=== PATIENT | male | born 1945 | race Two or more races ===

== ENCOUNTER → 2016-08-25 | Outpatient (REF) | payer MEDICARE, BC ==
[~2016-08-25] MED LIST: ALPH200C2 PO; ASCORBIC ACID PO; ASPI81TA85 PO; ATRO0.06; BIMA01SOL OU; CARV12.5 PO; CLOP75TA2 PO; CRANBERRY PO; FERR325T3 PO; FINA5TAB2 PO; GABA-279 PO; GARL10004 PO; GLUCTAB6 PO; HUMA100I5 SC; HYDR-3713 PO; IRONTAB3 PO; LASI40TA PO; LASI80TA PO; LEVE1INJ5 SC; PHOS667C5 PO; TRAM50TA2 PO; VITA100072 PO; VITA2000 PO
== END ==
LOC: M LAB REF 17:09
PROVIDERS: ATTEND Internal Medicine Nephrology
DX: N39.0 Urinary tract infection, site not specified (principal); R31.9 Hematuria, unspecified

== ENCOUNTER 2017-01-20 12:03 | Inpatient (IN) | payer MEDICARE, BC ==
[~2017-01-20] VITALS: Ht 182.9 cm; Wt 132.9 kg
[2017-01-20] MEDS ORDERED: ZOCO10TA PO ×2 (12:24→14:48)
[2017-01-20] MEDS ORDERED: CINA30TA PO ×2 (12:24→14:48)
[2017-01-20] MEDS ORDERED: LANT50TA PO (12:24)
[2017-01-20] MEDS ORDERED: CARV3.12 PO ×2 (12:24→14:48)
[2017-01-20] MEDS ORDERED: LANT500C PO ×2 (12:24→14:48)
[2017-01-20] MEDS ORDERED: GLUC15002 PO (12:24)
[2017-01-20] MEDS ORDERED: PANTOPRAZOLE 40MG INJ (PROTONIX) (C9113) IV ONE (12:30)
[2017-01-20 12:49] LABS: BASO % 0.3 % (0.0-1.0); EOS # 0.2 10^3/uL (0.0-0.50); EOS % 1.7 % (0.0-3.0); IMMATURE GRANULOCYTE % 0.6 % (0-0); LYMPH # 1.2 10^3/uL (1.5-4.5); LYMPH % 11.1 % (24.0-44.0); MEAN CORPUSCULAR HEMOGLOBIN 36.5 pg (27.0-33.0); MEAN CORPUSCULAR HGB CONC 31.5 g/dl (32.0-36.5); MONO # 1.3 10^3/uL (0.0-0.8); NEUTROPHILS # 7.8 10^3/uL (1.8-7.7); NEUTROPHILS % 74.3 % (36.0-66.0); PLATELET COUNT, AUTOMATED 246 10^3/uL (150-450); RED CELL DISTRIBUTION WIDTH 20.1 % (11.5-14.5); WHITE BLOOD COUNT 10.4 10^3/uL (4.0-10.0)
[2017-01-20 12:53] LABS: ADD MORPHOLOGY? YES; INR 1.32; MEAN CORPUSCULAR VOLUME 115.7 fl (80.0-96.0); POSITIVE MORPH POS FLAG
[2017-01-20] MEDS: NS 1,000 ML IV SCH ×2 (12:55→23:47)
[2017-01-20 13:04] LABS: ALBUMIN/GLOBULIN RATIO 0.91 (1.00-1.93); ALKALINE PHOSPHATASE 81 U/L (45-117); ALT/SGPT 161 U/L (12-78); ANION GAP 12 MEQ/L (8-16); AST/SGOT 175 U/L (7-37); BILIRUBIN,DIRECT 0.2 MG/DL (0.0-0.2); BILIRUBIN,TOTAL 0.4 MG/DL (0.2-1.0); BLOOD UREA NITROGEN 63 MG/DL (7-18); CALCIUM LEVEL 8.5 MG/DL (8.8-10.2); CARBON DIOXIDE LEVEL 28 MEQ/L (21-32); CHLORIDE LEVEL 97 MEQ/L (98-107); CREATININE FOR GFR 7.39 MG/DL (0.70-1.30); GLOMERULAR FILTRATION RATE 7.8 (>42); GLUCOSE, FASTING 139 MG/DL (83-110); POTASSIUM SERUM 4.4 MEQ/L (3.5-5.1); SODIUM LEVEL 137 MEQ/L (136-145); TOTAL PROTEIN 6.3 GM/DL (6.4-8.2)
[2017-01-20 13:12] LABS: POIKILOCYTOSIS 1+; POLYCHROMASIA 1+
--- NOTE | 2017-01-20 13:47 | REP ---
Clinical: Abdominal pain. Technique: Supine views of the chest, abdomen, and pelvis with cross-table lateral view of the abdomen. Findings: Supine view of the chest suggests cardiomegaly and diffuse chronic interstitial changes as well as calcified granuloma consistent with prior granulomas disease. Left lower lobe fibroatelectatic changes are nonspecific. Supine and cross-table lateral views of the abdomen and pelvis demonstrate nonspecific bowel gas pattern. No evidence for bowel obstruction or obvious perforation. Skeletal structures demonstrate degenerative changes. No significant abnormal calcifications. Impression: Chronic-appearing changes involving the chest and abdomen. Nonspecific bowel gas pattern without obstruction. Cannot exclude left lower lobe atelectasis versus chronic changes. Signed by Ventura Hurtado MD 01/20/2017 01:38 P
[2017-01-20] MEDS ORDERED: OCUVCAP5 PO (14:48)
[2017-01-20] MEDS ORDERED: NORC1TAB4 PO (14:48)
[2017-01-20] MEDS ORDERED: ALPHTAB PO (14:48)
[2017-01-20] MEDS ORDERED: FINA5TAB2 PO (14:48)
[2017-01-20] MEDS ORDERED: RENV2TAB PO ×2 (14:48)
[2017-01-20] MEDS ORDERED: TRAM50TA2 PO (14:48)
[2017-01-20] MEDS ORDERED: GINK60CA2 PO (14:48)
[2017-01-20] MEDS ORDERED: GLUCPOW24 PO (14:48)
[2017-01-20] MEDS ORDERED: GARL10004 PO (14:48)
[2017-01-20] MEDS ORDERED: D31000CA4 PO (14:48)
[2017-01-20] MEDS ORDERED: RENATAB5 PO (14:48)
[2017-01-20] MEDS ORDERED: ASPI81TA85 PO (14:48)
[2017-01-20] MEDS ORDERED: NEUR100C PO (14:48)
[2017-01-20] MEDS ORDERED: B121000T PO (14:48)
[2017-01-20] MEDS ORDERED: SIMB1SUS OD (14:48)
[2017-01-20] MEDS ORDERED: INSUDET SC (14:48)
[2017-01-20] MEDS ORDERED: CLOP75TA2 PO (14:48)
[2017-01-20] MEDS ORDERED: HUMA100I3 SC (14:48)
[2017-01-20] MEDS ORDERED: BIMA01SOL OU (14:48)
[2017-01-20] MEDS: PANTOPRAZOLE SODIUM 40 MG in D5W 50 ML IV SCH ×2 (15:00→23:45)
[2017-01-20] MEDS ORDERED: ONDANSETRON 4MG/2ML VIAL (J2405) IV PRN (15:00)
[2017-01-20] MEDS ORDERED: GLUCOSE 4 GM CHEW TABLET PO PRN (15:15)
[2017-01-20] MEDS ORDERED: DEXTROSE 50% 50 ML SYRINGE IV PRN (15:15)
[2017-01-20] MEDS ORDERED: GLUCAGON FOR INJ 1 MG VIAL (J1610) SC PRN (15:15)
[2017-01-20 15:54] LABS: RETIC HEMOGLOBIN EQUIVALENT 35.8 pg (24-36); RETICULOCYTE % 9.2 % (0.5-1.5)
[2017-01-20 16:40] LABS: FERRITIN 5244 NG/ML (26-388); PERCENT SATURATION 19.2 % (19.7-50.0); TOTAL IRON BINDING CAPACITY 229 UG/DL (250-450)
[2017-01-20 16:43] VITALS: BP 128/54
[2017-01-20] MEDS: HumaLOG INSULIN (NovoLOG) PER UNIT SC SCH ×2 (17:30→21:00)
--- NOTE | 2017-01-20 17:42 | REP ---
Clinical: Right upper quadrant pain. Technique: Real time huizar scale ultrasound examination using curved array transducer. Findings: Examination is limited by body habitus and associated technical factors The liver demonstrates diffuse fatty infiltration with poor through transmission, but no obvious focal hepatic lesion identified. The pancreas is incompletely evaluated. The gallbladder is normal and without gallstones, wall thickening, or pericholecystic fluid. Common bile duct is not identified, but no intrahepatic biliary ductal dilatation is noted. The right kidney demonstrates cortical thinning and normal reniform shape without hydronephrosis measuring 10.4 x 4.9 x 5.2 cm. No ascites. Impression: Limited examination demonstrates hepatosteatosis. Signed by Ventura Hurtado MD 01/20/2017 05:34 P
[2017-01-20] MEDS ORDERED: (RENVELA) SEVELAMER **CARBONate** 800 MG TAB PO SCH (18:00)
--- NOTE | 2017-01-20 18:14 | ECGEPIP ---
Stationary ECG Study [facility] - ED Test Date: 2017-01-20 Pat Name: KARSTEN OROSCO Department: Room: [place] [address] Gender: M [employer]: janell : 1945 Requested By: NOHEMY MARCUM Order Number: [id number] Reading MD: Giselle Harris Measurements Intervals [place] Rate: 79 P: NM: 0 QRS: 51 QRSD: 117 T: 139 QT: 403 QTc: 463 Interpretive Statements SINUS RHYTHM ANTERIOR MYOCARDIAL INFARCTION, PROBABLY OLD NSTTW ABNORMALITY Electronically Signed On 01-20-2017 18:14:27 EST by Giselle Harris
[2017-01-20] MEDS: CINACALCET 30 MG TAB (SENSIPAR) PO SCH (18:43)
--- NOTE | 2017-01-20 19:53 | HPE ---
DATE OF ADMISSION: 01/20/2017 PRIMARY CARE PROVIDER: Dr. Casper. SEMICONDU[employer] P[employer] PLATEMAKER: Dr. Moore. CHIEF COMPLAINT: Rectal bleeding. HISTORY OF PRESENT ILLNESS: This is a 71-year-old male patient with underlying medical history of end-stage renal disease on hemodialysis Monday, Monday, Monday, also a history of type 2 diabetes, hypertension, stroke with left lower extremity weakness as well as right eye vision loss, baseline ambulating with a walker, morbid obesity, patient on aspirin and Plavix, presented with since Monday rectal bleeding on average one time per day. Last bowel movement was earlier today. Initially he thought it was hemorrhoid, but the problem persisted. Subsequently the patient presented to the emergency department (ED). In the emergency room, the patient looks very pale and also reported lightheadedness especially with ambulation. Found to have a hemoglobin of 5.8. Denies any abdominal pain, chest pain, pressure or discomfort, shortness of breath. Denies any fevers or chills. 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 The patient denies any history of coronary arterial disease, congestive heart failure. ALLERGIES: No known drug allergies. PAST MEDICAL HISTORY: 1. End-stage renal disease on dialysis. 2. Type 2 diabetes, insulin dependent. 3. Hypertension. 4. Cerebrovascular accident (CVA). 5. Morbid obesity. PAST SURGICAL HISTORY: 1. Right hip replacement. 2. Bilateral cataracts. 3. Left arm fistula. 4. Appendectomy. 5. Spine surgery. FAMILY HISTORY: Father with history of seizure, congestive heart failure (CHF) at 74, and mother with diabetes. SOCIAL HISTORY: The patient denies history of smoking, admits to alcohol use, and no illicit drug use. Lives at home, taken care of by . REVIEW OF SYSTEMS: Reported bright red blood per rectum and appears to be pale. Reported lightheadedness with ambulation. All other review of systems is negative. HOME MEDICATIONS: - [place] 5/325 by mouth every six hours as needed - aspirin 81 mg by mouth daily - Lumigan eye drops at bedtime - Coreg 3.125 mg twice a day on Monday, , Monday, Monday, and 3.125 mg by mouth daily on dialysis days Monday, Monday, Monday - vitamin D 1000 units by mouth at bedtime - Sensipar 30 mg by mouth every evening - Plavix 75 mg every evening - vitamin B12 1000 mcg by mouth at bedtime - finasteride 5 mg by mouth every evening - gabapentin 100 mg by mouth twice a day as needed - garlic by mouth at bedtime - ginkgo extract 60 mg by mouth at bedtime - glucosamine two tablets by mouth at bedtime - Levemir 70 units subcutaneous twice a day - Humalog before meals via sliding scale - lanthanum 500 mg by mouth three times a day - multivitamin one capsule at bedtime - Fabienne-Julieth one tablet by mouth at bedtime - Renvela 4000 mg by mouth with meals - Renvela 1600 mg by mouth with snacks - Zocor 10 mg by mouth at bedtime - tramadol 50 mg by mouth every four hours as needed PHYSICAL EXAMINATION: VITAL SIGNS: Temperature 96.7, pulse 104, respirations 20, blood pressure 128/58, pulse oximetry 98% on room air. Right pupil is nonreactive to light. GENERAL: The patient alert, obese, in no acute distress. HEENT: Pale. Normocephalic, atraumatic. PULMONARY: Bilaterally clear to auscultation. CARDIAC: Regular, S1, S2. ABDOMEN: Soft, nontender. Positive bowel sounds. EXTREMITIES: No clubbing, cyanosis or edema. Left lower extremity slightly weaker than the right. NEUROLOGIC: No focal deficit. RECTAL EXAM: Done in the ED shows trace blood, occult positive. ELECTROCARDIOGRAM: Shows sinus rhythm. No ST segment changes. LABORATORY DATA: WBC 10.4, hemoglobin and hematocrit 5.8 over 18.4, platelets 246. Chemistry: Sodium 137, potassium 4.4, chloride 97, bicarbonate 28, BUN 63, creatinine 7.39. Bilirubin negative. AST 175, ALT 163. ASSESSMENT AND PLAN: This is a 71-year-old male patient with underlying medical history of end-stage renal disease, type 2 diabetes, hypertension, cerebrovascular accident (CVA) with left-sided weakness and right-eye blindness, baseline ambulating with a walker, morbid obesity with non-alcoholic steatohepatitis (DIMAS), who presented with bright red blood per rectum. 1. Bright red blood per rectum with symptomatic anemia with acute blood loss anemia: Serial hemoglobin and hematocrit. Orthostatic vital signs. Will give the patient two units packed red blood cells (PRBCs). Transfuse as needed. Avoid overhydrating given the patient's end-stage renal disease. Protonix drip. Holding aspirin and Plavix given the patient has remote history of stroke and with active bleeding. Dr. Nowak of gastroenterology has been consulted. If patient worsens, will consider platelet transfusion, but in the meantime, we will monitor and if patient worsens, will consider giving DDAVP. 2. End-stage renal disease: Dr. Moore, nephrology, has been consulted. Continue home medication. Dialysis as per nephrology. 3. Type 2 diabetes: The patient's basal insulin dose has been reduced. Continue fingerstick every six hours, fingerstick before meals and at bedtime. Clear liquid diet for now. Followup fingersticks. Adjust as needed. 4. Hypertension: Continue beta lavinia with holding parameters. Monitor blood pressure. 5. Cerebrovascular accident (CVA): Holding aspirin and Plavix. Continue statin. Given the patient is having active bleed, monitor blood pressure. Physical therapy. 6. Transaminitis likely secondary to non-alcoholic steatohepatitis (DIMAS): Ultrasound of abdomen appreciated. Hepatitis panel has been ordered. Continue to monitor. 7. Morbid obesity complicating care. 8. Deep venous thrombosis (DVT) prophylaxis: Sequential compression device. DISPOSITION: Pending clinical improvement. Monitor hemoglobin and hematocrit. Gastroenterology consultation. Possible esophagogastroduodenoscopy (EGD)/colonoscopy.
[2017-01-20 20:00] VITALS: BP 120/55
[2017-01-20 23:43] VITALS: BP 118/56
[2017-01-20] MEDS: LANTHANUM CARBONATE 500 MG CHEW TABLET PO SCH (23:46)
[2017-01-20] MEDS: FINASTERIDE 5 MG TAB PO SCH (23:46)
[2017-01-20] MEDS: SENOKOT S TAB PO SCH (23:46)
[2017-01-20] MEDS: OCUVITE 1 TAB PO SCH (23:46)
[2017-01-20] MEDS: LEVEMIR (INSULIN DETEMIR) 1 UNITS/0.01ML SC SCH (23:46)
[2017-01-20] MEDS: SIMVASTATIN 10 MG TAB PO SCH (23:47)
[2017-01-20] MEDS: VITAMIN D 1,000 INTERNATIONAL UNITS TABLET PO SCH (23:47)
[2017-01-20] MEDS: CARVedilol 3.125 MG TAB PO SCH (23:47)
[2017-01-21] MEDS: PANTOPRAZOLE SODIUM 40 MG in D5W 50 ML IV SCH ×4 (03:04→16:53)
[2017-01-21 04:00] VITALS: BP 117/54
[2017-01-21 04:32] LABS: MEAN CORPUSCULAR HEMOGLOBIN 34.8 pg (27.0-33.0); MEAN CORPUSCULAR HGB CONC 32.4 g/dl (32.0-36.5); MEAN CORPUSCULAR VOLUME 107.5 fl (80.0-96.0); PLATELET COUNT, AUTOMATED 218 10^3/uL (150-450); RED CELL DISTRIBUTION WIDTH 22.6 % (11.5-14.5); WHITE BLOOD COUNT 9.8 10^3/uL (4.0-10.0)
[2017-01-21 04:39] LABS: INR 1.31
[2017-01-21 04:54] LABS: ALBUMIN 2.6 GM/DL (3.2-5.2); ALBUMIN/GLOBULIN RATIO 0.9 (1.00-1.93); BILIRUBIN,TOTAL 0.5 MG/DL (0.2-1.0); CALCIUM LEVEL 7.8 MG/DL (8.8-10.2); CREATININE FOR GFR 8.08 MG/DL (0.70-1.30); PHOSPHORUS LEVEL 5.9 MG/DL (2.5-4.9); POTASSIUM SERUM 4.4 MEQ/L (3.5-5.1); TOTAL PROTEIN 5.5 GM/DL (6.4-8.2)
[2017-01-21] MEDS: LANTHANUM CARBONATE 500 MG CHEW TABLET PO SCH ×3 (06:14→20:06)
[2017-01-21] MEDS: GABAPENTIN 100 MG CAP PO PRN (06:14)
[2017-01-21] MEDS: SENOKOT S TAB PO SCH ×2 (06:15→20:08)
[2017-01-21] MEDS: PREPARATION H OINTMENT (HEMORRHOID) PR PRN ×2 (06:15→20:21)
[2017-01-21] MEDS: HumaLOG INSULIN (NovoLOG) PER UNIT SC SCH ×4 (06:53→20:32)
[2017-01-21] MEDS: CARVedilol 3.125 MG TAB PO SCH ×2 (07:51→20:32)
[2017-01-21 08:00] VITALS: BP 109/51
--- NOTE | 2017-01-21 09:32 | IPNPDOC ---
Subjective Date Seen The patient was seen on 01/21/17. Subjective Chief Complaint/HPI The patient is a 71-year-old male admitted with a reason for visit of Gi Bleed. Events since last encounter patient complains of feeling extremely weak and tired so could not go for his dialysis yesterday. He was hardly able to get out of bed so came to the hospital . He received 2 units of prbc overnight feels a little better. denies any sob , denies any chest pain or sob , denies any abdominal pain , nausea or vomiting or diarrhea. Does complain of bright red blood from rectum which he has noticed for a few days. denied any fever or chills Objective Physical Examination General Exam: Positive: Alert, Cooperative, No Acute Distress Eye Exam: Positive: PERRLA, Conjunctiva & lids normal, EOMI, Negative: Sclera icteric ENT Exam: Positive: Atraumatic, Mucous membr. moist/pink, Pharynx Normal Chest Exam: Positive: Rales, Diminished Heart Exam: Positive: Rate Normal, Regular Rhythm, Normal S1, Normal S2, Negative: Murmurs, Rubs Telemetry: Positive: No significant arrhythmia Abdomen Exam: Positive: Normal bowel sounds, Soft, Negative: Tenderness Extremity Exam: Positive: Edema Skin Exam: Positive: Nl turgor and temperature, Negative: Rash, Breakdown Assessment /Plan Problems (1) GI bleed Status: Acute Problem Text: looks like lowere gib . GI has been consulted ASA and Plavix on hold, on pantoprazole infusion. (2) Anemia Status: Acute Problem Text: multifactorial Acute blood loss anemia from GIB and anemia of chronic disease due to ESRD. received 2 units of PRBC will receive 2 more. during HD. (3) ESRD (end stage renal disease) Status: Chronic Problem Text: HD today (4) DIMAS (nonalcoholic steatohepatitis) Status: Chronic Problem Text: possibly for obesity has elevated LFTs, US shows fatty live (5) Transaminitis Status: Chronic Problem Text: possibly due to DIMAS have ordered hepatitis panel , Abdominal US showed fatty liver. Pateint was also on INH this year for treatment of pulmonary TB though has finished few months ago. His ferritin level > 5000 No history of large amounts of blood transfusion. Could be acute phase reactant. Ferritin levels in HD unit never this much elevated. Have ordered hemochromatosis panel (6) Diabetes Status: Chronic Problem Text: with neuropathy (7) Hypertension Status: Chronic (8) History of CVA (cerebrovascular accident) Status: Chronic Problem Text: with residual left lower extremity weakness and right eye vision loss. 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 (12) Hyperphosphatemia Status: Chronic (13) BPH (benign prostatic hyperplasia) Status: Chronic (14) Tuberculosis Status: Resolved Problem Text: history of pulmonary tuberculosis diagnosed in holl[place] treated for 9 months. finished treatment about 6 months ago . Plan/VTE VTE Prophylaxis Ordered?: Yes VS, I&O, 24H, Fishbone Vital Signs/I&O Vital Signs Date Time Temp Pulse Resp B/P (MAP) Pulse Ox O2 Delivery O2 Flow Rate FiO2 01/21/17 08:00 97.0 70 18 109/51 (70) 96 Room Air I&O- Last 24 Hours up to 6 AM 01/22/17 06:00 Intake Total 480 ml Balance 480 ml Laboratory Data 24H LABS Laboratory Tests 2 01/20/17 12:34: Immature Granulocyte % (Auto) 0.6H, White Blood Count 10.4H, Red Blood Count 1.59L, Hemoglobin 5.8*L, Hematocrit 18.4L, Mean Corpuscular Volume 115.7H, Mean Corpuscular Hemoglobin 36.5H, Mean Corpuscular Hemoglobin Concent 31.5L, Red Cell Distribution Width 20.1H, Platelet Count 246, Neutrophils (%) (Auto) 74.3H , Lymphocytes (%) (Auto) 11.1L, Monocytes (%) (Auto) 12.0H, Eosinophils (%) ( Auto) 1.7, Basophils (%) (Auto) 0.3, Neutrophils # (Auto) 7.8H, Lymphocytes # ( Auto) 1.2L, Monocytes # (Auto) 1.3H, Eosinophils # (Auto) 0.2, Basophils # (Auto ) 0.0, Immature Granulocyte # (Auto) 0.1H, Reticulocyte # (auto) 149.5H, Nucleated Red Blood Cells % (auto) 3.2H, Platelet Estimate NORMAL, Polychromasia 1+, Poikilocytosis 1+, Macrocytosis 3+, Percent Reticulocyte Count 9.2H, Reticulocyte Hemoglobin Equivalent 35.8, Prothrombin Time 16.7H, Prothromb Time International Ratio 1.32, Anion Gap 12, Glomerular Filtration Rate 7.8L, Calcium Level 8.5L, Iron Level 44L, Total Iron Binding Capacity 229L , Transferrin % Saturation 19.2L, Ferritin 5244H, Aspartate Amino Transf (AST/ SGOT) 175H, Alanine Aminotransferase (ALT/SGPT) 161H, Alkaline Phosphatase 81, Total Bilirubin 0.4, Direct Bilirubin 0.2, Total Protein 6.3L, Albumin 3.0L, Albumin/Globulin Ratio 0.91L, Lipase 139 01/20/17 16:53: Bedside Glucose (Misc Panel) 93 01/20/17 21:23: Bedside Glucose (Misc Panel) 130H 01/21/17 03:58: Nucleated Red Blood Cells % (auto) 2.7H, Prothrombin Time 16.6H, Prothromb Time International Ratio 1.31, Anion Gap 13, Glomerular Filtration Rate 7.0L, Calcium Level 7.8L, Aspartate Amino Transf (AST/SGOT) 147H, Alanine Aminotransferase (ALT/SGPT) 172H, Alkaline Phosphatase 65, Total Bilirubin 0.5, Total Protein 5.5L, Albumin 2.6L, Albumin/Globulin Ratio 0.90L, Blood Urea Nitrogen 69H, Creatinine 8.08H, Sodium Level 137, Potassium Level 4.4, Chloride Level 100, Carbon Dioxide Level 24, Phosphorus Level 5.9H, Magnesium Level 2.0 CBC/BMP Laboratory Tests 01/20/17 12:34 Red Blood Count 1.59 L, Mean Corpuscular Volume 115.7 H, Mean Corpuscular Hemoglobin 36.5 H, Mean Corpuscular Hemoglobin Concent 31.5 L, Red Cell Distribution Width 20.1 H, Neutrophils (%) (Auto) 74.3 H, Lymphocytes (%) (Auto ) 11.1 L, Monocytes (%) (Auto) 12.0 H, Eosinophils (%) (Auto) 1.7, Basophils (% ) (Auto) 0.3, Neutrophils # (Auto) 7.8 H, Lymphocytes # (Auto) 1.2 L, Monocytes # (Auto) 1.3 H, Eosinophils # (Auto) 0.2, Basophils # (Auto) 0.0 01/20/17 22:57 01/21/17 03:58 Red Blood Count 2.01 L, Mean Corpuscular Volume 107.5 H, Mean Corpuscular Hemoglobin 34.8 H, Mean Corpuscular Hemoglobin Concent 32.4, Red Cell Distribution Width 22.6 H, Calcium Level 7.8 L, Phosphorus Level 5.9 H, Aspartate Amino Transf (AST/SGOT) 147 H, Alanine Aminotransferase (ALT/SGPT) 172 H, Alkaline Phosphatase 65, Total Bilirubin 0.5, Total Protein 5.5 L, Albumin 2.6 L Microbiology Microbiology 01/20/17 Stool Occult Blood (CHAN) - Final, Complete RAY,MAHESH KINGSLEY Jan 21, 2017 09:32
[2017-01-21 13:07] VITALS: BP 115/57
[2017-01-21] MEDS: LEVEMIR (INSULIN DETEMIR) 1 UNITS/0.01ML SC SCH ×2 (13:13→20:38)
[2017-01-21 16:00] VITALS: BP 111/55
--- NOTE | 2017-01-21 16:14 | CR ---
DATE OF CONSULTATION: 01/20/2017 CONSULTATION REPORT FOR: Nay Rehman MD REASON FOR CONSULTATION: Is to assist in the management of end-stage renal disease and acute blood loss anemia. 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 He has multiple other chronic medical problems as numerated below. The patient was brought to the emergency room today as he was noticed to have large amount of blood in the toilet. He was found to have a hemoglobin of 5.8 here and is being admitted for further investigations and management. The patient is regularly dialyzed on Monday, Monday and Monday schedule and he missed his dialysis today. A nephrology consultation was requested for need for dialysis. PAST MEDICAL AND SURGICAL HISTORY: Significant for: 1. Longstanding diabetes, insulin dependent. 2. Hypertension. 3. Prior history of stroke. 4. Morbid obesity. 5. End-stage renal disease requiring maintenance hemodialysis. 6. History of pulmonary tuberculosis treated in recent past. 7. History of severe peripheral neuropathy and inability to ambulate. Past surgical history is significant for right hip replacement, bilateral cataract surgery, left arm AV fistula, appendectomy and spine surgery. FAMILY HISTORY: Negative for end-stage renal disease. Father with history of seizures and congestive heart failure at 74 and mother with diabetes. PERSONAL AND SOCIAL HISTORY: The patient is and lives with his . He does not smoke or drink. There is no history of drug use. REVIEW OF SYSTEMS: The patient is very pale looking and weak. He denies any falls. There is no history of fever or chills. He has diabetic retinopathy but denies any headache or any recent visual changes. Nose and throat are unremarkable. Cardiovascular system is negative for chest pain or dyspnea. Respiratory system negative for hemoptysis or cough. GI system is significant for rectal bleeding with fresh blood. He denies any melena stools. There is no history of vomiting or abdominal pain. system is negative for dysuria or hematuria. His pulmonary system is negative for hemoptysis or pleuritic type of chest pain. He has been treated for tuberculosis within the last 1 year or so. Musculoskeletal system is significant for inability to ambulate. He is mostly in the motorized chair. Neurological system is significant for prior stroke and severe neuropathy. Hematological system significant for anemia of chronic kidney disease. Now he has anemia of acute blood loss. Psychosocial system negative for depression or anxiety. Skin is negative for rash or ulcers. MEDICATIONS: Home medications include: - Dazey one tablet every 6 hours as needed - aspirin 81 mg daily - Coreg 3.125 mg twice a day - vitamin D 1000 units daily - Sensipar 30 mg daily - Plavix 75 mg daily - B12 1000 mcg daily - gabapentin 100 mg three times a day - Levemir insulin 70 units twice a day - Humalog insulin per sliding scale - Fosrenol 500 mg twice a day - multivitamin one tablet daily - Fabienne-Julieth one tablet daily - Renvela 1600 mg three times a day with meals - Zocor 10 mg daily - tramadol 50 mg as needed for pain PHYSICAL EXAMINATION: The patient is awake and alert at the time of my visit. He looks quite pale but not in any acute distress. The patient is examined in the emergency room and stretcher. Temperature 96.7 degrees Fahrenheit, heart rate 104 per minute and respiratory rate 20 per minute. Blood pressure 128/54 mmHg and oxygen saturation 98% on room air. Head is atraumatic. Pupils equal and reactive to light and sclerae is anicteric. Nose and throat are unremarkable. Neck is supple and JVD is not elevated. There are no abnormal cervical lymph nodes. Heart exam reveals tachycardia but no pericardial friction rub. Lungs have slightly diminished breath sounds at bases but no wheezing or rales. Abdomen is soft and nontender and bowel sounds are present. There is no palpable organomegaly. Extremities have no cyanosis or clubbing. AV fistula in his left arm is patent. Skin has no rash or ulcers. Neurologically he is awake, alert and oriented times three. LABORATORY DATA: WBC count 10.4, hemoglobin 5.8 and hematocrit 18.4. Sodium 137 and potassium 4.4. BUN 63 and creatinine 7.39. Calcium level 8.5, iron 44, saturation 19.2 and ferritin 5244. Albumin is 3.0 and total protein 6.3. PROBLEMS: 1. End-stage renal disease. The patient missed his dialysis today and we will plan to dialyze him again tomorrow. At this point there is no emergent indication for dialysis as his volume status is well-compensated and electrolytes are within normal range. 2. Acute blood loss anemia. The patient has acute rectal bleed with significant blood loss. I would recommend to transfuse him 2 units of packed RBCs today and then we will consider further transfusion during dialysis tomorrow. Any anticoagulation should be held at this point as the patient has acute bleeding. 3. Hypertension. The patient does have history of hypertension. However, due to acute blood loss, his blood pressure is low. I would recommend to hold any antihypertensive medications and use only as needed. 4. Secondary hyperparathyroidism. The patient is likely to be nothing by mouth. I would suggest to hold off on his Renvela and continue with Fosrenol only at 500 mg three times a day with meals. This should be held when the patient is nothing by mouth. We will continue with Sensipar 30 mg daily and also consider to start calcitriol after checking his medication list in outpatient dialysis clinic. I thank you for involving me in the care of Mr. Chang. I will follow him along with you.
--- NOTE | 2017-01-21 17:34 | CR.PDOC ---
[facility] Consultation Consultation Retrospective note: Patient was seen and examined on Jan 20, 2017 at 16:30 Primary physician/ hospitalist: Dr. Rehman, Dr. Berkley Calvin. Reason for consult: GI bleeding. 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 Labs showed severe anemia with drop in Hemoglobin to 5. GI was consulted for GI bleeding. Patient reports having one bowel movement per day for the last 5 days with associated blood in the stool. Patient denies any other GI symptoms. Patient reports symptoms of fatigue and decreased exercise tolerance. Pertinent negative GI symptoms: Patient denies nausea, vomiting, diarrhea, abdominal pain, loss of appetite, early satiety or unintentional weight loss. No history of hematemesis, melena. Patient reports regular bowel movements. Review of Systems: GI: as stated above CVS: No chest pain, No palpitations, No leg swelling. RS: No Shortness of breath, No Wheezing, no cough RACE BOARD ATTENDANT: No dizziness, No motor weakness, No sensory problems Hematology: No bruising, No gum bleeding, Musculoskeletal: No joint pain, ambulating well. Skin: No rash : No hematuria, No burning sensation of the urine ENT: No ear discharge/ pain, No dysphagia. Eyes: No photophobia. Home medications: reviewed. Antithrombotic agents -on Plavix. Medical h/o: As above. Surgical h/o: None on abdomen. Social h/o: Alcohol social, smoking denies, IVDA/ drugs denies. Family h/o of GI cancers - None Prior Endoscopies: --- EGD none in the past --- Colonoscopy none Prior GI evaluation: None in [facility] Exam: Vitals: reviewed General: Alert and oriented x 3, not in distress HEENT: NO pallor, no icterus. Normal oropharynx, NO cervical lymph nodes. Chest: symmetric with bilateral clear air entry, CVS: S1, S2 heard, normal, no murmurs . Abdomen: non-distended, no surgical scars, soft, non-tender, no palpable masses , normal bowel sounds heard. Rectal exam: slightly altered blood in stools but no blood clots.. Extremities: no pedal edema, pulses palpable. RACE BOARD ATTENDANT: no focal motor or sensory deficits. Moves all extremities Skin: no rash. Labs: reviewed. Imaging: reviewed Ultrasound abdomen showed steatohepatosis, no ascites. Impression: -- Acute drop in hemoglobin and hematocrit with bright red bleeding per rectum likely lower GI bleeding from possible AVM versus diverticular bleeding versus colon polyps/rule out colon mass. Less likely upper GI bleeding but need to rule out PUD and gastric/small bowel AVMs -- Abnormal transaminitis - likely from NAFLD. Prior work up negative for vitral Hepatitis B and C. Needs further evaluation to r/o autoimmune and other metabolic hepatitis. Recommendations: - Patient educated about the test results, possible differential diagnoses and All questions answered. - Clear liquid diet. - Patient and his family educated about the need for EGD and colonoscopy for further evaluation. - The procedures, indications, risks (bleeding, perforation, infection, hypotension, respiratory depression, allergy, need for endotracheal intubation, surgery, colostomy, cardiac arrest, even ), benefits, limitations (e.g., missing a lesion), and all other alternatives (including no intervention) were explained to the patient and his (HCP) who understood and agreed for the procedures. Patients who is the healthcare proxy consented for the procedure and signed the consent form. - Procedures will be planned on post dialysis day to minimize electrolyte related complications. - GoLYTELY 4 L and Dulcolax 20 mg on Monday. - Nothing by mouth for 4 hours before procedure on Monday. - For abnormal LFts - will obtain JESUS, AMA, ASMA, LKMA, HBsAb, HAV igM. - weight loss of atleast 10 % of the current weight over next 6 months. - Avoid hepatotoxic medications. - Further evalaution of abnormal LFTs in outpatient clinic. Plan of care discussed with patient and primary team. Patient verbalized understanding and agreed with the plan. Allergies Coded Allergies: No Known Allergies (Unverified , 01/20/17) Home Medications Scheduled (Fabienne-Julieth) 1 Tab Tab, 1 TAB PO QHS, (Reported) (Simbrinza 1-0.2 %) 1 Paz Paz, 1 DROP OD ASDIRECTED, (Reported) use bid on non dialysis days mon//sat/sun. uses qpm on dialysis days (Garlic) 1,000 Mg Cap, 1,000 MG PO QHS, (Reported) (Glucosamine & Chr... 5320-9101-216 mg-mg-Unit) 1 Pow Pow, 2 TAB PO QHS, ( Reported) Aspirin (Aspir-81) 81 Mg Tab, 81 MG PO DAILY, (Reported) Bimatoprost (Lumigan) 50 Drop/2.5 Ml Yamilet, 1 DROP OU QHS, (Reported) Carvedilol (Carvedilol) 3.125 Mg Tab, 3.125 MG PO ASDIRECTED, (Reported) takes bid on monday, , monday and monday Carvedilol (Carvedilol) 3.125 Mg Tab, 3.125 MG PO ASDIRECTED, (Reported) take once daily in the evening on dialysis days, monday, monday and monday Cholecalciferol (D3) 1,000 Unit Cap, 1,000 UNIT PO QHS, (Reported) Cinacalcet Hydrochloride (Sensipar) 30 Mg Tab, 30 MG PO QPM, (Reported) Clopidogrel Bisulfate (Clopidogrel) 75 Mg Tab, 75 MG PO QPM, (Reported) Cyanocobalamin (B12) 1,000 Mcg Tab, 1,000 MCG PO QHS, (Reported) Finasteride (Finasteride) 5 Mg Tab, 5 MG PO QPM, (Reported) Ginkgo Biloba Extract (Ginkgo Biloba Memory Enha) 60 Mg Cap, 60 MG PO QHS, ( Reported) Insulin Detemir (Levemir) 1 Units/0.01 Ml Susp, 70 UNITS SC BID, (Reported) Insulin Human Lispro (Humalog) 100 Unit/Ml Inj, 1 DOSE SC AC, (Reported) per sliding scale Lanthanum Carbonate (Lanthanum Carbonate) 500 Mg Chw, 500 MG PO TID, (Reported) Lipoic Acid (Thioctic Acid) (Alpha Lipoic Acid) 200 Mg Tab, 200 MG PO QHS, ( Reported) Multivitamins (Ocuvite Eye Health Formul) 1 Cap Cap, 1 CAP PO QHS, (Reported) Sevelamer Carbonate (Renvela) 800 Mg Tab, 4,000 MG PO WM, (Reported) Sevelamer Carbonate (Renvela) 800 Mg Tab, 1,600 MG PO ASDIRECTED, (Reported) with snacks Simvastatin (Zocor) 10 Mg Tab, 10 MG PO QHS, (Reported) Scheduled PRN Acetaminophen/Hydrocodone (Crapo 5-325 mg) 1 Tab Tab, 1 TAB PO Q6HP PRN for PAIN , (Reported) Gabapentin (Neurontin) 100 Mg Cap, 100 MG PO BID PRN for foot pain, (Reported) Tramadol HCl (Tramadol HCl) 50 Mg Tab, 50 MG PO Q4HP PRN for PAIN, (Reported) CHRISTIAN GUZMAN MD Jan 21, 2017 17:34
[2017-01-21] MEDS ORDERED: GOLYTELY SOLN 4000 ML BTL PO ONE (18:00)
[2017-01-21] MEDS: CINACALCET 30 MG TAB (SENSIPAR) PO SCH (18:15)
[2017-01-21] MEDS ORDERED: BISACODYL 5 MG TAB PO ONE (20:00)
[2017-01-21] MEDS: OCUVITE 1 TAB PO SCH (20:08)
[2017-01-21] MEDS: VITAMIN D 1,000 INTERNATIONAL UNITS TABLET PO SCH (20:08)
[2017-01-21] MEDS: FINASTERIDE 5 MG TAB PO SCH (20:08)
[2017-01-21] MEDS: SIMVASTATIN 10 MG TAB PO SCH (20:08)
[2017-01-21] MEDS: ACETAMINOPHEN TAB 650MG DOSE (2X325MG) PO PRN (20:11)
[2017-01-21 20:16] VITALS: BP 110/50
--- NOTE | 2017-01-21 21:05 | IPN ---
DATE: 01/21/2017 SUBJECTIVE: Mr. Chang is seen this morning on his bedside during hemodialysis. He has known history of end-stage renal disease secondary to diabetic nephropathy and has been on maintenance hemodialysis for about three years. He was admitted last evening with rectal bleeding and severe symptomatic anemia. He has already received two units of packed red blood cells (RBCs) last evening. The patient feels better this morning and denies any dyspnea or chest pain. He has no nausea or vomiting and has been only on liquid diet. He has no fever or chills. He denies any further rectal bleeding since admission. PHYSICAL EXAMINATION: Temperature 97 degrees Fahrenheit, heart rate 70 per minute and respiratory rate 18 per minute. Blood pressure 110/50 mmHg and oxygen saturation 96% on room air. Head is atraumatic. Pupils are equal and reactive to light and sclerae are anicteric. Ears, nose and throat are unremarkable. Neck is supple and without jugular venous distention (JVD) or thyroid enlargement. Heart sounds are regular and lungs sound clear to auscultation. Abdomen is soft, nontender and without a palpable organomegaly. Bowel sounds are normal. Extremities have no cyanosis or clubbing. His left arm arteriovenous (AV) fistula is patent and is being used for dialysis. Skin has no rash or ulcers and neurologically he is awake, alert and oriented times three. LABORATORY DATA: Today's labs show WBC count 9.8, hemoglobin 7.0 and hematocrit 21.6. Sodium 137 and potassium 4.4. BUN is 69 and creatinine 8.08. His iron level is 44, saturation 19%, and ferritin 5244. PROBLEMS: 1. Acute blood loss anemia. The patient has slight improvement in his hemoglobin since admission with transfusion of two units of packed red blood cells (RBCs). The patient will be transfused two more units during hemodialysis this morning. Further investigations for his gastrointestinal (GI) bleed are pending at this point. 2. End-stage renal disease. The patient is being dialyzed this morning without heparin. He is tolerating his dialysis treatment well. 3. Hypertension. Blood pressure is very well controlled at present and current antihypertensive medications are appropriate. We will continue to monitor and adjust the dose of his antihypertensives as needed. 4. Rectal bleeding. The patient denies any further bleeding since admission. He has been seen by gastroenterology. At this point the patient seems to be scheduled for upper and lower endoscopy on Monday. 5. Elevated ferritin and abnormal liver function tests (LFTs). Further investigations have already been ordered by gastroenterology (GI). The patient does not have known history for hemochromatosis and his ferritin has not been significantly elevated in the past. We will wait for serology results.
[2017-01-22] VITALS (11 sets, daily range): BP systolic 112–171; BP diastolic 55–84
[2017-01-22 04:38] LABS: MEAN CORPUSCULAR HEMOGLOBIN 33.7 pg (27.0-33.0); MEAN CORPUSCULAR HGB CONC 32.5 g/dl (32.0-36.5); MEAN CORPUSCULAR VOLUME 103.8 fl (80.0-96.0); PLATELET COUNT, AUTOMATED 192 10^3/uL (150-450); WHITE BLOOD COUNT 8.5 10^3/uL (4.0-10.0)
[2017-01-22 04:49] LABS: INR 1.33
[2017-01-22 04:58] LABS: ALBUMIN 2.5 GM/DL (3.2-5.2); ALBUMIN/GLOBULIN RATIO 0.78 (1.00-1.93); BILIRUBIN,TOTAL 0.7 MG/DL (0.2-1.0); CALCIUM LEVEL 8.3 MG/DL (8.8-10.2); CREATININE FOR GFR 5.4 MG/DL (0.70-1.30); GLOMERULAR FILTRATION RATE 11.2 (>42); MAGNESIUM LEVEL 1.9 MG/DL (1.8-2.4); POTASSIUM SERUM 3.5 MEQ/L (3.5-5.1); TOTAL PROTEIN 5.7 GM/DL (6.4-8.2)
[2017-01-22] MEDS: PANTOPRAZOLE SODIUM 40 MG in D5W 50 ML IV SCH ×7 (05:19→22:00)
[2017-01-22] MEDS: ACETAMINOPHEN TAB 650MG DOSE (2X325MG) PO PRN (06:30)
[2017-01-22] MEDS ORDERED: PREVNAR 13 VACCINE SYRINGE (CPT CODE:90670) IM ONE (09:00)
[2017-01-22] MEDS: CARVedilol 3.125 MG TAB PO SCH ×2 (09:02→20:26)
[2017-01-22] MEDS: HumaLOG INSULIN (NovoLOG) PER UNIT SC SCH ×4 (09:02→20:27)
[2017-01-22] MEDS: SENOKOT S TAB PO SCH ×2 (09:02→20:25)
[2017-01-22] MEDS: LANTHANUM CARBONATE 500 MG CHEW TABLET PO SCH ×3 (09:02→20:25)
[2017-01-22] MEDS: LEVEMIR (INSULIN DETEMIR) 1 UNITS/0.01ML SC SCH ×2 (09:03→20:25)
[2017-01-22] MEDS: NORCO, ANEXSIA 5/325MG TABLET (HYDROcodone/ACETAMINOPHEN) PO PRN ×2 (10:30→16:00)
--- NOTE | 2017-01-22 12:55 | IPNPDOC ---
Subjective Date Seen The patient was seen on 01/22/17. Subjective Chief Complaint/HPI The patient is a 71-year-old male admitted with a reason for visit of Gi Bleed. Events since last encounter Pateint says that this morning very early he had lost vision in both his eyes which lasted for about 1 hour and now has resolved. His right eye is bad from before after the stroke in 2013 however he normally sees well with the left eye and he could not see anything with that eye. did not have any other weakness. no fever or chills, no chest pain or sob , no nausea or vomiting or abdominal pain. Patient had the bowel prep last evening. going for EGD and Colonoscopy today. Objective Physical Examination General Exam: Positive: Alert, Cooperative, No Acute Distress Eye Exam: Positive: PERRLA, Conjunctiva & lids normal, EOMI, Negative: Sclera icteric ENT Exam: Positive: Atraumatic, Mucous membr. moist/pink, Pharynx Normal Chest Exam: Positive: Rales, Diminished Heart Exam: Positive: Rate Normal, Regular Rhythm, Normal S1, Normal S2, Negative: Murmurs, Rubs Telemetry: Positive: No significant arrhythmia Abdomen Exam: Positive: Normal bowel sounds, Soft, Negative: Tenderness Extremity Exam: Positive: Edema Skin Exam: Positive: Nl turgor and temperature, Negative: Rash, Breakdown Assessment /Plan Problems (1) History of CVA (cerebrovascular accident) Status: Chronic Problem Text: CVA in 2012 .with residual left lower extremity weakness and right eye vision loss. Had symptoms suggestive of TIA this morning which has resolved will get an MRI. Patients ASA and plavix are on hold due to GIB. will restart ASA as soon as possible. (2) GI bleed Status: Acute Problem Text: looks like lower gib . GI has been consulted ASA and Plavix on hold, on pantoprazole infusion. going for EGD and colonoscopy today (3) Anemia Status: Acute Problem Text: multifactorial Acute blood loss anemia from GIB and anemia of chronic disease due to ESRD. received 2 units of PRBC will receive 2 more. during HD. (4) ESRD (end stage renal disease) Status: Chronic Problem Text: HD today (5) Transaminitis Status: Chronic Problem Text: Could be due to DIMAS have ordered hepatitis panel , Abdominal US showed fatty liver. Patient was also on INH this year for treatment of pulmonary TB though has finished few months ago. His ferritin level > 5000 No history of large amounts of blood transfusion. Could be acute phase reactant. Ferritin levels in HD unit never this much elevated. Have ordered hemochromatosis panel, also ordered work up for autoimmune hepatitis. 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 (12) Hyperphosphatemia Status: Chronic (13) BPH (benign prostatic hyperplasia) Status: Chronic (14) Tuberculosis Status: Resolved Problem Text: history of pulmonary tuberculosis diagnosed in [place] treated for 9 months. finished treatment about 6 months ago . (15) Peripheral neuropathy Status: Chronic Problem Text: pateint unable to ambulate due to severe peripheral neuropathy and also residual weakness from prior stroke. Plan/VTE VTE Prophylaxis Ordered?: Yes VS, I&O, [facility] Vital Signs/I&O Vital Signs Date Time Temp Pulse Resp B/P (MAP) Pulse Ox O2 Delivery O2 Flow Rate FiO2 01/22/17 12:00 97.3 66 18 131/60 (83) 98 Room Air I&O- Last 24 Hours up to 6 AM 01/23/17 06:00 Intake Total 360 ml Balance 360 ml Laboratory Data 24H LABS Laboratory Tests 2 01/21/17 16:23: Bedside Glucose (Misc Panel) 180H 01/21/17 20:28: Bedside Glucose (Misc Panel) 232H 01/22/17 04:05: Nucleated Red Blood Cells % (auto) 1.9H, Prothrombin Time 16.8H, Prothromb Time International Ratio 1.33, Anion Gap 10, Glomerular Filtration Rate 11.2L, Blood Urea Nitrogen 38H, Creatinine 5.40H, Sodium Level 139, Potassium Level 3.5#, Chloride Level 101, Carbon Dioxide Level 28, Calcium Level 8.3L, Aspartate Amino Transf (AST/SGOT) 157H, Alanine Aminotransferase (ALT/SGPT) 220H, Alkaline Phosphatase 70, Total Bilirubin 0.7, Total Protein 5.7L, Albumin 2.5L, Magnesium Level 1.9, Albumin/Globulin Ratio 0.78L 01/22/17 10:00: 01/22/17 11:47: Bedside Glucose (Misc Panel) 124H CBC/BMP Laboratory Tests 01/21/17 17:04 01/21/17 21:57 01/22/17 04:05 Red Blood Count 2.61 L, Mean Corpuscular Volume 103.8 H, Mean Corpuscular Hemoglobin 33.7 H, Mean Corpuscular Hemoglobin Concent 32.5, Red Cell Distribution Width 24.0 H, Calcium Level 8.3 L, Aspartate Amino Transf (AST/SGOT ) 157 H, Alanine Aminotransferase (ALT/SGPT) 220 H, Alkaline Phosphatase 70, Total Bilirubin 0.7, Total Protein 5.7 L, Albumin 2.5 L 01/22/17 10:00 Microbiology Microbiology 01/20/17 Stool Occult Blood (CHAN) - Final, Complete MAHESH CEDENO MD Jan 22, 2017 12:55
--- NOTE | 2017-01-22 15:45 | IPN ---
DATE: 01/22/2017 Mr. Chang is seen this morning on his bedside. He is laying in the bed and his is present in the room. He reports that he did have completion of his bowel preparation and he is going to go for upper and lower endoscopy at 1:00 p.m. today. The patient denies any further rectal bleeding. He has no dyspnea, chest pain, nausea or vomiting. He underwent hemodialysis yesterday which he tolerated well. PHYSICAL EXAMINATION: On physical examination, temperature 97.3 degrees Fahrenheit, heart rate 66 per minute and respiratory rate 18 per minute. Blood pressure 131/60 mmHg and oxygen saturation 98% on room air. Head is atraumatic. Pupils are equal and reactive to light and sclera is anicteric. Neck is supple and without jugular venous distention (JVD) or thyroid enlargement. Heart sounds are regular and lungs clear to auscultation. Abdomen is soft and nontender. Bowel sounds are normal. Extremities have no cyanosis or clubbing. His left arm arteriovenous (AV) graft is patent without any signs of infection. He does have some mild edema on his left hand and forearm. Skin has no rash or ulcers. Neurologically, he is awake, alert and oriented times three. LABORATORY DATA: Today's laboratories show WBC count 8.5, hemoglobin 8.8 and hematocrit 27.1. Sodium is 139 and potassium 3.5. BUN 38 and creatinine 5.40. AST 157, ALT 220 and alkaline phosphatase is 70. Total protein 0.7. PROBLEMS: 1. End-stage renal disease. The patient underwent hemodialysis yesterday which he tolerated well. His next dialysis will be scheduled for either tomorrow or Monday depending upon his condition and our schedule. At this point, his volume status is well-compensated and electrolytes are within normal range. There is no need for an urgent dialysis today. 2. Rectal bleeding. The patient is scheduled for upper and lower endoscopy early this afternoon. We will wait for results. 3. Acute blood loss anemia. His anemia has improved only partially. We gave him four units of packed red blood cells (RBCs) so far. At present, there is no further blood loss and we will continue to monitor closely. 4. Hypertension. His blood pressure is well-controlled and current antihypertensives are appropriate. 5. Abnormal transaminases and elevated ferritin. Further workup has been ordered by gastroenterology (GI).
--- NOTE | 2017-01-22 16:28 | IPNPDOC ---
Date Seen The patient was seen on 01/22/17. Progress Note Interval history: Patient had Hemodialysis on Monday and received two more units of PRBC. Hemoglobin went up appropriately but slowly trending down and as per floor nurse patient had few more bowel movement with possible blood in stools. Patient completely golytely by 8 AM. Patient denies any abdominal pain today. Exam: Vitals: stable. Afebrile. Chest: bilateral clear air entry. CVS: Normal S1 and S2. Abdomen: soft, obese, non distended, normal bowel sounds. Non- tender. Labs: Noted. Impression: -- Bleeding per rectum -- Need to r/o AV, Diverticular bleeding vs colon polyps Recommendations: -- Can continue ASA as the benefits outweigh risks. -- HOld plavix for now and depending on the EGD and Colonoscopy results will plan for resumption. -- Patient is scheduled for EGD and Colonoscopy today. -- Patient and his family ( Patient's is power of patent prosecution attorney) already educated about the procedure indications, risks, benefits and alternatives and Consent obtained. -- Follow up procedure notes for further recommendations. Plan of care discussed with patient and primary team. CHRISTIAN GUZMAN MD Jan 22, 2017 16:28
[2017-01-22] MEDS ORDERED: EPINEPHrine 1MG/10ML SYRINGE 1.5IN As Ordered ONE (17:13)
[2017-01-22] MEDS ORDERED: PROPOFOL 200 MG/20 ML VIAL As Ordered ONE (17:17)
[2017-01-22] MEDS ORDERED: ePHEDrine SULFATE 25 MG/5 ML(5MG/ML) SYRINGE As Ordered ONE (17:17)
[2017-01-22] MEDS ORDERED: LIDOCAINE 2% INJ 100 MG/5 ML SYRINGE As Ordered ONE (17:17)
[2017-01-22] MEDS ORDERED: PHENYLephrine HCL 500 MCG/5 ML (100MCG/ML) SYRINGE (J2370) As Ordered ONE (17:17)
--- NOTE | 2017-01-22 18:11 | ROOR ---
Patient Name: Jeremie Chang Procedure Date: 01/22/2017 5:07 PM Date of : 1945 Age: 71 Room: Main OR Gender: Male Note Status: Finalized Procedure: Upper GI endoscopy Indications: Recent gastrointestinal bleeding, Gastrointestinal bleeding of unknown origin Providers: Dominick Nowak MD Referring MD: Berkley Calvin MD Requesting Provider: Medicines: Monitored Anesthesia Care Complications: No immediate complications. Procedure: Pre-Anesthesia Assessment: - Prior to the procedure, a History and Physical was performed, and patient medications and allergies were reviewed. The patient is competent. The risks and benefits of the procedure and the sedation options and risks were discussed with the patient. All questions were answered and informed consent was obtained. Patient identification and proposed procedure were verified by the physician, the nurse and the anesthesiologist in the procedure room. Mental Status Examination: alert and oriented. Airway Examination: normal oropharyngeal airway and neck mobility. Respiratory Examination: clear to auscultation. CV Examination: normal. Prophylactic Antibiotics: The patient does not require prophylactic antibiotics. Prior Anticoagulants: The patient has taken no previous anticoagulant or antiplatelet agents. After reviewing the risks and benefits, the patient was deemed in satisfactory condition to undergo the procedure. The anesthesia plan was to use monitored anesthesia care (MAC). Immediately prior to administration of medications, the patient was re-assessed for adequacy to receive sedatives. The heart rate, respiratory rate, oxygen saturations, blood pressure, adequacy of pulmonary ventilation, and response to care were monitored throughout the procedure. The physical status of the patient was re-assessed after the procedure. The Endoscope was introduced through the mouth, and advanced to the second part of duodenum. The upper GI endoscopy was accomplished without difficulty. The patient tolerated the procedure well. Findings: The examined esophagus was normal. Four non-bleeding cratered gastric ulcers with two of them having a nonbleeding visible vessel ([place] Class IIa) were found in the gastric body and in the gastric antrum. The largest lesion was 10 mm in largest dimension. Area was successfully injected with 6 mL of a 1:10,000 solution of epinephrine for drug delivery. For hemostasis, three hemostatic clips were successfully placed. There was no bleeding at the end of the procedure. Diffuse severe inflammation characterized by friability and granularity was found in the gastric body and in the gastric antrum. Biopsies were taken with a cold forceps for Helicobacter pylori testing. The duodenal bulb and second portion of the duodenum were normal. Impression: - Normal esophagus. - Non-bleeding gastric ulcers with a nonbleeding visible vessel ([place] Class IIa). Injected. Clips were placed. - Gastritis. Biopsied. - Normal duodenal bulb and second portion of the duodenum. Recommendation: - Patient has a contact number available for emergencies. The signs and symptoms of potential delayed complications were discussed with the patient. Return to normal activities tomorrow. Written discharge instructions were provided to the patient. - Clear liquid diet for 1 day, then advance as tolerated to resume previous renal diet. - Continue present medications. - Resume aspirin today at prior dose. Refer to primary physician for further adjustment of therapy. - Resume Plavix (clopidogrel) in 3 days at prior dose. Refer to primary physician for further adjustment of therapy. - Give Protonix (pantoprazole): 8 mg/hr IV by continuous infusion for 1 day. - Use Protonix (pantoprazole) 40 mg PO twice daily - to be taken in morning (1/2 hour before breakfast) and at bedtime ( atleast 3 hours after last meal) for 3 months. - Use broad spectrum antibiotics for 1 week. - Repeat upper endoscopy in 3 months to check healing. - Return to GI office in 3 months. - Return to primary care physician. Dominick Nowak MD Dominick Nowak MD 01/22/2017 6:11:11 PM This report has been signed electronically. Number of Addenda: 0 Note Initiated On: 01/22/2017 5:07 PM Estimated Blood Loss: Estimated blood loss was minimal.
[2017-01-22] MEDS: CINACALCET 30 MG TAB (SENSIPAR) PO SCH (18:58)
--- NOTE | 2017-01-22 19:58 | ROOR ---
Patient Name: Jeremie Chang Procedure Date: 01/22/2017 4:36 PM Date of : 1945 Age: 71 Room: Main OR Gender: Male Note Status: Finalized Procedure: Colonoscopy Indications: Evaluation of unexplained GI bleeding Providers: Dominick Nowak MD Referring MD: Berkley Calvin MD Requesting Provider: Medicines: Monitored Anesthesia Care Complications: No immediate complications. Procedure: Pre-Anesthesia Assessment: - Prior to the procedure, a History and Physical was performed, and patient medications and allergies were reviewed. The patient is competent. The risks and benefits of the procedure and the sedation options and risks were discussed with the patient. All questions were answered and informed consent was obtained. Patient identification and proposed procedure were verified by the physician, the nurse and the anesthesiologist in the procedure room. Mental Status Examination: alert and oriented. Airway Examination: normal oropharyngeal airway and neck mobility. CV Examination: normal. Prophylactic Antibiotics: The patient does not require prophylactic antibiotics. Prior Anticoagulants: The patient has taken Plavix (clopidogrel), last dose was 3 days prior to procedure. ASA Grade Assessment: III - A patient with severe systemic disease. After reviewing the risks and benefits, the patient was deemed in satisfactory condition to undergo the procedure. The anesthesia plan was to use monitored anesthesia care (MAC). Immediately prior to administration of medications, the patient was re-assessed for adequacy to receive sedatives. The heart rate, respiratory rate, oxygen saturations, blood pressure, adequacy of pulmonary ventilation, and response to care were monitored throughout the procedure. The physical status of the patient was re-assessed after the procedure. The Colonoscope was introduced through the anus and advanced to the terminal ileum, with identification of the appendiceal orifice and IC valve. The colonoscopy was performed without difficulty. The patient tolerated the procedure well. The quality of the bowel preparation was adequate to identify polyps 6 mm and larger in size and fair. The terminal ileum, ileocecal valve, appendiceal orifice, and rectum were photographed. Scope insertion time was 4 minutes. Scope withdrawal time was 6 minutes. The total duration of the procedure was 12 minutes. Findings: The perianal and digital rectal examinations were normal. Pertinent negatives include normal sphincter tone. Multiple fifteen mm ulcers were found in the descending colon, in the transverse colon, in the ascending colon and in the cecum. No bleeding was present. Biopsies were taken with a cold forceps for histology. Verification of patient identification for the specimen was done by the physician and nurse using the patient's name, date and medical record number. Estimated blood loss was minimal. Multiple small and large-mouthed diverticula were found in the sigmoid colon and descending colon. There was no evidence of diverticular bleeding. A large amount of stool was found from rectum to transverse colon, making visualization difficult. Lavage of the area was performed using a large amount of sterile water, resulting in clearance with fair visualization. The exam was otherwise normal throughout the examined colon. Impression: - Preparation of the colon was fair. - Multiple ulcers in the descending colon, in the transverse colon, in the ascending colon and in the cecum. Biopsied. - Moderate diverticulosis in the sigmoid colon and in the descending colon. There was no evidence of diverticular bleeding. - Stool from rectum to transverse colon. Recommendation: - Patient has a contact number available for emergencies. The signs and symptoms of potential delayed complications were discussed with the patient. Return to normal activities tomorrow. Written discharge instructions were provided to the patient. - Clear liquid diet for 1 day, then advance as tolerated to resume previous diet. - Await pathology results. - Continue present medications.. - Resume aspirin today at prior dose. Refer to primary physician for further adjustment of therapy. - Resume Plavix (clopidogrel) in 3 days at prior dose. Refer to primary physician for further adjustment of therapy. - Give Protonix (pantoprazole): 8 mg/hr IV by continuous infusion for 1 day. - Use Protonix (pantoprazole) 40 mg PO twice daily - to be taken in morning (1/2 hour before breakfast) and at bedtime ( atleast 3 hours after last meal) for 3 months. - Use broad spectrum antibiotics ( ciprofloxacin 250 mg orally daily and Metronidazole 500 mg for 1 week. - Repeat colonoscopy in 1 year for screening purposes and because the bowel preparation was suboptimal. - Obtain CT abdomen with IV contrast ( Celiac Angiogram protocol ) to assess for the vascular stenosis. Attending Participation: I personally performed the entire procedure. Dominick Nowak MD Dominick Nowak MD 01/22/2017 7:57:41 PM This report has been signed electronically. Number of Addenda: 0 Note Initiated On: 01/22/2017 4:36 PM Estimated Blood Loss: Estimated blood loss was minimal.
--- NOTE | 2017-01-22 20:06 | IPNPDOC ---
Date Seen The patient was seen on 01/22/17. at 19:45 PM Progress Note Post procedure note: Patient underwent EGD and Colonoscopy - tolerated procedures well. Detailed reports in [facility] - please see the procedure/operative notes. EGD - noted with multiple gastric ulcers with atleast two gastric ulcer with kirby IIa. Injected Epinephrine and placed clips. Biopsy for H. pylori is obtained. Colonoscopy - noted superficial ulceration - likely ischemic colitis. Recommendations: - Patient and his family educated about the test results in detail . - Clear liquid diet for 1 day, then advance as tolerated to resume renal diet. - Await pathology results. - Continue present medications.. - Resume aspirin today at prior dose. . - Resume Plavix (clopidogrel) after 3 days at prior dose. Refer to primary physician for further adjustment of therapy. - Give Protonix (pantoprazole): 8 mg/hr IV by continuous infusion for 1 day. and then switch to Protonix (pantoprazole) 40 mg PO twice daily - to be taken in morning (1/2 hour before breakfast) and at bedtime ( atleast 3 hours after last meal) for 3 months. - Use broad spectrum antibiotics ( ciprofloxacin 250 mg orally daily and Metronidazole 500 mg for 1 week. - Repeat colonoscopy in 1 year for screening purposes and because the bowel preparation was suboptimal. - repeat EGDIn 3 months for checking healing of the gastric ulcers. - Obtain CT abdomen with IV contrast ( Celiac Angiogram protocol ) to assess for the vascular stenosis. - To be done just before dialysis as patient had ESRD and on Hemodialysis. - Based on above please obtain vascular surgery consult. Plan of care discussed with patient and primary team updated. CHRISTIAN GUZMAN MD Jan 22, 2017 20:06
[2017-01-22] MEDS: metroNIDAZOLE 500 MG in APPROPRIATE DILUENT 1 EA IV SCH (20:25)
[2017-01-22] MEDS: OCUVITE 1 TAB PO SCH (20:25)
[2017-01-22] MEDS: SIMVASTATIN 10 MG TAB PO SCH (20:26)
[2017-01-22] MEDS: VITAMIN D 1,000 INTERNATIONAL UNITS TABLET PO SCH (20:26)
[2017-01-22] MEDS: FINASTERIDE 5 MG TAB PO SCH (20:26)
[2017-01-22] MEDS: CIPROFLOXACIN 500 MG TAB PO SCH (20:26)
[2017-01-23] MEDS: PANTOPRAZOLE SODIUM 40 MG in D5W 50 ML IV SCH ×2 (01:31→06:54)
[2017-01-23 04:00] VITALS: BP 129/65
[2017-01-23 05:31] LABS: MEAN CORPUSCULAR HEMOGLOBIN 33.3 pg (27.0-33.0); MEAN CORPUSCULAR HGB CONC 32.6 g/dl (32.0-36.5); MEAN CORPUSCULAR VOLUME 102.2 fl (80.0-96.0); PLATELET COUNT, AUTOMATED 197 10^3/uL (150-450); RED CELL DISTRIBUTION WIDTH 22.8 % (11.5-14.5); WHITE BLOOD COUNT 7.8 10^3/uL (4.0-10.0)
[2017-01-23] MEDS: traMADol 50 MG TAB PO PRN (05:40)
[2017-01-23 05:54] LABS: ALBUMIN 2.5 GM/DL (3.2-5.2); ALBUMIN/GLOBULIN RATIO 0.83 (1.00-1.93); BILIRUBIN,TOTAL 0.6 MG/DL (0.2-1.0); CALCIUM LEVEL 8.5 MG/DL (8.8-10.2); CREATININE FOR GFR 6.66 MG/DL (0.70-1.30); GLOMERULAR FILTRATION RATE 8.8 (>42); MAGNESIUM LEVEL 1.9 MG/DL (1.8-2.4); POTASSIUM SERUM 3.6 MEQ/L (3.5-5.1); TOTAL PROTEIN 5.5 GM/DL (6.4-8.2)
[2017-01-23] MEDS: metroNIDAZOLE 500 MG in APPROPRIATE DILUENT 1 EA IV SCH ×2 (06:53→20:54)
[2017-01-23] MEDS: HumaLOG INSULIN (NovoLOG) PER UNIT SC SCH ×4 (07:30→20:38)
[2017-01-23 08:00] VITALS: BP 106/56
[2017-01-23] MEDS: LANTHANUM CARBONATE 500 MG CHEW TABLET PO SCH ×3 (09:00→20:54)
[2017-01-23] MEDS ORDERED: ISOVUE-370 76% 100ML VIAL (Q9967) As Ordered ONE (11:51)
[2017-01-23 12:00] VITALS: BP 102/56
--- NOTE | 2017-01-23 12:41 | IPNPDOC ---
Subjective Date Seen The patient was seen on 01/23/17. Subjective Chief Complaint/HPI The patient is a 71-year-old male admitted with a reason for visit of Gi Bleed. Events since last encounter Had egd and colonoscopy yesterday . Procedure was uneventful, due for HD today. No fever or chills, no abdominal pain , no nausea or vomiting or diarrhea, no further bleeding noted. Patient ordered for Ct angio of abdominal arteries. Objective Physical Examination General Exam: Positive: Alert, Cooperative, No Acute Distress Eye Exam: Positive: PERRLA, Conjunctiva & lids normal, EOMI, Negative: Sclera icteric ENT Exam: Positive: Atraumatic, Mucous membr. moist/pink, Pharynx Normal Chest Exam: Positive: Rales, Diminished Heart Exam: Positive: Rate Normal, Regular Rhythm, Normal S1, Normal S2, Negative: Murmurs, Rubs Telemetry: Positive: No significant arrhythmia Abdomen Exam: Positive: Normal bowel sounds, Soft, Negative: Tenderness Extremity Exam: Positive: Edema Skin Exam: Positive: Nl turgor and temperature, Negative: Rash, Breakdown Assessment /Plan Problems (1) GI bleed Status: Resolved Problem Text: EGD showed multiple gastric ulcers and colonoscopy showed multiple colonic ulcers and diverticulosis. Bowel prep was not good so will need repeat in 1 year. colonic ulcers suggestive of possible ischemic colitis. will get CT angio of the abdominal arteries. to continue cipro and flagyl once a day for 7 days. will restart ASA. Plavix to be started in 3 days. continue pantoprazole gtt for 1 more day then change to PO . should get pantoprazole 40 bid for at least 3 months. Pathology results and h pylori results pending. hh stable (2) Transaminitis Status: Acute Response to Treatment: Improving Problem Text: May have transient hypotension with resulting ischemic hepatitis causing acute elevation of transaminases above baseline in view of his possibility of ischemic colitis from the colonoscopy. Could also be due to DIMAS or autoimmune hepatitis. have ordered hepatitis panel , Abdominal US showed fatty liver. Patient was also on INH this year for treatment of pulmonary TB though has finished few months ago. His ferritin level > 5000 No history of large amounts of blood transfusion. Could be acute phase reactant. Ferritin levels in HD unit never this much elevated. Have ordered hemochromatosis panel, also ordered work up for autoimmune hepatitis. (3) Anemia Status: Acute Problem Text: multifactorial Acute blood loss anemia from GIB and anemia of chronic disease due to ESRD. received 2 units of PRBC will receive 2 more. during HD. (4) History of CVA (cerebrovascular accident) Status: Chronic Problem Text: CVA in 2013 .with residual left lower extremity weakness and right eye vision loss and right upper extremity weakness. Had symptoms suggestive of TIA this morning which has resolved. will restart ASA as soon as possible. 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 (12) Hyperphosphatemia Status: Chronic (13) BPH (benign prostatic hyperplasia) Status: Chronic (14) Tuberculosis Status: Resolved Problem Text: history of pulmonary tuberculosis diagnosed in [place] treated for 9 months. finished treatment about 6 months ago . (15) Peripheral neuropathy Status: Chronic Problem Text: pateint unable to ambulate due to severe peripheral neuropathy and also residual weakness from prior stroke. Plan/VTE VTE Prophylaxis Ordered?: Yes VS, I&O, 24H, Fishbone Vital Signs/I&O Vital Signs Date Time Temp Pulse Resp B/P (MAP) Pulse Ox O2 Delivery O2 Flow Rate FiO2 01/23/17 12:00 97.8 65 18 102/56 (71) 93 Room Air I&O- Last 24 Hours up to 6 AM 01/24/17 06:00 Intake Total 0 ml Output Total 0 ml Balance 0 ml Laboratory Data 24H LABS Laboratory Tests 2 01/22/17 18:13: Bedside Glucose (Misc Panel) 121H 01/22/17 20:09: Bedside Glucose (Misc Panel) 129H 01/23/17 05:05: Nucleated Red Blood Cells % (auto) 0.5H, Anion Gap 14, Glomerular Filtration Rate 8.8L, Blood Urea Nitrogen 43H, Creatinine 6.66H, Sodium Level 139, Potassium Level 3.6, Chloride Level 98, Carbon Dioxide Level 27, Calcium Level 8.5L, Aspartate Amino Transf (AST/SGOT) 94H, Alanine Aminotransferase (ALT/SGPT ) 187H, Alkaline Phosphatase 60, Total Bilirubin 0.6, Total Protein 5.5L, Albumin 2.5L, Magnesium Level 1.9, Albumin/Globulin Ratio 0.83L 01/23/17 11:40: Bedside Glucose (Misc Panel) 62L CBC/BMP Laboratory Tests 01/22/17 15:55 01/22/17 21:57 01/23/17 05:05 Red Blood Count 2.67 L, Mean Corpuscular Volume 102.2 H, Mean Corpuscular Hemoglobin 33.3 H, Mean Corpuscular Hemoglobin Concent 32.6, Red Cell Distribution Width 22.8 H, Calcium Level 8.5 L, Aspartate Amino Transf (AST/SGOT ) 94 H, Alanine Aminotransferase (ALT/SGPT) 187 H, Alkaline Phosphatase 60, Total Bilirubin 0.6, Total Protein 5.5 L, Albumin 2.5 L Microbiology Microbiology 01/20/17 Stool Occult Blood (CHAN) - Final, Complete RAYMAHESH MD Jan 23, 2017 12:41
[2017-01-23 12:47] LABS: VITAMIN B12 LEVEL > 2000 PG/ML
[2017-01-23 12:48] LABS: HEPATITIS B SURFACE ANTIBODY POSITIVE (POSITIVE)
[2017-01-23 12:49] LABS: FOLATE > 24.0 NG/ML
[2017-01-23] MEDS: SENOKOT S TAB PO SCH ×2 (13:13→20:53)
[2017-01-23] MEDS: GABAPENTIN 100 MG CAP PO PRN (13:13)
[2017-01-23] MEDS: ASPIRIN 81 MG ENTERIC TAB PO SCH (13:13)
--- NOTE | 2017-01-23 13:53 | REP ---
Clinical: GI bleed. Technique: Contrast enhanced CT of the abdomen and pelvis using CT angiographic technique with axial contrast enhanced images from the lung bases to the pubic symphysis using 100 ml Isovue 370 intravenous contrast material imaged adnexal enhancement of the abdominal aorta. Coronal and sagittal MIP re-formations and volume rendered images obtained. Findings: Lung bases demonstrate small pleural effusions with mild bibasilar atelectasis and chronic interstitial changes. Significant atherosclerotic changes to the visualized coronary arteries noted. Moderate to significant partially calcified atheromatous changes noted throughout the abdominal aorta and through the bifurcation to common iliac arteries and distally to the level of the proximal superficial femoral artery. Significant calcifications are appreciated at the origin of the celiac axis as well as involving the branch vessels including splenic artery, common hepatic artery and small vessels supplying the gastric wall. Specifically, at the origin of the celiac axis there is suggestion for approximately 50-69% stenosis. There is significantly more advanced atherosclerotic changes involving the entire superior mesenteric artery with considerable atherosclerotic changes and decreased luminal diameter as well as enhancement extending into the distal branches within the mesentery. Greater than 50% luminal narrowing at the origin and proximal bilateral renal arteries is appreciated which again demonstrate decreased arterial enhancement bilaterally and subsequent chronic atrophic changes to the kidneys. The inferior mesenteric artery demonstrates similar advanced atherosclerotic changes extending into the mesentery and pelvis with decreased enhancement/flow. Liver, spleen, pancreas, and bilateral adrenal glands are normal for noncontrast evaluation. The gallbladder is moderately distended and should be correlated clinically without obvious gallstones. The kidneys demonstrate bilateral symmetric chronic atrophic changes and renovascular calcifications as well as chronic symmetric perinephric stranding. The enteric system is without obstruction or acute inflammatory process although a mild colitis involving the distal ascending colon and hepatic flexure cannot definitively be excluded. There is no evidence for bowel obstruction. Pelvis demonstrates normal bladder and grossly normal prostate gland although evaluation of the pelvis is limited despite the use of metallic artifact reduction algorithms. No ascites. No free air. No significant adenopathy. Atrophic appearance to the left iliopsoas muscle and likely chronic stranding along the left eloisa pelvis likely related to disuse and prior trauma. Skeletal structures demonstrate advanced degenerative changes along with evidence for prior right hip replacement. Impression: 1. Extensive significant atherosclerotic changes of the aorta and primarily involving the mesenteric arteries and bilateral renal arteries noted small luminal narrowing and decreased flow / enhancement as well as extensive distal calcifications extending into the distal branches into the mesentery. 2. Cannot exclude a mild or resolving colitis at the level of the distal ascending colon and hepatic flexure. 3. Small bilateral pleural effusions and bibasilar atelectasis. 4. Further chronic changes as described above. Signed by Ventura Hurtado MD 01/23/2017 01:45 P
[2017-01-23 16:00] VITALS: BP 125/61
[2017-01-23] MEDS: CIPROFLOXACIN 500 MG TAB PO SCH (17:18)
[2017-01-23] MEDS: CINACALCET 30 MG TAB (SENSIPAR) PO SCH (17:19)
--- NOTE | 2017-01-23 19:27 | IPN ---
DATE: 01/23/2017 Mr. Chang is seen this morning on his bedside. He underwent upper and lower endoscopy yesterday and was found to have multiple ulcers in the stomach and also in the colon. There was a suspicion for ischemic colitis. The patient did not have any further bleeding and has been feeling well. He denies any dyspnea, chest pain, nausea or vomiting. He is scheduled for CT angiogram in view of ischemic colitis. PHYSICAL EXAMINATION: Temperature 97.8 degrees Fahrenheit, heart rate 66 per minute and respiratory rate 18 per minute. Blood pressure 102/56 mmHg and oxygen saturation 93% on room air. Head: Atraumatic. Pupils equal and reactive to light and sclera is anicteric. Nose and throat are unremarkable. Neck is supple and jugular venous distention (JVD) is not elevated. He does have thyroid enlargement. Heart: Sounds are regular and lungs sound clear to auscultation. Abdomen: Soft and nontender. Bowel sounds are normal. Extremities have no cyanosis or clubbing. Left arm AV graft is patent. Neurologically, he is awake, alert and oriented times three. Today's labs showed hemoglobin 8.9 and hematocrit 27.3, which is essentially unchanged since yesterday. His sodium is 139 and potassium 3.6. BUN 43 and creatinine 6.66. AST is down to 94, ALT 187 and alkaline phosphatase 60. PROBLEM #1: End-stage renal disease. The patient is regularly dialyzed on Monday, Monday and Monday schedule. We could not get him on the schedule today due to busy roster. We will plan on dialyzing him tomorrow. There is no emergent indication for dialysis today. PROBLEM #2: Rectal bleeding, most likely related to ischemic colitis with ulcers. He also had gastric ulcers. The patient is going to have CT angiogram for further evaluation. We will wait for results and then see what further intervention he will require. PROBLEM #3: Acute blood loss anemia. His anemia has improved with transfusion of 4 units of packed red blood cells. At present, there is no active bleeding and he remains stable. We will not give him any heparin during dialysis. PROBLEM #4: Hypertension. Blood pressure is well-controlled and current antihypertensive medications will be continued. We need to use caution due to relatively soft blood pressure today. We have already put hold parameters on his antihypertensives. PROBLEM #5: Diabetes. His diabetes is well controlled as he has been poorly eating and was mostly nothing by mouth. Fingerstick with coverage will be continued.
[2017-01-23 20:00] VITALS: BP 158/76
[2017-01-23] MEDS: VITAMIN D 1,000 INTERNATIONAL UNITS TABLET PO SCH (20:52)
[2017-01-23] MEDS: CARVedilol 3.125 MG TAB PO SCH (20:53)
[2017-01-23] MEDS: FINASTERIDE 5 MG TAB PO SCH (20:53)
[2017-01-23] MEDS: SIMVASTATIN 10 MG TAB PO SCH (20:53)
[2017-01-23] MEDS: OCUVITE 1 TAB PO SCH (20:54)
[2017-01-23] MEDS: LEVEMIR (INSULIN DETEMIR) 1 UNITS/0.01ML SC SCH (20:54)
[2017-01-23 23:59] VITALS: BP 137/56
[2017-01-24 04:00] VITALS: BP 125/61
[2017-01-24] MEDS: traMADol 50 MG TAB PO PRN ×2 (04:04→21:07)
[2017-01-24] MEDS: SENOKOT S TAB PO SCH ×2 (04:59→21:00)
[2017-01-24 06:07] LABS: MEAN CORPUSCULAR HEMOGLOBIN 33.7 pg (27.0-33.0); MEAN CORPUSCULAR HGB CONC 32.2 g/dl (32.0-36.5); MEAN CORPUSCULAR VOLUME 104.7 fl (80.0-96.0); PLATELET COUNT, AUTOMATED 183 10^3/uL (150-450); RED CELL DISTRIBUTION WIDTH 22.1 % (11.5-14.5); WHITE BLOOD COUNT 6.7 10^3/uL (4.0-10.0)
[2017-01-24 06:29] LABS: ALBUMIN 2.5 GM/DL (3.2-5.2); ALBUMIN/GLOBULIN RATIO 0.78 (1.00-1.93); BILIRUBIN,TOTAL 0.6 MG/DL (0.2-1.0); CALCIUM LEVEL 8.1 MG/DL (8.8-10.2); CREATININE FOR GFR 7.92 MG/DL (0.70-1.30); GLOMERULAR FILTRATION RATE 7.2 (>42); POTASSIUM SERUM 3.8 MEQ/L (3.5-5.1); TOTAL PROTEIN 5.7 GM/DL (6.4-8.2)
[2017-01-24] MEDS: LANTHANUM CARBONATE 500 MG CHEW TABLET PO SCH ×3 (06:39→21:02)
[2017-01-24] MEDS: ASPIRIN 81 MG ENTERIC TAB PO SCH (06:39)
[2017-01-24] MEDS: PANTOPRAZOLE 40MG TAB (PROTONIX) PO SCH ×2 (06:39→21:01)
[2017-01-24] MEDS: HumaLOG INSULIN (NovoLOG) PER UNIT SC SCH ×4 (07:17→20:31)
[2017-01-24 07:40] VITALS: BP 122/58
--- NOTE | 2017-01-24 08:31 | IPNPDOC ---
Date Seen The patient was seen on 01/24/17. Progress Note SUBJECTIVE: Patient is a 71-year-old male with bright red blood per rectum. He is evaluated at bedside this morning. He denies continued bleeding from any orifice, chest pain, shortness of breath, fever. He is curious about the findings on his CT angiogram of the abdomen which show extensive atherosclerosis. Patient asks what changes he can make based on the findings of the CT. Patient states that he would like to advance his diet. OBJECTIVE PHYSICAL EXAMINATION: VITAL SIGNS: Please see below. GENERAL: Obese male, wearing hospital gown, well nourished, well developed, appears younger than stated age, no acute distress HEENT: Atraumatic, normocephalic, Anisocoria of right pupil due to stroke approximately 3 years ago, oral mucosa appears pink and moist, nasal septum is midline, nares are patent CARDIOVASCULAR: Cardiac sounds are very difficult to appreciate due to body habitus, did not appreciate any murmurs, rubs, click RESPIRATORY: Clear to auscultation bilaterally in the upper lobes, crackles appreciated in the lower lobes bilaterally, adequate inspiratory and expiratory airway excursion ABDOMINAL: Round, soft, non-tender, non-distended, bowel sounds somewhat diminished, no organomegaly, no guarding, no rebound EXTREMITIES: TEDs, sequentials, knee high compression in place, trace peripheral edema appreciate on the feet bilaterally, pulses somewhat difficult to appreciate, but appear equal, symmetrical, +2 NEUROLOGICAL: CN II-XII grossly intact PSYCHOLOGICAL: Alert and conversant, pleasant LABORATORY DATA: Please see below. MICROBIOLOGY: Please see below. IMAGING: CT abdomen and pelvis angiography IMPRESSION: 1. Extensive significant atherosclerotic changes of the aorta and primarily involving the mesenteric arteries and bilateral renal arteries noted small luminal narrowing and decreased flow / enhancement as well as extensive distal calcifications extending into the distal branches into the mesentery. 2. Cannot exclude a mild or resolving colitis at the level of the distal ascending colon and hepatic flexure. 3. Small bilateral pleural effusions and bibasilar atelectasis. 4. Further chronic changes as described above. DVT prophylaxis ordered?: TEDs, sequentials, knee high compression; ASA, Clopidogrel ASSESSMENT AND PLAN: This is a 71-year-old male with bright red blood per rectum. PROBLEMS: 1. GI bleed: Continue to appreciate the valued assistance from gastroenterology. No more active bleeding. Has received a total of four units of packed red blood cells. H/H 8.7 and 27, respectively. CT abdomen and pelvis angiogram reveals extensive atherosclerosis. Verbally discussed with vascular surgery who has recommended no further intervention at this time. Remains on Ciprofloxacin and Metronidazole, day #2. Continue with antibiotic therapy for a total of 7 days. Continue with oral PPI. Advance diet as appropriate. Pathology is pending. 2. Transaminitis: AST and ALT 51 and 137, respectively. Hepatitis panel has been negative. Appropriately positive for Hepatitis Bs Ab. Pending hemochromatosis work-up. 3. ESRD: Continue to appreciate the valued assistance from nephrology. Dialysis MWF. Continue on Sensipar, Fosrenol, and Renvela. 4. History of CVA: Continue with ASA and Clopidogrel. 5. Diabetes mellitus and diabetic neuropathy: Continue with Levemir 50 units BID, SSI, fingersticks AC/HS, and hypoglycemic protocol; continue with Gabapentin. 6. Hypertension: Continue with Carvedilol. 7. Dyslipidemia: Continue with Simvastatin. DISPOSITION: Admitted to PCU. Advance diet. VS, I&O, 24H, Fishbone Vital Signs/I&O Vital Signs Date Time Temp Pulse Resp B/P (MAP) Pulse Ox O2 Delivery O2 Flow Rate FiO2 01/24/17 07:40 97.8 61 17 122/58 (79) 96 Room Air I&O- Last 24 Hours up to 6 AM 01/25/17 06:00 Intake Total 0 ml Output Total 0 ml Balance 0 ml Laboratory Data 24H LABS Laboratory Tests 2 01/23/17 11:40: Bedside Glucose (Misc Panel) 62L 01/23/17 16:52: Bedside Glucose (Misc Panel) 115H 01/23/17 20:34: Bedside Glucose (Misc Panel) 149H 01/24/17 05:51: Nucleated Red Blood Cells % (auto) 0.0, Anion Gap 16, Glomerular Filtration Rate 7.2L, Blood Urea Nitrogen 50H, Creatinine 7.92H, Sodium Level 136, Potassium Level 3.8, Chloride Level 97L, Carbon Dioxide Level 23, Calcium Level 8.1L, Aspartate Amino Transf (AST/SGOT) 51H, Alanine Aminotransferase (ALT/SGPT ) 137H, Alkaline Phosphatase 66, Total Bilirubin 0.6, Total Protein 5.7L, Albumin 2.5L, Magnesium Level 2.0, Albumin/Globulin Ratio 0.78L 01/24/17 07:27: Bedside Glucose (Misc Panel) 94 CBC/BMP Laboratory Tests 01/24/17 05:51 Red Blood Count 2.58 L, Mean Corpuscular Volume 104.7 H, Mean Corpuscular Hemoglobin 33.7 H, Mean Corpuscular Hemoglobin Concent 32.2, Red Cell Distribution Width 22.1 H, Calcium Level 8.1 L, Aspartate Amino Transf (AST/SGOT ) 51 H, Alanine Aminotransferase (ALT/SGPT) 137 H, Alkaline Phosphatase 66, Total Bilirubin 0.6, Total Protein 5.7 L, Albumin 2.5 L Microbiology Microbiology 01/20/17 Stool Occult Blood (CHAN) - Final, Complete DANIEL PURI DO Jan 24, 2017 08:15
[2017-01-24] MEDS: LEVEMIR (INSULIN DETEMIR) 1 UNITS/0.01ML SC SCH ×2 (09:00→21:00)
[2017-01-24] MEDS: metroNIDAZOLE 500 MG in APPROPRIATE DILUENT 1 EA IV SCH (11:34)
--- NOTE | 2017-01-24 11:47 | IPN ---
DATE OF SERVICE: 01/24/2017 Mr. Chang is seen this morning during hemodialysis. He underwent CT angiogram yesterday which showed extensive atherosclerotic vascular disease in his abdominal aorta and mesenteric branches. The patient was admitted with rectal bleeding and underwent upper and lower endoscopies. He was found to have gastric ulcers and colon ulcers with suspicion for ischemic colitis. Since admission, he did not have any further bleeding. He has been transfused 4 units of packed RBCs so far. The patient denies any nausea, vomiting or abdominal pain. He has no dyspnea or chest pain. PHYSICAL EXAMINATION: Temperature 97.8 degrees Fahrenheit, heart rate 60 per minute and respiratory rate 18 per minute. Blood pressure 122/58 mmHg and oxygen saturation 96% on room air. Head is atraumatic. Pupils equal and reactive to light and sclera is anicteric. Nose and throat are unremarkable. Neck is supple and there is no JVD. Thyroid is moderately enlarged. Heart sounds are regular and lungs sound clear to auscultation. Abdomen is soft and nontender and there is no palpable organomegaly. Bowel sounds are normal. Extremities have no cyanosis or clubbing. His left arm AV graft is functioning well and is currently being used for dialysis. Neurologically he is awake, alert and oriented times three. Skin has no rash or ulcers. Today's labs show WBC count 6.7, hemoglobin 8.7 and hematocrit 27.0. Platelets 183. Sodium 136 and potassium 3.8. BUN 50 and creatinine 7.92. PROBLEMS: 1. End-stage renal disease. The patient could not be dialyzed yesterday which is his regular day. He had CT angiogram done yesterday afternoon. He is being dialyzed this morning and has tolerated dialysis treatment well. 2. Acute blood loss anemia. The patient has been transfused so far 4 units of packed RBCs and his hematocrit remained stable. No need for further transfusion at this point. There is no active bleeding. 3. Ischemic colitis. The patient is now on metronidazole and Cipro which will be continued. No further bleeding noted. 4. Hypertension. Blood pressure has been well controlled. No changes are needed at this point. 5. Gastric ulcers. The patient is now on Protonix 40 mg twice daily. No further bleeding is noted. 6. Diabetes. His diabetes seems to be reasonably well-controlled. He is not eating much here in the hospital. Continue with insulin coverage.
[2017-01-24] MEDS ORDERED: LIDOCAINE 1% SDV 5 ML VIAL SC ONE (12:00)
[2017-01-24 13:10] VITALS: BP 118/48
[2017-01-24] MEDS: CARVedilol 3.125 MG TAB PO SCH ×2 (13:38→21:02)
[2017-01-24] MEDS: metroNIDAZOLE (FLAGYL) 500 MG TAB PO SCH ×2 (13:38→17:15)
[2017-01-24 16:00] VITALS: BP 123/62
[2017-01-24] MEDS: CIPROFLOXACIN 500 MG TAB PO SCH (17:15)
[2017-01-24] MEDS: CINACALCET 30 MG TAB (SENSIPAR) PO SCH (17:16)
[2017-01-24 20:04] VITALS: BP 125/59
[2017-01-24] MEDS: FINASTERIDE 5 MG TAB PO SCH (21:01)
[2017-01-24] MEDS: GABAPENTIN 100 MG CAP PO PRN (21:02)
[2017-01-24] MEDS: OCUVITE 1 TAB PO SCH (21:02)
[2017-01-24] MEDS: VITAMIN D 1,000 INTERNATIONAL UNITS TABLET PO SCH (21:02)
[2017-01-24] MEDS: SIMVASTATIN 10 MG TAB PO SCH (21:02)
[2017-01-24 23:58] VITALS: BP 127/62
[2017-01-25] MEDS: metroNIDAZOLE (FLAGYL) 500 MG TAB PO SCH ×5 (00:01→23:49)
[2017-01-25 04:44] VITALS: BP 122/58
[2017-01-25 06:41] LABS: MEAN CORPUSCULAR HEMOGLOBIN 32.8 pg (27.0-33.0); MEAN CORPUSCULAR HGB CONC 31.5 g/dl (32.0-36.5); MEAN CORPUSCULAR VOLUME 104.2 fl (80.0-96.0); PLATELET COUNT, AUTOMATED 185 10^3/uL (150-450); RED CELL DISTRIBUTION WIDTH 21.7 % (11.5-14.5); WHITE BLOOD COUNT 5.8 10^3/uL (4.0-10.0)
[2017-01-25 07:01] LABS: ALBUMIN 2.4 GM/DL (3.2-5.2); ALBUMIN/GLOBULIN RATIO 0.71 (1.00-1.93); BILIRUBIN,TOTAL 0.5 MG/DL (0.2-1.0); CALCIUM LEVEL 7.8 MG/DL (8.8-10.2); CREATININE FOR GFR 5.94 MG/DL (0.70-1.30); MAGNESIUM LEVEL 2.1 MG/DL (1.8-2.4); POTASSIUM SERUM 3.8 MEQ/L (3.5-5.1); TOTAL PROTEIN 5.8 GM/DL (6.4-8.2)
[2017-01-25] MEDS: HumaLOG INSULIN (NovoLOG) PER UNIT SC SCH ×4 (07:30→20:49)
[2017-01-25 08:00] VITALS: BP 132/64
[2017-01-25 08:38] VITALS: BP 123/62
[2017-01-25] MEDS: SENOKOT S TAB PO SCH ×2 (09:00→20:55)
[2017-01-25] MEDS: traMADol 50 MG TAB PO PRN ×2 (09:02→21:03)
[2017-01-25] MEDS: PANTOPRAZOLE 40MG TAB (PROTONIX) PO SCH ×2 (09:03→20:55)
[2017-01-25] MEDS: LANTHANUM CARBONATE 500 MG CHEW TABLET PO SCH ×3 (09:03→20:57)
[2017-01-25] MEDS: ASPIRIN 81 MG ENTERIC TAB PO SCH (09:03)
[2017-01-25] MEDS: LEVEMIR (INSULIN DETEMIR) 1 UNITS/0.01ML SC SCH ×2 (09:03→21:00)
[2017-01-25 09:45] VITALS: BP 128/60
--- NOTE | 2017-01-25 11:18 | IPN ---
DATE: 01/25/2017 Mr. Chang is seen this morning on his bedside. He is feeling well today and denies any nausea, vomiting, abdominal pain or rectal bleeding. He underwent hemodialysis yesterday and we did not use any heparin. He is currently being treated for ischemic colitis with IV Cipro and Flagyl. He also had gastric ulcers on his upper endoscopy and has been on Protonix twice a day. The patient has no fever or chills. He denies any dyspnea or chest pain. PHYSICAL EXAMINATION: Temperature 96.6 degrees Fahrenheit, heart rate 64 per minute and respiratory rate 20 per minute. Blood pressure 128/60 mmHg and oxygen saturation 94% on room air. Head: Is atraumatic. Neck is supple and JVD is not elevated. Mild thyroid enlargement is present. Pupils equal and reactive to light and sclera is anicteric. He has no oral thrush or ulcers. Heart: Sounds are regular and lungs sound clear to auscultation. Abdomen: Soft, obese and nontender. Bowel sounds are present. Extremities: Have no cyanosis or clubbing. Left upper arm AV graft is patent. Today's labs show WBC count 5.8, hemoglobin 8.7 and hematocrit 27.6. There is no change since yesterday. Sodium is 136 and potassium 3.8. BUN 31 and creatinine 5.94. Calcium level is 7.8 and magnesium 2.1. PROBLEMS: 1. End-stage renal disease: The patient underwent hemodialysis yesterday which he tolerated well. His regular dialysis days are Monday, Monday and Monday. We will probably hold off his next dialysis until Monday unless there is a reason for urgent dialysis tomorrow. At present his electrolytes are stable and volume status is well-compensated. 2. Acute blood loss anemia: The patient had rectal bleeding and has required 4 units of packed RBCs so far. His anemia is currently stable. I will start him on Aranesp 200 mcg once a week with a dialysis. CBC will be checked on daily basis. 3. Ischemic colitis: The patient was noticed to have ischemic colitis on colonoscopy. He is currently on Cipro and Flagyl. No further bleeding noticed. 4. Hypertension: Blood pressure is very well controlled on current antihypertensive medications. 5. Diabetes: His diabetes is well controlled as his diet is very restricted. Suggest to continue with insulin coverage.
[2017-01-25 11:36] LABS: PHOSPHORUS LEVEL 5.2 MG/DL (2.5-4.9)
[2017-01-25 14:00] VITALS: BP 136/65
[2017-01-25] MEDS: CINACALCET 30 MG TAB (SENSIPAR) PO SCH (17:11)
[2017-01-25] MEDS: CIPROFLOXACIN 500 MG TAB PO SCH (17:11)
[2017-01-25] MEDS: CLOPIDOGREL 75 MG TAB PO SCH (17:12)
[2017-01-25] MEDS: FINASTERIDE 5 MG TAB PO SCH (20:55)
[2017-01-25] MEDS: OCUVITE 1 TAB PO SCH (20:56)
[2017-01-25] MEDS: VITAMIN D 1,000 INTERNATIONAL UNITS TABLET PO SCH (20:56)
[2017-01-25] MEDS: CARVedilol 3.125 MG TAB PO SCH (20:57)
[2017-01-25] MEDS: GABAPENTIN 100 MG CAP PO PRN (21:02)
[2017-01-25] MEDS: SIMVASTATIN 10 MG TAB PO SCH (21:02)
[2017-01-25 22:00] VITALS: BP 140/65
[2017-01-26] MEDS: metroNIDAZOLE (FLAGYL) 500 MG TAB PO SCH ×3 (05:15→20:42)
[2017-01-26 06:00] VITALS: BP 134/63
[2017-01-26 06:58] LABS: MEAN CORPUSCULAR HEMOGLOBIN 33.1 pg (27.0-33.0); MEAN CORPUSCULAR HGB CONC 31.3 g/dl (32.0-36.5); MEAN CORPUSCULAR VOLUME 105.6 fl (80.0-96.0); PLATELET COUNT, AUTOMATED 197 10^3/uL (150-450); RED CELL DISTRIBUTION WIDTH 20.9 % (11.5-14.5); WHITE BLOOD COUNT 6.7 10^3/uL (4.0-10.0)
[2017-01-26 07:09] LABS: ALBUMIN 2.6 GM/DL (3.2-5.2); ALBUMIN/GLOBULIN RATIO 0.76 (1.00-1.93); BILIRUBIN,TOTAL 0.4 MG/DL (0.2-1.0); CALCIUM LEVEL 7.5 MG/DL (8.8-10.2); CREATININE FOR GFR 7.31 MG/DL (0.70-1.30); GLOMERULAR FILTRATION RATE 7.9 (>42); MAGNESIUM LEVEL 2.1 MG/DL (1.8-2.4); POTASSIUM SERUM 3.7 MEQ/L (3.5-5.1)
[2017-01-26] MEDS: (RENVELA) SEVELAMER **CARBONate** 800 MG TAB PO SCH ×3 (08:11→20:42)
[2017-01-26] MEDS: SENOKOT S TAB PO SCH ×2 (08:11→21:00)
[2017-01-26] MEDS: PANTOPRAZOLE 40MG TAB (PROTONIX) PO SCH ×2 (08:12→20:40)
[2017-01-26] MEDS: GABAPENTIN 100 MG CAP PO PRN (08:12)
[2017-01-26] MEDS: ASPIRIN 81 MG ENTERIC TAB PO SCH (08:12)
[2017-01-26] MEDS: CARVedilol 3.125 MG TAB PO SCH ×2 (08:13→20:44)
[2017-01-26] MEDS: LANTHANUM CARBONATE 500 MG CHEW TABLET PO SCH ×3 (08:13→20:42)
[2017-01-26] MEDS: traMADol 50 MG TAB PO PRN (08:14)
[2017-01-26] MEDS: HumaLOG INSULIN (NovoLOG) PER UNIT SC SCH ×4 (08:17→21:00)
[2017-01-26] MEDS: LEVEMIR (INSULIN DETEMIR) 1 UNITS/0.01ML SC SCH ×2 (08:17→21:00)
--- NOTE | 2017-01-26 08:48 | IPNPDOC ---
Date Seen The patient was seen on 01/26/17. Progress Note UBJECTIVE: Patient is a 71-year-old male with bright red blood per rectum. He is evaluated at bedside this morning. Admits to sudden onset right shoulder pain. States that he is having difficulty raising his right arm to clam picker a cup. States he moves around quite a bit to get comfortable and thinks that he sustained injury from that. He denies continued bleeding from any orifice, chest pain, shortness of breath, fever, night sweats, or chills. OBJECTIVE PHYSICAL EXAMINATION: VITAL SIGNS: Please see below. GENERAL: Obese male, wearing hospital gown, well nourished, well developed, appears younger than stated age, no acute distress HEENT: Atraumatic, normocephalic, Anisocoria of right pupil due to stroke approximately 3 years ago, oral mucosa appears pink and moist, nasal septum is midline, nares are patent CARDIOVASCULAR: Regular rate and rhythm, normal S1 and S2, no murmur, rub, click RESPIRATORY: Clear to auscultation bilaterally in the upper lobes, crackles appreciated in the lower lobes bilaterally, adequate inspiratory and expiratory airway excursion ABDOMINAL: Round, soft, non-tender, non-distended, bowel sounds somewhat diminished, no organomegaly, no guarding, no rebound EXTREMITIES: No erythema or edema appreciated along right shoulder, no tendonitis appreciated, appropriate flexion noted, but elicited pain with flexion, TEDs, sequentials, knee high compression in place, +1 peripheral edema appreciate on the feet bilaterally, equal, symmetrical, +2 NEUROLOGICAL: CN II-XII grossly intact PSYCHOLOGICAL: Alert and conversant, pleasant LABORATORY DATA: Please see below. MICROBIOLOGY: Please see below. IMAGING: Abdominal x-ray IMPRESSION: Chronic-appearing changes involving the chest and abdomen. Nonspecific bowel gas pattern without obstruction. Cannot exclude left lower lobe atelectasis versus chronic changes. Abdominal ultrasound IMPRESSION: Limited examination demonstrates hepatosteatosis. CT abdomen and pelvis angiography IMPRESSION: 1. Extensive significant atherosclerotic changes of the aorta and primarily involving the mesenteric arteries and bilateral renal arteries noted small luminal narrowing and decreased flow / enhancement as well as extensive distal calcifications extending into the distal branches into the mesentery. 2. Cannot exclude a mild or resolving colitis at the level of the distal ascending colon and hepatic flexure. 3. Small bilateral pleural effusions and bibasilar atelectasis. 4. Further chronic changes as described above. DVT prophylaxis ordered?: TEDs, sequentials, knee high compression; ASA, Clopidogrel ASSESSMENT AND PLAN: This is a 71-year-old male with bright red blood per rectum likely secondary to ischemic colitis. PROBLEMS: 1. Right shoulder pain: Will order heating pad for symptomatic relief. Ordering right shoulder x-ray. Likely arthritic changes, but pain started acutely, so will obtain imaging to R/O tear or avulsion. 2. Ischemic colitis: Continue to appreciate the valued assistance from gastroenterology. No more active bleeding. Received 4x units of PRBC. H/H 8..4. Remains on Metronidazole and Ciprofloxacin. Continue with Protonix orally 40mg twice a day. Advance diet as appropriate. Results of EGD and colonoscopy reveal no pathologic change and a fibrin exudate consistent with surface of an ulcer, but no active colitis, dysplasia, or granuloma identified. Nocro and Tramadol for pain. 3. Transaminitis: Resolved. AST and ALT 21 and 77, respectively. Hepatitis panel has been negative. Appropriately positive for Hepatitis Bs Ab. Pending hemochromatosis work-up. 4. ESRD: Continue to appreciate the valued assistance from nephrology. Dialysis MWF. Continue on Sensipar, Fosrenol, and Renvela. 5. Anemia: H/H 8.11/24.4. No active bleeding identified. Has been started on Aranesp by nephrology once a week with dialysis. 5. History of CVA: Continue with ASA and Clopidogrel. 6. Diabetes mellitus and diabetic neuropathy: Continue with Levemir 50 units BID, SSI, fingersticks AC/HS, and hypoglycemic protocol; continue with Gabapentin. 7. Hypertension: Continue with Carvedilol. 8. Dyslipidemia: Continue with Simvastatin. DISPOSITION: Transferred to medical-surgical unit. Advance diet. Physical therapy recommend 1-2 days of therapy and home with services. Continue to appreciate the valued assistance of nephrology and gastroenterology. VS, I&O, 24H, Fishbone Vital Signs/I&O Vital Signs Date Time Temp Pulse Resp B/P (MAP) Pulse Ox O2 Delivery O2 Flow Rate FiO2 01/26/17 08:14 18 01/26/17 08:13 63 138/65 01/26/17 06:00 97.3 94 Room Air I&O- Last 24 Hours up to 6 AM 01/27/17 06:00 Intake Total 360 ml Balance 360 ml Laboratory Data 24H LABS Laboratory Tests 2 01/25/17 12:14: Bedside Glucose (Misc Panel) 239H 01/25/17 16:52: Bedside Glucose (Misc Panel) 230H 01/25/17 20:48: Bedside Glucose (Misc Panel) 181H 01/26/17 06:27: Nucleated Red Blood Cells % (auto) 0.0, Anion Gap 11, Glomerular Filtration Rate 7.9L, Blood Urea Nitrogen 46H, Creatinine 7.31H, Sodium Level 138, Potassium Level 3.7, Chloride Level 101, Carbon Dioxide Level 26, Calcium Level 7.5L, Aspartate Amino Transf (AST/SGOT) 21, Alanine Aminotransferase (ALT/SGPT) 77, Alkaline Phosphatase 99, Total Bilirubin 0.4, Total Protein 6.0L, Albumin 2.6L, Magnesium Level 2.1, Albumin/Globulin Ratio 0.76L CBC/BMP Laboratory Tests 01/26/17 06:27 Red Blood Count 2.69 L, Mean Corpuscular Volume 105.6 H, Mean Corpuscular Hemoglobin 33.1 H, Mean Corpuscular Hemoglobin Concent 31.3 L, Red Cell Distribution Width 20.9 H, Calcium Level 7.5 L, Aspartate Amino Transf (AST/SGOT ) 21, Alanine Aminotransferase (ALT/SGPT) 77, Alkaline Phosphatase 99, Total Bilirubin 0.4, Total Protein 6.0 L, Albumin 2.6 L Microbiology Microbiology 01/20/17 Stool Occult Blood ([facility]) - Final, Complete DANIEL PURI DO Jan 26, 2017 08:48
[2017-01-26] MEDS ORDERED: DARBEPOETIN 100 MCG/0.5 ML *DIALYSIS* SYRINGE (J0882) IV SCH (10:45)
--- NOTE | 2017-01-26 10:54 | IPN ---
DATE: 01/26/2017 Mr. Chang is seen this morning on his bedside. He reports frequent loose stools, but denies any abdominal pain. He has no nausea or vomiting. He denies any dyspnea or chest pain. He is currently being treated for gastric ulcers and ischemic colitis. He had rectal bleeding and he presented with severe symptomatic anemia. He has been transfused and anemia has been stable. He is currently being treated with oral Cipro and Flagyl for ischemic colitis and oral Protonix 40 mg twice a day for gastric ulcers. On physical examination, temperature 97.3 degrees Fahrenheit, heart rate 64 per minute and respiratory rate 18 per minute. Blood pressure 138/65 mmHg and oxygen saturation 94% on room air. Head is atraumatic. Pupils equal and reactive to light and sclera is anicteric. He has no oral thrush or ulcers. Neck is supple and without jugular venous distention (JVD) or abnormal cervical lymph nodes. Thyroid enlargement is present. Heart sounds are regular and lungs sound clear to auscultation. Abdomen: Soft, nontender and bowel sounds are present. There is no palpable organomegaly. Extremities: Have no cyanosis or clubbing. Left upper arm AV graft is patent. Range of motion of right shoulder and elbow is somewhat restricted due to pain and some of his problem is probably chronic. Skin has no rash or ulcers. Neurologically, he is at his baseline mentation. Today's labs show a sodium level 138 and potassium 3.7. BUN 46 and creatinine 7.31. WBC count 6.7, hemoglobin 8.9 and hematocrit 28.4. PROBLEMS: 1. Rectal bleeding. The patient had ischemic colitis. He is being treated with oral Cipro and Flagyl now. There is no active bleeding noticed at this point. 2. Gastric ulcers. The patient remains on oral Protonix 40 mg twice a day. There was no active bleeding noticed from the gastric ulcers. We think that the GI bleeding was mostly due to colitis. 3. End-stage renal disease. The patient is regularly dialyzed on Monday, Monday and Monday. He was last dialyzed on Monday and we plan to dialyze him again today. We will try to switch him to his regular schedule next week. He will be dialyzed later this afternoon and again on Monday. 4. Acute blood loss anemia. His anemia has been stable following transfusion of a total of 4 units of packed red blood cells (RBCs) since admission. We will give him Aranesp 200 mcg during dialysis. 5. Diabetes. Diabetes is well-controlled and will continue with current insulin regimen. 6. Disposition. At present, the patient is not quite ready for discharge. He still has loose stools and remains at risk for recurrence of GI bleed due to ischemic colitis with ulcers. 7. Generalized weakness. The patient is quite weak and unable to ambulate. Physical therapy has been working with him.
[2017-01-26] MEDS ORDERED: LIDOCAINE 1% SDV 5 ML VIAL SQ ONE (13:30)
--- NOTE | 2017-01-26 14:52 | REP ---
Clinical: Acute onset pain. Technique: Internal rotation, external rotation, and Y view of the right shoulder. Findings: Osteopenia and advanced osteoarthritic degenerative changes include subchondral heterogeneity and blunting to the glenoid rim as well as cortical irregularity and spurring to the acromioclavicular joint. Osteophyte formation and/or calcified loose bodies are suspected along the inferior margin of the glenoid rim and humeral head. Subacromial space is decreased to approximately 6 mm. No acute fracture dislocation. Impression: Osteopenia and advanced degenerative changes. Signed by Ventura Hurtado MD 01/26/2017 02:43 P
[2017-01-26 20:30] VITALS: BP 143/64
[2017-01-26] MEDS: CINACALCET 30 MG TAB (SENSIPAR) PO SCH (20:40)
[2017-01-26] MEDS: OCUVITE 1 TAB PO SCH (20:41)
[2017-01-26] MEDS: CIPROFLOXACIN 500 MG TAB PO SCH (20:41)
[2017-01-26] MEDS: FINASTERIDE 5 MG TAB PO SCH (20:42)
[2017-01-26] MEDS: SIMVASTATIN 10 MG TAB PO SCH (20:42)
[2017-01-26] MEDS: CLOPIDOGREL 75 MG TAB PO SCH (20:43)
[2017-01-26] MEDS: VITAMIN D 1,000 INTERNATIONAL UNITS TABLET PO SCH (20:43)
[2017-01-26 22:00] VITALS: BP 154/68
[2017-01-27] MEDS: metroNIDAZOLE (FLAGYL) 500 MG TAB PO SCH ×4 (00:32→17:12)
[2017-01-27] MEDS: GABAPENTIN 100 MG CAP PO PRN ×2 (00:35→12:30)
[2017-01-27 06:00] VITALS: BP 110/58
[2017-01-27 06:59] LABS: MEAN CORPUSCULAR HEMOGLOBIN 32.6 pg (27.0-33.0); MEAN CORPUSCULAR HGB CONC 30.9 g/dl (32.0-36.5); MEAN CORPUSCULAR VOLUME 105.5 fl (80.0-96.0); PLATELET COUNT, AUTOMATED 198 10^3/uL (150-450); RED CELL DISTRIBUTION WIDTH 20.9 % (11.5-14.5); WHITE BLOOD COUNT 6.9 10^3/uL (4.0-10.0)
[2017-01-27 07:18] LABS: ALBUMIN 2.5 GM/DL (3.2-5.2); ALBUMIN/GLOBULIN RATIO 0.78 (1.00-1.93); BILIRUBIN,TOTAL 0.5 MG/DL (0.2-1.0); CALCIUM LEVEL 8.1 MG/DL (8.8-10.2); CREATININE FOR GFR 5.28 MG/DL (0.70-1.30); GLOMERULAR FILTRATION RATE 11.5 (>42); POTASSIUM SERUM 3.9 MEQ/L (3.5-5.1); TOTAL PROTEIN 5.7 GM/DL (6.4-8.2)
[2017-01-27] MEDS: SENOKOT S TAB PO SCH ×3 (08:09→21:25)
[2017-01-27] MEDS: LANTHANUM CARBONATE 500 MG CHEW TABLET PO SCH ×3 (08:10→21:00)
[2017-01-27] MEDS: (RENVELA) SEVELAMER **CARBONate** 800 MG TAB PO SCH ×3 (08:11→17:12)
[2017-01-27] MEDS: ASPIRIN 81 MG ENTERIC TAB PO SCH (08:11)
[2017-01-27] MEDS: PANTOPRAZOLE 40MG TAB (PROTONIX) PO SCH ×2 (08:11→21:26)
[2017-01-27] MEDS: HumaLOG INSULIN (NovoLOG) PER UNIT SC SCH ×4 (08:12→21:26)
[2017-01-27] MEDS: LEVEMIR (INSULIN DETEMIR) 1 UNITS/0.01ML SC SCH ×2 (08:13→21:26)
--- NOTE | 2017-01-27 09:51 | IPNPDOC ---
Date Seen The patient was seen on 01/27/17. Progress Note SUBJECTIVE: Patient is a 71-year-old male with bright red blood per rectum. He is evaluated at bedside this morning. He is attempting to eat ice chips during my evaluation. He has some difficulty raising his right arm and bringing it across his chest. Admits to pain and stiffness in his right shoulder. An x-ray obtained yesterday revealed osteopenia and degenerative changes. Patient currently takes vitamin D. He has not other complaints. Denies fever, night sweats, chills, abdominal pain. Still feels like he would benefit from one more day of physical therapy to get his strength up. Admits to intentional weight loss and knows that with continued weight loss his strength will return. OBJECTIVE PHYSICAL EXAMINATION: VITAL SIGNS: Please see below. GENERAL: Obese male, wearing hospital gown, well nourished, well developed, appears younger than stated age, no acute distress HEENT: Atraumatic, normocephalic, Anisocoria of right pupil due to stroke approximately 3 years ago, oral mucosa appears pink and moist, nasal septum is midline, nares are patent CARDIOVASCULAR: Regular rate and rhythm, normal S1 and S2, no murmur, rub, click RESPIRATORY: Clear to auscultation bilaterally in the upper lobes, crackles appreciated in the lower lobes bilaterally, adequate inspiratory and expiratory airway excursion ABDOMINAL: Round, soft, non-tender, non-distended, bowel sounds somewhat diminished, no organomegaly, no guarding, no rebound EXTREMITIES: No erythema or edema appreciated along right shoulder, no tendonitis appreciated, appropriate flexion noted, but elicited pain with flexion, right shoulder x-ray revealed osteopenia and degenerative changes, TEDs , sequentials, knee high compression in place, +1 peripheral edema appreciate on the feet bilaterally, equal, symmetrical, +2 NEUROLOGICAL: CN II-XII grossly intact PSYCHOLOGICAL: Alert and conversant, pleasant LABORATORY DATA: Please see below. MICROBIOLOGY: Please see below. IMAGING: Abdominal x-ray IMPRESSION: Chronic-appearing changes involving the chest and abdomen. Nonspecific bowel gas pattern without obstruction. Cannot exclude left lower lobe atelectasis versus chronic changes. Abdominal ultrasound IMPRESSION: Limited examination demonstrates hepatosteatosis. CT abdomen and pelvis angiography IMPRESSION: 1. Extensive significant atherosclerotic changes of the aorta and primarily involving the mesenteric arteries and bilateral renal arteries noted small luminal narrowing and decreased flow / enhancement as well as extensive distal calcifications extending into the distal branches into the mesentery. 2. Cannot exclude a mild or resolving colitis at the level of the distal ascending colon and hepatic flexure. 3. Small bilateral pleural effusions and bibasilar atelectasis. 4. Further chronic changes as described above. Complete right shoulder x-ray IMPRESSION: Osteopenia and advanced degenerative changes. DVT prophylaxis ordered?: TEDs, sequentials, knee high compression; ASA, Clopidogrel ASSESSMENT AND PLAN: This is a 71-year-old male with bright red blood per rectum likely secondary to ischemic colitis. PROBLEMS: 1. Right shoulder pain: Osteopenia and degenerative changes. Continue with a K pad for symptomatic relief. 2. Ischemic colitis: Continue to appreciate the valued assistance from gastroenterology. No more active bleeding. Received 4x units of PRBC. H/H 8.9 /28.8, stable. Remains on Metronidazole and Ciprofloxacin. Continue with Protonix orally 40mg twice a day. Advance diet as appropriate. Results of EGD and colonoscopy reveal no pathologic change and a fibrin exudate consistent with surface of an ulcer, but no active colitis, dysplasia, or granuloma identified. Nocro and Tramadol for pain. 3. Transaminitis: Resolved. AST and ALT 20 and 60, respectively. Hepatitis panel has been negative. Appropriately positive for Hepatitis Bs Ab. JESUS, AMA , ASMA negative. 4. ESRD: Continue to appreciate the valued assistance from nephrology. Dialysis MWF. Continue on Sensipar, Fosrenol, and Renvela. 5. Anemia: H/H 8.9/28.8, stable. No active bleeding identified. Has been started on Aranesp by nephrology once a week with dialysis. 5. History of CVA: Continue with ASA and Clopidogrel. 6. Diabetes mellitus and diabetic neuropathy: Continue with Levemir 50 units BID, SSI, fingersticks AC/HS, and hypoglycemic protocol; continue with Gabapentin. 7. Hypertension: Continue with Carvedilol. 8. Dyslipidemia: Continue with Simvastatin. DISPOSITION: Admitted to the medical-surgical unit. Continue with diet. Pending physical therapy assessment. Potential discharge in the next 24 hours. Continue to appreciate the valued assistance of nephrology and gastroenterology. VS, I&O, 24H, Fishbone Vital Signs/I&O Vital Signs Date Time Temp Pulse Resp B/P (MAP) Pulse Ox O2 Delivery O2 Flow Rate FiO2 01/27/17 06:00 97.7 68 18 110/58 (75) 94 Room Air Laboratory Data 24H LABS Laboratory Tests 2 01/26/17 11:35: Bedside Glucose (Misc Panel) 149H 01/26/17 20:34: Bedside Glucose (Misc Panel) 101 01/26/17 21:52: Bedside Glucose (Misc Panel) 96 01/27/17 06:18: Nucleated Red Blood Cells % (auto) 0.0, Anion Gap 9, Glomerular Filtration Rate 11.5L, Blood Urea Nitrogen 27H, Creatinine 5.28H, Sodium Level 138, Potassium Level 3.9, Chloride Level 100, Carbon Dioxide Level 29, Calcium Level 8.1L, Aspartate Amino Transf (AST/SGOT) 20, Alanine Aminotransferase (ALT/SGPT) 60, Alkaline Phosphatase 84, Total Bilirubin 0.5, Total Protein 5.7L, Albumin 2.5L, Magnesium Level 2.0, Albumin/Globulin Ratio 0.78L CBC/BMP Laboratory Tests 01/27/17 06:18 Red Blood Count 2.73 L, Mean Corpuscular Volume 105.5 H, Mean Corpuscular Hemoglobin 32.6, Mean Corpuscular Hemoglobin Concent 30.9 L, Red Cell Distribution Width 20.9 H, Calcium Level 8.1 L, Aspartate Amino Transf (AST/SGOT ) 20, Alanine Aminotransferase (ALT/SGPT) 60, Alkaline Phosphatase 84, Total Bilirubin 0.5, Total Protein 5.7 L, Albumin 2.5 L Microbiology Microbiology 01/20/17 Stool Occult Blood ([facility]) - Final, Complete DANIEL PURI DO Jan 27, 2017 09:06
--- NOTE | 2017-01-27 12:13 | IPN ---
DATE: 01/27/2017 Mr. Chang is seen this morning on his bedside. He is laying in the bed without any distress. He reports that he worked with the physical therapist yesterday, but could not walk long enough. He still gets short of breath on exertion. He denies any nausea or vomiting. He remains on a soft diet which he is tolerating well. He continues to have small loose stools. He is currently on oral Cipro and Flagyl for ischemic colitis. He was initially admitted with severe anemia and rectal bleed. He was found to have ischemic colitis with multiple ulcers both in the colon and also in the stomach, but no active bleeding in the stomach. He remains on Protonix 40 mg twice a day. The patient underwent last hemodialysis yesterday which he tolerated very well. On physical examination, temperature 97.7 degrees Fahrenheit, heart rate 68 per minute and respiratory rate 18 per minute. Blood pressure 110/58 mmHg and oxygen saturation 94% on room air. Head is atraumatic. Pupils equal and reactive to light and sclera is anicteric. Nose and throat are unremarkable. Neck is supple and jugular venous distention (JVD) is difficult to be assessed. Thyroid is mild to moderately enlarged. Heart sounds are regular and lungs with moderate bilateral air entry. Abdomen: Obese, soft and nontender and without a palpable organomegaly. Bowel sounds are normal. Extremities have no cyanosis or clubbing. He has a left upper arm AV fistula which is patent. He does have some edema on his left arm. Neurologically, he is awake, alert and at his baseline mentation. Today's labs show WBC count 6.9, hemoglobin 8.9 and hematocrit 28.8. Platelets 198. Sodium 138 and potassium 3.9. BUN 27 and creatinine 5.28. PROBLEMS: 1. Rectal bleeding. The patient had ischemic colitis with ulcers in his colon. No further bleeding noticed. He remains on Cipro and Flagyl. CT angiogram of his abdomen did show significant atherosclerotic disease in the mesenteric vessels. 2. Acute blood loss anemia. His anemia has improved following transfusion of 4 units of packed red blood cells (RBCs). He remains stable at present and we have already started Aranesp 200 mcg once a week. 3. End-stage renal disease. The patient was dialyzed yesterday and we will plan to dialyze him again tomorrow. His regular days are Monday, Monday and Monday. Once he is discharged, then he will go back to his regular scheduled from Monday. 4. Hypertension. Blood pressure is very well controlled on current antihypertensive medications. No changes are needed at this point. 5. Secondary hyperparathyroidism. The patient remains on Sensipar 30 mg daily. 6. Generalized weakness and deconditioning. The patient is still quite weak and does not feel comfortable as he has a ramp at home that he has to walk up. He will continue working with the physical therapist until he gets cleared by the therapist for discharge. 7. Disposition. If the patient gets cleared then he is likely to be discharged on Monday.
[2017-01-27] MEDS: traMADol 50 MG TAB PO PRN (12:31)
[2017-01-27 14:00] VITALS: BP 130/65
[2017-01-27] MEDS: CIPROFLOXACIN 500 MG TAB PO SCH (17:10)
[2017-01-27] MEDS: CLOPIDOGREL 75 MG TAB PO SCH (17:12)
[2017-01-27] MEDS: CINACALCET 30 MG TAB (SENSIPAR) PO SCH (17:12)
[2017-01-27] MEDS: SIMVASTATIN 10 MG TAB PO SCH (21:25)
[2017-01-27] MEDS: CARVedilol 3.125 MG TAB PO SCH (21:25)
[2017-01-27] MEDS: FINASTERIDE 5 MG TAB PO SCH (21:25)
[2017-01-27] MEDS: OCUVITE 1 TAB PO SCH (21:25)
[2017-01-27] MEDS: VITAMIN D 1,000 INTERNATIONAL UNITS TABLET PO SCH (21:25)
[2017-01-27 22:00] VITALS: BP 169/71
[2017-01-28] MEDS: metroNIDAZOLE (FLAGYL) 500 MG TAB PO SCH ×4 (00:48→17:31)
[2017-01-28 06:00] VITALS: BP 131/62
[2017-01-28] MEDS: CARVedilol 3.125 MG TAB PO SCH ×2 (06:26→20:32)
[2017-01-28] MEDS: GABAPENTIN 100 MG CAP PO PRN (06:26)
[2017-01-28] MEDS: LANTHANUM CARBONATE 500 MG CHEW TABLET PO SCH ×3 (06:26→20:32)
[2017-01-28] MEDS: PANTOPRAZOLE 40MG TAB (PROTONIX) PO SCH ×2 (06:27→20:31)
[2017-01-28] MEDS: SENOKOT S TAB PO SCH ×2 (06:28→20:32)
[2017-01-28] MEDS: ASPIRIN 81 MG ENTERIC TAB PO SCH (06:32)
[2017-01-28] MEDS: HumaLOG INSULIN (NovoLOG) PER UNIT SC SCH ×4 (07:29→20:32)
[2017-01-28] MEDS: LEVEMIR (INSULIN DETEMIR) 1 UNITS/0.01ML SC SCH ×2 (07:30→20:33)
[2017-01-28] MEDS ORDERED: LIDOCAINE 1% SDV 5 ML VIAL SQ ONE (11:30)
--- NOTE | 2017-01-28 12:10 | IPNPDOC ---
Date Seen The patient was seen on 01/28/17. Progress Note SUBJECTIVE: Patient is a 71-year-old male with bright red blood per rectum. He is evaluated at bedside this morning. He has just returned from dialysis. Says that he feels pretty good. No complaints. Would still like to work on his strength. Physical therapy will be around to day to work with him. Admits to right elbow pain that he says started during this admission. Says he is unable to cross his arm over his chest without pain. Previously admitted to right shoulder pain which was evaluated with an x-ray which showed osteopenia and degenerative change. OBJECTIVE PHYSICAL EXAMINATION: VITAL SIGNS: Please see below. GENERAL: Obese male, wearing hospital gown, well nourished, well developed, appears younger than stated age, no acute distress HEENT: Atraumatic, normocephalic, anisocoria of right pupil due to stroke approximately 3 years ago, oral mucosa appears pink and moist, nasal septum is midline, nares are patent CARDIOVASCULAR: Regular rate and rhythm, normal S1 and S2, no murmur, rub, click RESPIRATORY: Clear to auscultation bilaterally in the upper lobes, adequate inspiratory and expiratory airway excursion ABDOMINAL: Round, obese, soft, non-tender, non-distended, bowel sounds appreciated, no organomegaly, no guarding, no rebound EXTREMITIES: No erythema or edema appreciated along elbow, TEDs, sequentials, knee high compression in place, +1 peripheral edema appreciate on the feet bilaterally, equal, symmetrical, +2, AV fistula appreciated in the left upper arm, left arm is somewhat edematous which is chronic NEUROLOGICAL: CN II-XII grossly intact PSYCHOLOGICAL: Alert and conversant, pleasant LABORATORY DATA: Please see below. MICROBIOLOGY: Please see below. IMAGING: Abdominal x-ray IMPRESSION: Chronic-appearing changes involving the chest and abdomen. Nonspecific bowel gas pattern without obstruction. Cannot exclude left lower lobe atelectasis versus chronic changes. Abdominal ultrasound IMPRESSION: Limited examination demonstrates hepatosteatosis. CT abdomen and pelvis angiography IMPRESSION: 1. Extensive significant atherosclerotic changes of the aorta and primarily involving the mesenteric arteries and bilateral renal arteries noted small luminal narrowing and decreased flow / enhancement as well as extensive distal calcifications extending into the distal branches into the mesentery. 2. Cannot exclude a mild or resolving colitis at the level of the distal ascending colon and hepatic flexure. 3. Small bilateral pleural effusions and bibasilar atelectasis. 4. Further chronic changes as described above. Complete right shoulder x-ray IMPRESSION: Osteopenia and advanced degenerative changes. DVT prophylaxis ordered?: TEDs, sequentials, knee high compression; ASA, Clopidogrel ASSESSMENT AND PLAN: This is a 71-year-old male with bright red blood per rectum likely secondary to ischemic colitis. PROBLEMS: 1. Right shoulder and elbow pain: Osteopenia and degenerative changes noted on shoulder x-ray. Continue with a K pad for symptomatic relief and Tramadol. 2. Ischemic colitis with extensive atherosclerotic changes: Resolving. Continue with Ciprofloxacin for one more dose this evening. Metronidazole for continued dosing until tomorrow. [place] and Tramadol for pain. Continue statin. 3. GI bleed with acute blood loss anemia: No active bleeding. H/H pending for today. Continue with Protonix 40mg twice a day and do so for three months. 3. Transaminitis: Resolved. 4. ESRD: Continue to appreciate the valued assistance from nephrology. Received dialysis today. Will return to regular dialysis schedule next week, MWF. Continue on Sensipar, Fosrenol, and Renvela. 5. Anemia: H/H pending. No active bleeding identified. Has been started on Aranesp by nephrology once a week with dialysis. 5. History of CVA: Continue with ASA and Clopidogrel. 6. Diabetes mellitus and diabetic neuropathy: Continue with Levemir 50 units BID, SSI, fingersticks AC/HS, and hypoglycemic protocol; continue with Gabapentin. 7. Hypertension: Continue with Carvedilol. 8. Dyslipidemia: Continue with Simvastatin. DISPOSITION: Admitted to the medical-surgical unit. PT has cleared patient for discharge. Dialysis today. Discharge in the next 24 hours. VS, I&O, 24H, [facility] Vital Signs/I&O Vital Signs Date Time Temp Pulse Resp B/P (MAP) Pulse Ox O2 Delivery O2 Flow Rate FiO2 01/28/17 06:26 68 132/72 01/28/17 06:00 98.1 17 95 Room Air Laboratory Data 24H LABS Laboratory Tests 2 01/27/17 11:52: Bedside Glucose (Misc Panel) 138H 01/27/17 16:58: Bedside Glucose (Misc Panel) 188H 01/27/17 21:07: Bedside Glucose (Misc Panel) 297H 01/28/17 06:29: Bedside Glucose (Misc Panel) 182H Microbiology Microbiology 01/20/17 Stool Occult Blood ([facility]AN) - Final, Complete DANIEL PURI DO Jan 28, 2017 10:33
[2017-01-28] MEDS: (RENVELA) SEVELAMER **CARBONate** 800 MG TAB PO SCH ×2 (12:39→17:31)
[2017-01-28 14:00] VITALS: BP 151/70
[2017-01-28 14:55] LABS: BASO # 0.1 10^3/uL (0.0-0.2); BASO % 0.7 % (0.0-1.0); EOS # 0.3 10^3/uL (0.0-0.50); EOS % 4.2 % (0.0-3.0); IMMATURE GRANULOCYTE % 0.5 % (0-0); LYMPH # 0.5 10^3/uL (1.5-4.5); LYMPH % 6.4 % (24.0-44.0); MEAN CORPUSCULAR HEMOGLOBIN 33.1 pg (27.0-33.0); MEAN CORPUSCULAR HGB CONC 31.4 g/dl (32.0-36.5); MEAN CORPUSCULAR VOLUME 105.5 fl (80.0-96.0); MONO # 0.9 10^3/uL (0.0-0.8); MONO % 12.1 % (0.0-5.0); NEUTROPHILS # 5.8 10^3/uL (1.8-7.7); NEUTROPHILS % 76.1 % (36.0-66.0); PLATELET COUNT, AUTOMATED 228 10^3/uL (150-450); RED CELL DISTRIBUTION WIDTH 20.9 % (11.5-14.5); WHITE BLOOD COUNT 7.6 10^3/uL (4.0-10.0)
[2017-01-28 14:58] LABS: CALCIUM LEVEL 8.4 MG/DL (8.8-10.2); CREATININE FOR GFR 3.97 MG/DL (0.70-1.30); GLOMERULAR FILTRATION RATE 15.9 (>42)
--- NOTE | 2017-01-28 16:09 | IPN ---
DATE: 01/28/2017 SUBJECTIVE: The patient is seen this morning at the bedside receiving hemodialysis, comfortable in good spirits, without any significant complaint. REVIEW OF SYSTEMS: Negative for fevers, chills, chest pain, palpitations, shortness of breath, nausea, vomiting, diarrhea, confusion. Remainder of review of systems is negative. OBJECTIVE: VITAL SIGNS: Temperature 98.1, pulse 69, respiratory rate 17, blood pressure 131/62, saturating 95% on room air. INTAKE AND OUTPUT: Hemodialysis today removed 2500 mL ultrafiltration. Weight in the bed scale today 134 kg. PHYSICAL EXAMINATION: GENERAL: The patient is seen on hemodialysis, comfortable in no acute distress. Awake, alert, and oriented times four. HEAD/NECK: Extraocular muscles are intact. The nose and the throat are unremarkable. CARDIAC: S1, S2. Regular rate and rhythm. 2+ radial pulse. LUNGS: The patient is comfortable on room air. No accessory muscle use. There is symmetric air entry bilaterally. ABDOMEN: Obese, soft, nontender. There are bowel sounds present. EXTREMITIES: He has a left upper extremity fistula which is patent. NEUROLOGIC: He is awake, alert, and at his baseline mentation. SKIN: Warm with normal turgor. PSYCHIATRIC: Appropriate mood and affect. EXTREMITIES: There is 1+ edema in the lower extremity, palpable underneath his compression devices, and he has some chronic edema in the left arm. LABORATORY DATA: There are no new labs today thus far. INPATIENT MEDICATIONS: Reviewed and unchanged from prior. PROBLEMS: 1. End-stage renal disease on hemodialysis: The patient was dialyzed today and tolerated his treatment without issue. Once he is discharged, he will go back to his regular Monday, Monday, Monday maintenance schedule. 2. Gastrointestinal (GI) bleed with anemia: The patient continues on Protonix 40 mg by mouth twice a day. He is also receiving Aranesp. His hemoglobin has been in the eights but is stable for the past several days. He continues on Cipro and Flagyl. 3. Hypertension: Blood pressure is acceptably controlled on the current regimen of Coreg with varying doses given on dialysis and nondialysis days. 4. Secondary hyperparathyroidism: The patient continues on Sensipar, Fosrenol, and Renvela with calcium and phosphorus both at goal. 5. Disposition: The patient is cleared for discharge from a renal point of view tomorrow, January 29. [facility]
[2017-01-28] MEDS: CLOPIDOGREL 75 MG TAB PO SCH (17:29)
[2017-01-28] MEDS: CINACALCET 30 MG TAB (SENSIPAR) PO SCH (17:30)
[2017-01-28] MEDS: CIPROFLOXACIN 500 MG TAB PO SCH (17:32)
[2017-01-28] MEDS: VITAMIN D 1,000 INTERNATIONAL UNITS TABLET PO SCH (20:31)
[2017-01-28] MEDS: OCUVITE 1 TAB PO SCH (20:31)
[2017-01-28] MEDS: FINASTERIDE 5 MG TAB PO SCH (20:31)
[2017-01-28] MEDS: SIMVASTATIN 10 MG TAB PO SCH (20:31)
[2017-01-28 22:00] VITALS: BP 158/76
[2017-01-29] MEDS ORDERED: CIPR500T3 PO (05:36)
[2017-01-29] MEDS ORDERED: INSUDET SC (05:36)
[2017-01-29] MEDS ORDERED: PANT40TA2 PO (05:36)
[2017-01-29] MEDS ORDERED: FLAG500T PO (05:36)
[2017-01-29] MEDS: metroNIDAZOLE (FLAGYL) 500 MG TAB PO SCH ×4 (05:39→17:07)
[2017-01-29 06:00] VITALS: BP 155/72
[2017-01-29 06:15] LABS: BASO # 0.1 10^3/uL (0.0-0.2); BASO % 1.1 % (0.0-1.0); EOS # 0.4 10^3/uL (0.0-0.50); EOS % 4.1 % (0.0-3.0); IMMATURE GRANULOCYTE % 0.4 % (0-0); LYMPH # 0.9 10^3/uL (1.5-4.5); LYMPH % 10.5 % (24.0-44.0); MEAN CORPUSCULAR HEMOGLOBIN 33.2 pg (27.0-33.0); MEAN CORPUSCULAR HGB CONC 31.3 g/dl (32.0-36.5); MEAN CORPUSCULAR VOLUME 106.3 fl (80.0-96.0); MONO # 1.2 10^3/uL (0.0-0.8); MONO % 13.7 % (0.0-5.0); NEUTROPHILS # 5.9 10^3/uL (1.8-7.7); NEUTROPHILS % 70.2 % (36.0-66.0); PLATELET COUNT, AUTOMATED 269 10^3/uL (150-450); RED CELL DISTRIBUTION WIDTH 20.7 % (11.5-14.5); WHITE BLOOD COUNT 8.4 10^3/uL (4.0-10.0)
[2017-01-29 06:25] LABS: CALCIUM LEVEL 8.5 MG/DL (8.8-10.2); CREATININE FOR GFR 5.17 MG/DL (0.70-1.30); GLOMERULAR FILTRATION RATE 11.7 (>42); POTASSIUM SERUM 3.9 MEQ/L (3.5-5.1)
[2017-01-29] MEDS: HumaLOG INSULIN (NovoLOG) PER UNIT SC SCH ×4 (07:16→20:54)
[2017-01-29] MEDS: LEVEMIR (INSULIN DETEMIR) 1 UNITS/0.01ML SC SCH ×2 (08:33→20:55)
[2017-01-29] MEDS: SENOKOT S TAB PO SCH ×3 (09:00→20:54)
[2017-01-29] MEDS: ASPIRIN 81 MG ENTERIC TAB PO SCH (09:20)
[2017-01-29] MEDS: LANTHANUM CARBONATE 500 MG CHEW TABLET PO SCH ×3 (09:20→20:54)
[2017-01-29] MEDS: PANTOPRAZOLE 40MG TAB (PROTONIX) PO SCH ×2 (09:20→20:54)
--- NOTE | 2017-01-29 09:21 | IPNPDOC ---
Date Seen The patient was seen on 01/29/17. Progress Note SUBJECTIVE: Patient is seen and examined at the bedside. Chart has been reviewed. He complains of generalized weakness unable to ambulate and has not passed a home safety evaluation. He denies any bright red blood per rectum, melana, or black tarry stools. no worsening shortness of breath or chest pain. denies any fever chills dysuria urgency frequency nausea or vomiting. tolerating his diet and continues to have chronic 3+ edema in lower extremities. OBJECTIVE: PHYSICAL EXAMINATION: VITALS reviewed Head is atraumatic. Pupils equal and reactive to light and sclera is anicteric. He has no oral thrush or ulcers. Neck is supple and without jugular venous distention (JVD) or abnormal cervical lymph nodes. Thyroid enlargement is present. Heart sounds are regular and lungs sound clear to auscultation. Abdomen: Soft, nontender and bowel sounds are present. There is no palpable organomegaly. Extremities: Have no cyanosis or clubbing. Left upper arm AV graft is patent. Range of motion of right shoulder and elbow is somewhat restricted due to pain and some of his problem is probably chronic. Skin has no rash or ulcers. Neurologically, he is at his baseline mentation. LABS/IMAGING STUDIES: reviewed PROBLEMS: 1. Ischemic colitis. He is being treated with oral Cipro and Flagyl now. There is no active bleeding noticed at this point. 2. Gastric ulcers. The patient remains on oral Protonix 40 mg twice a day. There was no active bleeding noticed from the gastric ulcers. We think that the GI bleeding was mostly due to colitis. 3. End-stage renal disease. The patient is regularly dialyzed on Monday, Monday and Monday. regular schedule via nephrology 4. Acute blood loss anemia. His anemia has been stable following transfusion of a total of 4 units of packed red blood cells (RBCs) since admission. We will give him Aranesp 200 mcg during dialysis. 5. Diabetes. Diabetes is well-controlled and will continue with current insulin regimen. 6. Disposition. At present, the patient is not quite ready for discharge and has failed hse. change to alc/snf status. 7. Generalized weakness. The patient is quite weak and unable to ambulate. Physical therapy has been working with him. VS, I&O, 24H, [facility] Vital Signs/I&O Vital Signs Date Time Temp Pulse Resp B/P (MAP) Pulse Ox O2 Delivery O2 Flow Rate FiO2 01/29/17 06:00 97.0 75 18 155/72 (99) 95 Room Air I&O- Last 24 Hours up to 6 AM 01/30/17 06:00 Intake Total 120 ml Balance 120 ml Laboratory Data 24H LABS Laboratory Tests 2 01/28/17 12:25: Bedside Glucose (Misc Panel) 132H 01/28/17 14:23: Immature Granulocyte % (Auto) 0.5H, White Blood Count 7.6, Red Blood Count 2.93L , Hemoglobin 9.7L, Hematocrit 30.9L, Mean Corpuscular Volume 105.5H, Mean Corpuscular Hemoglobin 33.1H, Mean Corpuscular Hemoglobin Concent 31.4L, Red Cell Distribution Width 20.9H, Platelet Count 228, Neutrophils (%) (Auto) 76.1H , Lymphocytes (%) (Auto) 6.4L, Monocytes (%) (Auto) 12.1H, Eosinophils (%) (Auto ) 4.2H, Basophils (%) (Auto) 0.7, Neutrophils # (Auto) 5.8, Lymphocytes # (Auto ) 0.5L, Monocytes # (Auto) 0.9H, Eosinophils # (Auto) 0.3, Basophils # (Auto) 0.1, Immature Granulocyte # (Auto) 0.0, Nucleated Red Blood Cells % (auto) 0.0, Anion Gap 9, Glomerular Filtration Rate 15.9L, Blood Urea Nitrogen 20H, Creatinine 3.97H, Sodium Level 135L, Potassium Level 4.0, Chloride Level 98, Carbon Dioxide Level 28, Calcium Level 8.4L 01/28/17 16:54: Bedside Glucose (Misc Panel) 269H 01/28/17 20:25: Bedside Glucose (Misc Panel) 293H 01/29/17 05:49: Immature Granulocyte % (Auto) 0.4H, White Blood Count 8.4, Red Blood Count 3.01L , Hemoglobin 10.0L, Hematocrit 32.0L, Mean Corpuscular Volume 106.3H, Mean Corpuscular Hemoglobin 33.2H, Mean Corpuscular Hemoglobin Concent 31.3L, Red Cell Distribution Width 20.7H, Platelet Count 269, Neutrophils (%) (Auto) 70.2H , Lymphocytes (%) (Auto) 10.5L, Monocytes (%) (Auto) 13.7H, Eosinophils (%) ( Auto) 4.1H, Basophils (%) (Auto) 1.1H, Neutrophils # (Auto) 5.9, Lymphocytes # ( Auto) 0.9L, Monocytes # (Auto) 1.2H, Eosinophils # (Auto) 0.4, Basophils # (Auto ) 0.1, Immature Granulocyte # (Auto) 0.0, Nucleated Red Blood Cells % (auto) 0.0 , Anion Gap 11, Glomerular Filtration Rate 11.7L, Blood Urea Nitrogen 28H, Creatinine 5.17H, Sodium Level 139, Potassium Level 3.9, Chloride Level 101, Carbon Dioxide Level 27, Calcium Level 8.5L 01/29/17 07:00: Bedside Glucose (Misc Panel) 72L CBC/BMP Laboratory Tests 01/28/17 14:23 Red Blood Count 2.93 L, Mean Corpuscular Volume 105.5 H, Mean Corpuscular Hemoglobin 33.1 H, Mean Corpuscular Hemoglobin Concent 31.4 L, Red Cell Distribution Width 20.9 H, Neutrophils (%) (Auto) 76.1 H, Lymphocytes (%) (Auto ) 6.4 L, Monocytes (%) (Auto) 12.1 H, Eosinophils (%) (Auto) 4.2 H, Basophils (% ) (Auto) 0.7, Neutrophils # (Auto) 5.8, Lymphocytes # (Auto) 0.5 L, Monocytes # (Auto) 0.9 H, Eosinophils # (Auto) 0.3, Basophils # (Auto) 0.1, Calcium Level 8.4 L 01/29/17 05:49 Red Blood Count 3.01 L, Mean Corpuscular Volume 106.3 H, Mean Corpuscular Hemoglobin 33.2 H, Mean Corpuscular Hemoglobin Concent 31.3 L, Red Cell Distribution Width 20.7 H, Neutrophils (%) (Auto) 70.2 H, Lymphocytes (%) (Auto ) 10.5 L, Monocytes (%) (Auto) 13.7 H, Eosinophils (%) (Auto) 4.1 H, Basophils ( %) (Auto) 1.1 H, Neutrophils # (Auto) 5.9, Lymphocytes # (Auto) 0.9 L, Monocytes # (Auto) 1.2 H, Eosinophils # (Auto) 0.4, Basophils # (Auto) 0.1, Calcium Level 8.5 L Microbiology Microbiology 01/20/17 Stool Occult Blood (CHAN) - Final, Complete CAROLINA CANCINO MD Jan 29, 2017 09:21
[2017-01-29] MEDS: CARVedilol 3.125 MG TAB PO SCH ×2 (09:23→20:54)
[2017-01-29] MEDS: (RENVELA) SEVELAMER **CARBONate** 800 MG TAB PO SCH ×2 (13:00→17:08)
[2017-01-29] MEDS: traMADol 50 MG TAB PO PRN (13:05)
[2017-01-29] MEDS: GABAPENTIN 100 MG CAP PO PRN (13:06)
[2017-01-29] MEDS: CIPROFLOXACIN 500 MG TAB PO SCH (17:07)
[2017-01-29] MEDS: CLOPIDOGREL 75 MG TAB PO SCH (17:08)
[2017-01-29] MEDS: CINACALCET 30 MG TAB (SENSIPAR) PO SCH (17:08)
--- NOTE | 2017-01-29 20:12 | IPN ---
DATE: 01/29/2017 SUBJECTIVE: The patient was seen this morning at the bedside. His is present. He is out of bed to the chair having lunch. He denies any acute episodes overnight. He complains of generalized weakness and trouble ambulating, and he did not pass his home safety evaluation. His level of care has been changed to correction facility (SNF) status at present. OBJECTIVE: VITAL SIGNS: Temperature 97.0, pulse 75, respiratory rate 18, blood pressure 155/72, saturating 95% on room air. INTAKE AND OUTPUT: Oral intake yesterday 1020 mL. Hemodialysis removed 2500 mL. Net negative 1480. Weight in the bed scale today 131.5 kg. PHYSICAL EXAMINATION: GENERAL: The patient is seen out of bed to the chair, comfortable, having lunch. His was present at the bedside. HEAD/NECK: Pupils equal, round, and reactive. He has moist mucous membranes. Neck is supple. CARDIAC: S1, S2. 2+ radial pulse. There is chronic pitting edema present in the lower extremities that goes up to the thigh and dependent areas. LUNGS: Clear to auscultation superiorly and diminished at the base. Comfortable on room air. ABDOMEN: Soft, obese, nontender. There are bowel sounds present. EXTREMITIES: He has a left upper extremity arteriovenous (AV) fistula. Lower extremities have pitting edema present. NEUROLOGIC: He is oriented times four and at his baseline mentation. PSYCHIATRIC: Appropriate mood and affect. LABORATORY DATA: White count 8.4, hemoglobin 10.0, platelets 269. Sodium 139, potassium 3.9, bicarbonate 27, calcium 8.5. INPATIENT MEDICATIONS: There is no significant change from prior. PROBLEMS: 1. End-stage renal disease: The patient's next dialysis treatment will be tomorrow, 01/30, to get him back on his maintenance schedule. We will increase ultrafiltration with goal of 3.5 liters to be removed tomorrow. He does have peripheral edema and some hypervolemia on exam, and given his systolic in the 150s, he hopefully should be able to tolerate an ultrafiltration of 3-4 liters. 2. Hypertension: The patient continues on Coreg. There is no change being made to his antihypertensive regimen at present. 3. Gastric ulcers: The patient continues on Protonix 40 mg by mouth twice a day , and he continues on Cipro and Flagyl for his colitis. His hemoglobin has been fairly stable the past several days. 4. Anemia, status post packed red blood cells transfusion, and gastrointestinal (GI) bleed: The patient now continues on Aranesp with heparin free dialysis. 5. Episode of dark urination: The patient denies any gross hematuria at present , but complains of on-and-off black urine. He had a contrast CT scan about a week ago that showed a grossly normal prostate and bladder, and atrophic kidneys with calcification, but with no noted renal mass. We can check a urinalysis (UA) to rule out any hematuria. 6. Disposition: The patient is being changed to correction facility status , and he will be seen only on hemodialysis days. MARCIA
[2017-01-29] MEDS: OCUVITE 1 TAB PO SCH (20:52)
[2017-01-29] MEDS: FINASTERIDE 5 MG TAB PO SCH (20:52)
[2017-01-29] MEDS: SIMVASTATIN 10 MG TAB PO SCH (20:53)
[2017-01-29] MEDS: NORCO, ANEXSIA 5/325MG TABLET (HYDROcodone/ACETAMINOPHEN) PO PRN (20:53)
[2017-01-29] MEDS: VITAMIN D 1,000 INTERNATIONAL UNITS TABLET PO SCH (20:53)
[2017-01-29] MEDS: BENZONATATE 100 MG CAP PO PRN (20:54)
[2017-01-30] MEDS: metroNIDAZOLE (FLAGYL) 500 MG TAB PO SCH ×2 (05:38)
[2017-01-30 06:00] VITALS: BP 140/72
[2017-01-30] MEDS: SENOKOT S TAB PO SCH ×2 (09:00→20:24)
[2017-01-30] MEDS: LEVEMIR (INSULIN DETEMIR) 1 UNITS/0.01ML SC SCH ×2 (09:00→21:00)
[2017-01-30 09:14] LABS: CALCIUM LEVEL 7.9 MG/DL (8.8-10.2); CREATININE FOR GFR 6.67 MG/DL (0.70-1.30); GLOMERULAR FILTRATION RATE 8.8 (>42); POTASSIUM SERUM 4.8 MEQ/L (3.5-5.1)
[2017-01-30] MEDS: BENZONATATE 100 MG CAP PO PRN ×2 (09:47→17:52)
[2017-01-30] MEDS: HumaLOG INSULIN (NovoLOG) PER UNIT SC SCH ×4 (09:47→20:59)
[2017-01-30] MEDS: ASPIRIN 81 MG ENTERIC TAB PO SCH (09:47)
[2017-01-30] MEDS: LANTHANUM CARBONATE 500 MG CHEW TABLET PO SCH ×3 (09:47→20:58)
[2017-01-30] MEDS: GABAPENTIN 100 MG CAP PO PRN ×2 (09:47→21:00)
[2017-01-30] MEDS: PANTOPRAZOLE 40MG TAB (PROTONIX) PO SCH ×2 (09:47→20:56)
[2017-01-30] MEDS: traMADol 50 MG TAB PO PRN ×2 (09:49→20:58)
[2017-01-30] MEDS: (RENVELA) SEVELAMER **CARBONate** 800 MG TAB PO SCH ×3 (09:59→17:26)
[2017-01-30 12:52] LABS: MEAN CORPUSCULAR HEMOGLOBIN 33.5 pg (27.0-33.0); MEAN CORPUSCULAR VOLUME 107.9 fl (80.0-96.0); PLATELET COUNT, AUTOMATED 263 10^3/uL (150-450); RED CELL DISTRIBUTION WIDTH 20.9 % (11.5-14.5); WHITE BLOOD COUNT 8.2 10^3/uL (4.0-10.0)
[2017-01-30] MEDS: CINACALCET 30 MG TAB (SENSIPAR) PO SCH (17:26)
[2017-01-30] MEDS: CLOPIDOGREL 75 MG TAB PO SCH (17:26)
[2017-01-30] MEDS: CARVedilol 3.125 MG TAB PO SCH (20:57)
[2017-01-30] MEDS: FINASTERIDE 5 MG TAB PO SCH (20:58)
[2017-01-30] MEDS: OCUVITE 1 TAB PO SCH (20:58)
[2017-01-30] MEDS: VITAMIN D 1,000 INTERNATIONAL UNITS TABLET PO SCH (20:58)
[2017-01-30] MEDS: SIMVASTATIN 10 MG TAB PO SCH (20:58)
--- NOTE | 2017-01-30 21:16 | IPN ---
DATE: 01/30/2017 SUBJECTIVE: The patient was seen this morning at the bedside on hemodialysis, comfortable, tolerating his treatment without any reported complaint or issue. He remains weak and unable to ambulate and is thus awaiting rehabilitation placement. He complains of occasional dark urine production, and I have asked him to save a specimen to be sent to the lab. OBJECTIVE: VITAL SIGNS: Temperature 98.4, pulse 75, respiratory rate 16, blood pressure 140/72, saturating 94% on room air. INTAKE AND OUTPUT: Hemodialysis today removed 3500 mL ultrafiltration. Weight in the bed scale is not recorded todya. Oral intake was 840 mL, net negative 2.6 liters GENERAL: The patient is seen on hemodialysis, comfortable, in no acute distress. Extraocular muscles are intact. The oral mucosa is moist. The neck veins were difficult to asses while he was on dialysis. CARDIAC: S1, S2, regular, 2+ radial pulse. There is 1-2+ pitting edema bilaterally in the lower extremities. LUNGS: Clear and distant air entry bilaterally and the patient was comfortable on room air. ABDOMEN: Soft, obese, nontender. Positive bowel sounds . EXTREMITIES: 2+ pitting edema in the bilateral lower extremities and left upper extremity AV access. NEUROLOGIC: No focal deficits. He is at his baseline mentation. PSYCHIATRIC: Appropriate mood and affect. SKIN: No rash or ulcers. LABORATORY DATA: White count 8.2, hemoglobin 8.9, platelets 263. Sodium 138, potassium 4.8, bicarbonate 24. Urine analysis 5 RBCs, 2+ bacteria, 43 WBCs, 2+ leukoesterase. INPATIENT MEDICATIONS: The patient is started per the primary team on Tessalon Perles as needed. His ciprofloxacin is discontinued as is his Flagyl. The remainder of the medications are unchanged from prior. PROBLEMS: 1. End-stage renal disease on hemodialysis. The patient continues on his regular maintenance schedule Monday, Monday, Monday tolerating dialysis well. Today the ultrafiltration was increased to 3500 mL in view of peripheral edema that is present. 2. Ischemic colitis and GI bleed. The patient has completed a course of ciprofloxacin and Flagyl. He is now discontinued off of antibiotics. He continues on oral Protonix 40 mg by mouth twice a day for correction of his anemia he continued on Aranesp. 3. Hypertension: The patient blood pressure is well controlled on the current regimen and no changes are being made. 4. Complaint of dark urination. UA with 5 RBCs and 2+ leukoesterase and 43 WBC. We will check a urine culture. 5. Weakness. Debilitation. Inability to walk. The patient is awaiting rehabilitation placement. He is on [facility] facility status and will be seen only on hemodialysis days.
[2017-01-31 06:00] VITALS: BP 126/56
[2017-01-31] MEDS: HumaLOG INSULIN (NovoLOG) PER UNIT SC SCH ×4 (08:13→21:01)
[2017-01-31] MEDS: LANTHANUM CARBONATE 500 MG CHEW TABLET PO SCH ×3 (08:14→20:56)
[2017-01-31] MEDS: (RENVELA) SEVELAMER **CARBONate** 800 MG TAB PO SCH ×3 (08:14→16:57)
[2017-01-31] MEDS: PANTOPRAZOLE 40MG TAB (PROTONIX) PO SCH ×2 (08:15→20:59)
[2017-01-31] MEDS: ASPIRIN 81 MG ENTERIC TAB PO SCH (08:15)
[2017-01-31] MEDS: SENOKOT S TAB PO SCH ×2 (08:15→20:47)
[2017-01-31] MEDS: CARVedilol 3.125 MG TAB PO SCH ×2 (08:15→21:00)
[2017-01-31] MEDS: BENZONATATE 100 MG CAP PO PRN (08:15)
[2017-01-31] MEDS: GABAPENTIN 100 MG CAP PO PRN ×2 (08:15→21:00)
[2017-01-31] MEDS: LEVEMIR (INSULIN DETEMIR) 1 UNITS/0.01ML SC SCH ×2 (08:16→21:01)
[2017-01-31] MEDS: traMADol 50 MG TAB PO PRN ×2 (08:27→20:59)
[2017-01-31 17:00] VITALS: BP 140/90
[2017-01-31] MEDS: CINACALCET 30 MG TAB (SENSIPAR) PO SCH (17:38)
[2017-01-31] MEDS: CLOPIDOGREL 75 MG TAB PO SCH (17:38)
[2017-01-31] MEDS: OCUVITE 1 TAB PO SCH (20:56)
[2017-01-31] MEDS: SIMVASTATIN 10 MG TAB PO SCH (20:59)
[2017-01-31] MEDS: FINASTERIDE 5 MG TAB PO SCH (20:59)
[2017-01-31] MEDS: VITAMIN D 1,000 INTERNATIONAL UNITS TABLET PO SCH (21:00)
[2017-02-01] MEDS: DELSYM COUGH PO PRN ×2 (00:08→20:22)
[2017-02-01 06:00] VITALS: BP 122/60
[2017-02-01] MEDS: SENOKOT S TAB PO SCH ×2 (06:09→20:24)
[2017-02-01] MEDS: PANTOPRAZOLE 40MG TAB (PROTONIX) PO SCH ×2 (06:15→20:22)
[2017-02-01] MEDS: LANTHANUM CARBONATE 500 MG CHEW TABLET PO SCH ×3 (06:16→20:23)
[2017-02-01] MEDS: ASPIRIN 81 MG ENTERIC TAB PO SCH (06:16)
[2017-02-01] MEDS: HumaLOG INSULIN (NovoLOG) PER UNIT SC SCH ×4 (08:03→20:17)
[2017-02-01] MEDS: LEVEMIR (INSULIN DETEMIR) 1 UNITS/0.01ML SC SCH ×2 (08:04→20:24)
--- NOTE | 2017-02-01 16:40 | IPN ---
DATE: 02/01/2017 SUBJECTIVE: The patient continues on senior living facility status, awaiting rehabilitation placement. He is seen on hemodialysis this morning, tolerating his treatment without any issue. Denies any complaints or events overnight. No chest pain. No palpitations. No shortness of breath, nausea, vomiting, or diarrhea is reported. Reports he is tolerating oral intake well. VITAL SIGNS: Temperature 97.1, pulse 69, respiratory rate 17, blood pressure 122/60, saturating 94% on room air. INTAKE AND OUTPUT: Oral intake yesterday is 1430 mL. There is no output recorded. Weight in the bed scale today is 133.5 kg. Goal ultrafiltration on hemodialysis today is 3500. GENERAL: The patient is seen on hemodialysis, comfortable, in no acute distress, morbidly obese. HEAD AND NECK: Extraocular muscles are intact. The tongue is moist. The neck is supple. CARDIAC: S1, S2, 2+ radial pulse. There is 1 to 2+ pitting edema bilaterally in the lower extremities that extends up to the thigh. LUNGS: Anterior auscultation only, clear and distant air entry bilaterally. No accessory muscle use. Patient comfortable on room air. ABDOMEN: Soft, obese, nontender. Positive bowel sounds . EXTREMITIES: Have 1 to 2+ pitting edema bilaterally that extends up to the thigh and the left upper extremity has an arteriovenous (AV) fistula currently in use. NEUROLOGIC: No focal deficits. PSYCHIATRIC: Appropriate mood and affect. LABORATORY DATA: White count 8.2, hemoglobin 8.9, platelets 263. Sodium 138, potassium 4.8, carbon dioxide 24. INPATIENT MEDICATIONS: Reviewed by myself. There is no change in the past 24 hours noted. PROBLEMS: 1. End-stage renal disease on hemodialysis. The patient continues on his regular maintenance schedule of Monday, Monday and Monday, tolerating dialysis well. Today, his goal ultrafiltration is 3500 mL in view of peripheral edema that is present. The patient states he is unable to tolerate greater ultrafiltration. 2. Hypertension. The patient's blood pressures are well-controlled. On hemodialysis days, his Coreg is held in the morning. He otherwise continues on 3.125 mg twice a day. 3. Ischemic colitis and gastrointestinal bleed. The patient has completed a course of Cipro and Flagyl. He remains off of antibiotics. He continues on oral Protonix 40 mg by mouth twice a day and he remains anemia. Hemoglobin just shy of 9 on last set of laboratories two days prior. He continues on Aranesp and heparin free dialysis 4. Weakness, debilitation. The patient is awaiting rehabilitation placement. He is on senior living facility status and will be seen only on hemodialysis days. ADDENDUM: Laboratories that were reported were drawn on 01/30/2017 and are the most recent laboratories available. We will intermittently check laboratories while the patient is on senior living facility (SNF) status. MARCIA
[2017-02-01] MEDS: CLOPIDOGREL 75 MG TAB PO SCH (17:23)
[2017-02-01] MEDS: CINACALCET 30 MG TAB (SENSIPAR) PO SCH (17:23)
[2017-02-01] MEDS: VITAMIN D 1,000 INTERNATIONAL UNITS TABLET PO SCH (20:22)
[2017-02-01] MEDS: FINASTERIDE 5 MG TAB PO SCH (20:22)
[2017-02-01] MEDS: SIMVASTATIN 10 MG TAB PO SCH (20:22)
[2017-02-01] MEDS: GABAPENTIN 100 MG CAP PO PRN (20:23)
[2017-02-01] MEDS: OCUVITE 1 TAB PO SCH (20:23)
[2017-02-01] MEDS: CARVedilol 3.125 MG TAB PO SCH (20:23)
[2017-02-02 06:00] VITALS: BP 133/70
[2017-02-02 07:29] LABS: MEAN CORPUSCULAR HEMOGLOBIN 32.3 pg (27.0-33.0); MEAN CORPUSCULAR HGB CONC 30.3 g/dl (32.0-36.5); MEAN CORPUSCULAR VOLUME 106.6 fl (80.0-96.0); PLATELET COUNT, AUTOMATED 298 10^3/uL (150-450); RED CELL DISTRIBUTION WIDTH 19.9 % (11.5-14.5); WHITE BLOOD COUNT 7.3 10^3/uL (4.0-10.0)
[2017-02-02 07:45] LABS: CALCIUM LEVEL 8.4 MG/DL (8.8-10.2); CREATININE FOR GFR 5.06 MG/DL (0.70-1.30); PHOSPHORUS LEVEL 3.3 MG/DL (2.5-4.9); POTASSIUM SERUM 4.3 MEQ/L (3.5-5.1)
[2017-02-02] MEDS: HumaLOG INSULIN (NovoLOG) PER UNIT SC SCH ×4 (08:39→20:11)
[2017-02-02] MEDS: SENOKOT S TAB PO SCH ×2 (08:39→20:15)
[2017-02-02] MEDS: GABAPENTIN 100 MG CAP PO PRN ×2 (08:39→20:15)
[2017-02-02] MEDS: LANTHANUM CARBONATE 500 MG CHEW TABLET PO SCH ×3 (08:39→20:15)
[2017-02-02] MEDS: ASPIRIN 81 MG ENTERIC TAB PO SCH (08:40)
[2017-02-02] MEDS: PANTOPRAZOLE 40MG TAB (PROTONIX) PO SCH ×2 (08:40→20:16)
[2017-02-02] MEDS: LEVEMIR (INSULIN DETEMIR) 1 UNITS/0.01ML SC SCH ×2 (08:40→20:16)
[2017-02-02] MEDS: CARVedilol 3.125 MG TAB PO SCH ×2 (08:40→20:16)
[2017-02-02] MEDS: NORCO, ANEXSIA 5/325MG TABLET (HYDROcodone/ACETAMINOPHEN) PO PRN (08:41)
[2017-02-02] MEDS: CINACALCET 30 MG TAB (SENSIPAR) PO SCH (17:08)
[2017-02-02] MEDS: CLOPIDOGREL 75 MG TAB PO SCH (17:08)
[2017-02-02] MEDS: traMADol 50 MG TAB PO PRN (18:03)
[2017-02-02] MEDS: VITAMIN D 1,000 INTERNATIONAL UNITS TABLET PO SCH (20:15)
[2017-02-02] MEDS: OCUVITE 1 TAB PO SCH (20:15)
[2017-02-02] MEDS: SIMVASTATIN 10 MG TAB PO SCH (20:15)
[2017-02-02] MEDS: FINASTERIDE 5 MG TAB PO SCH (20:16)
[2017-02-02] MEDS: DELSYM COUGH PO PRN (21:20)
[2017-02-03 05:05] VITALS: BP 115/59
[2017-02-03] MEDS: SENOKOT S TAB PO SCH ×2 (05:55→21:00)
[2017-02-03] MEDS: PANTOPRAZOLE 40MG TAB (PROTONIX) PO SCH ×2 (05:55→21:26)
[2017-02-03] MEDS: ASPIRIN 81 MG ENTERIC TAB PO SCH (05:55)
[2017-02-03] MEDS: LANTHANUM CARBONATE 500 MG CHEW TABLET PO SCH ×3 (05:56→21:25)
[2017-02-03] MEDS: HumaLOG INSULIN (NovoLOG) PER UNIT SC SCH ×4 (08:04→21:27)
[2017-02-03] MEDS: LEVEMIR (INSULIN DETEMIR) 1 UNITS/0.01ML SC SCH ×2 (08:04→21:27)
[2017-02-03] MEDS ORDERED: LIDOCAINE 1% SDV 5 ML VIAL SQ ONE (12:00)
[2017-02-03] MEDS ORDERED: HEPARIN 1,000 UNITS/ML 10ML VIAL (FOR RADIOLOGY& DIALYSIS ONLY) XX ONE (12:00)
[2017-02-03] MEDS: GABAPENTIN 100 MG CAP PO PRN ×2 (15:58→21:25)
[2017-02-03] MEDS: traMADol 50 MG TAB PO PRN ×2 (15:58→21:25)
--- NOTE | 2017-02-03 16:15 | IPN ---
DATE: 02/03/2017 SUBJECTIVE: The patient is seen this morning on hemodialysis, comfortable with no reported complaints. He continues on nursing home facility (SNF) status and is awaiting rehabilitation placement, likely in [place]. Goal ultrafiltration on hemodialysis today is 3500 mL. OBJECTIVE: VITAL SIGNS: Temperature 97.9, pulse 67, respiratory rate 16, blood pressure 115/59, saturating 94% on room air. INTAKE AND OUTPUT: Not completely recorded. Weight in the bed scale today is 132.2 kg. GENERAL: The patient is seen on dialysis, comfortable, in no acute distress. Appropriately interactive, conversational, pleasant, and talkative. HEAD/NECK: Extraocular muscles are intact. The tongue is moist. CARDIAC: S1, S2. 2+ radial pulse. There is one to 2+ pitting edema bilaterally in the lower extremities that extends up to the thigh and dependent areas. LUNGS: Anterior auscultation only. There is symmetric air entry bilaterally. There is no accessory muscle use. The patient is comfortable on room air. ABDOMEN: Is soft, obese, nontender. EXTREMITIES: There is a left upper extremity fistula that is in use at present. There is pitting edema in the peripheries. NEUROLOGIC: There is no focal deficit. He is at his baseline mentation. PSYCHIATRIC: Appropriate mood and affect. LABORATORY DATA: Most recent labs available from 02/02 show hemoglobin 9.8, platelets 298, white count 7.3. Sodium 137, potassium 4.3, bicarbonate 29. INPATIENT MEDICATIONS: There is no significant change in the patient's medications. PROBLEMS: 1. End-stage renal disease on hemodialysis. The patient continues on his regular maintenance schedule of Monday, Monday, Monday with goal ultrafiltration of 3500 mL which is his chronic goal in the outpatient unit. He states he is unable to tolerate greater ultrafiltration. He does have mild hypervolemia on exam, with pitting edema present in the extremities but is comfortable on room air. 2. Hypertension. The patient's blood pressures are well controlled. His morning dose of Coreg is held on dialysis days. There is no change being made to his antihypertensive regimen. 3. Ischemic colitis and gastrointestinal (GI) bleed. The patient continues on Protonix 40 mg by mouth twice a day. His most recent hemoglobin is 9.8 which is below goal for chronic dialysis. He continues on Aranesp. No indication for transfusion at present. 4. Weakness, debilitation. The patient is awaiting rehabilitation placement. He is on nursing home facility status and will be seen only on hemodialysis days. 5. Disposition: The patient will be seen only on hemodialysis days. We will intermittently check his labs. MARCIA
[2017-02-03] MEDS: CINACALCET 30 MG TAB (SENSIPAR) PO SCH (17:49)
[2017-02-03] MEDS: CLOPIDOGREL 75 MG TAB PO SCH (17:49)
[2017-02-03] MEDS: OCUVITE 1 TAB PO SCH (21:24)
[2017-02-03] MEDS: DELSYM COUGH PO PRN (21:24)
[2017-02-03] MEDS: VITAMIN D 1,000 INTERNATIONAL UNITS TABLET PO SCH (21:25)
[2017-02-03] MEDS: CARVedilol 3.125 MG TAB PO SCH (21:26)
[2017-02-03] MEDS: SIMVASTATIN 10 MG TAB PO SCH (21:26)
[2017-02-03] MEDS: FINASTERIDE 5 MG TAB PO SCH (21:26)
[2017-02-04 06:00] VITALS: BP 109/64
[2017-02-04] MEDS: HumaLOG INSULIN (NovoLOG) PER UNIT SC SCH ×4 (08:50→20:48)
[2017-02-04] MEDS: GABAPENTIN 100 MG CAP PO PRN ×2 (08:51→20:47)
[2017-02-04] MEDS: traMADol 50 MG TAB PO PRN ×2 (08:51→17:40)
[2017-02-04] MEDS: LEVEMIR (INSULIN DETEMIR) 1 UNITS/0.01ML SC SCH ×2 (08:51→20:48)
[2017-02-04] MEDS: LANTHANUM CARBONATE 500 MG CHEW TABLET PO SCH ×3 (08:51→20:46)
[2017-02-04] MEDS: SENOKOT S TAB PO SCH ×2 (08:51→20:47)
[2017-02-04] MEDS: PANTOPRAZOLE 40MG TAB (PROTONIX) PO SCH ×2 (08:52→20:47)
[2017-02-04] MEDS: ASPIRIN 81 MG ENTERIC TAB PO SCH (08:52)
[2017-02-04] MEDS: CARVedilol 3.125 MG TAB PO SCH ×2 (08:55→20:46)
[2017-02-04 14:00] VITALS: BP 133/63
[2017-02-04] MEDS: CINACALCET 30 MG TAB (SENSIPAR) PO SCH (17:39)
[2017-02-04] MEDS: CLOPIDOGREL 75 MG TAB PO SCH (17:39)
[2017-02-04] MEDS: FINASTERIDE 5 MG TAB PO SCH (20:46)
[2017-02-04] MEDS: OCUVITE 1 TAB PO SCH (20:46)
[2017-02-04] MEDS: VITAMIN D 1,000 INTERNATIONAL UNITS TABLET PO SCH (20:47)
[2017-02-04] MEDS: SIMVASTATIN 10 MG TAB PO SCH (20:47)
[2017-02-04 22:00] VITALS: BP 141/65
[2017-02-05 06:00] VITALS: BP 138/69
[2017-02-05] MEDS ORDERED: MIRALAX *UNIT DOSE* 17GM PACKET PO PRN (09:15)
[2017-02-05] MEDS ORDERED: MOM 30ML SUSPENSION UDC PO PRN (09:15)
[2017-02-05] MEDS: SENOKOT S TAB PO SCH ×2 (09:38→21:11)
[2017-02-05] MEDS: ASPIRIN 81 MG ENTERIC TAB PO SCH (09:38)
[2017-02-05] MEDS: LANTHANUM CARBONATE 500 MG CHEW TABLET PO SCH ×4 (09:38→21:08)
[2017-02-05] MEDS: PANTOPRAZOLE 40MG TAB (PROTONIX) PO SCH ×2 (09:38→21:09)
[2017-02-05] MEDS: GABAPENTIN 100 MG CAP PO PRN ×2 (09:39→21:13)
[2017-02-05] MEDS: traMADol 50 MG TAB PO PRN ×3 (09:39→21:10)
[2017-02-05] MEDS: HumaLOG INSULIN (NovoLOG) PER UNIT SC SCH ×4 (09:40→21:14)
[2017-02-05] MEDS: CARVedilol 3.125 MG TAB PO SCH ×2 (09:40→21:13)
[2017-02-05] MEDS: LEVEMIR (INSULIN DETEMIR) 1 UNITS/0.01ML SC SCH ×2 (09:41→21:00)
[2017-02-05 14:00] VITALS: BP 133/64
[2017-02-05] MEDS: CINACALCET 30 MG TAB (SENSIPAR) PO SCH (17:05)
[2017-02-05] MEDS: (RENVELA) SEVELAMER **CARBONate** 800 MG TAB PO SCH (17:05)
[2017-02-05] MEDS: CLOPIDOGREL 75 MG TAB PO SCH (17:06)
[2017-02-05] MEDS: OCUVITE 1 TAB PO SCH (21:09)
[2017-02-05] MEDS: VITAMIN D 1,000 INTERNATIONAL UNITS TABLET PO SCH (21:12)
[2017-02-05] MEDS: FINASTERIDE 5 MG TAB PO SCH (21:12)
[2017-02-05] MEDS: SIMVASTATIN 10 MG TAB PO SCH (21:13)
[2017-02-05 22:00] VITALS: BP 134/68
[2017-02-06 06:00] VITALS: BP 137/70
[2017-02-06] MEDS: PANTOPRAZOLE 40MG TAB (PROTONIX) PO SCH ×2 (06:30→22:14)
[2017-02-06] MEDS: GABAPENTIN 100 MG CAP PO PRN ×2 (06:30→22:15)
[2017-02-06] MEDS: traMADol 50 MG TAB PO PRN (06:31)
[2017-02-06] MEDS: SENOKOT S TAB PO SCH ×2 (06:31→21:00)
[2017-02-06] MEDS: ASPIRIN 81 MG ENTERIC TAB PO SCH (06:31)
[2017-02-06] MEDS: LANTHANUM CARBONATE 500 MG CHEW TABLET PO SCH ×3 (07:03→21:00)
[2017-02-06] MEDS: (RENVELA) SEVELAMER **CARBONate** 800 MG TAB PO PRN ×3 (07:03→18:58)
[2017-02-06] MEDS: HumaLOG INSULIN (NovoLOG) PER UNIT SC SCH ×4 (07:04→20:43)
[2017-02-06] MEDS: LEVEMIR (INSULIN DETEMIR) 1 UNITS/0.01ML SC SCH ×2 (07:04→21:00)
[2017-02-06] MEDS ORDERED: LIDOCAINE 1% SDV 5 ML VIAL SQ ONE (12:00)
[2017-02-06] MEDS ORDERED: HEPARIN 1,000 UNITS/ML 10ML VIAL (FOR RADIOLOGY& DIALYSIS ONLY) IV ONE (12:00)
[2017-02-06] MEDS: BENZONATATE 100 MG CAP PO PRN (12:47)
--- NOTE | 2017-02-06 13:10 | IPN ---
DATE: 02/06/2017 SUBJECTIVE: The patient was seen and examined at the bedside in the morning during work rounds and again during hemodialysis procedure. The patient denies any active acute complaints apart from weakness and inability to walk. The patient is hemodynamically stable. REVIEW OF SYSTEMS: The patient denies any fevers, chills, rigors, headache, nausea, vomiting, chest pain, shortness of breath. He does report lower extremity edema and weakness. The rest of the review of systems is negative. OBJECTIVE: VITAL SIGNS: Temperature 97.7 degrees Fahrenheit, blood pressure is 137/70, pulse is 77, respiratory rate 60, saturating 98% on room air. Intake and output: Urine output is not recorded. Weight on the bed scale is 135.5 kg. PHYSICAL EXAMINATION: GENERAL: The patient is awake, alert, oriented times three. No apparent distress. HEAD AND NECK EXAM: Extraocular muscles are intact. Pupils are equal, round and reactive to light. Mucous membranes are moist. NECK: Supple. There is no jugular venous distention (JVD). CARDIOVASCULAR: S1, S2. Regular rate. There is 1+ edema of the bilateral lower extremities and the thighs. RESPIRATORY: Chest is clear to auscultation bilaterally. Bilateral equal air entry. No rales or rhonchi. ABDOMEN: Soft. Positive bowel sounds. Obese. The patient has positive abdominal wall edema. MUSCULOSKELETAL: The patient has contracture of the hands. He has left upper extremity AV graft with positive thrill and bruit. 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 Power is 5/5 in bilateral upper extremities. Power is 4/5 in bilateral lower extremities. PSYCHIATRIC: Normal mood and affect. LABORATORY REVIEW: There is no recent CBC or BMP available. The patient will get laboratories drawn today. CURRENT INPATIENT MEDICATIONS: The patient's medications were all reviewed by me. There is no change in the medications today as compared with yesterday. ASSESSMENT: 71-year-old male with a past medical history of end-stage renal disease on hemodialysis, hypertension, admitted this time because of weakness and debilitation and awaiting for rehabilitation placement. PLAN: 1. End stage renal disease, on hemodialysis. The patient is getting regular dialysis according to Monday, Monday, Monday. Today is his regular dialysis day. He is tolerating the hemodialysis well. Ultrafiltration goal would be 3.5 liters as tolerated by his blood pressure. 2. Hypertension. Blood pressure is acceptable at this time. Continue current dose of Coreg. No change in the antihypertensive regimen at this time. 3. Lower extremity edema. The patient's volume status I being optimized with hemodialysis, 3.5 liters of fluid will be removed as tolerated by his blood pressure. 4. Weakness and debilitation. The patient has a bed available at [facility] rehabilitation center. The patient will be discharged tomorrow and get admitted to rehabilitation tomorrow morning. The patient will be dialyzed as an outpatient at [facility] in [place] as per his Monday, Monday, Monday schedule.
[2017-02-06] MEDS ORDERED: PREPOI PR (13:56)
[2017-02-06] MEDS ORDERED: BENZ100C5 PO (13:56)
[2017-02-06] MEDS ORDERED: SENN1TAB2 PO (13:56)
[2017-02-06 14:00] VITALS: BP 127/60
--- NOTE | 2017-02-06 14:04 | IPNPDOC ---
Text Note Date of Service The patient was seen on 02/06/17. NOTE SUBJECTIVE: Patient is seen and examined at the bedside. Chart has been reviewed. He complains of generalized weakness unable to ambulate and has not passed a home safety evaluation so will need to go to Rehab. OBJECTIVE: PHYSICAL EXAMINATION: VITALS reviewed Head is atraumatic. Pupils equal and reactive to light and sclera is anicteric. He has no oral thrush or ulcers. Neck is supple and without jugular venous distention (JVD) or abnormal cervical lymph nodes. Thyroid enlargement is present. Heart sounds are regular and lungs sound clear to auscultation. Abdomen: Soft, nontender and bowel sounds are present. There is no palpable organomegaly. Extremities: Have no cyanosis or clubbing. Left upper arm AV graft is patent. Range of motion of right shoulder and elbow is somewhat restricted due to pain and some of his problem is probably chronic. Skin has no rash or ulcers. Neurologically, he is at his baseline mentation. LABS/IMAGING STUDIES: reviewed PROBLEMS: 1. Ischemic colitis: finished course of cipro and flagyl. no active issues now. 2. Gastric ulcers. The patient remains on oral Protonix 40 mg twice a day. There was no active bleeding noticed from the gastric ulcers. We think that the GI bleeding was mostly due to colitis. 3. End-stage renal disease. The patient is regularly dialyzed on Monday, Monday and Monday. regular schedule via nephrology 4. Acute blood loss anemia. His anemia has been stable following transfusion of a total of 4 units of packed red blood cells (RBCs) since admission. We will give him Aranesp 200 mcg during dialysis. 5. Diabetes. Diabetes is well-controlled and will continue with current insulin regimen. 6. 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 stable 7. Generalized weakness. The patient is quite weak and unable to ambulate. Physical therapy has been working with him. will need to go to rehab. 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 10.History of pulmonary TB in 2017 treated in [place]. finished 9 months of treatment. 11. Peripheral neuropathy : pain controlled. 12. Hypertension: Bp controlled will continue current dosage of coreg. VS,Fishbone, I+O VS, Fishbone, I+O Vital Signs Date Time Temp Pulse Resp B/P (MAP) Pulse Ox O2 Delivery O2 Flow Rate FiO2 02/06/17 07:01 18 02/06/17 06:31 Room Air 02/06/17 06:00 97.7 77 137/70 (92) 98 I&O- Last 24 Hours up to 6 AM 02/07/17 06:00 Intake Total 360 ml Balance 360 ml MAHESH CEDENO MD Feb 06, 2017 14:04
[2017-02-06 14:39] LABS: BASO # 0.1 10^3/uL (0.0-0.2); BASO % 0.8 % (0.0-1.0); EOS # 0.4 10^3/uL (0.0-0.50); EOS % 4.2 % (0.0-3.0); IMMATURE GRANULOCYTE % 0.3 % (0-0); LYMPH # 0.6 10^3/uL (1.5-4.5); LYMPH % 6.4 % (24.0-44.0); MEAN CORPUSCULAR HEMOGLOBIN 32.6 pg (27.0-33.0); MEAN CORPUSCULAR HGB CONC 31.8 g/dl (32.0-36.5); MEAN CORPUSCULAR VOLUME 102.7 fl (80.0-96.0); MONO % 11.9 % (0.0-5.0); NEUTROPHILS # 6.6 10^3/uL (1.8-7.7); NEUTROPHILS % 76.4 % (36.0-66.0); PLATELET COUNT, AUTOMATED 296 10^3/uL (150-450); RED CELL DISTRIBUTION WIDTH 18.6 % (11.5-14.5); WHITE BLOOD COUNT 8.7 10^3/uL (4.0-10.0)
[2017-02-06 14:58] LABS: CALCIUM LEVEL 7.7 MG/DL (8.8-10.2); CREATININE FOR GFR 7.29 MG/DL (0.70-1.30); GLOMERULAR FILTRATION RATE 7.9 (>42)
[2017-02-06 14:59] LABS: POTASSIUM SERUM 5.3 MEQ/L (3.5-5.1)
[2017-02-06] MEDS: CLOPIDOGREL 75 MG TAB PO SCH (18:58)
[2017-02-06] MEDS: CINACALCET 30 MG TAB (SENSIPAR) PO SCH (18:59)
[2017-02-06] MEDS: OCUVITE 1 TAB PO SCH (21:00)
[2017-02-06] MEDS: SIMVASTATIN 10 MG TAB PO SCH (21:00)
[2017-02-06 22:00] VITALS: BP 138/63
[2017-02-06] MEDS: FINASTERIDE 5 MG TAB PO SCH (22:14)
[2017-02-06] MEDS: CARVedilol 3.125 MG TAB PO SCH (22:15)
[2017-02-06] MEDS: VITAMIN D 1,000 INTERNATIONAL UNITS TABLET PO SCH (22:16)
[2017-02-07 06:00] VITALS: BP 132/63
[2017-02-07] MEDS: HumaLOG INSULIN (NovoLOG) PER UNIT SC SCH ×4 (08:02→20:53)
[2017-02-07] MEDS: ASPIRIN 81 MG ENTERIC TAB PO SCH (08:03)
[2017-02-07] MEDS: CARVedilol 3.125 MG TAB PO SCH ×2 (08:03→20:52)
[2017-02-07] MEDS: SENOKOT S TAB PO SCH ×2 (08:03→20:52)
[2017-02-07] MEDS: LANTHANUM CARBONATE 500 MG CHEW TABLET PO SCH ×3 (08:03→20:51)
[2017-02-07] MEDS: (RENVELA) SEVELAMER **CARBONate** 800 MG TAB PO PRN ×3 (08:04→17:45)
[2017-02-07] MEDS: PANTOPRAZOLE 40MG TAB (PROTONIX) PO SCH ×2 (08:04→20:52)
[2017-02-07] MEDS: LEVEMIR (INSULIN DETEMIR) 1 UNITS/0.01ML SC SCH ×2 (08:05→20:51)
[2017-02-07] MEDS: traMADol 50 MG TAB PO PRN ×2 (13:11→20:51)
[2017-02-07] MEDS: GABAPENTIN 100 MG CAP PO PRN (13:15)
[2017-02-07] MEDS: CLOPIDOGREL 75 MG TAB PO SCH (17:46)
[2017-02-07] MEDS: CINACALCET 30 MG TAB (SENSIPAR) PO SCH (17:46)
[2017-02-07] MEDS: SIMVASTATIN 10 MG TAB PO SCH (20:52)
[2017-02-07] MEDS: FINASTERIDE 5 MG TAB PO SCH (20:52)
[2017-02-07] MEDS: VITAMIN D 1,000 INTERNATIONAL UNITS TABLET PO SCH (20:52)
[2017-02-07] MEDS: OCUVITE 1 TAB PO SCH (20:53)
[2017-02-08 06:00] VITALS: BP 130/58
[2017-02-08] MEDS: PANTOPRAZOLE 40MG TAB (PROTONIX) PO SCH ×2 (06:05→21:21)
[2017-02-08] MEDS: ASPIRIN 81 MG ENTERIC TAB PO SCH (06:05)
[2017-02-08] MEDS: LANTHANUM CARBONATE 500 MG CHEW TABLET PO SCH ×3 (06:05→21:21)
[2017-02-08] MEDS: SENOKOT S TAB PO SCH ×2 (06:06→21:21)
[2017-02-08] MEDS: HumaLOG INSULIN (NovoLOG) PER UNIT SC SCH ×4 (09:04→21:00)
[2017-02-08] MEDS: LEVEMIR (INSULIN DETEMIR) 1 UNITS/0.01ML SC SCH ×2 (09:05→21:21)
[2017-02-08] MEDS: BENZONATATE 100 MG CAP PO PRN (09:19)
[2017-02-08] MEDS ORDERED: LIDOCAINE 1% SDV 5 ML VIAL SQ ONE (14:15)
[2017-02-08] MEDS: CLOPIDOGREL 75 MG TAB PO SCH (18:36)
[2017-02-08] MEDS: (RENVELA) SEVELAMER **CARBONate** 800 MG TAB PO PRN (18:36)
[2017-02-08] MEDS: CINACALCET 30 MG TAB (SENSIPAR) PO SCH (18:36)
[2017-02-08] MEDS: NORCO, ANEXSIA 5/325MG TABLET (HYDROcodone/ACETAMINOPHEN) PO PRN (18:37)
--- NOTE | 2017-02-08 19:50 | REP ---
PORTABLE CHEST: AP portable view of the chest is performed. Comparison 01/20/2017. There is mild cardiomegaly. There appears to be mild pulmonary venous hypertension. There is mild chronic interstitial prominence which is stable. Mediastinal silhouette is unchanged. IMPRESSION: No change since prior study of 01/20/2017. Cardiomegaly and bilateral interstitial opacities are stable. Signed by Terence Blackburn MD 02/09/2017 09:20 A
[2017-02-08] MEDS: FINASTERIDE 5 MG TAB PO SCH (21:20)
[2017-02-08] MEDS: VITAMIN D 1,000 INTERNATIONAL UNITS TABLET PO SCH (21:21)
[2017-02-08] MEDS: SIMVASTATIN 10 MG TAB PO SCH (21:21)
[2017-02-08] MEDS: CARVedilol 3.125 MG TAB PO SCH (21:21)
[2017-02-08] MEDS: OCUVITE 1 TAB PO SCH (21:21)
[2017-02-08] MEDS: GABAPENTIN 100 MG CAP PO PRN (21:23)
[2017-02-08] MEDS: traMADol 50 MG TAB PO PRN (21:24)
--- NOTE | 2017-02-09 03:25 | IPN ---
DATE OF SERVICE: 02/08/2017 SUBJECTIVE: Patient was seen and examined at the bedside today morning during working rounds and during hemodialysis procedure. Patient denies any active complaints and he is tolerating the hemodialysis procedure well. REVIEW OF SYSTEMS: Patient denies any fevers, chills, rigors. He denies any chest pain. He does report some cough and shortness of breath. Patient reports that he feels very thirsty. He constantly was eating ice while he was being examined. He denies any pain abdomen or constipation. He does report some lower extremity edema and weakness and inability to walk. Rest of the review of systems is negative. OBJECTIVE: VITAL SIGNS: Temperature 97.7 degrees Fahrenheit, blood pressure is 130/58, pulse is 71, respiratory rate 18, saturating 96% on room air. INTAKE AND OUTPUT: Urine output is not recorded. Weight on the bed scale is not available. PHYSICAL EXAMINATION: GENERAL: Patient is awake, alert, oriented times three, lying in bed, morbidly obese. HEAD AND NECK EXAM: Extraocular muscles are intact. Pupils are equally round and reactive to light. Mucous membranes are moist. NECK: Supple. There is no jugular venous distention (JVD). CARDIOVASCULAR: S1, S2. Regular rate. 1+ edema of the bilateral lower extremities and thighs. RESPIRATORY: Decreased breath sounds at the bases with mild crepitations on deep inspiration. ABDOMEN: Soft, obese. Positive bowel sounds. Positive abdominal wall edema. MUSCULOSKELETAL: Patient has contracture of the hands. No clubbing or cyanosis. He has left upper arm arteriovenous (AV) graft which is being used for dialysis. 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 Power is 5/5 in bilateral upper extremities and 4/5 in bilateral lower extremities. PSYCHIATRIC: Normal mood and affect. LABORATORY REVIEW: Today's morning CBC is not available and the BMP is also from 2 days ago. CURRENT INPATIENT MEDICATIONS: Patient's medications were all reviewed by me. There is no change in the medications today as compared with yesterday. ASSESSMENT: 71-year-old male with a past medical history of end-stage renal disease on hemodialysis, hypertension, admitted this time because of weakness and debilitation, inability to walk. Patient is awaiting rehabilitation placement. PLAN: 1. End-stage renal disease on hemodialysis. The patient's regular dialysis days are Monday, Monday, Monday. He is being dialyzed according to his regular schedule. We shall try to do an ultrafiltration of about 4 liters as tolerated by his blood pressure. 2. Hypertension. Blood pressure is acceptable at this time. Continue current dose of Coreg. 3. Lower extremity edema. The patient was constantly eating ice in the morning when I saw him. I advised the patient to stop eating excessive amount of ice because that ultimately causes fluid overload. About 4 liters of fluid will be removed today during hemodialysis. 4. Weakness and debilitation. Patient was supposed to be transferred to rehabilitation center at [facility], but because of a breakout of flu at the rehabilitation center, his transfer is being held. Once patient is transferred to the rehabilitation, he will be dialyzed at [facility] as per Monday, Monday, Monday schedule.
[2017-02-09 06:00] VITALS: BP 125/60
[2017-02-09] MEDS: traMADol 50 MG TAB PO PRN (06:29)
[2017-02-09] MEDS: GABAPENTIN 100 MG CAP PO PRN (06:29)
[2017-02-09 08:13] LABS: MEAN CORPUSCULAR HEMOGLOBIN 31.5 pg (27.0-33.0); MEAN CORPUSCULAR HGB CONC 30.9 g/dl (32.0-36.5); MEAN CORPUSCULAR VOLUME 101.8 fl (80.0-96.0); PLATELET COUNT, AUTOMATED 301 10^3/uL (150-450); RED CELL DISTRIBUTION WIDTH 18.1 % (11.5-14.5); WHITE BLOOD COUNT 5.4 10^3/uL (4.0-10.0)
[2017-02-09 08:43] LABS: CALCIUM LEVEL 7.7 MG/DL (8.8-10.2); CREATININE FOR GFR 5.01 MG/DL (0.70-1.30); GLOMERULAR FILTRATION RATE 12.2 (>42); POTASSIUM SERUM 4.1 MEQ/L (3.5-5.1)
[2017-02-09] MEDS: HumaLOG INSULIN (NovoLOG) PER UNIT SC SCH (09:04)
[2017-02-09 09:06] VITALS: BP 125/60
[2017-02-09] MEDS: ASPIRIN 81 MG ENTERIC TAB PO SCH (09:06)
[2017-02-09] MEDS: CARVedilol 3.125 MG TAB PO SCH (09:06)
[2017-02-09] MEDS: LANTHANUM CARBONATE 500 MG CHEW TABLET PO SCH (09:06)
[2017-02-09] MEDS: PANTOPRAZOLE 40MG TAB (PROTONIX) PO SCH (09:06)
[2017-02-09] MEDS: SENOKOT S TAB PO SCH (09:06)
[2017-02-09] MEDS: LEVEMIR (INSULIN DETEMIR) 1 UNITS/0.01ML SC SCH (09:08)
--- NOTE | 2017-02-09 16:07 | DS.PDOC ---
Discharge Summary General Date of Admission Jan 20, 2017 at 14:51 Date of Discharge 02/09/17 Specialist/Consultants Involve Dr. Nowak of GI, Dr. Moore/Dr. Johnson of Nephrology Discharge Summary PROCEDURES PERFORMED DURING STAY: EGD/Colonoscopy ADMITTING/DISCHARGE DIAGNOSES: GI bleed End Stage renal disease on hemodialysis Hx of CVA COMPLICATIONS/CHIEF COMPLAINT: Gi Bleed. HISTORY OF PRESENT ILLNESS: . 71-year-old male with past medical history of end-stage renal disease on hemodialysis, type 2 diabetes mellitus, hypertension, CVA, and morbid obesity presented to the ER after he had a bowel movement with bright red blood noted in the toilet. In addition, the patient states that he felt that he looked very pale and reported lightheadedness with dizziness on ambulation. In the ER the patient was found to have a hemoglobin of 5.8. He was subsequently admitted to the hospitalist service for further evaluation and management. During hospitalization the patient was transfused 4 units of packed red blood cells. In addition, the patient was evaluated by GI and had a EGD and colonoscopy performed. EGD revealed 2 gastric ulcers with no active bleeding. Colonoscopy was limited due to poor bowel preparation. The patient's H&H has remained stable following transfusion of blood products. The patient was subsequently started on Protonix, and the patient's aspirin and Plavix were resumed. In addition, the patient was treated for possible underlying ischemic colitis with ciprofloxacin and Flagyl. At this time, the patient states initially better and denies any acute abdominal complaints, or any other episodes of bloody stools. The patient did receive his regularly scheduled dialysis sessions with nephrology while hospitalized here. The patient was evaluated by physical therapy, and it was recommended that the patient undergo rehabilitation. The patient has been accepted for subacute rehabilitation at [facility]. The patient has been advised to follow-up with his primary care physician within 7 days. Addition, the patient has been advised to repeat an EGD in 3 months for follow-up of gastric ulcers, and a repeat colonoscopy in one year. In addition, the patient has been advised to return to the ER for any acute emergencies. DISCHARGE MEDICATIONS: Please see below. ALLERGIES: Please see below. PHYSICAL EXAMINATION ON DISCHARGE: VITAL SIGNS: Please see below. GENERAL: Awake, alert, oriented HEENT: Normocephalic, atraumatic NECK: No JVD CARDIOVASCULAR EXAMINATION: Normal rate, normal S1, S2 RESPIRATORY EXAMINATION: Clear to auscultation bilaterally ABDOMINAL EXAMINATION: Soft, nontender, nondistended EXTREMITIES: No erythema or swelling LABORATORY DATA: Please see below. IMAGING: PORTABLE CHEST: AP portable view of the chest is performed. Comparison 01/20/2017. There is mild cardiomegaly. There appears to be mild pulmonary venous hypertension. There is mild chronic interstitial prominence which is stable. Mediastinal silhouette is unchanged. IMPRESSION: No change since prior study of 01/20/2017. Cardiomegaly and bilateral interstitial opacities are stable. Clinical: GI bleed. Technique: Contrast enhanced CT of the abdomen and pelvis using CT angiographic technique with axial contrast enhanced images from the lung bases to the pubic symphysis using 100 ml Isovue 370 intravenous contrast material imaged adnexal enhancement of the abdominal aorta. Coronal and sagittal MIP re-formations and volume rendered images obtained. Findings: Lung bases demonstrate small pleural effusions with mild bibasilar atelectasis and chronic interstitial changes. Significant atherosclerotic changes to the visualized coronary arteries noted. Moderate to significant partially calcified atheromatous changes noted throughout the abdominal aorta and through the bifurcation to common iliac arteries and distally to the level of the proximal superficial femoral artery. Significant calcifications are appreciated at the origin of the celiac axis as well as involving the branch vessels including splenic artery, common hepatic artery and small vessels supplying the gastric wall. Specifically, at the origin of the celiac axis there is suggestion for approximately 50-69% stenosis. There is significantly more advanced atherosclerotic changes involving the entire superior mesenteric artery with considerable atherosclerotic changes and decreased luminal diameter as well as enhancement extending into the distal branches within the mesentery. Greater than 50% luminal narrowing at the origin and proximal bilateral renal arteries is appreciated which again demonstrate decreased arterial enhancement bilaterally and subsequent chronic atrophic changes to the kidneys. The inferior mesenteric artery demonstrates similar advanced atherosclerotic changes extending into the mesentery and pelvis with decreased enhancement/flow. Liver, spleen, pancreas, and bilateral adrenal glands are normal for noncontrast evaluation. The gallbladder is moderately distended and should be correlated clinically without obvious gallstones. The kidneys demonstrate bilateral symmetric chronic atrophic changes and renovascular calcifications as well as chronic symmetric perinephric stranding. The enteric system is without obstruction or acute inflammatory process although a mild colitis involving the distal ascending colon and hepatic flexure cannot definitively be excluded. There is no evidence for bowel obstruction. Pelvis demonstrates normal bladder and grossly normal prostate gland although evaluation of the pelvis is limited despite the use of metallic artifact reduction algorithms. No ascites. No free air. No significant adenopathy. Atrophic appearance to the left iliopsoas muscle and likely chronic stranding along the left eloisa pelvis likely related to disuse and prior trauma. Skeletal structures demonstrate advanced degenerative changes along with evidence for prior right hip replacement. Impression: 1. Extensive significant atherosclerotic changes of the aorta and primarily involving the mesenteric arteries and bilateral renal arteries noted small luminal narrowing and decreased flow / enhancement as well as extensive distal calcifications extending into the distal branches into the mesentery. 2. Cannot exclude a mild or resolving colitis at the level of the distal ascending colon and hepatic flexure. 3. Small bilateral pleural effusions and bibasilar atelectasis. 4. Further chronic changes as described above. PROGNOSIS: Fair ACTIVITY: As tolerated. DIET: . 2 g low sodium diet DISCHARGE PLAN: [facility] DISPOSITION: 70 Xfer Other. DISCHARGE INSTRUCTIONS: The patient has been advised to follow-up with his primary care physician within 7 days. In addition, the patient has been advised to repeat an EGD in 3 months for follow-up of gastric ulcers, and a repeat colonoscopy in one year. In addition, the patient has been advised to return to the ER for any acute emergencies. DISCHARGE CONDITION: Stable. TIME SPENT ON DISCHARGE: Greater than 30 minutes. Vital Signs/I&Os Vital Signs Date Time Temp Pulse Resp B/P (MAP) Pulse Ox O2 Delivery O2 Flow Rate FiO2 02/09/17 09:06 72 125/60 02/09/17 09:01 Room Air 02/09/17 06:59 17 02/09/17 06:00 97.8 98 I&O- Last 24 Hours up to 6 AM 02/10/17 06:00 Intake Total 240 ml Output Total 0 ml Balance 240 ml Laboratory Data Labs 24H Laboratory Tests 2 02/08/17 18:20: Bedside Glucose (Misc Panel) 137H 02/08/17 21:08: Bedside Glucose (Misc Panel) 223H 02/09/17 06:34: Bedside Glucose (Misc Panel) 102 02/09/17 07:44: Nucleated Red Blood Cells % (auto) 0.0, Anion Gap 8, Glomerular Filtration Rate 12.2L, Blood Urea Nitrogen 34H, Creatinine 5.01H, Sodium Level 133L, Potassium Level 4.1#, Chloride Level 95L, Carbon Dioxide Level 30, Calcium Level 7.7L CBC/BMP Laboratory Tests 02/09/17 07:44 Red Blood Count 3.27 L, Mean Corpuscular Volume 101.8 H, Mean Corpuscular Hemoglobin 31.5, Mean Corpuscular Hemoglobin Concent 30.9 L, Red Cell Distribution Width 18.1 H, Calcium Level 7.7 L FSBS Laboratory Tests Test 02/08/17 18:20 02/08/17 21:08 02/09/17 06:34 Range/Units Bedside Glucose (Misc Panel) 137 223 102 83-110 MG/DL Discharge Medications Scheduled (Fabienne-Julieth) 1 Tab Tab, 1 TAB PO QHS, (Reported) (Simbrinza 1-0.2 %) 1 Paz Paz, 1 DROP OD ASDIRECTED, (Reported) use bid on non dialysis days mon//mon/mon. uses qpm on dialysis days (Garlic) 1,000 Mg Cap, 1,000 MG PO QHS, (Reported) (Glucosamine & Chr... 4041-8276-998 mg-mg-Unit) 1 Pow Pow, 2 TAB PO QHS, ( Reported) (Senna Plus 8.6-50 mg) 1 Tab Tab, 1 TAB PO BID Aspirin (Aspir-81) 81 Mg Tab, 81 MG PO DAILY, (Reported) Bimatoprost (Lumigan) 50 Drop/2.5 Ml Yamilet, 1 DROP OU QHS, (Reported) Carvedilol (Carvedilol) 3.125 Mg Tab, 3.125 MG PO ASDIRECTED, (Reported) takes bid on monday, , monday and monday Carvedilol (Carvedilol) 3.125 Mg Tab, 3.125 MG PO ASDIRECTED, (Reported) take once daily in the evening on dialysis days, monday, monday and monday Cholecalciferol (D3) 1,000 Unit Cap, 1,000 UNIT PO QHS, (Reported) Cinacalcet Hydrochloride (Sensipar) 30 Mg Tab, 30 MG PO QPM, (Reported) Clopidogrel Bisulfate (Clopidogrel) 75 Mg Tab, 75 MG PO QPM, (Reported) Cyanocobalamin (B12) 1,000 Mcg Tab, 1,000 MCG PO QHS, (Reported) Finasteride (Finasteride) 5 Mg Tab, 5 MG PO QPM, (Reported) Ginkgo Biloba Extract (Ginkgo Biloba Memory Enha) 60 Mg Cap, 60 MG PO QHS, ( Reported) Insulin Detemir (Levemir) 1 Units/0.01 Ml Susp, 50 UNITS SC BID Insulin Human Lispro (Humalog) 100 Unit/Ml Inj, 1 DOSE SC AC, (Reported) per sliding scale Lanthanum Carbonate (Lanthanum Carbonate) 500 Mg Chw, 500 MG PO TID, (Reported) Lipoic Acid (Thioctic Acid) (Alpha Lipoic Acid) 200 Mg Tab, 200 MG PO QHS, ( Reported) Multivitamins (Ocuvite Eye Health Formul) 1 Cap Cap, 1 CAP PO QHS, (Reported) Pantoprazole Sodium (Pantoprazole Sodium) 40 Mg Tab, 40 MG PO BID Sevelamer Carbonate (Renvela) 800 Mg Tab, 1,600 MG PO ASDIRECTED, (Reported) with snacks Simvastatin (Zocor) 10 Mg Tab, 10 MG PO QHS, (Reported) Scheduled PRN Acetaminophen/Hydrocodone (Miles 5-325 mg) 1 Tab Tab, 1 TAB PO Q6HP PRN for PAIN , (Reported) Benzonatate (Benzonatate) 100 Mg Cap, 100 MG PO TIDP PRN for COUGH Gabapentin (Neurontin) 100 Mg Cap, 100 MG PO BID PRN for foot pain, (Reported) Shark Liver Oil (Preparation H Ointment) 1 Dose/28.4 Gm Oint, 0 DOSE NM QIDP PRN for ITCHING Tramadol HCl (Tramadol HCl) 50 Mg Tab, 50 MG PO Q4HP PRN for PAIN, (Reported) Allergies Coded Allergies: No Known Allergies (Unverified , 01/20/17) JUAN DIEGO TOMAS MD Feb 09, 2017 16:07
== END 2017-02-09 10:02 | DRG 393 ==
LOC: EDBD 12:03 → M ED 12:03 → M ED INP 14:51 → M PCU 16:24 → M MSPAV 01-25 09:41
PROVIDERS: ADMIT Hospitalist; ATTEND Internal Medicine
PROC: 30253N1 (ICD-10-PCS; 2017-01-20)
PROC: 5A1D70Z Performance of Urinary Filtration, Intermittent, Less than 6 Hours Per Day (ICD-10-PCS; principal; 2017-01-21)
PROC: 0W3P8ZZ Control Bleeding in Gastrointestinal Tract, Via Natural or Artificial Opening Endoscopic (ICD-10-PCS; 2017-01-22)
PROC: 0DB78ZX Excision of Stomach, Pylorus, Via Natural or Artificial Opening Endoscopic, Diagnostic (ICD-10-PCS; 2017-01-22)
PROC: 0DBL8ZX Excision of Transverse Colon, Via Natural or Artificial Opening Endoscopic, Diagnostic (ICD-10-PCS; 2017-01-22)
PROC: 0DBK8ZX Excision of Ascending Colon, Via Natural or Artificial Opening Endoscopic, Diagnostic (ICD-10-PCS; 2017-01-22)
PROC: 0DBM8ZX Excision of Descending Colon, Via Natural or Artificial Opening Endoscopic, Diagnostic (ICD-10-PCS; 2017-01-22)
PROC: 0DBH8ZX Excision of Cecum, Via Natural or Artificial Opening Endoscopic, Diagnostic (ICD-10-PCS; 2017-01-22)
DX: K55.039 Acute (reversible) ischemia of large intestine, extent unspecified (principal); N18.6 End stage renal disease; I12.0 Hypertensive chronic kidney disease with stage 5 chronic kidney disease or end stage renal disease; I69.354 Hemiplegia and hemiparesis following cerebral infarction affecting left non-dominant side; D62 Acute posthemorrhagic anemia; G61.0 Guillain-Barre syndrome; N25.81 Secondary hyperparathyroidism of renal origin; K63.3 Ulcer of intestine; E11.22 Type 2 diabetes mellitus with diabetic chronic kidney disease; I69.398 Other sequelae of cerebral infarction; H54.61 Unqualified visual loss, right eye, normal vision left eye; K76.0 Fatty (change of) liver, not elsewhere classified; E11.21 Type 2 diabetes mellitus with diabetic nephropathy; N40.0 Benign prostatic hyperplasia without lower urinary tract symptoms; E83.39 Other disorders of phosphorus metabolism; D63.1 Anemia in chronic kidney disease; K25.9 Gastric ulcer, unspecified as acute or chronic, without hemorrhage or perforation; K29.70 Gastritis, unspecified, without bleeding; K57.30 Diverticulosis of large intestine without perforation or abscess without bleeding; R53.1 Weakness; M25.511 Pain in right shoulder; E11.51 Type 2 diabetes mellitus with diabetic peripheral angiopathy without gangrene; E11.42 Type 2 diabetes mellitus with diabetic polyneuropathy; E66.01 Morbid (severe) obesity due to excess calories; Z99.2 Dependence on renal dialysis; Z79.02 Long term (current) use of antithrombotics/antiplatelets; Z79.82 Long term (current) use of aspirin; Z96.641 Presence of right artificial hip joint; Z79.4 Long term (current) use of insulin; Z79.899 Other long term (current) drug therapy; Z68.39 Body mass index [BMI] 39.0-39.9, adult; Z86.11 Personal history of tuberculosis

== ENCOUNTER 2017-03-27 02:03 | Emergency (ER) | payer MEDICARE, BC ==
[2017-03-27 02:42] LABS: BASO % 0.6 % (0.0-1.0); EOS # 0.3 10^3/uL (0.0-0.50); EOS % 5.1 % (0.0-3.0); HEMATOCRIT 30.4 % (42.0-52.0); HEMOGLOBIN 9.6 g/dl (14.0-18.0); IMMATURE GRANULOCYTE # 0.1 10^3/uL (0-0); LYMPH # 0.7 10^3/uL (1.5-4.5); LYMPH % 12.1 % (24.0-44.0); MEAN CORPUSCULAR HEMOGLOBIN 31.1 pg (27.0-33.0); MEAN CORPUSCULAR HGB CONC 31.6 g/dl (32.0-36.5); MEAN CORPUSCULAR VOLUME 98.4 fl (80.0-96.0); MONO # 0.5 10^3/uL (0.0-0.8); MONO % 9.9 % (0.0-5.0); NEUTROPHILS # 3.8 10^3/uL (1.8-7.7); NEUTROPHILS % 70.3 % (36.0-66.0); PLATELET COUNT, AUTOMATED 217 10^3/uL (150-450); RED BLOOD COUNT 3.09 10^6/uL (4.30-6.10); RED CELL DISTRIBUTION WIDTH 18.3 % (11.5-14.5); WHITE BLOOD COUNT 5.4 10^3/uL (4.0-10.0)
[2017-03-27 03:04] LABS: ANION GAP 12 MEQ/L (8-16); BLOOD UREA NITROGEN 52 MG/DL (7-18); CARBON DIOXIDE LEVEL 24 MEQ/L (21-32); CHLORIDE LEVEL 97 MEQ/L (98-107); CREATININE FOR GFR 6.74 MG/DL (0.70-1.30); GLOMERULAR FILTRATION RATE 8.6 (>42); GLUCOSE, FASTING 186 MG/DL (70-100); POTASSIUM SERUM 4.8 MEQ/L (3.5-5.1); SODIUM LEVEL 133 MEQ/L (136-145)
== END 2017-03-27 03:53 | disposition home or self-care (01) ==
LOC: M ED 02:03
DX: R41.82 Altered mental status, unspecified (principal)

== ENCOUNTER 2017-03-27 21:45 | Inpatient (IN) | payer MEDICARE, BC ==
[2017-03-27] MEDS: HumaLOG INSULIN (NovoLOG) PER UNIT SC (01:40)
[2017-03-27] MEDS: LEVEMIR (INSULIN DETEMIR) 1 UNITS/0.01ML SC (02:05)
[2017-03-27] MEDS: VITAMIN D 1,000 INTERNATIONAL UNITS TABLET PO (02:05)
[2017-03-27] MEDS: PIPERACILLIN/TAZOBACTAM SOD 2.25 GM in APPROPRIATE DILUENT 1 EA IV (22:49)
[2017-03-27 22:50] LABS: BASO % 0.3 % (0.0-1.0); EOS # 0.1 10^3/uL (0.0-0.50); EOS % 2.1 % (0.0-3.0); IMMATURE GRANULOCYTE # 0.1 10^3/uL (0-0); IMMATURE GRANULOCYTE % 1.9 % (0-0); LYMPH # 0.6 10^3/uL (1.5-4.5); LYMPH % 9.6 % (24.0-44.0); MEAN CORPUSCULAR HEMOGLOBIN 30.3 pg (27.0-33.0); MEAN CORPUSCULAR HGB CONC 31.3 g/dl (32.0-36.5); MONO # 0.5 10^3/uL (0.0-0.8); MONO % 7.9 % (0.0-5.0); NEUTROPHILS # 4.6 10^3/uL (1.8-7.7); NEUTROPHILS % 78.2 % (36.0-66.0); PLATELET COUNT, AUTOMATED 258 10^3/uL (150-450); RED CELL DISTRIBUTION WIDTH 18.3 % (11.5-14.5); WHITE BLOOD COUNT 5.9 10^3/uL (4.0-10.0)
[2017-03-27] MEDS ORDERED: ONDANSETRON 4MG/2ML VIAL (J2405) IV (23:00)
[2017-03-27] MEDS ORDERED: ACETAMINOPHEN TAB 650MG DOSE (2X325MG) PO (23:00)
[2017-03-27 23:16] LABS: LACTIC ACID SEPSIS PROTOCOL 1.7 MMOL/L (0.4-2.0)
[2017-03-27 23:16] LABS: ALBUMIN 2.7 GM/DL (3.2-5.2); ALBUMIN/GLOBULIN RATIO 0.79 (1.00-1.93); ALKALINE PHOSPHATASE 101 U/L (45-117); ALT/SGPT 31 U/L (12-78); ANION GAP 9 MEQ/L (8-16); AST/SGOT 24 U/L (7-37); BILIRUBIN,DIRECT 0.1 MG/DL (0.0-0.2); BILIRUBIN,TOTAL 0.4 MG/DL (0.2-1.0); BLOOD UREA NITROGEN 25 MG/DL (7-18); C REACTIVE PROTEIN QUANTITATIV 6.41 MG/DL (0.00-0.30); CALCIUM LEVEL 8.5 MG/DL (8.8-10.2); CARBON DIOXIDE LEVEL 32 MEQ/L (21-32); CHLORIDE LEVEL 97 MEQ/L (98-107); CREATININE FOR GFR 3.98 MG/DL (0.70-1.30); GLOMERULAR FILTRATION RATE 15.9 (>42); GLUCOSE, FASTING 52 MG/DL (70-100); SODIUM LEVEL 138 MEQ/L (136-145); TOTAL PROTEIN 6.1 GM/DL (6.4-8.2)
[2017-03-27 23:20] LABS: ERYTHROCYTE SEDIMENTATION RATE 100 mm/hr (0-20)
[2017-03-27] MEDS ORDERED: SIMETHICONE 80 MG CHEW TAB PO (23:45)
[2017-03-27] MEDS ORDERED: DEXTROSE 50% 50 ML SYRINGE IV (23:45)
[2017-03-27] MEDS ORDERED: GLUCOSE 4 GM CHEW TABLET PO (23:45)
[2017-03-27] MEDS ORDERED: SENOKOT S TAB PO (23:45)
[2017-03-27] MEDS: GLUCAGON FOR INJ 1 MG VIAL (J1610) SC (23:53)
[2017-03-28] LABS: INFLUENZA A AMPLIFICATION NEGATIVE (NEGATIVE); INFLUENZA B AMPLIFICATION NEGATIVE (NEGATIVE)
[2017-03-28] MEDS ORDERED: CARVedilol 3.125 MG TAB PO (01:15)
[2017-03-28 01:40] LABS: BEDSIDE GLUCOSE 130 MG/DL (83-110)
[2017-03-28] MEDS: FINASTERIDE 5 MG TAB PO (01:51)
[2017-03-28] MEDS: CARVedilol 3.125 MG TAB PO ×3 (01:52→21:44)
[2017-03-28] MEDS: CYANOCOBALAMIN 500 MCG TAB PO ×2 (01:52→21:43)
[2017-03-28] MEDS: SIMVASTATIN 10 MG TAB PO ×2 (01:53→21:43)
[2017-03-28] MEDS: OCUVITE 1 TAB PO ×2 (01:54→21:43)
[2017-03-28] MEDS: CINACALCET 30 MG TAB (SENSIPAR) PO ×2 (01:54→17:12)
[2017-03-28] MEDS: CLOPIDOGREL 75 MG TAB PO ×2 (01:55→17:12)
[2017-03-28] MEDS ORDERED: **hydrALAZINE** 10 MG TAB PO (03:45)
[2017-03-28] MEDS: cloNIDine 0.1 MG TAB PO (03:45)
[2017-03-28] MEDS: PIPERACILLIN/TAZOBACTAM SOD 2.25 GM in APPROPRIATE DILUENT 1 EA IV (04:50)
[2017-03-28] MEDS: HEPARIN SOD (PORCINE) 5000 UNITS/ML VIAL SC ×3 (05:29→21:45)
[2017-03-28 06:18] LABS: BASO % 0.5 % (0.0-1.0); EOS # 0.1 10^3/uL (0.0-0.50); EOS % 1.9 % (0.0-3.0); HEMATOCRIT 31.1 % (42.0-52.0); HEMOGLOBIN 9.8 g/dl (14.0-18.0); IMMATURE GRANULOCYTE # 0.1 10^3/uL (0-0); IMMATURE GRANULOCYTE % 1.5 % (0-0); LYMPH # 0.6 10^3/uL (1.5-4.5); LYMPH % 10.1 % (24.0-44.0); MEAN CORPUSCULAR HEMOGLOBIN 30.2 pg (27.0-33.0); MEAN CORPUSCULAR HGB CONC 31.5 g/dl (32.0-36.5); MONO # 0.3 10^3/uL (0.0-0.8); MONO % 5.2 % (0.0-5.0); NEUTROPHILS # 4.7 10^3/uL (1.8-7.7); NEUTROPHILS % 80.8 % (36.0-66.0); PLATELET COUNT, AUTOMATED 265 10^3/uL (150-450); RED BLOOD COUNT 3.24 10^6/uL (4.30-6.10); RED CELL DISTRIBUTION WIDTH 18.5 % (11.5-14.5); WHITE BLOOD COUNT 5.8 10^3/uL (4.0-10.0)
[2017-03-28 06:26] LABS: ANION GAP 7 MEQ/L (8-16); BLOOD UREA NITROGEN 29 MG/DL (7-18); CALCIUM LEVEL 8.4 MG/DL (8.8-10.2); CARBON DIOXIDE LEVEL 31 MEQ/L (21-32); CHLORIDE LEVEL 99 MEQ/L (98-107); CREATININE FOR GFR 4.59 MG/DL (0.70-1.30); GLOMERULAR FILTRATION RATE 13.5 (>42); GLUCOSE, FASTING 71 MG/DL (70-100); POTASSIUM SERUM 3.9 MEQ/L (3.5-5.1); SODIUM LEVEL 137 MEQ/L (136-145)
[2017-03-28] MEDS: ALBUTEROL SULFATE 2.5 MG/0.5 ML INH NEB SOLN NEB ×3 (08:00→20:48)
[2017-03-28] MEDS: HumaLOG INSULIN (NovoLOG) PER UNIT SC ×4 (08:29→20:59)
[2017-03-28] MEDS: ASPIRIN 81 MG CHEW TABLET PO (08:38)
[2017-03-28] MEDS: LANTHANUM CARBONATE 500 MG CHEW TABLET PO ×3 (08:38→17:12)
[2017-03-28] MEDS: (RENVELA) SEVELAMER **CARBONate** 800 MG TAB PO ×3 (08:38→17:11)
[2017-03-28] MEDS: LEVEMIR (INSULIN DETEMIR) 1 UNITS/0.01ML SC ×2 (08:43→21:44)
[2017-03-28] MEDS ORDERED: AZITHROMYCIN INJ 500 MG, VIAL MATE ADAPTER 1 EACH in D5W 250 ML IV (09:00)
[2017-03-28 11:36] LABS: BEDSIDE GLUCOSE 126 MG/DL (83-110)
[2017-03-28] MEDS: AZITHROMYCIN INJ 500 MG, VIAL MATE ADAPTER 1 EACH in D5W 250 ML IV (12:11)
[2017-03-28] MEDS ORDERED: DARBEPOETIN 100 MCG/0.5 ML *DIALYSIS* SYRINGE (J0882) IV (12:15)
[2017-03-28] MEDS: CEFTRIAXONE SOD 1 GM in APPROPRIATE DILUENT 1 EA IV (13:48)
[2017-03-28 17:12] LABS: BEDSIDE GLUCOSE 145 MG/DL (83-110)
[2017-03-28 20:53] LABS: BEDSIDE GLUCOSE 171 MG/DL (83-110)
[2017-03-28] MEDS: VITAMIN D 1,000 INTERNATIONAL UNITS TABLET PO (21:43)
[2017-03-28] MEDS: GABAPENTIN 100 MG CAP PO (21:43)
[2017-03-29] MEDS: ALBUTEROL SULFATE 2.5 MG/0.5 ML INH NEB SOLN NEB ×4 (00:35→20:00)
[2017-03-29] MEDS: HEPARIN SOD (PORCINE) 5000 UNITS/ML VIAL SC ×3 (05:11→22:00)
[2017-03-29 06:09] LABS: BASO % 0.5 % (0.0-1.0); EOS # 0.1 10^3/uL (0.0-0.50); HEMATOCRIT 29.5 % (42.0-52.0); IMMATURE GRANULOCYTE # 0.1 10^3/uL (0-0); LYMPH # 0.9 10^3/uL (1.5-4.5); LYMPH % 15.3 % (24.0-44.0); MEAN CORPUSCULAR HEMOGLOBIN 29.8 pg (27.0-33.0); MEAN CORPUSCULAR HGB CONC 30.5 g/dl (32.0-36.5); MEAN CORPUSCULAR VOLUME 97.7 fl (80.0-96.0); MONO # 0.6 10^3/uL (0.0-0.8); MONO % 10.2 % (0.0-5.0); NEUTROPHILS # 4.1 10^3/uL (1.8-7.7); RED BLOOD COUNT 3.02 10^6/uL (4.30-6.10); RED CELL DISTRIBUTION WIDTH 18.8 % (11.5-14.5); WHITE BLOOD COUNT 5.8 10^3/uL (4.0-10.0)
[2017-03-29 06:29] LABS: ANION GAP 9 MEQ/L (8-16); BLOOD UREA NITROGEN 40 MG/DL (7-18); C REACTIVE PROTEIN QUANTITATIV 5.61 MG/DL (0.00-0.30); CALCIUM LEVEL 8.2 MG/DL (8.8-10.2); CARBON DIOXIDE LEVEL 30 MEQ/L (21-32); CHLORIDE LEVEL 96 MEQ/L (98-107); CREATININE FOR GFR 6.11 MG/DL (0.70-1.30); GLOMERULAR FILTRATION RATE 9.7 (>42); GLUCOSE, FASTING 47 MG/DL (70-100); MAGNESIUM LEVEL 2.2 MG/DL (1.8-2.4); POTASSIUM SERUM 4.5 MEQ/L (3.5-5.1); SODIUM LEVEL 135 MEQ/L (136-145)
[2017-03-29 06:41] LABS: POS COUNT POS FLAG
[2017-03-29] MEDS: (RENVELA) SEVELAMER **CARBONate** 800 MG TAB PO ×3 (06:42→17:35)
[2017-03-29] MEDS: LANTHANUM CARBONATE 500 MG CHEW TABLET PO ×3 (06:42→17:35)
[2017-03-29] MEDS: ASPIRIN 81 MG CHEW TABLET PO (06:42)
[2017-03-29 07:03] LABS: BEDSIDE GLUCOSE 86 MG/DL (83-110)
[2017-03-29] MEDS: HumaLOG INSULIN (NovoLOG) PER UNIT SC ×4 (07:30→22:13)
[2017-03-29] MEDS: LEVEMIR (INSULIN DETEMIR) 1 UNITS/0.01ML SC ×2 (09:54→21:00)
[2017-03-29] MEDS: CEFTRIAXONE SOD 1 GM in APPROPRIATE DILUENT 1 EA IV (13:46)
[2017-03-29] MEDS: AZITHROMYCIN INJ 500 MG, VIAL MATE ADAPTER 1 EACH in D5W 250 ML IV (13:46)
[2017-03-29 13:52] LABS: BEDSIDE GLUCOSE 77 MG/DL (83-110)
[2017-03-29] MEDS: traMADol 50 MG TAB PO ×2 (15:31→22:20)
[2017-03-29] MEDS: HEPARIN 1,000 UNITS/ML 10ML VIAL (FOR RADIOLOGY& DIALYSIS ONLY) IV (15:33)
[2017-03-29 17:15] LABS: BEDSIDE GLUCOSE 264 MG/DL (83-110)
[2017-03-29] MEDS: CLOPIDOGREL 75 MG TAB PO (17:35)
[2017-03-29] MEDS: CINACALCET 30 MG TAB (SENSIPAR) PO (17:35)
[2017-03-29 21:02] LABS: BEDSIDE GLUCOSE 337 MG/DL (83-110)
[2017-03-29] MEDS: VITAMIN D 1,000 INTERNATIONAL UNITS TABLET PO (22:11)
[2017-03-29] MEDS: OCUVITE 1 TAB PO (22:11)
[2017-03-29] MEDS: CYANOCOBALAMIN 500 MCG TAB PO (22:12)
[2017-03-29] MEDS: SIMVASTATIN 10 MG TAB PO (22:12)
[2017-03-29] MEDS: CARVedilol 3.125 MG TAB PO (22:14)
[2017-03-30] MEDS: ALBUTEROL SULFATE 2.5 MG/0.5 ML INH NEB SOLN NEB ×4 (01:43→19:47)
[2017-03-30] MEDS: HEPARIN SOD (PORCINE) 5000 UNITS/ML VIAL SC ×3 (06:00→20:57)
[2017-03-30 06:20] LABS: BEDSIDE GLUCOSE 196 MG/DL (83-110)
[2017-03-30 06:29] LABS: BASO # 0.1 10^3/uL (0.0-0.2); BASO % 0.9 % (0.0-1.0); EOS # 0.1 10^3/uL (0.0-0.50); EOS % 1.6 % (0.0-3.0); HEMATOCRIT 29.6 % (42.0-52.0); HEMOGLOBIN 9.1 g/dl (14.0-18.0); IMMATURE GRANULOCYTE # 0.1 10^3/uL (0-0); IMMATURE GRANULOCYTE % 0.9 % (0-0); LYMPH % 15.3 % (24.0-44.0); MEAN CORPUSCULAR HEMOGLOBIN 30.4 pg (27.0-33.0); MEAN CORPUSCULAR HGB CONC 30.7 g/dl (32.0-36.5); MONO % 14.8 % (0.0-5.0); NEUTROPHILS # 4.4 10^3/uL (1.8-7.7); NEUTROPHILS % 66.5 % (36.0-66.0); PLATELET COUNT, AUTOMATED 297 10^3/uL (150-450); RED BLOOD COUNT 2.99 10^6/uL (4.30-6.10); WHITE BLOOD COUNT 6.7 10^3/uL (4.0-10.0)
[2017-03-30 06:48] LABS: ANION GAP 6 MEQ/L (8-16); BLOOD UREA NITROGEN 27 MG/DL (7-18); C REACTIVE PROTEIN QUANTITATIV 6.02 MG/DL (0.00-0.30); CALCIUM LEVEL 8.3 MG/DL (8.8-10.2); CARBON DIOXIDE LEVEL 31 MEQ/L (21-32); CHLORIDE LEVEL 96 MEQ/L (98-107); CREATININE FOR GFR 4.53 MG/DL (0.70-1.30); GLOMERULAR FILTRATION RATE 13.7 (>42); GLUCOSE, FASTING 190 MG/DL (70-100); SODIUM LEVEL 133 MEQ/L (136-145)
[2017-03-30] MEDS: ASPIRIN 81 MG CHEW TABLET PO (08:42)
[2017-03-30] MEDS: LANTHANUM CARBONATE 500 MG CHEW TABLET PO ×3 (08:42→17:34)
[2017-03-30] MEDS: (RENVELA) SEVELAMER **CARBONate** 800 MG TAB PO ×3 (08:43→17:34)
[2017-03-30] MEDS: CARVedilol 3.125 MG TAB PO ×2 (08:44→20:57)
[2017-03-30] MEDS: HumaLOG INSULIN (NovoLOG) PER UNIT SC ×4 (08:45→20:47)
[2017-03-30] MEDS: LEVEMIR (INSULIN DETEMIR) 1 UNITS/0.01ML SC ×2 (08:46→20:57)
[2017-03-30] MEDS: AZITHROMYCIN INJ 500 MG, VIAL MATE ADAPTER 1 EACH in D5W 250 ML IV (10:29)
[2017-03-30] MEDS: CEFTRIAXONE SOD 1 GM in APPROPRIATE DILUENT 1 EA IV (11:50)
[2017-03-30 12:09] LABS: BEDSIDE GLUCOSE 262 MG/DL (83-110)
[2017-03-30 16:44] LABS: BEDSIDE GLUCOSE 207 MG/DL (83-110)
[2017-03-30] MEDS: CLOPIDOGREL 75 MG TAB PO (17:34)
[2017-03-30] MEDS: CINACALCET 30 MG TAB (SENSIPAR) PO (17:34)
[2017-03-30 20:39] LABS: BEDSIDE GLUCOSE 226 MG/DL (83-110)
[2017-03-30] MEDS: OCUVITE 1 TAB PO (20:56)
[2017-03-30] MEDS: VITAMIN D 1,000 INTERNATIONAL UNITS TABLET PO (20:56)
[2017-03-30] MEDS: CYANOCOBALAMIN 500 MCG TAB PO (20:57)
[2017-03-30] MEDS: SIMVASTATIN 10 MG TAB PO (20:57)
[2017-03-31] MEDS: ALBUTEROL SULFATE 2.5 MG/0.5 ML INH NEB SOLN NEB ×4 (01:30→21:26)
[2017-03-31] MEDS: HEPARIN SOD (PORCINE) 5000 UNITS/ML VIAL SC ×3 (05:20→20:31)
[2017-03-31] MEDS: ATENOLOL 25 MG TAB PO (05:20)
[2017-03-31] MEDS: ASPIRIN 81 MG CHEW TABLET PO (06:06)
[2017-03-31 06:40] LABS: BASO # 0.1 10^3/uL (0.0-0.2); BASO % 0.7 % (0.0-1.0); EOS # 0.1 10^3/uL (0.0-0.50); EOS % 1.5 % (0.0-3.0); HEMATOCRIT 28.7 % (42.0-52.0); HEMOGLOBIN 8.7 g/dl (14.0-18.0); IMMATURE GRANULOCYTE # 0.1 10^3/uL (0-0); LYMPH % 11.2 % (24.0-44.0); MEAN CORPUSCULAR HEMOGLOBIN 30.2 pg (27.0-33.0); MEAN CORPUSCULAR HGB CONC 30.3 g/dl (32.0-36.5); MEAN CORPUSCULAR VOLUME 99.7 fl (80.0-96.0); MONO # 1.3 10^3/uL (0.0-0.8); MONO % 14.9 % (0.0-5.0); NEUTROPHILS # 6.2 10^3/uL (1.8-7.7); NEUTROPHILS % 70.7 % (36.0-66.0); PLATELET COUNT, AUTOMATED 315 10^3/uL (150-450); RED BLOOD COUNT 2.88 10^6/uL (4.30-6.10); RED CELL DISTRIBUTION WIDTH 18.8 % (11.5-14.5); WHITE BLOOD COUNT 8.7 10^3/uL (4.0-10.0)
[2017-03-31] MEDS: LANTHANUM CARBONATE 500 MG CHEW TABLET PO ×3 (06:58→17:45)
[2017-03-31] MEDS: (RENVELA) SEVELAMER **CARBONate** 800 MG TAB PO ×3 (06:58→17:45)
[2017-03-31 06:59] LABS: BEDSIDE GLUCOSE 184 MG/DL (83-110)
[2017-03-31] MEDS: LEVEMIR (INSULIN DETEMIR) 1 UNITS/0.01ML SC ×2 (06:59→20:33)
[2017-03-31] MEDS: HumaLOG INSULIN (NovoLOG) PER UNIT SC ×4 (06:59→20:32)
[2017-03-31 07:01] LABS: ANION GAP 7 MEQ/L (8-16); BLOOD UREA NITROGEN 36 MG/DL (7-18); CALCIUM LEVEL 8.3 MG/DL (8.8-10.2); CARBON DIOXIDE LEVEL 29 MEQ/L (21-32); CHLORIDE LEVEL 95 MEQ/L (98-107); CREATININE FOR GFR 6.06 MG/DL (0.70-1.30); GLOMERULAR FILTRATION RATE 9.8 (>42); GLUCOSE, FASTING 188 MG/DL (70-100); POTASSIUM SERUM 4.7 MEQ/L (3.5-5.1); SODIUM LEVEL 131 MEQ/L (136-145)
[2017-03-31] MEDS ORDERED: DARBEPOETIN 100 MCG/0.5 ML *DIALYSIS* SYRINGE (J0882) IV (08:00)
[2017-03-31] MEDS: AZITHROMYCIN 250 MG TAB PO (08:16)
[2017-03-31] MEDS: HEPARIN 1,000 UNITS/ML 10ML VIAL (FOR RADIOLOGY& DIALYSIS ONLY) IV (11:45)
[2017-03-31] MEDS: CEFTRIAXONE SOD 1 GM in APPROPRIATE DILUENT 1 EA IV (12:58)
[2017-03-31 13:11] LABS: BEDSIDE GLUCOSE 116 MG/DL (83-110)
[2017-03-31 13:28] LABS: IRON (FE) 31 UG/DL (65-175); PERCENT SATURATION 15.5 % (19.7-50.0); TOTAL IRON BINDING CAPACITY 200 UG/DL (250-450)
[2017-03-31] MEDS: traMADol 50 MG TAB PO ×2 (15:58→20:30)
[2017-03-31] MEDS: FERROUS SULFATE 325MG TAB PO ×2 (16:00→20:31)
[2017-03-31] MEDS: SENOKOT S TAB PO ×2 (16:30→20:30)
[2017-03-31] MEDS: CINACALCET 30 MG TAB (SENSIPAR) PO (17:45)
[2017-03-31] MEDS: CLOPIDOGREL 75 MG TAB PO (17:45)
[2017-03-31] MEDS: SIMVASTATIN 10 MG TAB PO (20:29)
[2017-03-31] MEDS: CYANOCOBALAMIN 500 MCG TAB PO (20:30)
[2017-03-31] MEDS: OCUVITE 1 TAB PO (20:30)
[2017-03-31] MEDS: ASCORBIC ACID 500 MG TAB PO (20:30)
[2017-03-31] MEDS: VITAMIN D 1,000 INTERNATIONAL UNITS TABLET PO (20:31)
[2017-03-31] MEDS: CARVedilol 3.125 MG TAB PO (20:31)
[2017-04-01] MEDS: ALBUTEROL SULFATE 2.5 MG/0.5 ML INH NEB SOLN NEB ×4 (01:57→20:06)
[2017-04-01] MEDS: HEPARIN SOD (PORCINE) 5000 UNITS/ML VIAL SC ×3 (05:06→21:33)
[2017-04-01 05:59] LABS: BEDSIDE GLUCOSE 316 MG/DL (83-110)
[2017-04-01 05:59] LABS: BEDSIDE GLUCOSE 272 MG/DL (83-110)
[2017-04-01 06:07] LABS: BASO # 0.1 10^3/uL (0.0-0.2); BASO % 0.9 % (0.0-1.0); EOS # 0.1 10^3/uL (0.0-0.50); EOS % 1.3 % (0.0-3.0); HEMATOCRIT 28.5 % (42.0-52.0); HEMOGLOBIN 8.6 g/dl (14.0-18.0); IMMATURE GRANULOCYTE # 0.1 10^3/uL (0-0); IMMATURE GRANULOCYTE % 1.2 % (0-0); LYMPH # 1.1 10^3/uL (1.5-4.5); LYMPH % 13.8 % (24.0-44.0); MEAN CORPUSCULAR HEMOGLOBIN 29.6 pg (27.0-33.0); MEAN CORPUSCULAR HGB CONC 30.2 g/dl (32.0-36.5); MEAN CORPUSCULAR VOLUME 97.9 fl (80.0-96.0); MONO # 1.2 10^3/uL (0.0-0.8); MONO % 14.2 % (0.0-5.0); NEUTROPHILS # 5.6 10^3/uL (1.8-7.7); NEUTROPHILS % 68.6 % (36.0-66.0); PLATELET COUNT, AUTOMATED 349 10^3/uL (150-450); RED BLOOD COUNT 2.91 10^6/uL (4.30-6.10); RED CELL DISTRIBUTION WIDTH 18.9 % (11.5-14.5); WHITE BLOOD COUNT 8.2 10^3/uL (4.0-10.0)
[2017-04-01 06:28] LABS: ANION GAP 8 MEQ/L (8-16); BLOOD UREA NITROGEN 27 MG/DL (7-18); C REACTIVE PROTEIN QUANTITATIV 7.06 MG/DL (0.00-0.30); CALCIUM LEVEL 8.4 MG/DL (8.8-10.2); CARBON DIOXIDE LEVEL 30 MEQ/L (21-32); CHLORIDE LEVEL 97 MEQ/L (98-107); CREATININE FOR GFR 4.48 MG/DL (0.70-1.30); GLOMERULAR FILTRATION RATE 13.9 (>42); GLUCOSE, FASTING 148 MG/DL (70-100); POTASSIUM SERUM 3.8 MEQ/L (3.5-5.1); SODIUM LEVEL 135 MEQ/L (136-145)
[2017-04-01] MEDS: (RENVELA) SEVELAMER **CARBONate** 800 MG TAB PO ×3 (08:38→16:59)
[2017-04-01] MEDS: ASPIRIN 81 MG CHEW TABLET PO (08:38)
[2017-04-01] MEDS: FERROUS SULFATE 325MG TAB PO ×3 (08:38→21:45)
[2017-04-01] MEDS: SENOKOT S TAB PO ×2 (08:39→21:45)
[2017-04-01] MEDS: AZITHROMYCIN 250 MG TAB PO (08:39)
[2017-04-01] MEDS: LANTHANUM CARBONATE 500 MG CHEW TABLET PO ×3 (08:39→17:01)
[2017-04-01] MEDS: ASCORBIC ACID 500 MG TAB PO ×2 (08:39→21:45)
[2017-04-01] MEDS: HumaLOG INSULIN (NovoLOG) PER UNIT SC ×4 (08:39→20:53)
[2017-04-01] MEDS: CARVedilol 3.125 MG TAB PO ×2 (08:39→21:46)
[2017-04-01] MEDS: LEVEMIR (INSULIN DETEMIR) 1 UNITS/0.01ML SC ×2 (08:40→21:46)
[2017-04-01] MEDS ORDERED: SODIUM CHLORIDE NASAL 0.65% SPRAY BTL (OCEAN) (08:45)
[2017-04-01] MEDS: traMADol 50 MG TAB PO (08:50)
[2017-04-01] MEDS: CLOPIDOGREL 75 MG TAB PO (17:00)
[2017-04-01] MEDS: CINACALCET 30 MG TAB (SENSIPAR) PO (17:00)
[2017-04-01] MEDS ORDERED: IRON SUCROSE 100MG 5ML VIAL (J1756 PER 1MG) IV (17:00)
[2017-04-01 20:46] LABS: BEDSIDE GLUCOSE 143 MG/DL (83-110)
[2017-04-01] MEDS: CYANOCOBALAMIN 500 MCG TAB PO (21:45)
[2017-04-01] MEDS: OCUVITE 1 TAB PO (21:45)
[2017-04-01] MEDS: SIMVASTATIN 10 MG TAB PO (21:45)
[2017-04-01] MEDS: VITAMIN D 1,000 INTERNATIONAL UNITS TABLET PO (21:45)
[2017-04-02] MEDS: ALBUTEROL SULFATE 2.5 MG/0.5 ML INH NEB SOLN NEB ×4 (01:30→20:42)
[2017-04-02] MEDS: HEPARIN SOD (PORCINE) 5000 UNITS/ML VIAL SC ×3 (05:17→21:45)
[2017-04-02 06:25] LABS: HEMATOCRIT 28.1 % (42.0-52.0); HEMOGLOBIN 8.7 g/dl (14.0-18.0); MEAN CORPUSCULAR HEMOGLOBIN 30.3 pg (27.0-33.0); MEAN CORPUSCULAR VOLUME 97.9 fl (80.0-96.0); PLATELET COUNT, AUTOMATED 363 10^3/uL (150-450); RED BLOOD COUNT 2.87 10^6/uL (4.30-6.10); RED CELL DISTRIBUTION WIDTH 18.6 % (11.5-14.5); WHITE BLOOD COUNT 8.2 10^3/uL (4.0-10.0)
[2017-04-02 06:41] LABS: ANION GAP 8 MEQ/L (8-16); BLOOD UREA NITROGEN 36 MG/DL (7-18); C REACTIVE PROTEIN QUANTITATIV 6.12 MG/DL (0.00-0.30); CALCIUM LEVEL 8.4 MG/DL (8.8-10.2); CARBON DIOXIDE LEVEL 29 MEQ/L (21-32); CHLORIDE LEVEL 98 MEQ/L (98-107); CREATININE FOR GFR 5.85 MG/DL (0.70-1.30); GLOMERULAR FILTRATION RATE 10.2 (>42); GLUCOSE, FASTING 112 MG/DL (70-100); MAGNESIUM LEVEL 2.3 MG/DL (1.8-2.4); SODIUM LEVEL 135 MEQ/L (136-145)
[2017-04-02] MEDS: HumaLOG INSULIN (NovoLOG) PER UNIT SC ×4 (08:21→21:00)
[2017-04-02] MEDS: LEVEMIR (INSULIN DETEMIR) 1 UNITS/0.01ML SC ×2 (08:21→21:00)
[2017-04-02] MEDS: ASPIRIN 81 MG CHEW TABLET PO (08:22)
[2017-04-02] MEDS: FERROUS SULFATE 325MG TAB PO ×3 (08:22→21:45)
[2017-04-02] MEDS: LANTHANUM CARBONATE 500 MG CHEW TABLET PO ×3 (08:22→17:05)
[2017-04-02] MEDS: (RENVELA) SEVELAMER **CARBONate** 800 MG TAB PO ×3 (08:22→17:05)
[2017-04-02] MEDS: ASCORBIC ACID 500 MG TAB PO ×2 (08:22→21:45)
[2017-04-02] MEDS: SENOKOT S TAB PO ×2 (08:22→21:45)
[2017-04-02] MEDS: CARVedilol 3.125 MG TAB PO ×2 (08:23→21:48)
[2017-04-02] MEDS: GABAPENTIN 100 MG CAP PO (08:23)
[2017-04-02] MEDS: AZITHROMYCIN 250 MG TAB PO (08:23)
[2017-04-02] MEDS: traMADol 50 MG TAB PO ×2 (08:23→21:48)
[2017-04-02 11:59] LABS: BEDSIDE GLUCOSE 195 MG/DL (83-110)
[2017-04-02 11:59] LABS: BEDSIDE GLUCOSE 176 MG/DL (83-110)
[2017-04-02 12:00] LABS: BEDSIDE GLUCOSE 122 MG/DL (83-110)
[2017-04-02 12:00] LABS: BEDSIDE GLUCOSE 178 MG/DL (83-110)
[2017-04-02 16:55] LABS: BEDSIDE GLUCOSE 211 MG/DL (83-110)
[2017-04-02] MEDS: CLOPIDOGREL 75 MG TAB PO (17:05)
[2017-04-02] MEDS: CINACALCET 30 MG TAB (SENSIPAR) PO (17:05)
[2017-04-02] MEDS: CYANOCOBALAMIN 500 MCG TAB PO (21:45)
[2017-04-02] MEDS: SIMVASTATIN 10 MG TAB PO (21:45)
[2017-04-02] MEDS: OCUVITE 1 TAB PO (21:45)
[2017-04-02] MEDS: VITAMIN D 1,000 INTERNATIONAL UNITS TABLET PO (21:45)
[2017-04-03] MEDS: ALBUTEROL SULFATE 2.5 MG/0.5 ML INH NEB SOLN NEB ×5 (01:24→23:44)
[2017-04-03] MEDS: HEPARIN SOD (PORCINE) 5000 UNITS/ML VIAL SC ×3 (05:07→21:31)
[2017-04-03 06:01] LABS: HEMATOCRIT 27.1 % (42.0-52.0); HEMOGLOBIN 8.5 g/dl (14.0-18.0); MEAN CORPUSCULAR HEMOGLOBIN 30.6 pg (27.0-33.0); MEAN CORPUSCULAR HGB CONC 31.4 g/dl (32.0-36.5); MEAN CORPUSCULAR VOLUME 97.5 fl (80.0-96.0); PLATELET COUNT, AUTOMATED 402 10^3/uL (150-450); RED BLOOD COUNT 2.78 10^6/uL (4.30-6.10); RED CELL DISTRIBUTION WIDTH 18.7 % (11.5-14.5); WHITE BLOOD COUNT 8.8 10^3/uL (4.0-10.0)
[2017-04-03 06:22] LABS: ANION GAP 11 MEQ/L (8-16); BLOOD UREA NITROGEN 47 MG/DL (7-18); CALCIUM LEVEL 8.1 MG/DL (8.8-10.2); CARBON DIOXIDE LEVEL 27 MEQ/L (21-32); CHLORIDE LEVEL 97 MEQ/L (98-107); CREATININE FOR GFR 6.98 MG/DL (0.70-1.30); GLOMERULAR FILTRATION RATE 8.3 (>42); GLUCOSE, FASTING 116 MG/DL (70-100); MAGNESIUM LEVEL 2.4 MG/DL (1.8-2.4); POTASSIUM SERUM 4.3 MEQ/L (3.5-5.1); SODIUM LEVEL 135 MEQ/L (136-145)
[2017-04-03] MEDS: (RENVELA) SEVELAMER **CARBONate** 800 MG TAB PO ×3 (06:54→17:14)
[2017-04-03] MEDS: AZITHROMYCIN 250 MG TAB PO (06:54)
[2017-04-03] MEDS: ASPIRIN 81 MG CHEW TABLET PO (06:54)
[2017-04-03] MEDS: FERROUS SULFATE 325MG TAB PO ×3 (06:54→21:29)
[2017-04-03] MEDS: SENOKOT S TAB PO ×2 (06:55→21:28)
[2017-04-03] MEDS: LANTHANUM CARBONATE 500 MG CHEW TABLET PO (06:55)
[2017-04-03 06:57] LABS: BEDSIDE GLUCOSE 122 MG/DL (83-110)
[2017-04-03 06:57] LABS: BEDSIDE GLUCOSE 118 MG/DL (83-110)
[2017-04-03 06:57] LABS: BEDSIDE GLUCOSE 108 MG/DL (83-110)
[2017-04-03] MEDS: HumaLOG INSULIN (NovoLOG) PER UNIT SC ×4 (07:01→21:30)
[2017-04-03] MEDS: LEVEMIR (INSULIN DETEMIR) 1 UNITS/0.01ML SC ×2 (07:02→21:31)
[2017-04-03] MEDS: ASCORBIC ACID 500 MG TAB PO ×2 (07:02→21:28)
[2017-04-03 10:01] LABS: PHOSPHORUS LEVEL 2.3 MG/DL (2.5-4.9)
[2017-04-03] MEDS: HEPARIN 1,000 UNITS/ML 10ML VIAL (FOR RADIOLOGY& DIALYSIS ONLY) IV (12:00)
[2017-04-03] MEDS: CLOPIDOGREL 75 MG TAB PO (17:15)
[2017-04-03] MEDS: CINACALCET 30 MG TAB (SENSIPAR) PO (17:15)
[2017-04-03] MEDS: SIMVASTATIN 10 MG TAB PO (21:28)
[2017-04-03] MEDS: VITAMIN D 1,000 INTERNATIONAL UNITS TABLET PO (21:28)
[2017-04-03] MEDS: OCUVITE 1 TAB PO (21:28)
[2017-04-03] MEDS: CARVedilol 3.125 MG TAB PO (21:29)
[2017-04-03] MEDS: CYANOCOBALAMIN 500 MCG TAB PO (21:29)
[2017-04-03 21:56] LABS: BEDSIDE GLUCOSE 263 MG/DL (83-110)
[2017-04-03] MEDS: traMADol 50 MG TAB PO (22:48)
[2017-04-03] MEDS: GABAPENTIN 100 MG CAP PO (22:48)
[2017-04-04] MEDS: HEPARIN SOD (PORCINE) 5000 UNITS/ML VIAL SC ×3 (05:56→22:00)
[2017-04-04] MEDS: ALBUTEROL SULFATE 2.5 MG/0.5 ML INH NEB SOLN NEB ×3 (07:31→20:46)
[2017-04-04] MEDS: HumaLOG INSULIN (NovoLOG) PER UNIT SC ×4 (07:56→21:00)
[2017-04-04] MEDS: FERROUS SULFATE 325MG TAB PO ×3 (07:56→22:17)
[2017-04-04] MEDS: SENOKOT S TAB PO ×2 (07:56→22:16)
[2017-04-04] MEDS: (RENVELA) SEVELAMER **CARBONate** 800 MG TAB PO ×3 (07:56→18:05)
[2017-04-04] MEDS: CARVedilol 3.125 MG TAB PO ×2 (07:56→22:17)
[2017-04-04] MEDS: ASPIRIN 81 MG CHEW TABLET PO (07:56)
[2017-04-04] MEDS: ASCORBIC ACID 500 MG TAB PO ×2 (07:56→22:17)
[2017-04-04] MEDS: LEVEMIR (INSULIN DETEMIR) 1 UNITS/0.01ML SC ×2 (07:57→22:16)
[2017-04-04 08:01] LABS: HEMATOCRIT 26.6 % (42.0-52.0); HEMOGLOBIN 8.1 g/dl (14.0-18.0); MEAN CORPUSCULAR HGB CONC 30.5 g/dl (32.0-36.5); MEAN CORPUSCULAR VOLUME 98.5 fl (80.0-96.0); PLATELET COUNT, AUTOMATED 400 10^3/uL (150-450)
[2017-04-04 08:19] LABS: ANION GAP 8 MEQ/L (8-16); BLOOD UREA NITROGEN 28 MG/DL (7-18); CALCIUM LEVEL 8.3 MG/DL (8.8-10.2); CARBON DIOXIDE LEVEL 28 MEQ/L (21-32); CHLORIDE LEVEL 100 MEQ/L (98-107); CREATININE FOR GFR 4.57 MG/DL (0.70-1.30); GLOMERULAR FILTRATION RATE 13.5 (>42); GLUCOSE, FASTING 144 MG/DL (70-100); MAGNESIUM LEVEL 2.1 MG/DL (1.8-2.4); POTASSIUM SERUM 3.7 MEQ/L (3.5-5.1); SODIUM LEVEL 136 MEQ/L (136-145)
[2017-04-04] MEDS: NORCO, ANEXSIA 5/325MG TABLET (HYDROcodone/ACETAMINOPHEN) PO (09:21)
[2017-04-04] MEDS: GABAPENTIN 100 MG CAP PO (10:05)
[2017-04-04] MEDS: CINACALCET 30 MG TAB (SENSIPAR) PO (18:05)
[2017-04-04] MEDS: CLOPIDOGREL 75 MG TAB PO (18:06)
[2017-04-04 21:30] LABS: BEDSIDE GLUCOSE 171 MG/DL (83-110)
[2017-04-04 21:30] LABS: BEDSIDE GLUCOSE 154 MG/DL (83-110)
[2017-04-04 21:30] LABS: BEDSIDE GLUCOSE 118 MG/DL (83-110)
[2017-04-04 21:30] LABS: BEDSIDE GLUCOSE 191 MG/DL (83-110)
[2017-04-04 21:30] LABS: BEDSIDE GLUCOSE 208 MG/DL (83-110)
[2017-04-04] MEDS: OCUVITE 1 TAB PO (22:17)
[2017-04-04] MEDS: VITAMIN D 1,000 INTERNATIONAL UNITS TABLET PO (22:17)
[2017-04-04] MEDS: CYANOCOBALAMIN 500 MCG TAB PO (22:18)
[2017-04-04] MEDS: SIMVASTATIN 10 MG TAB PO (22:18)
[2017-04-04 22:26] LABS: BEDSIDE GLUCOSE 231 MG/DL (83-110)
[2017-04-05] MEDS: ALBUTEROL SULFATE 2.5 MG/0.5 ML INH NEB SOLN NEB ×5 (01:19→18:00)
[2017-04-05] MEDS: HEPARIN SOD (PORCINE) 5000 UNITS/ML VIAL SC ×3 (05:17→21:03)
[2017-04-05 06:40] LABS: ANION GAP 10 MEQ/L (8-16); BLOOD UREA NITROGEN 40 MG/DL (7-18); CALCIUM LEVEL 8.5 MG/DL (8.8-10.2); CARBON DIOXIDE LEVEL 27 MEQ/L (21-32); CHLORIDE LEVEL 98 MEQ/L (98-107); CREATININE FOR GFR 5.73 MG/DL (0.70-1.30); GLOMERULAR FILTRATION RATE 10.4 (>42); GLUCOSE, FASTING 175 MG/DL (70-100); POTASSIUM SERUM 3.9 MEQ/L (3.5-5.1); SODIUM LEVEL 135 MEQ/L (136-145)
[2017-04-05] MEDS: ASCORBIC ACID 500 MG TAB PO ×2 (06:40→21:00)
[2017-04-05] MEDS: FERROUS SULFATE 325MG TAB PO ×3 (06:40→21:00)
[2017-04-05] MEDS: (RENVELA) SEVELAMER **CARBONate** 800 MG TAB PO ×3 (06:40→17:45)
[2017-04-05] MEDS: ASPIRIN 81 MG CHEW TABLET PO (06:40)
[2017-04-05] MEDS: SENOKOT S TAB PO ×2 (06:40→21:00)
[2017-04-05] MEDS: LEVEMIR (INSULIN DETEMIR) 1 UNITS/0.01ML SC ×2 (08:29→21:00)
[2017-04-05] MEDS: HumaLOG INSULIN (NovoLOG) PER UNIT SC ×4 (08:29→21:00)
[2017-04-05] MEDS: HEPARIN 1,000 UNITS/ML 10ML VIAL (FOR RADIOLOGY& DIALYSIS ONLY) IV (12:30)
[2017-04-05] MEDS: CINACALCET 30 MG TAB (SENSIPAR) PO (17:45)
[2017-04-05] MEDS: CLOPIDOGREL 75 MG TAB PO (17:45)
[2017-04-05] MEDS: traMADol 50 MG TAB PO (18:36)
[2017-04-05] MEDS: GABAPENTIN 100 MG CAP PO (18:36)
[2017-04-05] MEDS: CARVedilol 3.125 MG TAB PO (21:00)
[2017-04-05] MEDS: OCUVITE 1 TAB PO (21:00)
[2017-04-05] MEDS: FINASTERIDE 5 MG TAB PO (21:00)
[2017-04-05] MEDS: SIMVASTATIN 10 MG TAB PO (21:00)
[2017-04-05] MEDS: VITAMIN D 1,000 INTERNATIONAL UNITS TABLET PO (21:00)
[2017-04-05] MEDS: CYANOCOBALAMIN 500 MCG TAB PO (21:00)
[2017-04-06] MEDS: ALBUTEROL SULFATE 2.5 MG/0.5 ML INH NEB SOLN NEB ×4 (02:00→20:00)
[2017-04-06 05:22] LABS: BEDSIDE GLUCOSE 248 MG/DL (83-110)
[2017-04-06 05:22] LABS: BEDSIDE GLUCOSE 318 MG/DL (83-110)
[2017-04-06 05:22] LABS: BEDSIDE GLUCOSE 173 MG/DL (83-110)
[2017-04-06] MEDS: HEPARIN SOD (PORCINE) 5000 UNITS/ML VIAL SC ×4 (05:30→22:00)
[2017-04-06 06:23] LABS: HEMATOCRIT 29.1 % (42.0-52.0); HEMOGLOBIN 8.8 g/dl (14.0-18.0); MEAN CORPUSCULAR HEMOGLOBIN 29.5 pg (27.0-33.0); MEAN CORPUSCULAR HGB CONC 30.2 g/dl (32.0-36.5); MEAN CORPUSCULAR VOLUME 97.7 fl (80.0-96.0); PLATELET COUNT, AUTOMATED 429 10^3/uL (150-450); RED BLOOD COUNT 2.98 10^6/uL (4.30-6.10); RED CELL DISTRIBUTION WIDTH 18.9 % (11.5-14.5); WHITE BLOOD COUNT 8.4 10^3/uL (4.0-10.0)
[2017-04-06 06:38] LABS: ANION GAP 10 MEQ/L (8-16); BLOOD UREA NITROGEN 24 MG/DL (7-18); CALCIUM LEVEL 8.6 MG/DL (8.8-10.2); CARBON DIOXIDE LEVEL 29 MEQ/L (21-32); CHLORIDE LEVEL 100 MEQ/L (98-107); GLOMERULAR FILTRATION RATE 15.3 (>42); GLUCOSE, FASTING 122 MG/DL (70-100); POTASSIUM SERUM 3.9 MEQ/L (3.5-5.1); SODIUM LEVEL 139 MEQ/L (136-145)
[2017-04-06] MEDS: HumaLOG INSULIN (NovoLOG) PER UNIT SC ×4 (08:41→21:00)
[2017-04-06] MEDS: LEVEMIR (INSULIN DETEMIR) 1 UNITS/0.01ML SC ×2 (08:42→21:09)
[2017-04-06] MEDS: SENOKOT S TAB PO ×2 (08:42→21:08)
[2017-04-06] MEDS: ASCORBIC ACID 500 MG TAB PO ×2 (08:42→21:09)
[2017-04-06] MEDS: CARVedilol 3.125 MG TAB PO ×2 (08:43→21:07)
[2017-04-06] MEDS: FERROUS SULFATE 325MG TAB PO ×3 (08:43→21:08)
[2017-04-06] MEDS: (RENVELA) SEVELAMER **CARBONate** 800 MG TAB PO ×3 (08:43→18:08)
[2017-04-06] MEDS: ASPIRIN 81 MG CHEW TABLET PO (08:43)
[2017-04-06] MEDS: traMADol 50 MG TAB PO ×2 (09:01→21:08)
[2017-04-06 16:10] LABS: BEDSIDE GLUCOSE 221 MG/DL (83-110)
[2017-04-06 17:17] LABS: BEDSIDE GLUCOSE 252 MG/DL (83-110)
[2017-04-06] MEDS: CINACALCET 30 MG TAB (SENSIPAR) PO (18:08)
[2017-04-06] MEDS: CLOPIDOGREL 75 MG TAB PO (18:08)
[2017-04-06] MEDS: OCUVITE 1 TAB PO (21:08)
[2017-04-06] MEDS: VITAMIN D 1,000 INTERNATIONAL UNITS TABLET PO (21:08)
[2017-04-06] MEDS: SIMVASTATIN 10 MG TAB PO (21:09)
[2017-04-06] MEDS: FINASTERIDE 5 MG TAB PO (21:09)
[2017-04-06] MEDS: CYANOCOBALAMIN 500 MCG TAB PO (21:09)
[2017-04-06 22:18] LABS: BEDSIDE GLUCOSE 222 MG/DL (83-110)
[2017-04-07] MEDS: ALBUTEROL SULFATE 2.5 MG/0.5 ML INH NEB SOLN NEB ×4 (01:29→20:30)
[2017-04-07] MEDS: HEPARIN SOD (PORCINE) 5000 UNITS/ML VIAL SC ×3 (06:00→21:03)
[2017-04-07 06:24] LABS: BEDSIDE GLUCOSE 222 MG/DL (83-110)
[2017-04-07] MEDS: FERROUS SULFATE 325MG TAB PO ×3 (06:30→21:04)
[2017-04-07] MEDS: SENOKOT S TAB PO ×2 (06:30→21:03)
[2017-04-07] MEDS: ASPIRIN 81 MG CHEW TABLET PO (06:30)
[2017-04-07] MEDS: ASCORBIC ACID 500 MG TAB PO ×2 (06:31→21:00)
[2017-04-07 06:33] LABS: HEMATOCRIT 28.3 % (42.0-52.0); HEMOGLOBIN 8.6 g/dl (14.0-18.0); MEAN CORPUSCULAR HEMOGLOBIN 30.2 pg (27.0-33.0); MEAN CORPUSCULAR HGB CONC 30.4 g/dl (32.0-36.5); MEAN CORPUSCULAR VOLUME 99.3 fl (80.0-96.0); PLATELET COUNT, AUTOMATED 424 10^3/uL (150-450); RED BLOOD COUNT 2.85 10^6/uL (4.30-6.10); RED CELL DISTRIBUTION WIDTH 18.7 % (11.5-14.5); WHITE BLOOD COUNT 9.6 10^3/uL (4.0-10.0)
[2017-04-07 06:57] LABS: ANION GAP 11 MEQ/L (8-16); BLOOD UREA NITROGEN 38 MG/DL (7-18); CALCIUM LEVEL 8.5 MG/DL (8.8-10.2); CARBON DIOXIDE LEVEL 26 MEQ/L (21-32); CHLORIDE LEVEL 98 MEQ/L (98-107); CREATININE FOR GFR 5.46 MG/DL (0.70-1.30); GLUCOSE, FASTING 229 MG/DL (70-100); PHOSPHORUS LEVEL 2.7 MG/DL (2.5-4.9); SODIUM LEVEL 135 MEQ/L (136-145)
[2017-04-07] MEDS: HumaLOG INSULIN (NovoLOG) PER UNIT SC ×4 (08:07→21:02)
[2017-04-07] MEDS: (RENVELA) SEVELAMER **CARBONate** 800 MG TAB PO ×3 (08:07→17:57)
[2017-04-07] MEDS: LEVEMIR (INSULIN DETEMIR) 1 UNITS/0.01ML SC ×2 (08:08→21:03)
[2017-04-07] MEDS: LIDOCAINE 1% SDV 5 ML VIAL SQ (11:30)
[2017-04-07] MEDS: HEPARIN 1,000 UNITS/ML 10ML VIAL (FOR RADIOLOGY& DIALYSIS ONLY) IV (11:30)
[2017-04-07] MEDS: CLOPIDOGREL 75 MG TAB PO (17:57)
[2017-04-07] MEDS: CINACALCET 30 MG TAB (SENSIPAR) PO (17:57)
[2017-04-07] MEDS: traMADol 50 MG TAB PO (18:16)
[2017-04-07] MEDS: GABAPENTIN 100 MG CAP PO (19:48)
[2017-04-07] MEDS: FINASTERIDE 5 MG TAB PO (21:00)
[2017-04-07] MEDS: CYANOCOBALAMIN 500 MCG TAB PO (21:00)
[2017-04-07] MEDS: OCUVITE 1 TAB PO (21:00)
[2017-04-07] MEDS: CARVedilol 3.125 MG TAB PO (21:01)
[2017-04-07] MEDS: SIMVASTATIN 10 MG TAB PO (21:01)
[2017-04-07] MEDS: VITAMIN D 1,000 INTERNATIONAL UNITS TABLET PO (21:01)
[2017-04-08] MEDS: ALBUTEROL SULFATE 2.5 MG/0.5 ML INH NEB SOLN NEB ×4 (01:42→21:10)
[2017-04-08] MEDS: HEPARIN SOD (PORCINE) 5000 UNITS/ML VIAL SC ×4 (05:26→21:28)
[2017-04-08 05:29] LABS: HEMATOCRIT 29.7 % (42.0-52.0); MEAN CORPUSCULAR HEMOGLOBIN 30.1 pg (27.0-33.0); MEAN CORPUSCULAR HGB CONC 30.3 g/dl (32.0-36.5); MEAN CORPUSCULAR VOLUME 99.3 fl (80.0-96.0); PLATELET COUNT, AUTOMATED 425 10^3/uL (150-450); RED BLOOD COUNT 2.99 10^6/uL (4.30-6.10); RED CELL DISTRIBUTION WIDTH 19.2 % (11.5-14.5); WHITE BLOOD COUNT 10.2 10^3/uL (4.0-10.0)
[2017-04-08 05:45] LABS: ANION GAP 11 MEQ/L (8-16); BLOOD UREA NITROGEN 24 MG/DL (7-18); CALCIUM LEVEL 8.9 MG/DL (8.8-10.2); CARBON DIOXIDE LEVEL 26 MEQ/L (21-32); CHLORIDE LEVEL 100 MEQ/L (98-107); CREATININE FOR GFR 4.05 MG/DL (0.70-1.30); GLOMERULAR FILTRATION RATE 15.6 (>42); GLUCOSE, FASTING 260 MG/DL (70-100); POTASSIUM SERUM 3.8 MEQ/L (3.5-5.1); SODIUM LEVEL 137 MEQ/L (136-145)
[2017-04-08] MEDS: LEVEMIR (INSULIN DETEMIR) 1 UNITS/0.01ML SC ×2 (09:00→21:29)
[2017-04-08] MEDS: HumaLOG INSULIN (NovoLOG) PER UNIT SC ×4 (09:00→21:30)
[2017-04-08] MEDS: ASPIRIN 81 MG CHEW TABLET PO (09:02)
[2017-04-08] MEDS: ASCORBIC ACID 500 MG TAB PO ×2 (09:03→21:25)
[2017-04-08] MEDS: (RENVELA) SEVELAMER **CARBONate** 800 MG TAB PO ×3 (09:03→17:39)
[2017-04-08] MEDS: SENOKOT S TAB PO ×2 (09:03→21:28)
[2017-04-08] MEDS: FERROUS SULFATE 325MG TAB PO ×3 (09:03→21:28)
[2017-04-08] MEDS: CARVedilol 3.125 MG TAB PO ×2 (09:04→21:26)
[2017-04-08] MEDS: GABAPENTIN 100 MG CAP PO ×2 (13:17→21:27)
[2017-04-08] MEDS: traMADol 50 MG TAB PO ×2 (13:17→21:27)
[2017-04-08 16:26] LABS: BEDSIDE GLUCOSE 189 MG/DL (83-110)
[2017-04-08 16:26] LABS: BEDSIDE GLUCOSE 240 MG/DL (83-110)
[2017-04-08 16:26] LABS: BEDSIDE GLUCOSE 277 MG/DL (83-110)
[2017-04-08 16:26] LABS: BEDSIDE GLUCOSE 292 MG/DL (83-110)
[2017-04-08 16:55] LABS: BEDSIDE GLUCOSE 279 MG/DL (83-110)
[2017-04-08] MEDS: CINACALCET 30 MG TAB (SENSIPAR) PO (17:39)
[2017-04-08] MEDS: CLOPIDOGREL 75 MG TAB PO (17:39)
[2017-04-08] MEDS: VITAMIN D 1,000 INTERNATIONAL UNITS TABLET PO (21:26)
[2017-04-08] MEDS: FINASTERIDE 5 MG TAB PO (21:26)
[2017-04-08] MEDS: SIMVASTATIN 10 MG TAB PO (21:26)
[2017-04-08] MEDS: CYANOCOBALAMIN 500 MCG TAB PO (21:27)
[2017-04-08] MEDS: OCUVITE 1 TAB PO (21:28)
[2017-04-09] MEDS: ALBUTEROL SULFATE 2.5 MG/0.5 ML INH NEB SOLN NEB ×4 (01:01→21:50)
[2017-04-09] MEDS: HEPARIN SOD (PORCINE) 5000 UNITS/ML VIAL SC ×3 (05:36→21:16)
[2017-04-09 05:43] LABS: HEMATOCRIT 29.5 % (42.0-52.0); HEMOGLOBIN 8.9 g/dl (14.0-18.0); MEAN CORPUSCULAR HGB CONC 30.2 g/dl (32.0-36.5); MEAN CORPUSCULAR VOLUME 99.3 fl (80.0-96.0); PLATELET COUNT, AUTOMATED 409 10^3/uL (150-450); RED BLOOD COUNT 2.97 10^6/uL (4.30-6.10); RED CELL DISTRIBUTION WIDTH 18.9 % (11.5-14.5); WHITE BLOOD COUNT 11.4 10^3/uL (4.0-10.0)
[2017-04-09 07:51] LABS: ANION GAP 11 MEQ/L (8-16); C REACTIVE PROTEIN QUANTITATIV 2.82 MG/DL (0.00-0.30); CALCIUM LEVEL 8.5 MG/DL (8.8-10.2); CARBON DIOXIDE LEVEL 25 MEQ/L (21-32); CHLORIDE LEVEL 100 MEQ/L (98-107); CREATININE FOR GFR 5.75 MG/DL (0.70-1.30); GLOMERULAR FILTRATION RATE 10.4 (>42); GLUCOSE, FASTING 214 MG/DL (70-100); POTASSIUM SERUM 4.4 MEQ/L (3.5-5.1); SODIUM LEVEL 136 MEQ/L (136-145)
[2017-04-09 08:11] LABS: BLOOD UREA NITROGEN 42 MG/DL (7-18)
[2017-04-09] MEDS: ASPIRIN 81 MG CHEW TABLET PO (08:32)
[2017-04-09] MEDS: (RENVELA) SEVELAMER **CARBONate** 800 MG TAB PO ×3 (08:32→17:41)
[2017-04-09] MEDS: HumaLOG INSULIN (NovoLOG) PER UNIT SC ×4 (08:32→21:16)
[2017-04-09] MEDS: SENOKOT S TAB PO ×2 (08:39→21:14)
[2017-04-09] MEDS: CARVedilol 3.125 MG TAB PO ×2 (08:39→21:15)
[2017-04-09] MEDS: FERROUS SULFATE 325MG TAB PO ×3 (08:39→21:15)
[2017-04-09] MEDS: ASCORBIC ACID 500 MG TAB PO ×2 (08:39→21:14)
[2017-04-09] MEDS: LEVEMIR (INSULIN DETEMIR) 1 UNITS/0.01ML SC ×2 (08:40→21:15)
[2017-04-09] MEDS: GABAPENTIN 100 MG CAP PO ×2 (08:40→21:15)
[2017-04-09] MEDS: traMADol 50 MG TAB PO ×2 (08:42→21:14)
[2017-04-09] MEDS: CLOPIDOGREL 75 MG TAB PO (17:41)
[2017-04-09] MEDS: CINACALCET 30 MG TAB (SENSIPAR) PO (17:41)
[2017-04-09] MEDS: CYANOCOBALAMIN 500 MCG TAB PO (21:13)
[2017-04-09] MEDS: OCUVITE 1 TAB PO (21:14)
[2017-04-09] MEDS: VITAMIN D 1,000 INTERNATIONAL UNITS TABLET PO (21:14)
[2017-04-09] MEDS: SIMVASTATIN 10 MG TAB PO (21:15)
[2017-04-09] MEDS: FINASTERIDE 5 MG TAB PO (21:15)
[2017-04-10] MEDS: ALBUTEROL SULFATE 2.5 MG/0.5 ML INH NEB SOLN NEB ×4 (01:26→19:54)
[2017-04-10] MEDS: HEPARIN SOD (PORCINE) 5000 UNITS/ML VIAL SC ×3 (05:34→22:00)
[2017-04-10 06:31] LABS: HEMOGLOBIN 8.9 g/dl (14.0-18.0); MEAN CORPUSCULAR HEMOGLOBIN 30.7 pg (27.0-33.0); MEAN CORPUSCULAR HGB CONC 30.7 g/dl (32.0-36.5); PLATELET COUNT, AUTOMATED 382 10^3/uL (150-450); RED CELL DISTRIBUTION WIDTH 19.6 % (11.5-14.5); WHITE BLOOD COUNT 11.2 10^3/uL (4.0-10.0)
[2017-04-10 06:53] LABS: ANION GAP 14 MEQ/L (8-16); BLOOD UREA NITROGEN 61 MG/DL (7-18); CALCIUM LEVEL 8.9 MG/DL (8.8-10.2); CARBON DIOXIDE LEVEL 22 MEQ/L (21-32); CHLORIDE LEVEL 99 MEQ/L (98-107); CREATININE FOR GFR 7.13 MG/DL (0.70-1.30); GLOMERULAR FILTRATION RATE 8.1 (>42); GLUCOSE, FASTING 251 MG/DL (70-100); POTASSIUM SERUM 4.4 MEQ/L (3.5-5.1); SODIUM LEVEL 135 MEQ/L (136-145)
[2017-04-10] MEDS: FERROUS SULFATE 325MG TAB PO ×3 (07:05→22:19)
[2017-04-10] MEDS: (RENVELA) SEVELAMER **CARBONate** 800 MG TAB PO ×3 (07:05→17:15)
[2017-04-10] MEDS: SENOKOT S TAB PO ×2 (07:05→22:19)
[2017-04-10] MEDS: ASCORBIC ACID 500 MG TAB PO ×2 (07:05→22:19)
[2017-04-10] MEDS: ASPIRIN 81 MG CHEW TABLET PO (07:05)
[2017-04-10] MEDS: LEVEMIR (INSULIN DETEMIR) 1 UNITS/0.01ML SC ×2 (07:06→22:21)
[2017-04-10] MEDS: HumaLOG INSULIN (NovoLOG) PER UNIT SC ×4 (07:06→22:20)
[2017-04-10 12:09] LABS: BEDSIDE GLUCOSE 250 MG/DL (83-110)
[2017-04-10 12:09] LABS: BEDSIDE GLUCOSE 286 MG/DL (83-110)
[2017-04-10 12:09] LABS: BEDSIDE GLUCOSE 225 MG/DL (83-110)
[2017-04-10 12:09] LABS: BEDSIDE GLUCOSE 287 MG/DL (83-110)
[2017-04-10 12:09] LABS: BEDSIDE GLUCOSE 294 MG/DL (83-110)
[2017-04-10] MEDS: HEPARIN 1,000 UNITS/ML 10ML VIAL (FOR RADIOLOGY& DIALYSIS ONLY) IV (14:10)
[2017-04-10] MEDS: GABAPENTIN 100 MG CAP PO (14:13)
[2017-04-10] MEDS: traMADol 50 MG TAB PO (14:17)
[2017-04-10 16:45] LABS: BEDSIDE GLUCOSE 247 MG/DL (83-110)
[2017-04-10 17:07] LABS: BEDSIDE GLUCOSE 185 MG/DL (83-110)
[2017-04-10] MEDS: CINACALCET 30 MG TAB (SENSIPAR) PO (17:15)
[2017-04-10] MEDS: CLOPIDOGREL 75 MG TAB PO (17:15)
[2017-04-10] MEDS: MOM 30ML SUSPENSION UDC PO (17:16)
[2017-04-10 21:45] LABS: BEDSIDE GLUCOSE 295 MG/DL (83-110)
[2017-04-10] MEDS: OCUVITE 1 TAB PO (22:15)
[2017-04-10] MEDS: CARVedilol 3.125 MG TAB PO (22:16)
[2017-04-10] MEDS: FINASTERIDE 5 MG TAB PO (22:19)
[2017-04-10] MEDS: CYANOCOBALAMIN 500 MCG TAB PO (22:19)
[2017-04-10] MEDS: SIMVASTATIN 10 MG TAB PO (22:19)
[2017-04-10] MEDS: VITAMIN D 1,000 INTERNATIONAL UNITS TABLET PO (22:19)
[2017-04-11] MEDS: ALBUTEROL SULFATE 2.5 MG/0.5 ML INH NEB SOLN NEB ×4 (02:00→20:00)
[2017-04-11] MEDS: HEPARIN SOD (PORCINE) 5000 UNITS/ML VIAL SC ×3 (05:00→20:24)
[2017-04-11] MEDS: MOM 30ML SUSPENSION UDC PO (06:14)
[2017-04-11 06:25] LABS: BEDSIDE GLUCOSE 219 MG/DL (83-110)
[2017-04-11 06:27] LABS: HEMATOCRIT 30.8 % (42.0-52.0); HEMOGLOBIN 9.4 g/dl (14.0-18.0); MEAN CORPUSCULAR HEMOGLOBIN 30.2 pg (27.0-33.0); MEAN CORPUSCULAR HGB CONC 30.5 g/dl (32.0-36.5); PLATELET COUNT, AUTOMATED 388 10^3/uL (150-450); RED BLOOD COUNT 3.11 10^6/uL (4.30-6.10); RED CELL DISTRIBUTION WIDTH 20.6 % (11.5-14.5); WHITE BLOOD COUNT 10.3 10^3/uL (4.0-10.0)
[2017-04-11 06:43] LABS: ANION GAP 9 MEQ/L (8-16); BLOOD UREA NITROGEN 30 MG/DL (7-18); CALCIUM LEVEL 8.5 MG/DL (8.8-10.2); CARBON DIOXIDE LEVEL 29 MEQ/L (21-32); CHLORIDE LEVEL 100 MEQ/L (98-107); CREATININE FOR GFR 4.89 MG/DL (0.70-1.30); GLOMERULAR FILTRATION RATE 12.5 (>42); GLUCOSE, FASTING 206 MG/DL (70-100); POTASSIUM SERUM 3.8 MEQ/L (3.5-5.1); SODIUM LEVEL 138 MEQ/L (136-145)
[2017-04-11] MEDS: HumaLOG INSULIN (NovoLOG) PER UNIT SC ×4 (09:50→20:23)
[2017-04-11] MEDS: (RENVELA) SEVELAMER **CARBONate** 800 MG TAB PO ×3 (09:51→17:29)
[2017-04-11] MEDS: LEVEMIR (INSULIN DETEMIR) 1 UNITS/0.01ML SC ×2 (09:51→20:39)
[2017-04-11] MEDS: ASCORBIC ACID 500 MG TAB PO ×2 (09:51→20:38)
[2017-04-11] MEDS: SENOKOT S TAB PO ×2 (09:51→20:38)
[2017-04-11] MEDS: FERROUS SULFATE 325MG TAB PO ×3 (09:51→20:38)
[2017-04-11] MEDS: ASPIRIN 81 MG CHEW TABLET PO (09:51)
[2017-04-11] MEDS: CARVedilol 3.125 MG TAB PO ×2 (09:52→20:39)
[2017-04-11] MEDS: GABAPENTIN 100 MG CAP PO ×2 (10:24→20:51)
[2017-04-11] MEDS: traMADol 50 MG TAB PO ×2 (10:24→20:51)
[2017-04-11 11:58] LABS: BEDSIDE GLUCOSE 301 MG/DL (83-110)
[2017-04-11 17:17] LABS: BEDSIDE GLUCOSE 232 MG/DL (83-110)
[2017-04-11] MEDS: CLOPIDOGREL 75 MG TAB PO (17:29)
[2017-04-11] MEDS: CINACALCET 30 MG TAB (SENSIPAR) PO (17:31)
[2017-04-11 20:31] LABS: BEDSIDE GLUCOSE 242 MG/DL (83-110)
[2017-04-11] MEDS: VITAMIN D 1,000 INTERNATIONAL UNITS TABLET PO (20:37)
[2017-04-11] MEDS: FINASTERIDE 5 MG TAB PO (20:38)
[2017-04-11] MEDS: SIMVASTATIN 10 MG TAB PO (20:38)
[2017-04-11] MEDS: CYANOCOBALAMIN 500 MCG TAB PO (20:38)
[2017-04-11] MEDS: OCUVITE 1 TAB PO (20:38)
[2017-04-11] MEDS ORDERED: DARBEPOETIN 300 MCG/0.6 ML *DIALYSIS* SYRINGE (J0882) IV (20:45)
[2017-04-12] MEDS: ALBUTEROL SULFATE 2.5 MG/0.5 ML INH NEB SOLN NEB ×4 (01:32→20:00)
[2017-04-12] MEDS: HEPARIN SOD (PORCINE) 5000 UNITS/ML VIAL SC ×3 (05:13→21:08)
[2017-04-12 05:19] LABS: BEDSIDE GLUCOSE 222 MG/DL (83-110)
[2017-04-12 06:14] LABS: HEMATOCRIT 30.8 % (42.0-52.0); HEMOGLOBIN 9.5 g/dl (14.0-18.0); MEAN CORPUSCULAR HEMOGLOBIN 30.7 pg (27.0-33.0); MEAN CORPUSCULAR HGB CONC 30.8 g/dl (32.0-36.5); MEAN CORPUSCULAR VOLUME 99.7 fl (80.0-96.0); PLATELET COUNT, AUTOMATED 382 10^3/uL (150-450); RED BLOOD COUNT 3.09 10^6/uL (4.30-6.10); RED CELL DISTRIBUTION WIDTH 20.4 % (11.5-14.5)
[2017-04-12 06:32] LABS: ANION GAP 10 MEQ/L (8-16); BLOOD UREA NITROGEN 46 MG/DL (7-18); CALCIUM LEVEL 8.6 MG/DL (8.8-10.2); CARBON DIOXIDE LEVEL 27 MEQ/L (21-32); CHLORIDE LEVEL 101 MEQ/L (98-107); CREATININE FOR GFR 6.43 MG/DL (0.70-1.30); GLOMERULAR FILTRATION RATE 9.1 (>42); GLUCOSE, FASTING 203 MG/DL (70-100); POTASSIUM SERUM 4.3 MEQ/L (3.5-5.1); SODIUM LEVEL 138 MEQ/L (136-145)
[2017-04-12] MEDS: SENOKOT S TAB PO ×2 (06:48→21:00)
[2017-04-12] MEDS: ASPIRIN 81 MG CHEW TABLET PO (06:48)
[2017-04-12] MEDS: FERROUS SULFATE 325MG TAB PO ×3 (06:49→21:27)
[2017-04-12] MEDS: ASCORBIC ACID 500 MG TAB PO ×2 (06:49→21:26)
[2017-04-12] MEDS: (RENVELA) SEVELAMER **CARBONate** 800 MG TAB PO ×3 (07:04→17:30)
[2017-04-12] MEDS: HumaLOG INSULIN (NovoLOG) PER UNIT SC ×4 (07:05→21:38)
[2017-04-12] MEDS: LEVEMIR (INSULIN DETEMIR) 1 UNITS/0.01ML SC ×2 (07:05→21:39)
[2017-04-12] MEDS ORDERED: IRON SUCROSE 100MG 5ML VIAL (J1756 PER 1MG) IV (10:45)
[2017-04-12 11:44] LABS: BEDSIDE GLUCOSE 248 MG/DL (83-110)
[2017-04-12] MEDS: HEPARIN 1,000 UNITS/ML 10ML VIAL (FOR RADIOLOGY& DIALYSIS ONLY) IV (17:12)
[2017-04-12] MEDS: SANTYL OINT 30GM TOP (17:28)
[2017-04-12] MEDS: CINACALCET 30 MG TAB (SENSIPAR) PO (17:30)
[2017-04-12] MEDS: CLOPIDOGREL 75 MG TAB PO (17:30)
[2017-04-12 17:37] LABS: BEDSIDE GLUCOSE 165 MG/DL (83-110)
[2017-04-12] MEDS: GABAPENTIN 100 MG CAP PO (21:23)
[2017-04-12] MEDS: SIMVASTATIN 10 MG TAB PO (21:25)
[2017-04-12] MEDS: traMADol 50 MG TAB PO (21:25)
[2017-04-12] MEDS: CYANOCOBALAMIN 500 MCG TAB PO (21:25)
[2017-04-12] MEDS: FINASTERIDE 5 MG TAB PO (21:25)
[2017-04-12] MEDS: VITAMIN D 1,000 INTERNATIONAL UNITS TABLET PO (21:26)
[2017-04-12] MEDS: CARVedilol 3.125 MG TAB PO (21:26)
[2017-04-12] MEDS: OCUVITE 1 TAB PO (21:27)
[2017-04-13 01:41] LABS: BEDSIDE GLUCOSE 288 MG/DL (83-110)
[2017-04-13] MEDS: ALBUTEROL SULFATE 2.5 MG/0.5 ML INH NEB SOLN NEB ×2 (02:00→07:47)
[2017-04-13] MEDS: HEPARIN SOD (PORCINE) 5000 UNITS/ML VIAL SC (05:21)
[2017-04-13 07:00] LABS: ANION GAP 10 MEQ/L (8-16); BLOOD UREA NITROGEN 26 MG/DL (7-18); CALCIUM LEVEL 8.6 MG/DL (8.8-10.2); CARBON DIOXIDE LEVEL 27 MEQ/L (21-32); CHLORIDE LEVEL 101 MEQ/L (98-107); CREATININE FOR GFR 4.69 MG/DL (0.70-1.30); GLOMERULAR FILTRATION RATE 13.1 (>42); GLUCOSE, FASTING 240 MG/DL (70-100); POTASSIUM SERUM 4.3 MEQ/L (3.5-5.1); SODIUM LEVEL 138 MEQ/L (136-145)
[2017-04-13] MEDS: HumaLOG INSULIN (NovoLOG) PER UNIT SC (08:12)
[2017-04-13] MEDS: FERROUS SULFATE 325MG TAB PO (08:13)
[2017-04-13] MEDS: ASCORBIC ACID 500 MG TAB PO (08:13)
[2017-04-13] MEDS: SENOKOT S TAB PO (08:13)
[2017-04-13] MEDS: ASPIRIN 81 MG CHEW TABLET PO (08:13)
[2017-04-13] MEDS: (RENVELA) SEVELAMER **CARBONate** 800 MG TAB PO (08:13)
[2017-04-13] MEDS: GABAPENTIN 100 MG CAP PO (08:14)
[2017-04-13] MEDS: CARVedilol 3.125 MG TAB PO (08:14)
[2017-04-13] MEDS: SANTYL OINT 30GM TOP (08:14)
[2017-04-13] MEDS: traMADol 50 MG TAB PO (08:15)
[2017-04-13] MEDS: LEVEMIR (INSULIN DETEMIR) 1 UNITS/0.01ML SC (08:15)
== END 2017-04-13 11:03 | disposition home or self-care (01) | DRG 193 ==
LOC: M MSPAV 03-28 00:45 → M ED 21:45 → M ED INP 22:57
PROC: 5A1D70Z Performance of Urinary Filtration, Intermittent, Less than 6 Hours Per Day (ICD-10-PCS; principal; 2017-03-29)
DX: J18.9 Pneumonia, unspecified organism (principal); N18.6 End stage renal disease; I69.354 Hemiplegia and hemiparesis following cerebral infarction affecting left non-dominant side; I13.2 Hypertensive heart and chronic kidney disease with heart failure and with stage 5 chronic kidney disease, or end stage renal disease; L97.419 Non-pressure chronic ulcer of right heel and midfoot with unspecified severity; N25.81 Secondary hyperparathyroidism of renal origin; I50.22 Chronic systolic (congestive) heart failure; I69.398 Other sequelae of cerebral infarction; J20.5 Acute bronchitis due to respiratory syncytial virus; E83.39 Other disorders of phosphorus metabolism; K75.81 Nonalcoholic steatohepatitis (NASH); E11.649 Type 2 diabetes mellitus with hypoglycemia without coma; H54.61 Unqualified visual loss, right eye, normal vision left eye; D63.1 Anemia in chronic kidney disease; E66.01 Morbid (severe) obesity due to excess calories; Z96.641 Presence of right artificial hip joint; Z98.41 Cataract extraction status, right eye; Z98.42 Cataract extraction status, left eye; Z95.828 Presence of other vascular implants and grafts; Z99.2 Dependence on renal dialysis; Z79.82 Long term (current) use of aspirin; Z79.4 Long term (current) use of insulin; Z79.899 Other long term (current) drug therapy; E11.40 Type 2 diabetes mellitus with diabetic neuropathy, unspecified; E11.621 Type 2 diabetes mellitus with foot ulcer

== ENCOUNTER → 2017-06-22 | Outpatient (REF) | payer MEDICARE, BC ==
[2017-06-22 17:58] LABS: HEMATOCRIT 35.9 % (42.0-52.0); HEMOGLOBIN 11.4 g/dl (13.5-17.5); MEAN CORPUSCULAR HEMOGLOBIN 32.2 pg (27.0-33.0); MEAN CORPUSCULAR HGB CONC 31.8 g/dl (32.0-36.5); MEAN CORPUSCULAR VOLUME 101.4 fl (80.0-96.0); PLATELET COUNT, AUTOMATED 258 10^3/uL (150-450); RED BLOOD COUNT 3.54 10^6/uL (4.30-6.10)
[2017-06-22 18:35] LABS: ANION GAP 9 MEQ/L (8-16); BLOOD UREA NITROGEN 59 MG/DL (7-18); C REACTIVE PROTEIN QUANTITATIV 1.34 MG/DL (0.00-0.30); CALCIUM LEVEL 9.2 MG/DL (8.8-10.2); CARBON DIOXIDE LEVEL 29 MEQ/L (21-32); CHLORIDE LEVEL 98 MEQ/L (98-107); CREATININE FOR GFR 5.13 MG/DL (0.70-1.30); GLOMERULAR FILTRATION RATE 11.8 (>42); GLUCOSE, FASTING 129 MG/DL (70-100); POTASSIUM SERUM 4.1 MEQ/L (3.5-5.1); SODIUM LEVEL 136 MEQ/L (136-145)
[2017-06-22 19:17] LABS: ESTIMATED AVERAGE GLUCOSE 171 MG/DL (60-110); HEMOGLOBIN A1c 7.6 %
[2017-06-22 21:17] LABS: ERYTHROCYTE SEDIMENTATION RATE 63 mm/hr (0-20)
== END ==
LOC: M LAB REF 17:48
DX: L89.613 Pressure ulcer of right heel, stage 3 (principal); M86.10 Other acute osteomyelitis, unspecified site; Z79.899 Other long term (current) drug therapy
CPT/HCPCS: 83036

== ENCOUNTER → 2017-09-28 | Outpatient (REF) | payer MEDICARE, BC | LOC: M LAB REF 10:24 | DX: E11.621 Type 2 diabetes mellitus with foot ulcer (principal); L97.512 Non-pressure chronic ulcer of other part of right foot with fat layer exposed | CPT/HCPCS: 88304 ==

== ENCOUNTER 2017-10-09 09:54 | Inpatient (IN) | payer MEDICARE, BC ==
[2017-10-09 11:45] LABS: BASO # 0.1 10^3/uL (0.0-0.2); BASO % 0.6 % (0.0-1.0); EOS # 0.4 10^3/uL (0.0-0.50); EOS % 3.3 % (0.0-3.0); HEMATOCRIT 24.6 % (42.0-52.0); HEMOGLOBIN 7.9 g/dl (13.5-17.5); IMMATURE GRANULOCYTE % 0.4 % (0-3.0); LYMPH # 1.3 10^3/uL (1.5-4.5); LYMPH % 9.7 % (24.0-44.0); MEAN CORPUSCULAR HEMOGLOBIN 32.9 pg (27.0-33.0); MEAN CORPUSCULAR HGB CONC 32.1 g/dl (32.0-36.5); MEAN CORPUSCULAR VOLUME 102.5 fl (80.0-96.0); MONO # 1.3 10^3/uL (0.0-0.8); MONO % 9.6 % (0.0-5.0); NEUTROPHILS # 10.3 10^3/uL (1.8-7.7); NEUTROPHILS % 76.4 % (36.0-66.0); PLATELET COUNT, AUTOMATED 348 10^3/uL (150-450); RED CELL DISTRIBUTION WIDTH 14.6 % (11.5-14.5); WHITE BLOOD COUNT 13.5 10^3/uL (4.0-10.0)
[2017-10-09] MEDS: PANTOPRAZOLE 40MG INJ (PROTONIX) (C9113) IV (11:58)
[2017-10-09] MEDS: PANTOPRAZOLE SODIUM 40 MG in D5W 50 ML IV ×3 (11:58→21:20)
[2017-10-09] MEDS: NS 500 ML IV (12:00)
[2017-10-09 12:58] LABS: ANION GAP 16 MEQ/L (8-16); BLOOD UREA NITROGEN 122 MG/DL (7-18); CALCIUM LEVEL 9.1 MG/DL (8.8-10.2); CARBON DIOXIDE LEVEL 26 MEQ/L (21-32); CHLORIDE LEVEL 93 MEQ/L (98-107); CREATININE FOR GFR 7.74 MG/DL (0.70-1.30); GLOMERULAR FILTRATION RATE 7.4 (>42); GLUCOSE, FASTING 77 MG/DL (70-100); POTASSIUM SERUM 5.1 MEQ/L (3.5-5.1); SODIUM LEVEL 135 MEQ/L (136-145)
[2017-10-09 13:26] LABS: BEDSIDE GLUCOSE 71 MG/DL (83-110)
[2017-10-09] MEDS ORDERED: GLUCAGON FOR INJ 1 MG VIAL (J1610) SC (13:45)
[2017-10-09] MEDS ORDERED: ACETAMINOPHEN TAB 650MG DOSE (2X325MG) PO (13:45)
[2017-10-09] MEDS ORDERED: GLUCOSE 4 GM CHEW TABLET PO (13:45)
[2017-10-09] MEDS: DEXTROSE 50% 50 ML SYRINGE IV (14:42)
[2017-10-09] MEDS: NS 1,000 ML IV (14:59)
[2017-10-09 15:05] LABS: BEDSIDE GLUCOSE 123 MG/DL (83-110)
[2017-10-09 15:43] LABS: INR 1.19; PROTHROMBIN TIME 15.3 SECONDS (12.1-14.4)
[2017-10-09 16:03] LABS: ALBUMIN 2.5 GM/DL (3.2-5.2); ALBUMIN/GLOBULIN RATIO 0.68 (1.00-1.93); ALKALINE PHOSPHATASE 86 U/L (45-117); ALT/SGPT 15 U/L (12-78); AST/SGOT 9 U/L (7-37); BILIRUBIN,DIRECT 0.1 MG/DL (0.0-0.2); BILIRUBIN,TOTAL 0.3 MG/DL (0.2-1.0); TOTAL PROTEIN 6.2 GM/DL (6.4-8.2)
[2017-10-09 17:12] LABS: HEMOGLOBIN 7.6 g/dl (13.5-17.5); MEAN CORPUSCULAR HEMOGLOBIN 32.5 pg (27.0-33.0); MEAN CORPUSCULAR VOLUME 98.3 fl (80.0-96.0); PLATELET COUNT, AUTOMATED 288 10^3/uL (150-450); RED BLOOD COUNT 2.34 10^6/uL (4.30-6.10); RED CELL DISTRIBUTION WIDTH 14.6 % (11.5-14.5); WHITE BLOOD COUNT 10.3 10^3/uL (4.0-10.0)
[2017-10-09] MEDS: HumaLOG INSULIN (NovoLOG) PER UNIT SC (18:00)
[2017-10-09] MEDS ORDERED: SLF 3 ML SYR IV (18:00)
[2017-10-09 18:10] LABS: IMMEDIATE SPIN CROSSMATCH 1 2
[2017-10-09 18:21] LABS: BEDSIDE GLUCOSE 64 MG/DL (83-110)
[2017-10-09 19:43] LABS: BEDSIDE GLUCOSE 109 MG/DL (83-110)
[2017-10-09] MEDS: SLF 3 ML SYR IV (21:21)
[2017-10-10] MEDS: D5W 1,000 ML IV (01:20)
[2017-10-10 01:26] LABS: BEDSIDE GLUCOSE 85 MG/DL (83-110)
[2017-10-10 01:37] LABS: HEMATOCRIT 28.5 % (42.0-52.0); HEMOGLOBIN 9.4 g/dl (13.5-17.5); MEAN CORPUSCULAR HEMOGLOBIN 32.8 pg (27.0-33.0); MEAN CORPUSCULAR VOLUME 99.3 fl (80.0-96.0); PLATELET COUNT, AUTOMATED 288 10^3/uL (150-450); RED BLOOD COUNT 2.87 10^6/uL (4.30-6.10); WHITE BLOOD COUNT 11.3 10^3/uL (4.0-10.0)
[2017-10-10] MEDS: PANTOPRAZOLE SODIUM 40 MG in D5W 50 ML IV ×5 (02:33→19:34)
[2017-10-10] MEDS: HumaLOG INSULIN (NovoLOG) PER UNIT SC ×5 (06:00→23:51)
[2017-10-10] MEDS: SLF 3 ML SYR IV ×3 (06:00→23:52)
[2017-10-10] MEDS: GABAPENTIN 100 MG CAP PO (06:39)
[2017-10-10] MEDS: traMADol 50 MG TAB PO ×2 (06:39→18:38)
[2017-10-10 06:47] LABS: BEDSIDE GLUCOSE 96 MG/DL (83-110)
[2017-10-10] MEDS ORDERED: PROPOFOL 200 MG/20 ML VIAL As Ordered (07:20)
[2017-10-10] MEDS ORDERED: LIDOCAINE 2% INJ 100 MG/5 ML SDV (FOR ANES.) As Ordered (07:20)
[2017-10-10 09:09] LABS: HEMATOCRIT 26.4 % (42.0-52.0); HEMOGLOBIN 8.9 g/dl (13.5-17.5); MEAN CORPUSCULAR HEMOGLOBIN 32.8 pg (27.0-33.0); MEAN CORPUSCULAR HGB CONC 33.7 g/dl (32.0-36.5); MEAN CORPUSCULAR VOLUME 97.4 fl (80.0-96.0); PLATELET COUNT, AUTOMATED 300 10^3/uL (150-450); RED BLOOD COUNT 2.71 10^6/uL (4.30-6.10); RED CELL DISTRIBUTION WIDTH 15.6 % (11.5-14.5); WHITE BLOOD COUNT 10.6 10^3/uL (4.0-10.0)
[2017-10-10 09:36] LABS: ANION GAP 16 MEQ/L (8-16); BLOOD UREA NITROGEN 133 MG/DL (7-18); CARBON DIOXIDE LEVEL 24 MEQ/L (21-32); CHLORIDE LEVEL 94 MEQ/L (98-107); GLOMERULAR FILTRATION RATE 6.6 (>42); GLUCOSE, FASTING 117 MG/DL (70-100); SODIUM LEVEL 134 MEQ/L (136-145)
[2017-10-10 10:04] LABS: POTASSIUM SERUM 5.3 MEQ/L (3.5-5.1)
[2017-10-10 12:15] LABS: BEDSIDE GLUCOSE 136 MG/DL (83-110)
[2017-10-10 14:45] LABS: HEMATOCRIT 27.9 % (42.0-52.0); HEMOGLOBIN 9.1 g/dl (13.5-17.5); MEAN CORPUSCULAR HEMOGLOBIN 32.2 pg (27.0-33.0); MEAN CORPUSCULAR HGB CONC 32.6 g/dl (32.0-36.5); MEAN CORPUSCULAR VOLUME 98.6 fl (80.0-96.0); PLATELET COUNT, AUTOMATED 301 10^3/uL (150-450); RED BLOOD COUNT 2.83 10^6/uL (4.30-6.10); RED CELL DISTRIBUTION WIDTH 15.6 % (11.5-14.5); WHITE BLOOD COUNT 10.1 10^3/uL (4.0-10.0)
[2017-10-10 15:22] LABS: BEDSIDE GLUCOSE 125 MG/DL (83-110)
[2017-10-10] MEDS ORDERED: NORCO, ANEXSIA 5/325MG TABLET (HYDROcodone/ACETAMINOPHEN) PO (16:15)
[2017-10-10] MEDS ORDERED: SENOKOT S TAB PO (16:15)
[2017-10-10] MEDS ORDERED: SIMETHICONE 80 MG CHEW TAB PO (16:15)
[2017-10-10 19:15] LABS: BEDSIDE GLUCOSE 111 MG/DL (83-110)
[2017-10-10 20:01] LABS: HEMATOCRIT 28.5 % (42.0-52.0); HEMOGLOBIN 9.6 g/dl (13.5-17.5); MEAN CORPUSCULAR HEMOGLOBIN 32.5 pg (27.0-33.0); MEAN CORPUSCULAR HGB CONC 33.7 g/dl (32.0-36.5); MEAN CORPUSCULAR VOLUME 96.6 fl (80.0-96.0); PLATELET COUNT, AUTOMATED 311 10^3/uL (150-450); RED BLOOD COUNT 2.95 10^6/uL (4.30-6.10); RED CELL DISTRIBUTION WIDTH 15.6 % (11.5-14.5); WHITE BLOOD COUNT 10.2 10^3/uL (4.0-10.0)
[2017-10-10] MEDS: MIRALAX POWDER 255 GM BTL (POLYETHYLENE GLYCOL) PO (22:45)
[2017-10-10] MEDS ORDERED: ONDANSETRON 4MG/2ML VIAL (J2405) IV (23:00)
[2017-10-10] MEDS ORDERED: fentaNYL 100 MCG/2 ML INJECTION (J3010) IV (23:00)
[2017-10-10 23:30] LABS: BEDSIDE GLUCOSE 144 MG/DL (83-110)
[2017-10-10] MEDS: LR 1,000 ML IV (23:45)
[2017-10-10] MEDS: CLOPIDOGREL 75 MG TAB PO ×2 (23:51→23:54)
[2017-10-10] MEDS: CINACALCET 30 MG TAB (SENSIPAR) PO (23:51)
[2017-10-10] MEDS: CYANOCOBALAMIN 500 MCG TAB PO (23:52)
[2017-10-10] MEDS: SIMVASTATIN 10 MG TAB PO (23:52)
[2017-10-10] MEDS: FINASTERIDE 5 MG TAB PO (23:52)
[2017-10-11] MEDS: traMADol 50 MG TAB PO (00:34)
[2017-10-11] MEDS: PANTOPRAZOLE SODIUM 40 MG in D5W 50 ML IV ×5 (02:09→23:57)
[2017-10-11] MEDS: D5W 1,000 ML IV (04:31)
[2017-10-11 05:16] LABS: ANION GAP 11 MEQ/L (8-16); BLOOD UREA NITROGEN 65 MG/DL (7-18); CALCIUM LEVEL 8.5 MG/DL (8.8-10.2); CARBON DIOXIDE LEVEL 28 MEQ/L (21-32); CHLORIDE LEVEL 97 MEQ/L (98-107); CREATININE FOR GFR 5.58 MG/DL (0.70-1.30); GLOMERULAR FILTRATION RATE 10.7 (>42); GLUCOSE, FASTING 152 MG/DL (70-100); SODIUM LEVEL 136 MEQ/L (136-145)
[2017-10-11 05:26] LABS: HEMATOCRIT 28.7 % (42.0-52.0); HEMOGLOBIN 9.2 g/dl (13.5-17.5); MEAN CORPUSCULAR HEMOGLOBIN 32.2 pg (27.0-33.0); MEAN CORPUSCULAR HGB CONC 32.1 g/dl (32.0-36.5); MEAN CORPUSCULAR VOLUME 100.3 fl (80.0-96.0); PLATELET COUNT, AUTOMATED 300 10^3/uL (150-450); RED BLOOD COUNT 2.86 10^6/uL (4.30-6.10); RED CELL DISTRIBUTION WIDTH 15.3 % (11.5-14.5); WHITE BLOOD COUNT 8.2 10^3/uL (4.0-10.0)
[2017-10-11] MEDS: SLF 3 ML SYR IV ×3 (05:56→21:20)
[2017-10-11] MEDS: HumaLOG INSULIN (NovoLOG) PER UNIT SC ×4 (05:56→20:25)
[2017-10-11] MEDS: MIRALAX POWDER 255 GM BTL (POLYETHYLENE GLYCOL) PO ×2 (05:57→10:03)
[2017-10-11 12:11] LABS: BEDSIDE GLUCOSE 168 MG/DL (83-110)
[2017-10-11 13:16] LABS: HEMATOCRIT 30.2 % (42.0-52.0); HEMOGLOBIN 9.9 g/dl (13.5-17.5); MEAN CORPUSCULAR HEMOGLOBIN 31.9 pg (27.0-33.0); MEAN CORPUSCULAR HGB CONC 32.8 g/dl (32.0-36.5); MEAN CORPUSCULAR VOLUME 97.4 fl (80.0-96.0); PLATELET COUNT, AUTOMATED 305 10^3/uL (150-450); RED CELL DISTRIBUTION WIDTH 15.4 % (11.5-14.5); WHITE BLOOD COUNT 9.6 10^3/uL (4.0-10.0)
[2017-10-11] MEDS ORDERED: PROPOFOL 200 MG/20 ML VIAL As Ordered (15:45)
[2017-10-11] MEDS ORDERED: LIDOCAINE 2% INJ 100 MG/5 ML SDV (FOR ANES.) As Ordered (15:45)
[2017-10-11 17:55] LABS: BEDSIDE GLUCOSE 188 MG/DL (83-110)
[2017-10-11] MEDS: NS 1,000 ML IV (18:00)
[2017-10-11] MEDS ORDERED: ONDANSETRON 4MG/2ML VIAL (J2405) IV (18:00)
[2017-10-11 19:03] LABS: BEDSIDE GLUCOSE 166 MG/DL (83-110)
[2017-10-11 19:06] LABS: HEMATOCRIT 28.9 % (42.0-52.0); HEMOGLOBIN 9.6 g/dl (13.5-17.5); MEAN CORPUSCULAR HEMOGLOBIN 32.8 pg (27.0-33.0); MEAN CORPUSCULAR HGB CONC 33.2 g/dl (32.0-36.5); MEAN CORPUSCULAR VOLUME 98.6 fl (80.0-96.0); PLATELET COUNT, AUTOMATED 271 10^3/uL (150-450); RED BLOOD COUNT 2.93 10^6/uL (4.30-6.10); RED CELL DISTRIBUTION WIDTH 15.2 % (11.5-14.5); WHITE BLOOD COUNT 8.2 10^3/uL (4.0-10.0)
[2017-10-11 20:04] LABS: BEDSIDE GLUCOSE 171 MG/DL (83-110)
[2017-10-11] MEDS: CARVedilol 3.125 MG TAB PO (21:19)
[2017-10-11] MEDS: CINACALCET 30 MG TAB (SENSIPAR) PO (21:19)
[2017-10-11] MEDS: SIMVASTATIN 10 MG TAB PO (21:19)
[2017-10-11] MEDS: FINASTERIDE 5 MG TAB PO (21:19)
[2017-10-11] MEDS: CYANOCOBALAMIN 500 MCG TAB PO (21:20)
[2017-10-12 03:25] LABS: HEMOGLOBIN 8.3 g/dl (13.5-17.5); MEAN CORPUSCULAR HEMOGLOBIN 32.3 pg (27.0-33.0); MEAN CORPUSCULAR HGB CONC 33.2 g/dl (32.0-36.5); MEAN CORPUSCULAR VOLUME 97.3 fl (80.0-96.0); PLATELET COUNT, AUTOMATED 267 10^3/uL (150-450); RED BLOOD COUNT 2.57 10^6/uL (4.30-6.10); RED CELL DISTRIBUTION WIDTH 14.9 % (11.5-14.5); WHITE BLOOD COUNT 8.6 10^3/uL (4.0-10.0)
[2017-10-12 03:46] LABS: ANION GAP 14 MEQ/L (8-16); BLOOD UREA NITROGEN 73 MG/DL (7-18); CALCIUM LEVEL 8.3 MG/DL (8.8-10.2); CARBON DIOXIDE LEVEL 24 MEQ/L (21-32); CHLORIDE LEVEL 93 MEQ/L (98-107); GLOMERULAR FILTRATION RATE 8.7 (>42); GLUCOSE, FASTING 223 MG/DL (70-100); POTASSIUM SERUM 4.7 MEQ/L (3.5-5.1); SODIUM LEVEL 131 MEQ/L (136-145)
[2017-10-12] MEDS: PANTOPRAZOLE SODIUM 40 MG in D5W 50 ML IV ×5 (04:32→23:07)
[2017-10-12] MEDS: SLF 3 ML SYR IV ×3 (05:49→22:00)
[2017-10-12] MEDS: CARVedilol 3.125 MG TAB PO ×2 (06:07→20:04)
[2017-10-12] MEDS: HumaLOG INSULIN (NovoLOG) PER UNIT SC ×4 (07:42→20:34)
[2017-10-12] MEDS: traMADol 50 MG TAB PO ×2 (08:21→17:59)
[2017-10-12] MEDS: GABAPENTIN 100 MG CAP PO (08:21)
[2017-10-12] MEDS ORDERED: ENTER DRUG NAME HERE (PATIENT'S OWN MED) TOP (09:00)
[2017-10-12 09:04] LABS: HEMATOCRIT 24.5 % (42.0-52.0); HEMOGLOBIN 8.1 g/dl (13.5-17.5)
[2017-10-12 10:13] LABS: HEMATOCRIT 26.2 % (42.0-52.0); HEMOGLOBIN 8.7 g/dl (13.5-17.5)
[2017-10-12 13:04] LABS: BEDSIDE GLUCOSE 150 MG/DL (83-110)
[2017-10-12] MEDS: LANTHANUM CARBONATE 500 MG CHEW TABLET PO ×2 (13:54→17:58)
[2017-10-12] MEDS: (RENVELA) SEVELAMER **CARBONate** 800 MG TAB PO ×2 (13:54→17:58)
[2017-10-12 16:10] LABS: HEMATOCRIT 25.1 % (42.0-52.0); HEMOGLOBIN 8.4 g/dl (13.5-17.5)
[2017-10-12 16:37] LABS: BEDSIDE GLUCOSE 238 MG/DL (83-110)
[2017-10-12 20:23] LABS: BEDSIDE GLUCOSE 259 MG/DL (83-110)
[2017-10-12] MEDS: CYANOCOBALAMIN 500 MCG TAB PO (20:33)
[2017-10-12] MEDS: CINACALCET 30 MG TAB (SENSIPAR) PO (20:33)
[2017-10-12] MEDS: CLOPIDOGREL 75 MG TAB PO (20:33)
[2017-10-12] MEDS: SIMVASTATIN 10 MG TAB PO (20:33)
[2017-10-12] MEDS: FINASTERIDE 5 MG TAB PO (20:33)
[2017-10-12 22:10] LABS: HEMATOCRIT 25.2 % (42.0-52.0); HEMOGLOBIN 8.1 g/dl (13.5-17.5)
[2017-10-13] MEDS: PANTOPRAZOLE SODIUM 40 MG in D5W 50 ML IV ×4 (04:11→18:31)
[2017-10-13] MEDS: SLF 3 ML SYR IV ×3 (05:32→22:00)
[2017-10-13 06:21] LABS: ANION GAP 12 MEQ/L (8-16); BLOOD UREA NITROGEN 56 MG/DL (7-18); CALCIUM LEVEL 8.3 MG/DL (8.8-10.2); CARBON DIOXIDE LEVEL 26 MEQ/L (21-32); CHLORIDE LEVEL 96 MEQ/L (98-107); CREATININE FOR GFR 5.67 MG/DL (0.70-1.30); GLOMERULAR FILTRATION RATE 10.5 (>42); GLUCOSE, FASTING 272 MG/DL (70-100); SODIUM LEVEL 134 MEQ/L (136-145)
[2017-10-13 08:04] LABS: HEMATOCRIT 24.6 % (42.0-52.0); HEMOGLOBIN 8.1 g/dl (13.5-17.5); MEAN CORPUSCULAR HEMOGLOBIN 33.2 pg (27.0-33.0); MEAN CORPUSCULAR HGB CONC 32.9 g/dl (32.0-36.5); MEAN CORPUSCULAR VOLUME 100.8 fl (80.0-96.0); PLATELET COUNT, AUTOMATED 259 10^3/uL (150-450); RED BLOOD COUNT 2.44 10^6/uL (4.30-6.10); WHITE BLOOD COUNT 6.2 10^3/uL (4.0-10.0)
[2017-10-13] MEDS: traMADol 50 MG TAB PO ×2 (09:03→20:59)
[2017-10-13] MEDS: (RENVELA) SEVELAMER **CARBONate** 800 MG TAB PO ×3 (09:03→18:30)
[2017-10-13] MEDS: GABAPENTIN 100 MG CAP PO ×2 (09:03→20:59)
[2017-10-13] MEDS: HumaLOG INSULIN (NovoLOG) PER UNIT SC ×4 (09:04→20:58)
[2017-10-13] MEDS: LANTHANUM CARBONATE 500 MG CHEW TABLET PO ×3 (09:04→18:30)
[2017-10-13 11:24] LABS: BEDSIDE GLUCOSE 328 MG/DL (83-110)
[2017-10-13 17:56] LABS: HEMOGLOBIN 8.7 g/dl (13.5-17.5)
[2017-10-13 18:13] LABS: BEDSIDE GLUCOSE 247 MG/DL (83-110)
[2017-10-13 20:54] LABS: BEDSIDE GLUCOSE 331 MG/DL (83-110)
[2017-10-13] MEDS: CINACALCET 30 MG TAB (SENSIPAR) PO (20:59)
[2017-10-13] MEDS: CYANOCOBALAMIN 500 MCG TAB PO (20:59)
[2017-10-13] MEDS: FINASTERIDE 5 MG TAB PO (21:00)
[2017-10-13] MEDS: CLOPIDOGREL 75 MG TAB PO (21:00)
[2017-10-13] MEDS: SIMVASTATIN 10 MG TAB PO (21:00)
[2017-10-13] MEDS: CARVedilol 3.125 MG TAB PO (21:00)
[2017-10-14] MEDS: PANTOPRAZOLE SODIUM 40 MG in D5W 50 ML IV ×6 (04:46→20:30)
[2017-10-14] MEDS: SLF 3 ML SYR IV ×3 (05:03→21:08)
[2017-10-14 05:42] LABS: HEMATOCRIT 26.3 % (42.0-52.0); HEMOGLOBIN 8.2 g/dl (13.5-17.5); MEAN CORPUSCULAR HEMOGLOBIN 31.9 pg (27.0-33.0); MEAN CORPUSCULAR HGB CONC 31.2 g/dl (32.0-36.5); MEAN CORPUSCULAR VOLUME 102.3 fl (80.0-96.0); PLATELET COUNT, AUTOMATED 252 10^3/uL (150-450); RED BLOOD COUNT 2.57 10^6/uL (4.30-6.10); RED CELL DISTRIBUTION WIDTH 14.9 % (11.5-14.5); WHITE BLOOD COUNT 6.2 10^3/uL (4.0-10.0)
[2017-10-14 06:02] LABS: ANION GAP 10 MEQ/L (8-16); BLOOD UREA NITROGEN 33 MG/DL (7-18); CALCIUM LEVEL 8.6 MG/DL (8.8-10.2); CARBON DIOXIDE LEVEL 26 MEQ/L (21-32); CHLORIDE LEVEL 100 MEQ/L (98-107); CREATININE FOR GFR 4.17 MG/DL (0.70-1.30); GLUCOSE, FASTING 337 MG/DL (70-100); POTASSIUM SERUM 3.8 MEQ/L (3.5-5.1); SODIUM LEVEL 136 MEQ/L (136-145)
[2017-10-14] MEDS: (RENVELA) SEVELAMER **CARBONate** 800 MG TAB PO ×3 (08:26→17:34)
[2017-10-14] MEDS: LANTHANUM CARBONATE 500 MG CHEW TABLET PO ×3 (08:27→17:34)
[2017-10-14] MEDS: ASPIRIN 81 MG CHEW TABLET PO (08:27)
[2017-10-14] MEDS: HumaLOG INSULIN (NovoLOG) PER UNIT SC ×4 (08:28→20:31)
[2017-10-14] MEDS: CARVedilol 3.125 MG TAB PO ×2 (08:28→20:28)
[2017-10-14 11:22] LABS: BEDSIDE GLUCOSE 338 MG/DL (83-110)
[2017-10-14] MEDS: GABAPENTIN 100 MG CAP PO ×2 (13:12→20:28)
[2017-10-14] MEDS: traMADol 50 MG TAB PO ×2 (13:13→20:29)
[2017-10-14 16:51] LABS: BEDSIDE GLUCOSE 299 MG/DL (83-110)
[2017-10-14 20:21] LABS: BEDSIDE GLUCOSE 337 MG/DL (83-110)
[2017-10-14] MEDS: FINASTERIDE 5 MG TAB PO (20:28)
[2017-10-14] MEDS: CLOPIDOGREL 75 MG TAB PO (20:28)
[2017-10-14] MEDS: SIMVASTATIN 10 MG TAB PO (20:28)
[2017-10-14] MEDS: CYANOCOBALAMIN 500 MCG TAB PO (20:29)
[2017-10-14] MEDS: CINACALCET 30 MG TAB (SENSIPAR) PO (20:29)
[2017-10-15] MEDS: PANTOPRAZOLE SODIUM 40 MG in D5W 50 ML IV ×3 (02:23→13:27)
[2017-10-15] MEDS: SLF 3 ML SYR IV ×2 (05:38→13:07)
[2017-10-15 06:03] LABS: HEMATOCRIT 25.9 % (42.0-52.0); HEMOGLOBIN 8.1 g/dl (13.5-17.5); MEAN CORPUSCULAR HEMOGLOBIN 31.6 pg (27.0-33.0); MEAN CORPUSCULAR HGB CONC 31.3 g/dl (32.0-36.5); MEAN CORPUSCULAR VOLUME 101.2 fl (80.0-96.0); PLATELET COUNT, AUTOMATED 280 10^3/uL (150-450); RED BLOOD COUNT 2.56 10^6/uL (4.30-6.10); RED CELL DISTRIBUTION WIDTH 14.7 % (11.5-14.5)
[2017-10-15 06:33] LABS: ANION GAP 12 MEQ/L (8-16); BLOOD UREA NITROGEN 53 MG/DL (7-18); CALCIUM LEVEL 8.7 MG/DL (8.8-10.2); CARBON DIOXIDE LEVEL 27 MEQ/L (21-32); CHLORIDE LEVEL 96 MEQ/L (98-107); CREATININE FOR GFR 5.59 MG/DL (0.70-1.30); GLOMERULAR FILTRATION RATE 10.7 (>42); GLUCOSE, FASTING 325 MG/DL (70-100); POTASSIUM SERUM 4.2 MEQ/L (3.5-5.1); SODIUM LEVEL 135 MEQ/L (136-145)
[2017-10-15] MEDS: (RENVELA) SEVELAMER **CARBONate** 800 MG TAB PO ×3 (08:51→17:14)
[2017-10-15] MEDS: HumaLOG INSULIN (NovoLOG) PER UNIT SC ×3 (08:51→17:16)
[2017-10-15] MEDS: ASPIRIN 81 MG CHEW TABLET PO (08:52)
[2017-10-15] MEDS: LANTHANUM CARBONATE 500 MG CHEW TABLET PO ×3 (08:52→17:15)
[2017-10-15] MEDS: CARVedilol 3.125 MG TAB PO (08:54)
[2017-10-15 12:10] LABS: BEDSIDE GLUCOSE 407 MG/DL (83-110)
[2017-10-15 14:33] LABS: IMMEDIATE SPIN CROSSMATCH 1 1
[2017-10-15 16:55] LABS: BEDSIDE GLUCOSE 350 MG/DL (83-110)
[2017-10-16] MEDS ORDERED: DARBEPOETIN 100 MCG/0.5 ML *DIALYSIS* SYRINGE (J0882) IV (08:00)
== END 2017-10-15 18:50 | disposition home or self-care (01) | DRG 377 ==
LOC: M ED 09:54 → M ED INP 13:24 → M PCU 15:29
PROC: 0DB68ZX Excision of Stomach, Via Natural or Artificial Opening Endoscopic, Diagnostic (ICD-10-PCS; principal; 2017-10-10 20:00)
PROC: 0DBH8ZX Excision of Cecum, Via Natural or Artificial Opening Endoscopic, Diagnostic (ICD-10-PCS; 2017-10-10 22:13)
PROC: 5A1D70Z Performance of Urinary Filtration, Intermittent, Less than 6 Hours Per Day (ICD-10-PCS; 2017-10-10 22:13)
PROC: 30233N1 Transfusion of Nonautologous Red Blood Cells into Peripheral Vein, Percutaneous Approach (ICD-10-PCS; 2017-10-10 22:13)
DX: K29.61 Other gastritis with bleeding (principal); N18.6 End stage renal disease; K55.1 Chronic vascular disorders of intestine; D62 Acute posthemorrhagic anemia; I69.354 Hemiplegia and hemiparesis following cerebral infarction affecting left non-dominant side; E87.1 Hypo-osmolality and hyponatremia; I12.0 Hypertensive chronic kidney disease with stage 5 chronic kidney disease or end stage renal disease; K62.5 Hemorrhage of anus and rectum; I70.0 Atherosclerosis of aorta; D12.0 Benign neoplasm of cecum; I70.1 Atherosclerosis of renal artery; E11.21 Type 2 diabetes mellitus with diabetic nephropathy; H54.40 Blindness, one eye, unspecified eye; E11.51 Type 2 diabetes mellitus with diabetic peripheral angiopathy without gangrene; K75.81 Nonalcoholic steatohepatitis (NASH); K57.30 Diverticulosis of large intestine without perforation or abscess without bleeding; M21.371 Foot drop, right foot; E87.5 Hyperkalemia; L97.519 Non-pressure chronic ulcer of other part of right foot with unspecified severity; D63.1 Anemia in chronic kidney disease; E11.22 Type 2 diabetes mellitus with diabetic chronic kidney disease; E11.621 Type 2 diabetes mellitus with foot ulcer; E66.01 Morbid (severe) obesity due to excess calories; M21.372 Foot drop, left foot; E11.40 Type 2 diabetes mellitus with diabetic neuropathy, unspecified; H40.9 Unspecified glaucoma; Z79.02 Long term (current) use of antithrombotics/antiplatelets; Z79.4 Long term (current) use of insulin; Z79.899 Other long term (current) drug therapy; Z99.2 Dependence on renal dialysis; Z95.828 Presence of other vascular implants and grafts; Z96.641 Presence of right artificial hip joint; Z98.41 Cataract extraction status, right eye; Z98.42 Cataract extraction status, left eye; Z68.36 Body mass index [BMI] 36.0-36.9, adult; Z79.82 Long term (current) use of aspirin

== ENCOUNTER → 2018-04-05 | Outpatient (REF) | payer MEDICARE, BC ==
[~2018-04-05] MED LIST changes: +ALPHTAB PO; +ASPI81CH PO; +B121000T PO; +BENZ-18 PO; +CARV3.12 PO; +CINA30TA PO; +CIPR500T3 PO; +D31000CA4 PO; +FLAG500T PO; +FOSR500C2 PO; +GABA-1171 PO; -GABA-279 PO; +GAS-80CH PO; +GINK60CA2 PO; +GINK60CA3 PO; +GLUC15002 PO; +GLUCPOW24 PO; +HUMA100I3 SC; +INSUDET SC; +INSUHUMDS SC; +LANT1000 PO; +LANT500C PO; -LASI40TA PO; +LASI40TA9 PO; -LASI80TA PO; +LASI80TA3 PO; +NEUR100C PO; +NORC1TAB4 PO; +OCUVCAP5 PO; +OCUVTAB PO; +PANT40TA3 PO; +PREPOI PR; +RENATAB5 PO; +RENV2TAB PO; +SENN1TAB2 PO; +SENN8.6T7 PO; +SIMB1SUS OD; +SIMV10TA2 PO; +VITA10002 PO; +VITA100066 PO; +ZOCO10TA PO
== END ==
LOC: M LAB REF 17:38
PROVIDERS: ATTEND Surgery
DX: M86.172 Other acute osteomyelitis, left ankle and foot (principal); M79.89 Other specified soft tissue disorders; L97.524 Non-pressure chronic ulcer of other part of left foot with necrosis of bone; E11.621 Type 2 diabetes mellitus with foot ulcer
CPT/HCPCS: 11043; 11044; 88304; 97597; G0463

== ENCOUNTER → 2018-08-09 | Outpatient (REF) | payer MEDICARE, BC ==
[~2018-08-09] MED LIST changes: +ALPH200C6 PO; -ASPI81CH PO; +ASPI81CH49 PO; -CINA30TA PO; +CINA30TA4 PO; +GARL500C PO; +GNP80CHW PO; +LIDO2.5C15 TOP; -NORC1TAB4 PO; +NORC1TAB7 PO; -SENN1TAB2 PO; +SENN1TAB40 PO; +SENN1TAB41 PO; -SENN8.6T7 PO; +VITA100018 PO; -VITA100072 PO
== END ==
LOC: M LAB REF 16:11
PROVIDERS: ATTEND Physician Assistant
DX: M86.9 Osteomyelitis, unspecified (principal)

== ENCOUNTER 2018-08-28 12:51 | Inpatient (IN) | payer MEDICARE, BC ==
[~2018-08-28] VITALS: Ht 185.4 cm; Wt 106.6 kg
[~2018-08-28 12:51] MED LIST changes: -ALPH200C6 PO; +CYAN100049 PO; -GARL500C PO; -GNP80CHW PO; -LIDO2.5C15 TOP; +SENN-53 PO; -SENN1TAB40 PO; -SIMV10TA2 PO; +SIMV10TA21 PO; -VITA10002 PO
--- NOTE | 2018-08-28 14:08 | ECGEPIP ---
[facility] - ED Test Date: 2018-08-28 Pat Name: KARSTEN OROSCO Department: Room: - Gender: Male Galley Boy: TC : 1945 Requested By: Giselle Harris Order Number: [id number] Reading MD: Chema Santos Measurements Intervals [place] Rate: 64 P: [place]: 224 QRS: 53 QRSD: 138 T: 215 QT: 455 QTc: 472 Interpretive Statements SINUS RHYTHM WITH FIRST DEGREE AV BLOCK INTRAVENTRICULAR CONDUCTION DELAY POSSIBLE ANTERIOR MYOCARDIAL INFARCTION, OF INDETERMINATE AGE Nonspecific T wave abnormality Similar to tracing done 01-20-17 Electronically Signed on 08-28-2018 14:07:49 EDT by Chema Santos
--- NOTE | 2018-08-28 14:32 | REP ---
REASON FOR EXAM: Hypoxia. COMPARISON: Multiple latest 11/09/2017. The technique utilized in obtaining the radiograph has magnified the cardiac silhouette and accentuated the interstitial markings. There is cardiomegaly accentuated by technique. There is no change in the lung beckett. There are no patchy opacities or pleural effusions. The osseous structures are stable and intact. IMPRESSION: Stable chest. There is cardiomegaly but no evidence of acute cardiopulmonary disease. Electronically Signed by John Kohli DO 08/28/2018 04:21 P
[2018-08-28] MEDS ORDERED: RENV2TAB PO ×2 (15:19)
[2018-08-28] MEDS ORDERED: ALPH200C6 PO (15:19)
[2018-08-28] MEDS ORDERED: GNP80CHW PO (15:19)
[2018-08-28] MEDS ORDERED: GARL500C10 PO (15:19)
[2018-08-28] MEDS ORDERED: SIMB1SUS OD (15:21)
[2018-08-28] MEDS ORDERED: LIDO2.5C15 TOP (15:24)
[2018-08-28 16:55] LABS: BASO # 0.1 10^3/uL (0.0-0.2); BASO % 0.8 % (0.0-1.0); EOS # 0.3 10^3/uL (0.0-0.50); EOS % 2.6 % (0.0-3.0); HEMATOCRIT 31.9 % (42.0-52.0); HEMOGLOBIN 10.4 g/dl (13.5-17.5); LYMPH # 1.4 10^3/uL (1.5-4.5); LYMPH % 12.7 % (24.0-44.0); MEAN CORPUSCULAR HEMOGLOBIN 34.6 pg (27.0-33.0); MEAN CORPUSCULAR HGB CONC 32.6 g/dl (32.0-36.5); MONO # 1.4 10^3/uL (0.0-0.8); MONO % 12.2 % (0.0-5.0); NEUTROPHILS % 71.1 % (36.0-66.0); PLATELET COUNT, AUTOMATED 273 10^3/uL (150-450); RED BLOOD COUNT 3.01 10^6/uL (4.30-6.10); WHITE BLOOD COUNT 11.2 10^3/uL (4.0-10.0)
[2018-08-28 17:05] LABS: ALBUMIN 2.5 GM/DL (3.2-5.2); BILIRUBIN,DIRECT 0.1 MG/DL (0.0-0.2); BILIRUBIN,TOTAL 0.3 MG/DL (0.2-1.0); C REACTIVE PROTEIN QUANTITATIV 18.8 MG/DL (0.00-0.30); CALCIUM LEVEL 8.6 MG/DL (8.8-10.2); CREATININE FOR GFR 5.02 MG/DL (0.70-1.30); GLOMERULAR FILTRATION RATE 12.1 (>42); INR 1.26; POTASSIUM SERUM 3.9 MEQ/L (3.5-5.1); PROTHROMBIN TIME 15.5 SECONDS (11.8-14.0)
[2018-08-28 17:29] LABS: ERYTHROCYTE SEDIMENTATION RATE 126 mm/hr (0-20)
[2018-08-28] MEDS ORDERED: GLUCAGON FOR INJ 1 MG VIAL (J1610) SC PRN (17:45)
[2018-08-28] MEDS ORDERED: DEXTROSE 50% 50 ML SYRINGE IV PRN (17:45)
[2018-08-28] MEDS ORDERED: GLUCOSE 4 GM CHEW TABLET PO PRN (17:45)
--- NOTE | 2018-08-28 18:04 | HPEPDOC ---
General Date of Admission Aug 28, 2018 at 17:37 Date of Service: Aug 28, 2018 Chief Complaint The patient is a 72-year-old male who presented to the ED at the direction of podiatry for poor wound healing. History of Present Illness Patient is a 72-year-old male with PMHx of ESRD on HD (MWF), PVD s/p amputations, CAD s/p CABG, HTN, IDDM2, DLP, Hx of CVA, Morbid Obesity , who presented to the emergency room at the direction of podiatry because of poor wound healing. Patient and noted that he was at [facility] from Monday to Monday. . He was admitted therefore chest pain, shortness of breath and had a negative cardiac workup completed. Upon discharge, patient was instructed to follow up last her surgery and podiatry for his left foot wound. When patient followed up with Dr. Christensen as an outpatient, he was advised go to the emergency room for further evaluation for likely vascular intervention. Currently patient reports some pain around his left foot. Appears very fatigued. He denies any headache, nausea, vomiting, chest pain, shortness of breath, palpitations, abdominal pain, constipation, or diarrhea. Patient did note that he had diarrhea when he was on antibiotics but this was subsequently discontinued on Monday. Since then, diarrhea has resolved. Patient reports that his appetite is normal and reports that his weight has been fairly consistent. Home Medications Scheduled Alpha Lipoic Acid (Alpha Lipoic Acid) 200 Mg Capsule, 200 MG PO QPM, (Reported) Aspirin (Aspirin) 81 Mg Chw, 81 MG PO QPM, (Reported) Bimatoprost (Lumigan) 50 Drop/2.5 Ml Yamilet, 1 DROP OU QHS, (Reported) Brinzolamide/Brimonidine Tart (Simbrinza 1%-0.2% Eye Drops) 8 Ml Drops.susp, 1 DROP OD TID, (Reported) Carvedilol (Carvedilol) 3.125 Mg Tab, 3.125 MG PO BID, (Reported) NON-DIALYSIS DAYS:, ,SAT AND SUN Carvedilol (Carvedilol) 3.125 Mg Tab, 3.125 MG PO QHS, (Reported) AFTER DIALYSIS DAYS: MON, MON, MON Cinacalcet (Sensipar) 30 Mg Tab, 30 MG PO 3XW, (Reported) MON, MON, FRI- GIVEN AT DIALYSIS CENTER Clopidogrel Bisulfate (Clopidogrel) 75 Mg Tab, 75 MG PO QPM, (Reported) Cyanocobalamin (Vitamin B-12) (Vitamin B-12) 1,000 Mcg Tab, 1,000 MCG PO QHS, (Reported) Finasteride (Finasteride) 5 Mg Tab, 5 MG PO QPM, (Reported) Folic Acid/Vit B Complex and C (Fabienne-Julieth Tablet) 1 Tab Tab, 1 TAB PO QPM, (Reported) Garlic (Garlic) 500 Mg Capsule, 1,000 MG PO QHS, (Reported) Insulin Detemir (Levemir) 1 Units/0.01 Ml Susp, 60 UNITS SC BID, (Reported) Insulin Human Lispro (Humalog) 1 Units/0.01 Ml Inj, SC AC, (Reported) PER SLIDING SCALE Lanthanum Carbonate (Lanthanum Carbonate) 1,000 Mg Chw, 1,000 MG PO WM, (Reported) Sevelamer Carbonate (Renvela) 800 Mg Tablet, 4,000 MG PO WM, (Reported) Sevelamer Carbonate (Renvela) 800 Mg Tablet, 1,600 MG PO ASDIRECTED, (Reported) 2 TABLETS WITH SNACKS Simethicone (Gas Relief 80) 80 Mg Tab.chew, 80 MG PO PCHS, (Reported) Simvastatin (Simvastatin) 10 Mg Tab, 10 MG PO QPM, (Reported) Scheduled PRN Gabapentin (Gabapentin) 100 Mg Cap, 100 MG PO BID PRN for PAIN, (Reported) Hydrocodone/Acetaminophen ([place] 5-325 Tablet) 1 Tab Tab, 1 TAB PO Q6H PRN for PAIN, (Reported) Lidocaine/Prilocaine (Lidocaine-Prilocaine Cream) 2.5%/2.5% Cream..g., 1 APLCT TOP ASDIRECTED PRN for FOR DIALYSIS DAYS, (Reported) MON, MON, MON Sennosides/Docusate Sodium (Senna-S Tablet) 1 Tab Tab, 1 TAB PO BID PRN for CONSTIPATION, (Reported) Tramadol HCl (Tramadol HCl) 50 Mg Tab, 50 MG PO Q4H PRN for PAIN, (Reported) Allergies Coded Allergies: No Known Allergies (Unverified , 03/27/17) Past Medical History Medical History ESRD on HD (MWF), PVD s/p amputations, CAD s/p CABG, HTN, IDDM2, DLP, Hx of CVA, Morbid Obesity Surgical History Right hip replacement Bilateral cataracts Left arm fistula Appendectomy Spinal fusion of L3/4/5 in 1960s Family History - Mother with history of diabetes - Father with history of congestive heart failure Social History - Denies the use of alcohol, tobacco or illicit drugs - Denies recent travel or sick contacts - Lives with in [place] - 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; 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 Review of Systems Other systems 10 point review of systems complete, all negative otherwise stated in HPI Vital Signs - Vitals: BP 142/62, HR 60, RR 20, Sat 99%NC3L, Temp 97.3F - General: Lying in bed, No acute distress, Sleepy, But can be woken / Alert - HEENT: NC, AT, R pupil non-reactive - CVS: RRR, +S1S2 - Lungs: Fair air entry bilaterally, No wheezing / rales / rhonchi - Abdomen: Soft, Non-distended, Non-tender - Extremities: No lower extremity edema, No calf tenderness - Neuro: No focal motor or sensory deficit - Skin: R posterior ankle with tissue graft, Left lateral foot with large area of necrosis, left posterior ankle with area of unstageable ulcer, decubitus ulcer near sacrum Laboratory Data Labs 24H Laboratory Tests 2 08/28/18 14:54: Lactic Acid Level 1.7 08/28/18 16:27: Immature Granulocyte % (Auto) 0.6, White Blood Count 11.2H, Red Blood Count 3.01L, Hemoglobin 10.4L, Hematocrit 31.9L, Mean Corpuscular Volume 106.0H, Mean Corpuscular Hemoglobin 34.6H, Mean Corpuscular Hemoglobin Concent 32.6, Red Cell Distribution Width 15.0H, Platelet Count 273, Neutrophils (%) (Auto) 71.1H, Lymphocytes (%) (Auto) 12.7L, Monocytes (%) (Auto) 12.2H, Eosinophils (%) (Auto) 2.6, Basophils (%) (Auto) 0.8, Neutrophils # (Auto) 8.0H, Lymphocytes # (Auto) 1.4L, Monocytes # (Auto) 1.4H, Eosinophils # (Auto) 0.3, Basophils # (Auto) 0.1, Nucleated Red Blood Cells % (auto) 0.0, Erythrocyte Sedimentation Rate 126H, Prothrombin Time 15.5H, Prothromb Time International Ratio 1.26, Anion Gap 10, Glomerular Filtration Rate 12.1L, Calcium Level 8.6L, Aspartate Amino Transf (AST/SGOT) 32, Alanine Aminotransferase (ALT/SGPT) 19, Alkaline Phosphatase 96, Total Bilirubin 0.3, Direct Bilirubin 0.1, C-Reactive Protein, Quantitative 18.80H, Total Protein 7.0, Albumin 2.5L, Albumin/Globulin Ratio 0.56L CBC/BMP Laboratory Tests 08/28/18 16:27 Red Blood Count 3.01 L, Mean Corpuscular Volume 106.0 H, Mean Corpuscular Hemoglobin 34.6 H, Mean Corpuscular Hemoglobin Concent 32.6, Red Cell Distribution Width 15.0 H, Neutrophils (%) (Auto) 71.1 H, Lymphocytes (%) (Auto) 12.7 L, Monocytes (%) (Auto) 12.2 H, Eosinophils (%) (Auto) 2.6, Basophils (%) (Auto) 0.8, Neutrophils # (Auto) 8.0 H, Lymphocytes # (Auto) 1.4 L, Monocytes # (Auto) 1.4 H, Eosinophils # (Auto) 0.3, Basophils # (Auto) 0.1 Microbiology Microbiology 08/28/18 Blood Culture, Received Pending 08/28/18 Blood Culture, Ordered Pending Plan / VTE VTE Prophylaxis Ordered?: Yes Plan Plan Left heal necrotic ulcer - likely 2/2 peripheral vascular disease - Patient presented to the emergency room at the direction of podiatry for poor wound healing - Patient has a history of peripheral vascular disease - Currently wound appears to be necrotic without any surrounding cellulitis - Patient remains hemodynamically stable and afebrile - Lab work with mild leukocytosis and no lactic acidosis - After surgery has been called on consultation for angiogram to be performed on 08/29/18 ESRD on HD (MWF) - Will be going for dialysis tomorrow - Nephrology called on consultation HTN - BP appears well controlled - c/w Carvedilol and IDDM2 - Will c/w Levemir and ISS CAD s/p CABG - c/w ASA and Plavix - c/w Carvedilol and Simvastatin DLP - c/w Simvastatin Hx of CVA - c/w Simvastatin, ASA and Plavix Morbid Obesity - Comp getting medical care Neuropathy - c/w Gabapentin BPH - c/w Finasteride DVT prophylaxis - Will start Heparin HAN AVERY MD Aug 28, 2018 18:04
[2018-08-28] MEDS: HumaLOG INSULIN (NovoLOG) PER UNIT SC SCH (21:00)
[2018-08-28] MEDS ORDERED: LEVEMIR (INSULIN DETEMIR) 1 UNITS/0.01ML SC SCH (21:00)
[2018-08-28] MEDS: CARVedilol 3.125 MG TAB PO SCH (21:00)
[2018-08-28 21:51] VITALS: BP 127/62
[2018-08-28] MEDS: HEPARIN SOD (PORCINE) 5000 UNITS/ML VIAL SC SCH (22:00)
[2018-08-29] MEDS: ASPIRIN 81 MG ENTERIC TAB PO SCH ×2 (00:07→22:10)
[2018-08-29] MEDS: CLOPIDOGREL 75 MG TAB PO SCH ×2 (00:08→22:10)
[2018-08-29] MEDS: SIMETHICONE 80 MG CHEW TAB PO SCH ×6 (00:08→22:10)
[2018-08-29] MEDS: SIMVASTATIN 10 MG TAB PO SCH ×2 (00:10→22:11)
[2018-08-29] MEDS: CYANOCOBALAMIN 500 MCG TAB PO SCH ×2 (00:10→22:11)
[2018-08-29] MEDS: FINASTERIDE 5 MG TAB PO SCH ×2 (00:11→22:10)
[2018-08-29] MEDS: LEVEMIR (INSULIN DETEMIR) 1 UNITS/0.01ML SC SCH ×3 (00:11→22:12)
[2018-08-29 06:00] VITALS: BP 105/54
[2018-08-29] MEDS: HEPARIN SOD (PORCINE) 5000 UNITS/ML VIAL SC SCH ×4 (06:00→22:13)
[2018-08-29 06:02] LABS: BASO # 0.1 10^3/uL (0.0-0.2); BASO % 0.7 % (0.0-1.0); EOS # 0.3 10^3/uL (0.0-0.50); EOS % 3.4 % (0.0-3.0); HEMOGLOBIN 10.1 g/dl (13.5-17.5); LYMPH # 1.2 10^3/uL (1.5-4.5); LYMPH % 11.6 % (24.0-44.0); MEAN CORPUSCULAR HEMOGLOBIN 33.3 pg (27.0-33.0); MEAN CORPUSCULAR HGB CONC 32.6 g/dl (32.0-36.5); MEAN CORPUSCULAR VOLUME 102.3 fl (80.0-96.0); MONO # 1.3 10^3/uL (0.0-0.8); MONO % 12.8 % (0.0-5.0); NEUTROPHILS % 71.1 % (36.0-66.0); PLATELET COUNT, AUTOMATED 274 10^3/uL (150-450); RED BLOOD COUNT 3.03 10^6/uL (4.30-6.10); WHITE BLOOD COUNT 9.9 10^3/uL (4.0-10.0)
[2018-08-29 06:30] LABS: ALBUMIN 2.4 GM/DL (3.2-5.2); BILIRUBIN,TOTAL 0.4 MG/DL (0.2-1.0); CALCIUM LEVEL 8.8 MG/DL (8.8-10.2); CREATININE FOR GFR 5.68 MG/DL (0.70-1.30); GLOMERULAR FILTRATION RATE 10.5 (>42); MAGNESIUM LEVEL 2.1 MG/DL (1.8-2.4); POTASSIUM SERUM 4.1 MEQ/L (3.5-5.1); TOTAL PROTEIN 6.9 GM/DL (6.4-8.2)
[2018-08-29] MEDS: CINACALCET 30 MG TAB (SENSIPAR) PO SCH (06:30)
[2018-08-29] MEDS: HumaLOG INSULIN (NovoLOG) PER UNIT SC SCH ×4 (08:04→21:00)
[2018-08-29] MEDS ORDERED: DARBEPOETIN 100 MCG/0.5 ML *DIALYSIS* SYRINGE (J0882) IV SCH (09:15)
[2018-08-29] MEDS ORDERED: LIDOCAINE 1% SDV 5 ML VIAL SQ ONE (11:00)
[2018-08-29] MEDS ORDERED: HEPARIN 1,000 UNITS/ML 10ML VIAL (FOR RADIOLOGY& DIALYSIS ONLY) IV ONE (11:00)
[2018-08-29] MEDS: GABAPENTIN 100 MG CAP PO PRN (13:19)
[2018-08-29] MEDS: traMADol 50 MG TAB PO PRN (13:20)
--- NOTE | 2018-08-29 13:37 | IPNPDOC ---
Text Note Date of Service The patient was seen on 08/29/18. NOTE Subjective: Patient is a 72-year-old male with PMHx of ESRD on HD (MWF), PVD s/p amputations, CAD s/p CABG, HTN, IDDM2, DLP, Hx of CVA, Morbid Obesity , who presented to the emergency room at the direction of podiatry because of poor wound healing. When patient followed up with Dr. Christensen as an outpatient, he was advised go to the emergency room for further evaluation for likely vascular intervention. Patient was seen and examined at the bedside during dialysis. Patient reports that they're feeling better. Patient denied chest pain, shortness of breath or palpitations. They deny any nausea, vomiting, abdominal pain, constipation, diarrhea Objective: Vitals (See below) General: Lying in bed, no acute distress, comfortable, Awake / Alert HEENT: NC, AT CVS: RRR, +S1S2 Lungs: Fair air entry b/l, no appreciable wheezing, rales or rhonchi Abdomen: Soft, nondistended and nontender Extremities: - Edema, - Calf tenderness, L lateral foot with necrosis Skin: Sacral decubitus ulcer (stage 2) Assessment and plan: Left heal necrotic ulcer - likely 2/2 peripheral vascular disease - Patient presented to the ER at the [facility] for poor wound healing - Patient has a history of peripheral vascular disease - Patient remains hemodynamically stable and afebrile - Necrosis around left lateral foot without surrounding cellulitis - s/p leukocytosis; no lactic acidosis - Vascular surgery to take patient for angiography likely tomorrow or Monday ESRD on HD (MWF) - Currently being dialyzed - Nephrology on consultation HTN - BP appears well controlled - c/w Carvedilol IDDM2 - Will c/w Levemir and ISS CAD s/p CABG - c/w ASA and Plavix - c/w Carvedilol and Simvastatin DLP - c/w Simvastatin Hx of CVA - c/w Simvastatin, ASA and Plavix Morbid Obesity - Complicating medical care Neuropathy - c/w Gabapentin BPH - c/w Finasteride DVT prophylaxis - c/w Heparin VS,Fishbone, I+O VS, Fishbone, I+O Laboratory Tests 08/28/18 16:27 Red Blood Count 3.01 L, Mean Corpuscular Volume 106.0 H, Mean Corpuscular Hemoglobin 34.6 H, Mean Corpuscular Hemoglobin Concent 32.6, Red Cell Distribution Width 15.0 H, Neutrophils (%) (Auto) 71.1 H, Lymphocytes (%) (Auto) 12.7 L, Monocytes (%) (Auto) 12.2 H, Eosinophils (%) (Auto) 2.6, Basophils (%) (Auto) 0.8, Neutrophils # (Auto) 8.0 H, Lymphocytes # (Auto) 1.4 L, Monocytes # (Auto) 1.4 H, Eosinophils # (Auto) 0.3, Basophils # (Auto) 0.1 08/29/18 05:38 Red Blood Count 3.03 L, Mean Corpuscular Volume 102.3 H, Mean Corpuscular Hemoglobin 33.3 H, Mean Corpuscular Hemoglobin Concent 32.6, Red Cell Distribution Width 14.8 H, Neutrophils (%) (Auto) 71.1 H, Lymphocytes (%) (Auto) 11.6 L, Monocytes (%) (Auto) 12.8 H, Eosinophils (%) (Auto) 3.4 H, Basophils (%) (Auto) 0.7, Neutrophils # (Auto) 7.0, Lymphocytes # (Auto) 1.2 L, Monocytes # (Auto) 1.3 H, Eosinophils # (Auto) 0.3, Basophils # (Auto) 0.1, Calcium Level 8.8, Phosphorus Level 6.0 H, Aspartate Amino Transf (AST/SGOT) 31, Alanine Aminotransferase (ALT/SGPT) 18, Alkaline Phosphatase 92, Total Bilirubin 0.4, Total Protein 6.9, Albumin 2.4 L Vital Signs Date Time Temp Pulse Resp B/P (MAP) Pulse Ox O2 Delivery O2 Flow Rate FiO2 08/29/18 06:00 97.8 63 18 105/54 (71) 98 3.0 08/28/18 21:18 Nasal Cannula I&O- Last 24 Hours up to 6 AM 08/29/18 06:00 Intake Total 0 ml Output Total 0 ml Balance 0 ml HAN AVERY MD Aug 29, 2018 11:19
--- NOTE | 2018-08-29 13:56 | CR.PDOC ---
General Date of Consultation: Aug 29, [address] Berger HPI: Patient is a 72-year-old male, who presented to the emergency room because of poor wound healing left foot. When patient followed up with Dr. Christensen as an outpatient, he was advised go to the emergency room for further evaluation and possible vascular intervention. The patient is known to have chronic wounds of his feet. He is status post right fourth and fifth toe amputations and partial great toe amputation with a skin graft to the right heel. He follows with podiatry, Dr. Bhatia in [place]. He had angiogram right lower extremity October [address] Martins in [place] with angioplasty as per patient. The patient follows every [address] Christensen for wound care. The patient's reports that in the past 1-2 weeks the wound on his left foot has worsened. There is a dark discoloration of the lateral aspect of the left foot extending to the left fifth toe with discoloration at the tip of the great toe. No acute medical complaints today. Denies any fevers, chills, weakness, fatigue, Headache, Chest Pain, Shortness of breath, cough, palpitations, abdominal pain, N/V/D or changes in bowel or bladder habits. 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 PE: GEN: 72 yo M, appears stated age. No acute distress. Alert and oriented x 3. HEENT: Normocephalic, atraumatic. Sclera are nonicteric. Conjunctiva without injection. Moist mucous membranes. CHEST: Regular rate and rhythm, +S1, +S2 LUNGS: Clear to auscultation bilaterally. No wheezes, rales, or rhonchi. Breathing appears symmetric and easy. ABD: Round, soft, non-tender, non-distended. +Bowel sounds throughout. EXT: No lower extremity edema appreciated. Bandages bilateral feet. Wound is noted to the lateral aspect of the left foot with dark discoloration extending to the left fifth toe and also the tip of the great toe. NEURO: Alert and oriented x 3. Cranial nerves III-XII are intact. No focal deficits appreciated. A&P: 1. Non healing foot wounds. Continue wound care. pain control gabapentin/tramadol. Plan as relayed by Dr Berger 08/29/18 is for angiogram LLE 08/30 or 08/31/18. 2. ESRD. HD as per Nephrology M/W/F. DVT prophylaxis. SQ heparin. Thank you for your consultation. We will continue to follow along with you. Vital Signs/I&O Vital Signs Date Time Temp Pulse Resp B/P (MAP) Pulse Ox O2 Delivery O2 Flow Rate FiO2 08/29/18 13:20 18 3.0 08/29/18 06:00 97.8 63 105/54 (71) 98 08/28/18 21:18 Nasal Cannula I&O- Last 24 Hours up to 6 AM 08/29/18 05:59 Intake Total 0 ml Output Total 0 ml Balance 0 ml Laboratory Data Labs 24H Laboratory Tests 2 08/28/18 14:54: Lactic Acid Level 1.7 08/28/18 16:27: Immature Granulocyte % (Auto) 0.6, White Blood Count 11.2H, Red Blood Count 3.01L, Hemoglobin 10.4L, Hematocrit 31.9L, Mean Corpuscular Volume 106.0H, Mean Corpuscular Hemoglobin 34.6H, Mean Corpuscular Hemoglobin Concent 32.6, Red Cell Distribution Width 15.0H, Platelet Count 273, Neutrophils (%) (Auto) 71.1H, Lymphocytes (%) (Auto) 12.7L, Monocytes (%) (Auto) 12.2H, Eosinophils (%) (Auto) 2.6, Basophils (%) (Auto) 0.8, Neutrophils # (Auto) 8.0H, Lymphocytes # (Auto) 1.4L, Monocytes # (Auto) 1.4H, Eosinophils # (Auto) 0.3, Basophils # (Auto) 0.1, Nucleated Red Blood Cells % (auto) 0.0, Erythrocyte Sedimentation Rate 126H, Prothrombin Time 15.5H, Prothromb Time International Ratio 1.26, Anion Gap 10, Glomerular Filtration Rate 12.1L, Calcium Level 8.6L, Aspartate Amino Transf (AST/SGOT) 32, Alanine Aminotransferase (ALT/SGPT) 19, Alkaline Phosphatase 96, Total Bilirubin 0.3, Direct Bilirubin 0.1, C-Reactive Protein, Quantitative 18.80H, Total Protein 7.0, Albumin 2.5L, Albumin/Globulin Ratio 0.56L 08/28/18 22:59: Bedside Glucose (Misc Panel) 139H 08/29/18 05:38: Immature Granulocyte % (Auto) 0.4, White Blood Count 9.9, Red Blood Count 3.03L, Hemoglobin 10.1L, Hematocrit 31.0L, Mean Corpuscular Volume 102.3H, Mean Corpuscular Hemoglobin 33.3H, Mean Corpuscular Hemoglobin Concent 32.6, Red Cell Distribution Width 14.8H, Platelet Count 274, Neutrophils (%) (Auto) 71.1H, Lymphocytes (%) (Auto) 11.6L, Monocytes (%) (Auto) 12.8H, Eosinophils (%) (Auto) 3.4H, Basophils (%) (Auto) 0.7, Neutrophils # (Auto) 7.0, Lymphocytes # (Auto) 1.2L, Monocytes # (Auto) 1.3H, Eosinophils # (Auto) 0.3, Basophils # (Auto) 0.1, Nucleated Red Blood Cells % (auto) 0.0, Anion Gap 11, Glomerular Filtration Rate 10.5L, Calcium Level 8.8, Aspartate Amino Transf (AST/SGOT) 31, Alanine Casillas otransferase (ALT/SGPT) 18, Alkaline Phosphatase 92, Total Bilirubin 0.4, Total Protein 6.9, Albumin 2.4L, Albumin/Globulin Ratio 0.53L, Estimated Mean Plasma Glucose 183H, Hemoglobin A1c 8.0, Blood Urea Nitrogen 56H, Creatinine 5.68H, Sodium Level 131L, Potassium Level 4.1, Chloride Level 91L, Carbon Dioxide Level 29, Phosphorus Level 6.0H, Magnesium Level 2.1 08/29/18 12:47: Bedside Glucose (Misc Panel) 82L CBC/BMP Laboratory Tests 08/28/18 16:27 Red Blood Count 3.01 L, Mean Corpuscular Volume 106.0 H, Mean Corpuscular Hemoglobin 34.6 H, Mean Corpuscular Hemoglobin Concent 32.6, Red Cell Distribution Width 15.0 H, Neutrophils (%) (Auto) 71.1 H, Lymphocytes (%) (Auto) 12.7 L, Monocytes (%) (Auto) 12.2 H, Eosinophils (%) (Auto) 2.6, Basophils (%) (Auto) 0.8, Neutrophils # (Auto) 8.0 H, Lymphocytes # (Auto) 1.4 L, Monocytes # (Auto) 1.4 H, Eosinophils # (Auto) 0.3, Basophils # (Auto) 0.1 08/29/18 05:38 Red Blood Count 3.03 L, Mean Corpuscular Volume 102.3 H, Mean Corpuscular Hemoglobin 33.3 H, Mean Corpuscular Hemoglobin Concent 32.6, Red Cell Distribution Width 14.8 H, Neutrophils (%) (Auto) 71.1 H, Lymphocytes (%) (Auto) 11.6 L, Monocytes (%) (Auto) 12.8 H, Eosinophils (%) (Auto) 3.4 H, Basophils (%) (Auto) 0.7, Neutrophils # (Auto) 7.0, Lymphocytes # (Auto) 1.2 L, Monocytes # (Auto) 1.3 H, Eosinophils # (Auto) 0.3, Basophils # (Auto) 0.1, Calcium Level 8.8, Phosphorus Level 6.0 H, Aspartate Amino Transf (AST/SGOT) 31, Alanine Aminotransferase (ALT/SGPT) 18, Alkaline Phosphatase 92, Total Bilirubin 0.4, Total Protein 6.9, Albumin 2.4 L Microbiology Microbiology 08/28/18 Blood Culture, Received Pending 08/28/18 Blood Culture, Received Pending Allergies Coded Allergies: No Known Allergies (Unverified , 03/27/17) Home Medications Scheduled Alpha Lipoic Acid (Alpha Lipoic Acid) 200 Mg Capsule, 200 MG PO QPM, (Reported) Aspirin (Aspirin) 81 Mg Chw, 81 MG PO QPM, (Reported) Bimatoprost (Lumigan) 50 Drop/2.5 Ml Ymailet, 1 DROP OU QHS, (Reported) Brinzolamide/Brimonidine Tart (Simbrinza 1%-0.2% Eye Drops) 8 Ml Drops.susp, 1 DROP OD TID, (Reported) Carvedilol (Carvedilol) 3.125 Mg Tab, 3.125 MG PO BID, (Reported) NON-DIALYSIS DAYS:, ,SAT AND SUN Carvedilol (Carvedilol) 3.125 Mg Tab, 3.125 MG PO QHS, (Reported) AFTER DIALYSIS DAYS: MON, MON, FRI Cinacalcet (Sensipar) 30 Mg Tab, 30 MG PO 3XW, (Reported) MON, MON, FRI- GIVEN AT DIALYSIS CENTER Clopidogrel Bisulfate (Clopidogrel) 75 Mg Tab, 75 MG PO QPM, (Reported) Cyanocobalamin (Vitamin B-12) (Vitamin B-12) 1,000 Mcg Tab, 1,000 MCG PO QHS, (Reported) Finasteride (Finasteride) 5 Mg Tab, 5 MG PO QPM, (Reported) Folic Acid/Vit B Complex and C (Fabienne-Julieth Tablet) 1 Tab Tab, 1 TAB PO QPM, (Reported) Garlic (Garlic) 500 Mg Capsule, 1,000 MG PO QHS, (Reported) Insulin Detemir (Levemir) 1 Units/0.01 Ml Susp, 60 UNITS SC BID, (Reported) Insulin Human Lispro (Humalog) 1 Units/0.01 Ml Inj, SC AC, (Reported) PER SLIDING SCALE Lanthanum Carbonate (Lanthanum Carbonate) 1,000 Mg Chw, 1,000 MG PO WM, (Reported) Sevelamer Carbonate (Renvela) 800 Mg Tablet, 4,000 MG PO WM, (Reported) Sevelamer Carbonate (Renvela) 800 Mg Tablet, 1,600 MG PO ASDIRECTED, (Reported) 2 TABLETS WITH SNACKS Simethicone (Gas Relief 80) 80 Mg Tab.chew, 80 MG PO PCHS, (Reported) Simvastatin (Simvastatin) 10 Mg Tab, 10 MG PO QPM, (Reported) Scheduled PRN Gabapentin (Gabapentin) 100 Mg Cap, 100 MG PO BID PRN for PAIN, (Reported) Hydrocodone/Acetaminophen ([place] 5-325 Tablet) 1 Tab Tab, 1 TAB PO Q6H PRN for PAIN, (Reported) Lidocaine/Prilocaine (Lidocaine-Prilocaine Cream) 2.5%/2.5% Cream..g., 1 APLCT TOP ASDIRECTED PRN for FOR DIALYSIS DAYS, (Reported) MON, MON, MON Sennosides/Docusate Sodium (Senna-S Tablet) 1 Tab Tab, 1 TAB PO BID PRN for CONSTIPATION, (Reported) Tramadol HCl (Tramadol HCl) 50 Mg Tab, 50 MG PO Q4H PRN for PAIN, (Reported) Kasia Holloway Aug 29, 2018 13:56
[2018-08-29 14:00] VITALS: BP 138/64
[2018-08-29] MEDS: (RENVELA) SEVELAMER **CARBONate** 800 MG TAB PO SCH (17:46)
[2018-08-29] MEDS ORDERED: (RENVELA) SEVELAMER **CARBONate** 800 MG TAB PO PRN (18:00)
--- NOTE | 2018-08-29 21:13 | CR ---
DATE OF CONSULTATION: 08/29/2018 REQUESTING PHYSICIAN: Dr. Brianna Schwartz CONSULTING PHYSICIAN: Dr. Johnson. REASON FOR CONSULTATION: Management of end-stage renal disease and hemodialysis. CHIEF COMPLAINT: Patient presented to the hospital because of nonhealing left foot wound. HISTORY OF PRESENT ILLNESS: Mr. Jeremie Chang is a 72-year-old male with past medical history of end-stage renal disease on hemodialysis on Monday, Monday, Monday, history of peripheral vascular disease, coronary artery disease, diabetes mellitus type 2, multiple other formal comorbidities, as mentioned below. He is well-known to nephrology service from multiple previous hospitalizations and from outpatient dialysis. He presented to the hospital yesterday after he was advised to come to the emergency room by Dr. Christensen because of nonhealing left-sided foot ulcer and he was advised to get an angiogram of the left leg done. He was admitted under the hospitalist service yesterday. Today is the patient's regular day of dialysis. Nephrology service was called for further help in the management of this patient's end-stage renal disease and arrangement of hemodialysis. Patient reports that he was recently admitted at for workup of chest pain. Cardiac workup was negative, but he was advised to follow up with podiatry after discharge from the hospital because of nonhealing ulcer and after outpatient followup he was advised to get admitted to the hospital. I saw and evaluated the patient today morning during hemodialysis. He was tolerating the hemodialysis procedure well. He was afebrile and hemodynamically stable. PAST MEDICAL HISTORY: 1. End-stage renal disease on hemodialysis every Monday, Monday, Monday. 2. Morbid obesity. 3. Peripheral vascular disease. 4. History of coronary artery disease status post coronary artery bypass grafting. 5. Hypertension. 6. Diabetes mellitus type 2, insulin dependent. 7. Hyperlipidemia. 8. History of cerebrovascular accident (CVA). 9. Right eye blindness. PAST SURGICAL HISTORY: 1. Status post right hip replacement. 2. Status post coronary artery bypass grafting. 3. Status post bilateral cataract surgery. 4. Left upper arm atrioventricular (AV) fistula placement. 5. Status post appendectomy. 5. History of spinal fusion of L3, L4 and L5 in 1960s. ALLERGIES: No known drug allergies. FAMILY HISTORY: No significant family history of end-stage renal disease requiring hemodialysis. Father had congestive heart failure. Mother had diabetes mellitus type 2. SOCIAL HISTORY: Patient lives at home with his . 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 He denies any smoking, illicit drug abuse or alcohol abuse. REVIEW OF SYSTEMS: CONSTITUTIONAL: He denies any fevers or chills. EYES: He reports right eye blindness. EARS, NOSE AND THROAT (ENT): Denies any dysphagia, odynophagia or ear discharge. CARDIOVASCULAR: He denies any chest pain or palpitations. RESPIRATORY: He denies any shortness of breath or cough. GASTROINTESTINAL (GI): He denies any nausea, vomiting. GENITOURINARY: He denies any dysuria or hematuria. MUSCULOSKELETAL: He reports bilateral lower extremity ulcers and inability to walk CENTRAL NERVOUS SYSTEM (TRAINS DISPATCHER SUPERVISOR): He reports history of strokes in the past. SKIN: He reports ulcers on the heels. PSYCHIATRIC: He denies any depression or anxiety. ENDOCRINE: He reports history of diabetes mellitus type 2. All other review of systems is negative. PHYSICAL EXAMINATION: GENERAL: Patient is awake, alert, oriented times three, laying in bed getting hemodialysis done. VITAL SIGNS: Temperature is 97.8 degrees Fahrenheit, blood pressure 105/54, pulse is 63, respiratory rate of 18, saturating 98% on 3 liters via nasal cannula. INTAKE AND OUTPUT: There is no urine output recorded. HEAD AND NECK EXAM: Mucous membranes are moist. Right eye is blind. Neck is supple. There is no jugular venous distention (JVD). CARDIOVASCULAR: S1, S2. Regular rate. 1+ edema of the bilateral lower extremities. RESPIRATORY: Chest is clear to auscultation bilaterally. Bilateral equal air entry. No rales or rhonchi. ABDOMEN: Soft, obese, positive bowel sounds. Nontender. No organomegaly. MUSCULOSKELETAL: Patient has dressing on bilateral lower extremities and he is wearing waffle boots on both feet CENTRAL NERVOUS SYSTEM (TRAINS DISPATCHER SUPERVISOR): No focal deficit. Bilateral upper extremities apart from right eye blindness, He is able to move extremities and follow commands. PSYCHIATRIC: No depression or anxiety. LABORATORY REVIEW: Complete blood count (CBC) showed a WBC 9.9, hemoglobin 10.1, platelets are 274. Basic metabolic panel (BMP) showed sodium 131, potassium 4.1, chloride 91, bicarbonate 29, BUN 56, creatinine is 5.6, phosphorus level is 6, albumin is 2.4. MICROBIOLOGY: Blood cultures are negative so far. IMAGING STUDIES: A chest x-ray was done yesterday which showed stable chest x-ray and cardiomegaly. No acute process. CURRENT INPATIENT MEDICATIONS: Patient 's medications include: - Tylenol as needed - aspirin 81 mg daily - Coreg 3.15 mg by mouth twice a day on non-dialysis days and once a day on dialysis days - Sensipar 30 mg by mouth Monday, Monday, Monday - Plavix 75 mg by mouth daily - vitamin B12 1000 mcg by mouth daily - Senokot one tablet twice a day - finasteride 5 mg by mouth daily - gabapentin 100 mg by mouth twice a day - heparin subcutaneous - insulin Levemir 20 units subcutaneous twice a day - insulin sliding scale - Renvela 1600 mg by mouth with snacks and 4000 mg with meals - simethicone 80 mg by mouth with meals - simvastatin 10 mg by mouth every evening - tramadol 50 mg by mouth every 4 hours as needed for pain. ASSESSMENT: A 72-year-old male with end-stage renal disease on hemodialysis, hypertension, diabetes mellitus type 2, coronary artery disease status post coronary artery bypass graft (CABG), peripheral vascular disease, peripheral neuropathy, admitted this time because of nonhealing foot ulcers. PLAN: 1. End-stage renal disease on hemodialysis. Today patient is being dialyzed according to his regular Monday, Monday, Monday schedule. I will try to remove at least 3 kg of fluid during dialysis. Next hemodialysis session will be on Monday. 2. Hypertension. Blood pressure is optimized. Fluid status post further improve the blood pressure. Continue current dose of carvedilol one tablet on dialysis days and two tablets on non-dialysis days. 3. Secondary hyperparathyroidism. Continue current dose of Sensipar 30 mg by mouth Monday, Monday, Monday on dialysis days. 4. Anemia in end-stage renal disease. Patient 's hemoglobin level is optimal. I have started him on Aranesp 200 mcg intravenous (IV) with hemodialysis. 5. Coronary artery disease status post CABG. Continue current dose of aspirin and Plavix. Continue current statin dose and continue Coreg, low-dose 3.125 mg by mouth. 6. Diabetes mellitus type 2, insulin dependent. Continue current dose of Levemir, insulin sliding scale. 7. Chronic kidney disease/mineral bone disease. Continue current dose of Renvela. If patient's phosphorus levels stays high, I would add a dose of lanthanum as well. 8. Left heel necrotic ulcer. Patient is going to have angiogram done by vascular surgery tomorrow. Thank you for involving me in the care of this patient. I shall be happy to follow the patient along with you tomorrow morning.
[2018-08-29 22:00] VITALS: BP 130/61
[2018-08-29] MEDS: CARVedilol 3.125 MG TAB PO SCH (22:12)
[2018-08-30] MEDS: HEPARIN SOD (PORCINE) 5000 UNITS/ML VIAL SC SCH ×3 (05:36→22:00)
[2018-08-30 06:00] VITALS: BP 128/61
[2018-08-30 06:29] LABS: BASO # 0.1 10^3/uL (0.0-0.2); EOS # 0.4 10^3/uL (0.0-0.50); EOS % 4.2 % (0.0-3.0); HEMATOCRIT 33.4 % (42.0-52.0); HEMOGLOBIN 10.9 g/dl (13.5-17.5); LYMPH # 1.4 10^3/uL (1.5-4.5); LYMPH % 15.3 % (24.0-44.0); MEAN CORPUSCULAR HGB CONC 32.6 g/dl (32.0-36.5); MEAN CORPUSCULAR VOLUME 107.4 fl (80.0-96.0); MONO # 1.3 10^3/uL (0.0-0.8); MONO % 14.9 % (0.0-5.0); NEUTROPHILS # 5.7 10^3/uL (1.8-7.7); NEUTROPHILS % 63.7 % (36.0-66.0); PLATELET COUNT, AUTOMATED 298 10^3/uL (150-450); RED BLOOD COUNT 3.11 10^6/uL (4.30-6.10); WHITE BLOOD COUNT 8.9 10^3/uL (4.0-10.0)
[2018-08-30 06:51] LABS: ALBUMIN 2.4 GM/DL (3.2-5.2); BILIRUBIN,TOTAL 0.3 MG/DL (0.2-1.0); CALCIUM LEVEL 9.2 MG/DL (8.8-10.2); CREATININE FOR GFR 4.29 MG/DL (0.70-1.30); GLOMERULAR FILTRATION RATE 14.5 (>42); MAGNESIUM LEVEL 2.2 MG/DL (1.8-2.4); POTASSIUM SERUM 4.2 MEQ/L (3.5-5.1); TOTAL PROTEIN 7.2 GM/DL (6.4-8.2)
[2018-08-30 08:02] LABS: C REACTIVE PROTEIN QUANTITATIV 14.9 MG/DL (0.00-0.30)
[2018-08-30] MEDS: (RENVELA) SEVELAMER **CARBONate** 800 MG TAB PO SCH ×3 (08:19→18:44)
[2018-08-30] MEDS: LANTHANUM CARBONATE 500 MG CHEW TABLET PO SCH ×3 (08:20→18:44)
[2018-08-30] MEDS: HumaLOG INSULIN (NovoLOG) PER UNIT SC SCH ×4 (08:20→21:00)
[2018-08-30] MEDS: GABAPENTIN 100 MG CAP PO PRN (08:20)
[2018-08-30] MEDS: SIMETHICONE 80 MG CHEW TAB PO SCH ×4 (08:20→22:14)
[2018-08-30] MEDS: LEVEMIR (INSULIN DETEMIR) 1 UNITS/0.01ML SC SCH ×2 (08:21→22:17)
[2018-08-30] MEDS: traMADol 50 MG TAB PO PRN (08:23)
[2018-08-30] MEDS: CARVedilol 3.125 MG TAB PO SCH ×2 (08:24→22:16)
--- NOTE | 2018-08-30 10:23 | IPNPDOC ---
Text Note Date of Service The patient was seen on 08/30/18. NOTE Subjective: Patient is a 72-year-old male with PMHx of ESRD on HD (MWF), PVD s/p amputations, CAD s/p CABG, HTN, IDDM2, DLP, Hx of CVA, Morbid Obesity , who presented to the emergency room at the [facility] because of poor wound healing. When patient followed up with Dr. Christensen as an outpatient, he was advised go to the emergency room for further evaluation for likely vascular intervention. Patient was seen and examined at the bedside during dialysis. Patient reports that he has mild left-sided foot pain. Denies any chest pain, shortness of breath or palpitations. Denies nausea, vomiting, abdominal pain, constipation, diarrhea. Objective: Vitals (See below) General: Lying in bed, no acute distress, comfortable, Awake / Alert HEENT: NC, AT CVS: RRR, +S1S2 Lungs: Aire entry remains fair bilaterally without evidence of rhonchi, rales or wheezing Abdomen: Soft, nondistended and nontender Extremities: No evidence of low sugar edema, - Calf tenderness, L lateral foot with necrosis - dressing in place Skin: Sacral decubitus ulcer (stage 2) Assessment and plan: Left heal necrotic ulcer - likely 2/2 peripheral vascular disease - Patient presented to the ER at the [facility] for poor wound healing - Patient has a history of peripheral vascular disease - Patient remains hemodynamically stable and afebrile - Necrosis around left lateral foot without surrounding cellulitis - s/p leukocytosis; no lactic acidosis, CRP trending down - Vascular surgery to take patient for angiography on Monday ESRD on HD (MWF) - Currently being dialyzed - Nephrology on consultation HTN - BP appears well controlled - c/w Carvedilol IDDM2 - c/w Levemir and ISS CAD s/p CABG - c/w ASA and Plavix - c/w Carvedilol and Simvastatin DLP - c/w Simvastatin Hx of CVA - c/w Simvastatin, ASA and Plavix Morbid Obesity - Complicating medical care Neuropathy - c/w Gabapentin BPH - c/w Finasteride DVT prophylaxis - c/w Heparin VS,Fishbone, I+O VS, Fishbone, I+O Laboratory Tests 08/30/18 05:28 Red Blood Count 3.11 L, Mean Corpuscular Volume 107.4 H, Mean Corpuscular Hemoglobin 35.0 H, Mean Corpuscular Hemoglobin Concent 32.6, Red Cell Distribution Width 14.9 H, Neutrophils (%) (Auto) 63.7, Lymphocytes (%) (Auto) 15.3 L, Monocytes (%) (Auto) 14.9 H, Eosinophils (%) (Auto) 4.2 H, Basophils (%) (Auto) 1.0, Neutrophils # (Auto) 5.7, Lymphocytes # (Auto) 1.4 L, Monocytes # (Auto) 1.3 H, Eosinophils # (Auto) 0.4, Basophils # (Auto) 0.1, Calcium Level 9.2, Aspartate Amino Transf (AST/SGOT) 23, Alanine Aminotransferase (ALT/SGPT) 19, Alkaline Phosphatase 116, Total Bilirubin 0.3, Total Protein 7.2, Albumin 2.4 L Vital Signs Date Time Temp Pulse Resp B/P (MAP) Pulse Ox O2 Delivery O2 Flow Rate FiO2 08/30/18 08:53 18 08/30/18 08:24 70 132/61 08/30/18 06:00 97.0 93 08/29/18 21:00 3.0 08/28/18 21:18 Nasal Cannula I&O- Last 24 Hours up to 6 AM 08/30/18 06:00 Intake Total 990 ml Output Total 3000 ml Balance -2010 ml HAN AVERY MD Aug 30, 2018 10:22
[2018-08-30] MEDS: NORCO, ANEXSIA 5/325MG TABLET (HYDROcodone/ACETAMINOPHEN) PO PRN ×2 (12:05→22:55)
--- NOTE | 2018-08-30 12:31 | IPN ---
DATE: 08/30/2018 SUBJECTIVE: The patient was seen and examined at the bedside today morning. He is afebrile, hemodynamically stable. He was dialyzed yesterday. He tolerated the hemodialysis procedure well. Three liters of fluid was removed. He denies any active complaints. OBJECTIVE: Vital signs: Temperature is 97 degrees Fahrenheit, blood pressure 132/61, pulse is 70, respiratory of 18, saturating 93% on room air. Intake and output: There is no urine output recorded. Ultrafiltration with hemodialysis was 3 liters, weight in the bed scale was 106.6 kg yesterday. PHYSICAL EXAMINATION: GENERAL: The patient is awake, alert, oriented x3, laying in bed in no apparent distress. HEAD AND NECK EXAM: The patient has right eye blindness. Mucous membranes are moist. Neck is supple. There is no jugular venous distension (JVD). CARDIOVASCULAR: S1, S2 regular rate, 1+ edema of the bilateral lower extremities. RESPIRATORY: Chest is clear to auscultation bilaterally. Bilateral equal air entry. No rales or rhonchi. ABDOMEN: Soft, obese, positive bowel sounds. Nontender. No organomegaly. MUSCULOSKELETAL: No clubbing or cyanosis. He has dressing on the bilateral lower extremities and wearing the waffle boots. STAGE HAND: No focal deficit. Power is 5/5 in bilateral upper extremities. He has right eye blindness. LABORATORY REVIEW: Complete blood count (CBC) showed a white blood count (WBC) 8.9, hemoglobin 10.9, platelets 198. Basic metabolic panel (BMP) showed sodium 135, potassium 4.2, chloride 97, bicarbonate 29, BUN 36, creatinine is 4.2. Albumin is 2.4. Microbiology: Blood cultures are negative so far. CURRENT INPATIENT MEDICATIONS: The patient's medications were all reviewed by me. There is no change in the medications today as compared with yesterday. ASSESSMENT/PLAN: 1. End-stage renal disease on hemodialysis. The patient was dialyzed yesterday according to his Monday, Monday, Monday schedule.Next Hemodialysis will be tomorrow morning. 2. Hypertension. Blood pressure is controlled. Continue current dose of carvdilol. 3. Anemia and end-stage renal disease. The patient was given a dose of Aranesp yesterday, hemoglobin level is within the normal range. 4. Diabetes mellitus type 2. Continue insulin sliding scale and Levemir coverage. 5. Chronic kidney disease/mineral bone disease. Continue Renvela and lanthanum 6. Left heel ulcer. The patient is going to have angiogram by vascular surgery tomorrow. MARCIA
[2018-08-30 14:00] VITALS: BP 123/60
[2018-08-30 22:00] VITALS: BP_SYST 110; BP_SYST 125; BP_DIAS 53; BP_DIAS 60
[2018-08-30] MEDS: CLOPIDOGREL 75 MG TAB PO SCH (22:13)
[2018-08-30] MEDS: SIMVASTATIN 10 MG TAB PO SCH (22:13)
[2018-08-30] MEDS: FINASTERIDE 5 MG TAB PO SCH (22:14)
[2018-08-30] MEDS: ASPIRIN 81 MG ENTERIC TAB PO SCH (22:14)
[2018-08-30] MEDS: CYANOCOBALAMIN 500 MCG TAB PO SCH (22:16)
[2018-08-31] MEDS: HEPARIN SOD (PORCINE) 5000 UNITS/ML VIAL SC SCH ×3 (05:21→22:00)
[2018-08-31 06:00] VITALS: BP 132/64
[2018-08-31 06:09] LABS: BASO # 0.1 10^3/uL (0.0-0.2); BASO % 1.1 % (0.0-1.0); EOS # 0.5 10^3/uL (0.0-0.50); EOS % 5.5 % (0.0-3.0); HEMATOCRIT 34.6 % (42.0-52.0); HEMOGLOBIN 10.9 g/dl (13.5-17.5); LYMPH # 1.2 10^3/uL (1.5-4.5); MEAN CORPUSCULAR HEMOGLOBIN 33.1 pg (27.0-33.0); MEAN CORPUSCULAR HGB CONC 31.5 g/dl (32.0-36.5); MEAN CORPUSCULAR VOLUME 105.2 fl (80.0-96.0); MONO # 1.2 10^3/uL (0.0-0.8); MONO % 14.2 % (0.0-5.0); NEUTROPHILS # 5.3 10^3/uL (1.8-7.7); NEUTROPHILS % 63.4 % (36.0-66.0); PLATELET COUNT, AUTOMATED 330 10^3/uL (150-450); RED BLOOD COUNT 3.29 10^6/uL (4.30-6.10); WHITE BLOOD COUNT 8.3 10^3/uL (4.0-10.0)
[2018-08-31 06:41] LABS: ALBUMIN 2.4 GM/DL (3.2-5.2); BILIRUBIN,TOTAL 0.2 MG/DL (0.2-1.0); C REACTIVE PROTEIN QUANTITATIV 11.6 MG/DL (0.00-0.30); CALCIUM LEVEL 8.9 MG/DL (8.8-10.2); CREATININE FOR GFR 5.62 MG/DL (0.70-1.30); GLOMERULAR FILTRATION RATE 10.6 (>42); MAGNESIUM LEVEL 2.3 MG/DL (1.8-2.4); POTASSIUM SERUM 4.3 MEQ/L (3.5-5.1); TOTAL PROTEIN 6.9 GM/DL (6.4-8.2)
[2018-08-31] MEDS: CINACALCET 30 MG TAB (SENSIPAR) PO SCH (07:36)
[2018-08-31] MEDS: SIMETHICONE 80 MG CHEW TAB PO SCH ×4 (07:36→22:56)
[2018-08-31] MEDS: (RENVELA) SEVELAMER **CARBONate** 800 MG TAB PO SCH ×3 (07:36→22:39)
[2018-08-31] MEDS: LANTHANUM CARBONATE 500 MG CHEW TABLET PO SCH ×3 (07:37→22:38)
[2018-08-31] MEDS: HumaLOG INSULIN (NovoLOG) PER UNIT SC SCH ×4 (07:48→23:02)
[2018-08-31] MEDS: LEVEMIR (INSULIN DETEMIR) 1 UNITS/0.01ML SC SCH ×2 (07:48→22:54)
[2018-08-31] MEDS ORDERED: LIDOCAINE 1% SDV 5 ML VIAL SQ ONE (09:45)
[2018-08-31] MEDS ORDERED: HEPARIN 1,000 UNITS/ML 10ML VIAL (FOR RADIOLOGY& DIALYSIS ONLY) IV ONE (09:45)
--- NOTE | 2018-08-31 13:14 | IPNPDOC ---
Text Note Date of Service The patient was seen on 08/31/18. NOTE Subjective: Patient is a 72-year-old male with PMHx of ESRD on HD (MWF), PVD s/p amputations, CAD s/p CABG, HTN, IDDM2, DLP, Hx of CVA, Morbid Obesity , who presented to the emergency room at the direction of podiatry because of poor wound healing. When patient followed up with Dr. Christensen as an outpatient, he was advised go to the emergency room for further evaluation for likely vascular intervention. Patient was seen and examined at the bedside during dialysis. Patient was seen postdialysis. . He denies any chest pain, shortness of breath or palpitations. Does report some left lower leg pain. Denies any nausea, vomiting, abdominal pain, consultation, diarrhea, or urinary discomfort. Objective: Vitals (See below) General: Lying in bed, no acute distress, comfortable, Awake / Alert HEENT: NC, AT CVS: RRR, +S1S2 Lungs: Aire entry remains fair bilaterally, no rhonchi / rales / wheezing Abdomen: Soft, without distention or tenderness Extremities: No evidence of lower extremity edema, - Calf tenderness, L lateral foot with necrosis - dressing intact Skin: Sacral decubitus ulcer (stage 2) Assessment and plan: Left heal necrotic ulcer - likely 2/2 peripheral vascular disease - Patient presented to the ER at the direction of wound care for poor wound healing - Patient has a history of peripheral vascular disease - Patient remains hemodynamically stable and afebrile - Necrosis around left lateral foot without surrounding cellulitis - s/p leukocytosis; no lactic acidosis, CRP continues to trend down - Dr. Berger, Vascular surgery to take patient for angiography today ESRD on HD (MWF) - Nephrology on consultation HTN - BP appears well controlled - c/w Carvedilol IDDM2 - c/w Levemir and ISS CAD s/p CABG - c/w ASA and Plavix - c/w Carvedilol and Simvastatin DLP - c/w Simvastatin Hx of CVA - c/w Simvastatin, ASA and Plavix Morbid Obesity - Complicating medical care Neuropathy - c/w Gabapentin BPH - c/w Finasteride DVT prophylaxis - c/w Heparin VS,Fishbone, I+O VS, Fishbone, I+O Laboratory Tests 08/31/18 05:33 Red Blood Count 3.29 L, Mean Corpuscular Volume 105.2 H, Mean Corpuscular Hemoglobin 33.1 H, Mean Corpuscular Hemoglobin Concent 31.5 L, Red Cell Distribution Width 14.8 H, Neutrophils (%) (Auto) 63.4, Lymphocytes (%) (Auto) 14.0 L, Monocytes (%) (Auto) 14.2 H, Eosinophils (%) (Auto) 5.5 H, Basophils (%) (Auto) 1.1 H, Neutrophils # (Auto) 5.3, Lymphocytes # (Auto) 1.2 L, Monocytes # (Auto) 1.2 H, Eosinophils # (Auto) 0.5, Basophils # (Auto) 0.1, Calcium Level 8.9, Aspartate Amino Transf (AST/SGOT) 17, Alanine Aminotransferase (ALT/SGPT) 16, Alkaline Phosphatase 139 H, Total Bilirubin 0.2, Total Protein 6.9, Albumin 2.4 L Vital Signs Date Time Temp Pulse Resp B/P (MAP) Pulse Ox O2 Delivery O2 Flow Rate FiO2 08/31/18 06:00 96.9 67 19 132/64 (86) 99 08/29/18 21:00 3.0 08/28/18 21:18 Nasal Cannula I&O- Last 24 Hours up to 6 AM 08/31/18 06:00 Intake Total 1390 ml Output Total 0 ml Balance 1390 ml HAN AVERY MD Aug 31, 2018 13:14
[2018-08-31 14:00] VITALS: BP 126/60
--- NOTE | 2018-08-31 15:20 | IPN ---
DATE: 08/31/2018 SUBJECTIVE The patient was seen and examined at the bedside today morning during hemodialysis. He is tolerating the hemodialysis procedure well. He denies any active complaints. He is afebrile and hemodynamically stable. OBJECTIVE Vital signs: Temperature is 98 degrees Fahrenheit. Blood pressure is 132/68, pulse is 67, respiratory rate of 18, saturating 99% on room air. Intake and output: There is no urine output recorded. Weight in the bed scale is not available. PHYSICAL EXAMINATION General: The patient is awake, alert and oriented times three. Laying in bed getting hemodialysis done. Denies any active complaints. Head and neck exam: The patient has right eye blindness. Mucous membranes are moist. Neck is supple. There is no JVD. Cardiovascular: S1, S2, regular rate. 1+ edema of the bilateral lower extremities. Respiratory: Chest is clear to auscultation bilaterally. Bilateral equal air entry. No rales or rhonchi. Abdomen: Soft, obese, positive bowel sounds. Nontender. Musculoskeletal: No clubbing or cyanosis. He has bilateral lower extremity ulcers and he is wearing waffle boots. CHIEF CONTROLLER: No focal deficit. Power is 5/5 in all extremities. Right eye blindness was noted. LAB REVIEW: CBC showed a WBC of 8.3, hemoglobin 10.9, platelets of 330. BMP showed sodium 133, potassium 4.3, chloride 93, bicarb 30, BUN 58, creatinine is 5.6. C-reactive protein is 11.6 now. CURRENT INPATIENT MEDICATIONS: The patient's medications were all reviewed by me. There is no change in the medications today as compared with yesterday. ASSESSMENT/PLAN 1. End-stage renal disease, on hemodialysis. The patient's regular dialysis days are Monday, Monday, Monday. He is being dialyzed according to his regular schedule. I will try to remove at least 3 mL of fluid as tolerated by his blood pressure. 2. Hypertension. Blood pressure is controlled. Continue current dose of carvedilol. 3. Anemia in end-stage renal disease. Continue current dose of Aranesp once a week. Hemoglobin level is stable. 4. Chronic kidney disease, mineral bone disease. Continue lanthanum and Renvela. 5. Left heel ulcer. The patient is pending angiogram by vascular surgery.
[2018-08-31] MEDS ORDERED: HEPARIN SOD (PORCINE) 5000 UNITS/ML VIAL As Ordered ONE (18:52)
[2018-08-31] MEDS ORDERED: ISOVUE-300 61% 50ML VIAL (Q9967) As Ordered ONE (18:52)
[2018-08-31] MEDS ORDERED: LIDOCAINE 2% MDV 20 ML VIAL As Ordered ONE (18:53)
[2018-08-31] MEDS ORDERED: BUPIVACAINE HCL 0.5% 30 ML VIAL As Ordered ONE (18:53)
[2018-08-31] MEDS ORDERED: MIDAZOLAM INJ 2 MG/2 ML VIAL (J2250) As Ordered ONE (19:18)
[2018-08-31] MEDS ORDERED: ONDANSETRON 4MG/2ML VIAL (J2405) IV PRN (20:30)
[2018-08-31] MEDS ORDERED: NS 1,000 ML IV SCH (20:30)
[2018-08-31 21:04] VITALS: BP 132/62
[2018-08-31 21:34] VITALS: BP 133/61
[2018-08-31 22:04] VITALS: BP 121/59
[2018-08-31] MEDS: FINASTERIDE 5 MG TAB PO SCH (22:51)
[2018-08-31] MEDS: CYANOCOBALAMIN 500 MCG TAB PO SCH (22:51)
[2018-08-31] MEDS: ASPIRIN 81 MG ENTERIC TAB PO SCH (22:52)
[2018-08-31] MEDS: CLOPIDOGREL 75 MG TAB PO SCH (22:52)
[2018-08-31] MEDS: SIMVASTATIN 10 MG TAB PO SCH (22:52)
[2018-08-31] MEDS: CARVedilol 3.125 MG TAB PO SCH (22:54)
[2018-08-31 23:04] VITALS: BP 117/58
[2018-08-31] MEDS: SENOKOT S TAB PO PRN (23:12)
[2018-08-31] MEDS: NORCO, ANEXSIA 5/325MG TABLET (HYDROcodone/ACETAMINOPHEN) PO PRN (23:14)
[2018-09-01] VITALS (8 sets, daily range): BP systolic 106–153; BP diastolic 54–84
[2018-09-01] MEDS: HEPARIN SOD (PORCINE) 5000 UNITS/ML VIAL SC SCH ×3 (05:42→21:50)
[2018-09-01 05:52] LABS: BASO # 0.1 10^3/uL (0.0-0.2); BASO % 1.1 % (0.0-1.0); EOS # 0.5 10^3/uL (0.0-0.50); EOS % 5.1 % (0.0-3.0); HEMATOCRIT 35.2 % (42.0-52.0); LYMPH # 1.5 10^3/uL (1.5-4.5); LYMPH % 17.2 % (24.0-44.0); MEAN CORPUSCULAR HEMOGLOBIN 33.2 pg (27.0-33.0); MEAN CORPUSCULAR HGB CONC 31.3 g/dl (32.0-36.5); MEAN CORPUSCULAR VOLUME 106.3 fl (80.0-96.0); MONO # 1.4 10^3/uL (0.0-0.8); MONO % 15.1 % (0.0-5.0); NEUTROPHILS # 5.4 10^3/uL (1.8-7.7); NEUTROPHILS % 59.9 % (36.0-66.0); PLATELET COUNT, AUTOMATED 321 10^3/uL (150-450); RED BLOOD COUNT 3.31 10^6/uL (4.30-6.10)
[2018-09-01 06:24] LABS: ALBUMIN 2.6 GM/DL (3.2-5.2); BILIRUBIN,TOTAL 0.3 MG/DL (0.2-1.0); C REACTIVE PROTEIN QUANTITATIV 6.79 MG/DL (0.00-0.30); CALCIUM LEVEL 9.2 MG/DL (8.8-10.2); CREATININE FOR GFR 4.44 MG/DL (0.70-1.30); MAGNESIUM LEVEL 2.2 MG/DL (1.8-2.4); POTASSIUM SERUM 4.6 MEQ/L (3.5-5.1); TOTAL PROTEIN 6.6 GM/DL (6.4-8.2)
[2018-09-01] MEDS: (RENVELA) SEVELAMER **CARBONate** 800 MG TAB PO SCH ×3 (08:29→17:25)
[2018-09-01] MEDS: LANTHANUM CARBONATE 500 MG CHEW TABLET PO SCH ×3 (08:29→17:25)
[2018-09-01] MEDS: LEVEMIR (INSULIN DETEMIR) 1 UNITS/0.01ML SC SCH ×2 (08:30→21:48)
[2018-09-01] MEDS: HumaLOG INSULIN (NovoLOG) PER UNIT SC SCH ×4 (08:31→21:00)
[2018-09-01] MEDS: SIMETHICONE 80 MG CHEW TAB PO SCH ×4 (08:31→21:47)
[2018-09-01] MEDS: CARVedilol 3.125 MG TAB PO SCH ×2 (08:34→21:46)
[2018-09-01] MEDS: SENOKOT S TAB PO PRN (08:42)
--- NOTE | 2018-09-01 10:25 | IPNPDOC ---
Text Note Date of Service The patient was seen on 09/01/18. NOTE Subjective: Patient is a 72-year-old male with PMHx of ESRD on HD (MWF), PVD s/p amputations, CAD s/p CABG, HTN, IDDM2, DLP, Hx of CVA, Morbid Obesity , who presented to the emergency room at the direction of podiatry because of poor wound healing. When patient followed up with Dr. Christensen as an outpatient, he was advised go to the emergency room for further evaluation for likely vascular intervention. Patient was seen and examined at the bedside. Patient was taken to the OR yesterday for angiogram with Dr. Berger. Currently patient denies chest pain, shortness of breath or palpitations. He reports that his left leg is feeling slightly better but still reports some intermittent pain. Denies any abdominal pain or diarrhea. Objective: Vitals (See below) General: Lying in bed, no acute distress, comfortable, Awake / Alert HEENT: NC, AT CVS: RRR, +S1S2 Lungs: Air entry remains fair bilaterally, without auscultated rhonchi, rales or wheezing Abdomen: Remains soft without distention or tenderness Extremities: Lower extremities are free of any edema, - Calf tenderness, L lateral foot with necrosis; dressing removed - no evidence of surrounding erythema Skin: Sacral decubitus ulcer (stage 2) Assessment and plan: Left heal necrotic ulcer - likely 2/2 peripheral vascular disease - Patient presented to the ER at the direction of wound care, because of poor wound healing - Patient has a history of peripheral vascular disease - Patient remains hemodynamically stable and afebrile - Necrosis around left lateral foot without surrounding cellulitis - s/p leukocytosis; no lactic acidosis, CRP continues to trend down - s/p Angiography and intervention on 08/31/[address] Berger - Dr. Berger, Vascular surgery on consult; plan for debridement soon ESRD on HD (MWF) - Nephrology on consultation HTN - BP appears well controlled - c/w Carvedilol IDDM2 - c/w Levemir and ISS CAD s/p CABG - c/w ASA and Plavix - c/w Carvedilol and Simvastatin DLP - c/w Simvastatin Hx of CVA - c/w Simvastatin, ASA and Plavix Morbid Obesity - Complicating medical care Neuropathy - c/w Gabapentin BPH - c/w Finasteride DVT prophylaxis - c/w Heparin Disposition: - Patient will be going for deep bright mint of his left foot necrotic ulcers VS,Fishbone, I+O VS, Fishbone, I+O Laboratory Tests 09/01/18 05:39 Red Blood Count 3.31 L, Mean Corpuscular Volume 106.3 H, Mean Corpuscular Hemoglobin 33.2 H, Mean Corpuscular Hemoglobin Concent 31.3 L, Red Cell Distribution Width 15.0 H, Neutrophils (%) (Auto) 59.9, Lymphocytes (%) (Auto) 17.2 L, Monocytes (%) (Auto) 15.1 H, Eosinophils (%) (Auto) 5.1 H, Basophils (%) (Auto) 1.1 H, Neutrophils # (Auto) 5.4, Lymphocytes # (Auto) 1.5, Monocytes # (Auto) 1.4 H, Eosinophils # (Auto) 0.5, Basophils # (Auto) 0.1, Calcium Level 9.2, Aspartate Amino Transf (AST/SGOT) 19, Alanine Aminotransferase (ALT/SGPT) 18, Alkaline Phosphatase 113, Total Bilirubin 0.3, Total Protein 6.6, Albumin 2.6 L Vital Signs Date Time Temp Pulse Resp B/P (MAP) Pulse Ox O2 Delivery O2 Flow Rate FiO2 09/01/18 08:34 63 134/59 09/01/18 06:00 96.1 18 99 2.0 08/28/18 21:18 Nasal Cannula I&O- Last 24 Hours up to 6 AM 09/01/18 06:00 Intake Total 400 ml Output Total 1830 ml Balance -1430 ml HAN AVERY MD Sep 01, 2018 10:25
[2018-09-01] MEDS: MOM 30ML SUSPENSION UDC PO PRN (18:30)
[2018-09-01] MEDS: traMADol 50 MG TAB PO PRN (18:49)
--- NOTE | 2018-09-01 20:18 | IPN ---
DATE: 09/01/2018 Mr. Chang is seen this morning on his bedside. His is present in the room. Patient was admitted with left foot wound. He has known history of longstanding diabetes, end-stage renal disease and peripheral vascular disease. He underwent angiogram by Dr. Berger yesterday and there is a plan for bilateral lower extremity angioplasty and stent placement on Monday. In the meantime, patient denies any nausea, vomiting, dyspnea or chest pain. He underwent hemodialysis yesterday and his regular dialysis schedule is Monday, Monday and Monday. PHYSICAL EXAMINATION: Temperature 97.2 degrees Fahrenheit, heart rate 70 per minute and respiratory rate 18 per minute. Blood pressure 140/84 mmHg and oxygen saturation 95%. Head is atraumatic. Neck is supple and without jugular venous distention (JVD) or thyroid enlargement. There is no oral thrush or ulcers. Heart sounds are regular. Lungs sound clear to auscultation bilaterally. Abdomen soft and nontender and bowel sounds are normal. Extremities have no cyanosis or clubbing. Both his feet are wrapped in dressing and foam boots. The right lateral two toes are surgically absent. Neurologically, he is awake and at his baseline mentation. Today's labs show WBC count 9.0, hemoglobin 11.0 and hematocrit 35.2. Platelets 321. Sodium 136, potassium 4.6, CO2 29, BUN 37 and creatinine 4.44. C-reactive protein is down to 6.79. PROBLEMS 1. End-stage renal disease. Patient was dialyzed yesterday and his next dialysis will be scheduled for Monday. We will plan to dialyze him early in the morning so he can have his angioplasty later in the afternoon. 2. Hyponatremia. His sodium level has corrected and no other intervention is indicated at this point. 3. Anemia. His anemia is stable and optimized. No specific intervention is indicated at this point. He will continue to receive Aranesp with hemodialysis as needed. At this point, he is receiving 200 mcg once a week. 4. Hypertension. Blood pressure is very well controlled on current antihypertensive medications and no changes are indicated. 5. Secondary hyperparathyroidism. Patient has been on phosphate binders and Sensipar. We will continue to monitor. 6. Peripheral arterial disease. Patient is scheduled for angioplasty of bilateral lower extremities on Monday.
[2018-09-01] MEDS: CLOPIDOGREL 75 MG TAB PO SCH (21:46)
[2018-09-01] MEDS: ASPIRIN 81 MG ENTERIC TAB PO SCH (21:46)
[2018-09-01] MEDS: SIMVASTATIN 10 MG TAB PO SCH (21:47)
[2018-09-01] MEDS: CYANOCOBALAMIN 500 MCG TAB PO SCH (21:47)
[2018-09-01] MEDS: FINASTERIDE 5 MG TAB PO SCH (21:47)
[2018-09-02 02:00] VITALS: BP 142/70
[2018-09-02 05:46] LABS: BASO # 0.1 10^3/uL (0.0-0.2); BASO % 1.1 % (0.0-1.0); EOS # 0.5 10^3/uL (0.0-0.50); EOS % 4.6 % (0.0-3.0); HEMATOCRIT 34.1 % (42.0-52.0); HEMOGLOBIN 10.7 g/dl (13.5-17.5); LYMPH # 1.4 10^3/uL (1.5-4.5); LYMPH % 13.9 % (24.0-44.0); MEAN CORPUSCULAR HEMOGLOBIN 33.1 pg (27.0-33.0); MEAN CORPUSCULAR HGB CONC 31.4 g/dl (32.0-36.5); MEAN CORPUSCULAR VOLUME 105.6 fl (80.0-96.0); MONO # 1.3 10^3/uL (0.0-0.8); MONO % 12.6 % (0.0-5.0); NEUTROPHILS # 6.9 10^3/uL (1.8-7.7); NEUTROPHILS % 66.2 % (36.0-66.0); PLATELET COUNT, AUTOMATED 359 10^3/uL (150-450); RED BLOOD COUNT 3.23 10^6/uL (4.30-6.10); WHITE BLOOD COUNT 10.4 10^3/uL (4.0-10.0)
[2018-09-02] MEDS: HEPARIN SOD (PORCINE) 5000 UNITS/ML VIAL SC SCH ×3 (05:54→22:00)
[2018-09-02 06:00] VITALS: BP 148/72
[2018-09-02 06:13] LABS: ALBUMIN 2.5 GM/DL (3.2-5.2); BILIRUBIN,TOTAL 0.3 MG/DL (0.2-1.0); C REACTIVE PROTEIN QUANTITATIV 5.77 MG/DL (0.00-0.30); CALCIUM LEVEL 8.8 MG/DL (8.8-10.2); CREATININE FOR GFR 5.85 MG/DL (0.70-1.30); GLOMERULAR FILTRATION RATE 10.2 (>42); MAGNESIUM LEVEL 2.4 MG/DL (1.8-2.4); POTASSIUM SERUM 4.6 MEQ/L (3.5-5.1); TOTAL PROTEIN 6.9 GM/DL (6.4-8.2)
[2018-09-02] MEDS: LACTULOSE 20 GM/30 ML SYRUP UD PO SCH ×4 (08:40→19:07)
[2018-09-02] MEDS: LANTHANUM CARBONATE 500 MG CHEW TABLET PO SCH ×3 (08:41→18:35)
[2018-09-02] MEDS: SIMETHICONE 80 MG CHEW TAB PO SCH ×4 (08:41→20:28)
[2018-09-02] MEDS: HumaLOG INSULIN (NovoLOG) PER UNIT SC SCH ×4 (08:41→20:29)
[2018-09-02] MEDS: (RENVELA) SEVELAMER **CARBONate** 800 MG TAB PO SCH ×3 (08:41→18:35)
[2018-09-02] MEDS: LEVEMIR (INSULIN DETEMIR) 1 UNITS/0.01ML SC SCH ×2 (08:42→20:36)
[2018-09-02] MEDS: CARVedilol 3.125 MG TAB PO SCH ×2 (08:44→20:28)
--- NOTE | 2018-09-02 09:44 | IPNPDOC ---
Text Note Date of Service The patient was seen on 09/02/18. NOTE Subjective: Patient is a 72-year-old male with PMHx of ESRD on HD (MWF), PVD s/p amputations, CAD s/p CABG, HTN, IDDM2, DLP, Hx of CVA, Morbid Obesity , who presented to the emergency room at the direction of podiatry because of poor wound healing. When patient followed up with Dr. Christensen as an outpatient, he was advised go to the emergency room for further evaluation for likely vascular intervention. Patient was seen and examined at the bedside. Patient will be going for additional debridement and intervention with Dr. Berger on Monday. . Currently, he denies chest pain, shortness breath, palpitations. He reports that his left leg pain has improved. Does report constipation. Objective: Vitals (See below) General: Lying in bed, no acute distress, comfortable, Awake / Alert HEENT: NC, AT CVS: RRR, +S1S2 Lungs: Air entry remains fair bilaterally, there does not appear to be any evidence of rhonchi, rales or wheezing Abdomen: Soft, no distention and no tenderness Extremities: No evidence of edema at bilateral lower extremities, - Calf tenderness, L lateral foot with necrosis; dressing removed - no erythema/t enderness/drainage Skin: Sacral decubitus ulcer (stage 2) Assessment and plan: Left heal necrotic ulcer - likely 2/2 peripheral vascular disease - Patient presented to the ER at the direction of wound care, because of poor wound healing - Patient has a history of peripheral vascular disease - Patient remains hemodynamically stable and afebrile - Necrosis around left lateral foot without surrounding cellulitis - c/w dressing changes - s/p leukocytosis; no lactic acidosis, CRP improving - s/p Angiography and intervention on 08/31/[address] Berger - Dr. Berger, Vascular surgery on consult; anticipated surgery and additional vascular intervention tomorrow ESRD on HD (MWF) - Nephrology on consultation HTN - BP appears well controlled - c/w Carvedilol IDDM2 - c/w Levemir and ISS CAD s/p CABG - c/w ASA and Plavix - c/w Carvedilol and Simvastatin DLP - c/w Simvastatin Hx of CVA - c/w Simvastatin, ASA and Plavix Morbid Obesity - Complicating medical care Neuropathy - c/w Gabapentin BPH - c/w Finasteride DVT prophylaxis - c/w Heparin Disposition: - Patient will be going for debridement of his left foot necrotic ulcers and additional vascular intervention - possibly Monday VS,Fishbone, I+O VS, Fishbone, I+O Laboratory Tests 09/02/18 05:21 Red Blood Count 3.23 L, Mean Corpuscular Volume 105.6 H, Mean Corpuscular Hemoglobin 33.1 H, Mean Corpuscular Hemoglobin Concent 31.4 L, Red Cell Distribution Width 14.9 H, Neutrophils (%) (Auto) 66.2 H, Lymphocytes (%) (Auto) 13.9 L, Monocytes (%) (Auto) 12.6 H, Eosinophils (%) (Auto) 4.6 H, Basophils (%) (Auto) 1.1 H, Neutrophils # (Auto) 6.9, Lymphocytes # (Auto) 1.4 L, Monocytes # (Auto) 1.3 H, Eosinophils # (Auto) 0.5, Basophils # (Auto) 0.1, Calcium Level 8.8, Aspartate Amino Transf (AST/SGOT) 18, Alanine Aminotransferase (ALT/SGPT) 17, Alkaline Phosphatase 127 H, Total Bilirubin 0.3, Total Protein 6.9, Albumin 2.5 L Vital Signs Date Time Temp Pulse Resp B/P (MAP) Pulse Ox O2 Delivery O2 Flow Rate FiO2 09/02/18 08:44 76 139/67 09/02/18 06:00 97.0 18 96 09/01/18 10:00 2.0 08/28/18 21:18 Nasal Cannula I&O- Last 24 Hours up to 6 AM 09/02/18 06:00 Intake Total 1290 ml Output Total 0 ml Balance 1290 ml HAN AVERY MD Sep 02, 2018 09:44
[2018-09-02 14:00] VITALS: BP 156/72
--- NOTE | 2018-09-02 15:26 | IPN ---
DATE: 09/02/2018 Mr. Chang is seen this morning on his bedside. He is laying in the bed without any acute distress. I woke him up. He denies any dyspnea, chest pain, nausea or vomiting. PHYSICAL EXAMINATION: Temperature 97 degrees Fahrenheit, heart rate 76 per minute and respiratory rate 18 per minute. Blood pressure 148/72 mmHg and oxygen saturation 96% on room air. Head is atraumatic. Neck is supple and without jugular venous distention (JVD) or thyroid enlargement. His heart sounds are regular. Lungs clear to auscultation. Abdomen soft and nontender and without a palpable organomegaly. Bowel sounds are normal. Extremities have no cyanosis or clubbing. Lower extremities show no edema. Both his feet are wrapped in dressing and in foam boots. Neurologically he is at his baseline mentation. Today's labs show WBC count 10.4, hemoglobin 10.7 and hematocrit 34.1. Sodium 135, potassium 4.6, CO2 27, BUN 59 and creatinine 5.85. C-reactive protein is 5.77 today. PROBLEMS: 1. End-stage renal disease. The patient is regularly dialyzed on Monday, Monday and Monday schedule. He will be dialyzed tomorrow. His volume status is well-compensated and electrolytes are within normal range. 2. Peripheral vascular disease with bilateral foot ulcers. The patient had an angiogram done last week and he is scheduled for bilateral upper extremity angioplasty tomorrow afternoon. The patient will be dialyzed in the morning so he can be free for his procedure in the afternoon. 3. Anemia. Anemia has been stable and we will continue to watch closely. No urgent intervention is indicated. 4. Hypertension. Blood pressure is also very well controlled on current antihypertensive medications and no changes are being made today.
[2018-09-02] MEDS: MOM 30ML SUSPENSION UDC PO PRN (15:39)
[2018-09-02] MEDS: SENOKOT S TAB PO PRN (15:40)
[2018-09-02] MEDS: traMADol 50 MG TAB PO PRN (16:36)
[2018-09-02] MEDS ORDERED: BISACODYL 10 MG SUPP PR ONE (19:00)
[2018-09-02] MEDS: ASPIRIN 81 MG ENTERIC TAB PO SCH (20:27)
[2018-09-02] MEDS: CYANOCOBALAMIN 500 MCG TAB PO SCH (20:28)
[2018-09-02] MEDS: SIMVASTATIN 10 MG TAB PO SCH (20:28)
[2018-09-02] MEDS: FINASTERIDE 5 MG TAB PO SCH (20:28)
[2018-09-02] MEDS: CLOPIDOGREL 75 MG TAB PO SCH (20:28)
[2018-09-02 22:00] VITALS: BP 146/66
[2018-09-02] MEDS: NORCO, ANEXSIA 5/325MG TABLET (HYDROcodone/ACETAMINOPHEN) PO PRN (23:02)
[2018-09-03] MEDS: LACTULOSE 20 GM/30 ML SYRUP UD PO SCH ×2 (00:03→06:14)
[2018-09-03 06:00] VITALS: BP 158/80
[2018-09-03] MEDS: HEPARIN SOD (PORCINE) 5000 UNITS/ML VIAL SC SCH ×3 (06:00→22:00)
[2018-09-03] MEDS: LANTHANUM CARBONATE 500 MG CHEW TABLET PO SCH ×4 (06:15→20:37)
[2018-09-03] MEDS: SIMETHICONE 80 MG CHEW TAB PO SCH ×4 (06:15→22:31)
[2018-09-03 06:40] LABS: BASO # 0.1 10^3/uL (0.0-0.2); BASO % 0.9 % (0.0-1.0); EOS # 0.5 10^3/uL (0.0-0.50); EOS % 3.1 % (0.0-3.0); HEMATOCRIT 37.5 % (42.0-52.0); HEMOGLOBIN 12.2 g/dl (13.5-17.5); LYMPH # 1.1 10^3/uL (1.5-4.5); MEAN CORPUSCULAR HEMOGLOBIN 34.7 pg (27.0-33.0); MEAN CORPUSCULAR HGB CONC 32.5 g/dl (32.0-36.5); MEAN CORPUSCULAR VOLUME 106.5 fl (80.0-96.0); MONO # 1.1 10^3/uL (0.0-0.8); MONO % 7.3 % (0.0-5.0); NEUTROPHILS # 12.3 10^3/uL (1.8-7.7); NEUTROPHILS % 80.8 % (36.0-66.0); PLATELET COUNT, AUTOMATED 380 10^3/uL (150-450); RED BLOOD COUNT 3.52 10^6/uL (4.30-6.10); WHITE BLOOD COUNT 15.2 10^3/uL (4.0-10.0)
[2018-09-03 07:12] LABS: ALBUMIN 2.9 GM/DL (3.2-5.2); BILIRUBIN,TOTAL 0.2 MG/DL (0.2-1.0); C REACTIVE PROTEIN QUANTITATIV 5.98 MG/DL (0.00-0.30); CALCIUM LEVEL 9.1 MG/DL (8.8-10.2); CREATININE FOR GFR 7.14 MG/DL (0.70-1.30); GLOMERULAR FILTRATION RATE 8.1 (>42); MAGNESIUM LEVEL 2.6 MG/DL (1.8-2.4); POTASSIUM SERUM 5.2 MEQ/L (3.5-5.1); TOTAL PROTEIN 7.1 GM/DL (6.4-8.2)
[2018-09-03] MEDS: (RENVELA) SEVELAMER **CARBONate** 800 MG TAB PO SCH ×4 (08:06→20:38)
[2018-09-03] MEDS: HumaLOG INSULIN (NovoLOG) PER UNIT SC SCH ×4 (08:06→22:39)
[2018-09-03] MEDS: CINACALCET 30 MG TAB (SENSIPAR) PO SCH (08:06)
[2018-09-03] MEDS: LEVEMIR (INSULIN DETEMIR) 1 UNITS/0.01ML SC SCH ×2 (08:07→22:32)
[2018-09-03] MEDS ORDERED: HEPARIN 1,000 UNITS/ML 10ML VIAL (FOR RADIOLOGY& DIALYSIS ONLY) IV ONE (09:15)
[2018-09-03] MEDS ORDERED: LIDOCAINE 1% SDV 5 ML VIAL SQ ONE (09:15)
--- NOTE | 2018-09-03 10:34 | IPN ---
DATE OF VISIT: 09/03/2018 Mr. Chang is seen this morning on his bedside. He reports frequent loose stools and not feeling well. He denies any dyspnea, chest pain, fever, or chills. He has not been on any antibiotics. He does have a nonhealing wound on his left foot and patient is scheduled for lower extremity angioplasty with stent placement later this afternoon. PHYSICAL EXAMINATION: Temperature 96.8 degrees Fahrenheit, heart rate 84 per minute and respiratory rate 20 per minute. Blood pressure 158/80 mmHg and oxygen saturation 93% on room air. Head is atraumatic. Neck is supple and without jugular venous distention (JVD) or thyroid enlargement. Heart sounds are regular. Lungs clear to auscultation. Abdomen soft and nontender. Bowel sounds are normal. Extremities have no cyanosis or clubbing. Both his feet are wrapped in dressing and foam boots. Neurologically he is at his baseline mentation. Today's labs show WBC count up to 15.2, hemoglobin 12.2 and hematocrit 37.5. Platelets 380. Sodium 135, potassium 4.2, CO2 24, BUN 76 and creatinine 7.14. C-reactive protein is 5.98 today. PROBLEMS: 1. End-stage renal disease. The patient is regularly dialyzed on Monday, Monday and Monday schedule. He is being dialyzed this morning. We will try to remove about 2 liters of fluid as tolerated. 2. Hyperkalemia. Mild hyperkalemia related to end-stage renal disease. This will be corrected with dialysis today and no other intervention will be indicated. 3. Anemia. Anemia has been stable and does not need any intervention. 4. Foot ulcers with peripheral vascular disease. Patient has leukocytosis and likely source is his left foot ulcer for which is going to need a debridement. He is going to have angioplasty today to improve the circulation to his feet. 5. Hypertension. Blood pressure has been very well controlled and no changes are being made today.
[2018-09-03] MEDS: ANUSOL HC CREAM 30GM TOP SCH ×2 (11:00→21:00)
--- NOTE | 2018-09-03 13:26 | IPNPDOC ---
Date Seen The patient was seen on 09/03/18. Progress Note Vascular Surgery Dr Berger HPI: Patient is a 72-year-old male, followed by vascular surgery related to chronic wounds of B/L feet. S/P LE angiogram as per Dr Berger 08/31/18. Denies any fevers, chills, weakness, fatigue, Headache, Chest Pain, Shortness of breath, cough, palpitations, abdominal pain, N/V/D or changes in bowel or bladder habits. PMHx: ESRD on HD (MWF), PVD s/p amputations, CAD s/p CABG, HTN, IDDM2, DLP, Hx of CVA, Morbid Obesity PSHX: Right hip replacement Bilateral cataracts Left arm fistula Appendectomy Spinal fusion of L3/4/5 in 1960s PE: GEN: 72 yo M, appears stated age. No acute distress. Alert and oriented x 3. HEENT: Normocephalic, atraumatic. Sclera are nonicteric. Conjunctiva without injection. Moist mucous membranes. CHEST: Regular rate and rhythm, +S1, +S2 LUNGS: Clear to auscultation bilaterally. No wheezes, rales, or rhonchi. Breathing appears symmetric and easy. ABD: Round, soft, non-tender, non-distended. +Bowel sounds throughout. EXT: No lower extremity edema appreciated. Bandages bilateral feet. NEURO: Alert and oriented x 3. Cranial nerves III-XII are intact. No focal deficits appreciated. A&P: 1. Non healing foot wounds. Continue wound care. pain control gabapentin/tramadol. S/P angiogram LE 08/31/18. No intervention at that time. Plan as relayed by Dr Berger 09/03/18 is for angiogram LE 09/03 or 09/04/18 with intervention. 2. ESRD. HD as per Nephrology M/W/F. DVT prophylaxis. SQ heparin. VS, I&O, 24H, Fishbone Vital Signs/I&O Vital Signs Date Time Temp Pulse Resp B/P (MAP) Pulse Ox O2 Delivery O2 Flow Rate FiO2 09/03/18 06:00 96.8 84 20 158/80 (106) 93 09/01/18 10:00 2.0 08/28/18 21:18 Nasal Cannula I&O- Last 24 Hours up to 6 AM 09/03/18 05:59 Intake Total 830 ml Output Total 0 ml Balance 830 ml Laboratory Data 24H LABS Laboratory Tests 2 09/02/18 17:34: Bedside Glucose (Misc Panel) 199H 09/02/18 20:28: Bedside Glucose (Misc Panel) 196H 09/03/18 06:28: Immature Granulocyte % (Auto) 0.9, White Blood Count 15.2H, Red Blood Count 3.52L, Hemoglobin 12.2L, Hematocrit 37.5L, Mean Corpuscular Volume 106.5H, Mean Corpuscular Hemoglobin 34.7H, Mean Corpuscular Hemoglobin Concent 32.5, Red Cell Distribution Width 15.1H, Platelet Count 380, Neutrophils (%) (Auto) 80.8H, Ly mphocytes (%) (Auto) 7.0L, Monocytes (%) (Auto) 7.3H, Eosinophils (%) (Auto) 3.1H, Basophils (%) (Auto) 0.9, Neutrophils # (Auto) 12.3H, Lymphocytes # (Auto) 1.1L, Monocytes # (Auto) 1.1H, Eosinophils # (Auto) 0.5, Basophils # (Auto) 0.1, Nucleated Red Blood Cells % (auto) 0.0, Anion Gap 12, Glomerular Filtration Rate 8.1L, Blood Urea Nitrogen 76H, Creatinine 7.14H, Sodium Level 135L, Potassium Le carla 5.2H, Chloride Level 99, Carbon Dioxide Level 24, Calcium Level 9.1, Aspartate Amino Transf (AST/SGOT) 24, Alanine Aminotransferase (ALT/SGPT) 20, Alkaline Phosphatase 134H, Total Bilirubin 0.2, Total Protein 7.1, Albumin 2.9L, Magnesium Level 2.6H, C-Reactive Protein, Quantitative 5.98H, Albumin/Globulin Ratio 0.69L CBC/BMP Laboratory Tests 09/03/18 06:28 Red Blood Count 3.52 L, Mean Corpuscular Volume 106.5 H, Mean Corpuscular Hemoglobin 34.7 H, Mean Corpuscular Hemoglobin Concent 32.5, Red Cell Distribution Width 15.1 H, Neutrophils (%) (Auto) 80.8 H, Lymphocytes (%) (Auto) 7.0 L, Monocytes (%) (Auto) 7.3 H, Eosinophils (%) (Auto) 3.1 H, Basophils (%) (Auto) 0.9, Neutrophils # (Auto) 12.3 H, Lymphocytes # (Auto) 1.1 L, Monocytes # (Auto) 1.1 H, Eosinophils # (Auto) 0.5, Basophils # (Auto) 0.1, Calcium Level 9.1, Aspartate Amino Transf (AST/SGOT) 24, Alanine Aminotransferase (ALT/SGPT) 20, Alkaline Phosphatase 134 H, Total Bilirubin 0.2, Total Protein 7.1, Albumin 2.9 L Microbiology Microbiology 08/28/18 Blood Culture - Final, Complete NO GROWTH AFTER 5 DAYS 08/28/18 Blood Culture - Final, Complete NO GROWTH AFTER 5 DAYS Kasia Holloway Sep 03, 2018 13:26
[2018-09-03 17:33] VITALS: BP 120/51
--- NOTE | 2018-09-03 21:25 | IPNPDOC ---
Text Note Date of Service The patient was seen on 09/03/18. NOTE Subjective: Pt examined at bedside with in room. Underwent HD today with some chills afterwards, but otherwise is doing well without f/c/n/v. Is scheduled to undergo b/l angiogram fem-pop stents, and also eventual LE wound debridement due to severe PVD complications. Pain is well-controlled. Experienced some diarrhea after bowel regimen added for initial constipation. Objective: Vitals: see below General: resting comfy, NAD, answers simple questions at baseline HEENT: NC, AT, rt pupil dilated fixed at baseline per the , left pupil ERRLA CVS: RRR, +S1S2 Lungs: poor respiratory effor & distant lung sounds. No appreciable adventitious sounds Abdomen: Soft, NT, ND Extremities: No edema or tenderness. B/l LE wrapped in bandages & boot. 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 Normally follows Dr. Christensen as an outpatient, and was advised go to the emergency room for further evaluation for likely vascular intervention. Necrotic ulcer of left heel with additional LE wounds 2/2 peripheral vascular disease Pt scheduled to undergo angioplasty & stenting with Dr. Berger today. Has poor wound healing at baseline due to PVD. Continue dressing changes. Is otherwise doing well and afebrile, stable with prior days. Necrosis around left lateral foot without surrounding cellulitis. Podiatry consulted for chronic LE wounds. Normally follows Dr. Christensen and Podiatry outpatient. Plans for debridement in near future, possibly inpatient. Diarrhea 2/2 recent bowel regimen added for initial constipation. Will hold all GI meds and reassess for improvement. Good po intake. No blood loss or fever or abd pain. Leukocytosis likely reactionary 2/2 above. Pt stable and without signs of infection. Blood cxs negative at 5 days. Monitor. ESRD on HD (MWF) Nephrology on consultation HTN well controlled. Continue Carvedilol IDDM2 continue ISS & Levemir CAD s/p CABG continue ASA and Plavix. Continue Carvedilol and Simvastatin DLP continue Simvastatin Hx of CVA continue Simvastatin, ASA and Plavix Morbid Obesity complicates care & long-term management Neuropathy likely 2/2 DM continue Gabapentin BPH continue Finasteride DVT prophylaxis: Heparin sc Disposition: plan for IR intervention today with Dr. Berger VS,Jovany, I+O VS, Jovany, I+O Laboratory Tests 09/03/18 06:28 Red Blood Count 3.52 L, Mean Corpuscular Volume 106.5 H, Mean Corpuscular Hemoglobin 34.7 H, Mean Corpuscular Hemoglobin Concent 32.5, Red Cell Distributi on Width 15.1 H, Neutrophils (%) (Auto) 80.8 H, Lymphocytes (%) (Auto) 7.0 L, Monocytes (%) (Auto) 7.3 H, Eosinophils (%) (Auto) 3.1 H, Basophils (%) (Auto) 0.9, Neutrophils # (Auto) 12.3 H, Lymphocytes # (Auto) 1.1 L, Monocytes # (Auto) 1.1 H, Eosinophils # (Auto) 0.5, Basophils # (Auto) 0.1, Calcium Level 9.1, Aspartate Amino Transf (AST/SGOT) 24, Alanine Aminotransferase (ALT/SGPT) 20, Alkaline Phosphatase 134 H, Total Bilirubin 0.2, Total Protein 7.1, Albumin 2.9 L Vital Signs Date Time Temp Pulse Resp B/P (MAP) Pulse Ox O2 Delivery O2 Flow Rate FiO2 09/03/18 17:33 97.5 82 18 120/51 (74) 95 09/01/18 10:00 2.0 08/28/18 21:18 Nasal Cannula I&O- Last 24 Hours up to 6 AM 09/03/18 06:00 Intake Total 770 ml Output Total 0 ml Balance 770 ml GME ATTESTATION GME ATTESTATION My faculty preceptor for this patient encounter was physically present during the encounter and was fully available. All aspects of the patient interview, examination, medical decision making process, and medical care plan development were reviewed and approved by the faculty preceptor. The faculty preceptor is aware and concurs with the plan as stated in the body of this note and will attest to such by his/her cosignature. ATTENDING NOTE I, Brianna Schwartz, have independently examined this patient and performed my own physical exam, as well as reviewed the documentation and edited where necessary. I have discussed in detail with the resident / student the findings and plan of treatment as documented by the resident / student and edited their note. I agree with their findings and treatment plan and have edited their documentation. I will continue to follow the patient during this hospital stay. AMILCAR GRULLON DO Sep 03, 2018 21:25 BRIANNA SCHWARTZ MD Sep 26, 2018 16:10
[2018-09-03 22:00] VITALS: BP 120/51
[2018-09-03] MEDS: SIMVASTATIN 10 MG TAB PO SCH (22:31)
[2018-09-03] MEDS: CYANOCOBALAMIN 500 MCG TAB PO SCH (22:31)
[2018-09-03] MEDS: FINASTERIDE 5 MG TAB PO SCH (22:31)
[2018-09-03] MEDS: ASPIRIN 81 MG ENTERIC TAB PO SCH (22:31)
[2018-09-03] MEDS: CLOPIDOGREL 75 MG TAB PO SCH (22:31)
[2018-09-03] MEDS: CARVedilol 3.125 MG TAB PO SCH (22:33)
[2018-09-04] MEDS: HEPARIN SOD (PORCINE) 5000 UNITS/ML VIAL SC SCH ×3 (05:09→22:00)
[2018-09-04 06:00] VITALS: BP 124/54
[2018-09-04 06:04] LABS: BASO # 0.1 10^3/uL (0.0-0.2); EOS # 0.5 10^3/uL (0.0-0.50); EOS % 3.4 % (0.0-3.0); HEMATOCRIT 35.5 % (42.0-52.0); LYMPH # 1.4 10^3/uL (1.5-4.5); LYMPH % 9.4 % (24.0-44.0); MEAN CORPUSCULAR HEMOGLOBIN 32.7 pg (27.0-33.0); MEAN CORPUSCULAR VOLUME 105.7 fl (80.0-96.0); MONO # 1.6 10^3/uL (0.0-0.8); MONO % 10.7 % (0.0-5.0); NEUTROPHILS % 74.8 % (36.0-66.0); PLATELET COUNT, AUTOMATED 350 10^3/uL (150-450); RED BLOOD COUNT 3.36 10^6/uL (4.30-6.10); WHITE BLOOD COUNT 14.7 10^3/uL (4.0-10.0)
[2018-09-04 06:35] LABS: ALBUMIN 2.6 GM/DL (3.2-5.2); BILIRUBIN,TOTAL 0.4 MG/DL (0.2-1.0); C REACTIVE PROTEIN QUANTITATIV 14.8 MG/DL (0.00-0.30); CALCIUM LEVEL 9.7 MG/DL (8.8-10.2); CREATININE FOR GFR 5.62 MG/DL (0.70-1.30); GLOMERULAR FILTRATION RATE 10.6 (>42); MAGNESIUM LEVEL 2.6 MG/DL (1.8-2.4); POTASSIUM SERUM 3.7 MEQ/L (3.5-5.1); TOTAL PROTEIN 7.4 GM/DL (6.4-8.2)
[2018-09-04] MEDS: HumaLOG INSULIN (NovoLOG) PER UNIT SC SCH ×5 (09:19→22:45)
[2018-09-04] MEDS: SIMETHICONE 80 MG CHEW TAB PO SCH ×4 (09:19→22:18)
[2018-09-04] MEDS: (RENVELA) SEVELAMER **CARBONate** 800 MG TAB PO SCH ×3 (09:19→17:47)
[2018-09-04] MEDS: LANTHANUM CARBONATE 500 MG CHEW TABLET PO SCH ×3 (09:19→17:47)
[2018-09-04] MEDS: LEVEMIR (INSULIN DETEMIR) 1 UNITS/0.01ML SC SCH ×2 (09:20→22:21)
[2018-09-04] MEDS: CARVedilol 3.125 MG TAB PO SCH ×2 (09:23→22:20)
[2018-09-04] MEDS: ANUSOL HC CREAM 30GM TOP SCH ×2 (09:24→22:22)
[2018-09-04 14:00] VITALS: BP 135/68
[2018-09-04] MEDS: NORCO, ANEXSIA 5/325MG TABLET (HYDROcodone/ACETAMINOPHEN) PO PRN (16:23)
--- NOTE | 2018-09-04 17:53 | IPN ---
DATE: 09/04/2018 Mr. Chang is seen this morning on his bedside. He reports that his angioplasty was cancelled yesterday, and he is scheduled for procedure today. He denies any nausea, vomiting, dyspnea or chest pain. His diarrhea has improved. PHYSICAL EXAMINATION: Temperature 98.3 degrees Fahrenheit, heart rate 80 per minute and respiratory rate 18 per minute. Blood pressure 124/54 mmHg and oxygen saturation 94% on room air. Head is atraumatic. Neck is supple and without jugular venous distention (JVD) or thyroid enlargement. Heart sounds are regular and lungs clear to auscultation. Abdomen: Soft and nontender and bowel sounds are normal. Extremities have no cyanosis or clubbing. Both feet are wrapped in dressings and foam boots as usual. Neurologically he is awake, alert and at his baseline mentation. Today's labs show WBC count 14.7, hemoglobin 11.0 and hematocrit 35.5. Platelets 350. Sodium 131, potassium 3.7, CO2 30, BUN 45 and creatinine 5.62. His C-reactive protein, which was down to 5.98 yesterday, has increased to 14.8 today. PROBLEMS: 1. End-stage renal disease. The patient is regularly dialyzed on Monday, Monday and Monday schedule. His next dialysis will be scheduled for tomorrow. 2. Hyponatremia. Mild hyponatremia is noted, which is most likely related to end-stage renal disease and will be corrected with dialysis tomorrow. No other intervention is indicated. 3. Infected left foot wound. Patient is scheduled for angioplasty due to peripheral vascular disease. His C-reactive protein has certainly increased, and I will suggest to hospitalist service for starting broad-spectrum antibiotic. 4. Anemia. Anemia is stable, and we will continue to monitor closely. I put his Aranesp on hold unless his anemia gets worse.
--- NOTE | 2018-09-04 18:22 | IPNPDOC ---
Text Note Date of Service The patient was seen on 09/04/18. NOTE Subjective: Pt examined at bedside with in room. Was not able to undergo angiogram & stenting of LE yesterday or today due to scheduling, and possibly will go tomorrow. No new complaints or issues today. Pain is well-controlled. Diarrhea is somewhat improved since holding bowel meds. No f/c/n/v/abd pain. Objective: Vitals: see below General: resting comfy, NAD HEENT: NC, AT, rt pupil dilated fixed at baseline per the , left pupil ERRLA CVS: RRR, +S1S2 Lungs: poor respiratory effort & distant lung sounds. No appreciable ad ventitious sounds Abdomen: Soft, NT, ND Extremities: No edema or tenderness. B/l LE wrapped in bandages & boot. Cool feet b/l with poor perfusion Skin: Sacral decubitus ulcer stage 2 not examined today Assessment and plan: 72-year-old male with PMHx of ESRD on HD ([facility]), PVD s/p amputations, CAD s/p CABG, HTN, IDDM2, DLP, Hx of CVA, Morbid Obesity, came to ER per Dr. Christensen for poor wound healing b/l and was advised go to the emergency room for further evaluation for likely vascular intervention. Necrotic ulcer of left heel with additional LE wounds 2/2 peripheral vascular disease Pt tentatively scheduled to undergo angioplasty, stenting, & wound debridement with Dr. Berger tomorrow 09/05/18. Has poor wound healing at baseline due to PVD. Continue dressing changes. Is otherwise doing well and afebrile, stable with prior days. Necrosis around left lateral foot without surrounding cellulitis. Normally follows Dr. Christensen and outpatient. Diarrhea mildly improved since stopping GI meds. Continue monitoring. Is 2/2 recent bowel regimen added for initial constipation. Good po intake. No blood loss or fever or abd pain. Leukocytosis likely reactionary 2/2 above, as well as elevated CRP. Pt stable and without signs of infection. Blood cxs negative. Monitor. ESRD on HD (MW) Nephrology on consultation HTN well controlled. Continue Carvedilol IDDM2 continue ISS & Levemir CAD s/p CABG continue ASA and Plavix. Continue Carvedilol and Simvastatin DLP continue Simvastatin Hx of CVA continue Simvastatin, ASA and Plavix Morbid Obesity complicates care & long-term management Neuropathy likely 2/2 DM continue Gabapentin BPH continue Finasteride DVT prophylaxis: Heparin sc Disposition: plan for IR intervention 09/[address] Berger VSJovany, I+O Jovany OLGUIN I+O Laboratory Tests 09/04/18 05:17 Red Blood Count 3.36 L, Mean Corpuscular Volume 105.7 H, Mean Corpuscular Hemoglobin 32.7, Mean Corpuscular Hemoglobin Concent 31.0 L, Red Cell Distribution Width 15.5 H, Neutrophils (%) (Auto) 74.8 H, Lymphocytes (%) (Auto) 9.4 L, Monocytes (%) (Auto) 10.7 H, Eosinophils (%) (Auto) 3.4 H, Basophils (%) (Auto) 1.0, Neutrophils # (Auto) 11.0 H, Lymphocytes # (Auto) 1.4 L, Monocytes # (Auto) 1.6 H, Eosinophils # (Auto) 0.5, Basophils # (Auto) 0.1, Calcium Level 9.7, Aspartate Amino Transf (AST/SGOT) 39 H, Alanine Aminotransferase (ALT/SGPT) 19, Alkaline Phosphatase 115, Total Bilirubin 0.4 #, Total Protein 7.4, Albumin 2.6 L Vital Signs Date Time Temp Pulse Resp B/P (MAP) Pulse Ox O2 Delivery O2 Flow Rate FiO2 09/04/18 16:53 18 09/04/18 14:00 97.3 86 135/68 (90) 96 09/01/18 10:00 2.0 I&O- Last 24 Hours up to 6 AM 09/04/18 06:00 Intake Total 420 ml Output Total 2000 ml Balance -1580 ml GME ATTESTATION ATTENDING NOTE I saw and evaluated the patient. I agree with the findings and plan of care as documented in the resident's note AMILCAR GRULLON DO Sep 04, 2018 18:22 RUSLAN LYN MD Sep 05, 2018 12:40
[2018-09-04 22:00] VITALS: BP 138/63
[2018-09-04] MEDS: SIMVASTATIN 10 MG TAB PO SCH (22:18)
[2018-09-04] MEDS: CYANOCOBALAMIN 500 MCG TAB PO SCH (22:18)
[2018-09-04] MEDS: ASPIRIN 81 MG ENTERIC TAB PO SCH (22:18)
[2018-09-04] MEDS: FINASTERIDE 5 MG TAB PO SCH (22:18)
[2018-09-04] MEDS: CLOPIDOGREL 75 MG TAB PO SCH (22:18)
[2018-09-05] MEDS: NORCO, ANEXSIA 5/325MG TABLET (HYDROcodone/ACETAMINOPHEN) PO PRN ×4 (01:51→21:02)
[2018-09-05 06:00] VITALS: BP 135/60
[2018-09-05] MEDS: HEPARIN SOD (PORCINE) 5000 UNITS/ML VIAL SC SCH ×3 (06:00→21:33)
[2018-09-05] MEDS: CINACALCET 30 MG TAB (SENSIPAR) PO SCH (06:12)
[2018-09-05] MEDS: ANUSOL HC CREAM 30GM TOP SCH ×2 (06:13→21:05)
[2018-09-05 06:23] LABS: HEMATOCRIT 33.8 % (42.0-52.0); HEMOGLOBIN 10.5 g/dl (13.5-17.5); MEAN CORPUSCULAR HEMOGLOBIN 33.8 pg (27.0-33.0); MEAN CORPUSCULAR HGB CONC 31.1 g/dl (32.0-36.5); MEAN CORPUSCULAR VOLUME 108.7 fl (80.0-96.0); PLATELET COUNT, AUTOMATED 307 10^3/uL (150-450); RED BLOOD COUNT 3.11 10^6/uL (4.30-6.10); WHITE BLOOD COUNT 14.5 10^3/uL (4.0-10.0)
[2018-09-05 06:53] LABS: C REACTIVE PROTEIN QUANTITATIV 11.6 MG/DL (0.00-0.30); CALCIUM LEVEL 9.2 MG/DL (8.8-10.2); CREATININE FOR GFR 6.73 MG/DL (0.70-1.30); GLOMERULAR FILTRATION RATE 8.6 (>42); MAGNESIUM LEVEL 2.5 MG/DL (1.8-2.4); POTASSIUM SERUM 4.1 MEQ/L (3.5-5.1)
[2018-09-05] MEDS: (RENVELA) SEVELAMER **CARBONate** 800 MG TAB PO SCH ×3 (07:41→18:41)
[2018-09-05] MEDS: LEVEMIR (INSULIN DETEMIR) 1 UNITS/0.01ML SC SCH ×2 (07:42→21:03)
[2018-09-05] MEDS: HumaLOG INSULIN (NovoLOG) PER UNIT SC SCH ×4 (07:42→21:00)
[2018-09-05] MEDS: SIMETHICONE 80 MG CHEW TAB PO SCH ×4 (07:43→21:00)
[2018-09-05] MEDS: LANTHANUM CARBONATE 500 MG CHEW TABLET PO SCH ×3 (07:43→18:41)
[2018-09-05] MEDS: GABAPENTIN 100 MG CAP PO PRN (07:47)
--- NOTE | 2018-09-05 11:36 | IPNPDOC ---
Date Seen The patient was seen on 09/05/18. Progress Note Vascular Surgery Dr Berger HPI: Patient is a 72-year-old male, followed by vascular surgery related to chronic wounds of B/L feet. S/P LE angiogram as per Dr Berger 08/31/18. Denies any fevers, chills, weakness, fatigue, Headache, Chest Pain, Shortness of breath, cough, palpitations, abdominal pain, N/V/D or changes in bowel or bladder habits. PMHx: ESRD on HD (MWF), PVD s/p amputations, CAD s/p CABG, HTN, IDDM2, DLP, Hx of CVA, Morbid Obesity PSHX: Right hip replacement Bilateral cataracts Left arm fistula Appendectomy Spinal fusion of L3/4/5 in 1960s PE: GEN: 72 yo M, appears stated age. No acute distress. Alert and oriented x 3. HEENT: Normocephalic, atraumatic. Moist mucous membranes. CHEST: Regular rate and rhythm, +S1, +S2 LUNGS: Clear to auscultation bilaterally. No wheezes, rales, or rhonchi. Breathing appears symmetric and easy. ABD: Round, soft, non-tender, non-distended. EXT: No lower extremity edema appreciated. Bandages bilateral feet. NEURO: Alert and oriented x 3. Cranial nerves III-XII are intact. No focal deficits appreciated. A&P: 1. Non healing foot wounds. Continue wound care. pain control gabapentin/tramadol. S/P angiogram LE 08/31/18. No intervention at that time. Plan as relayed by Dr Berger 09/05/18 is for angiogram LE 09/05/18 with plan for intervention. 2. ESRD. HD as per Nephrology M/W/F. DVT prophylaxis. SQ heparin. VS, I&O, 24H, Fishbone Vital Signs/I&O Vital Signs Date Time Temp Pulse Resp B/P (MAP) Pulse Ox O2 Delivery O2 Flow Rate FiO2 09/05/18 08:16 18 09/05/18 06:00 97.8 61 135/60 (85) 94 09/01/18 10:00 2.0 I&O- Last 24 Hours up to 6 AM 09/05/18 06:00 Intake Total 958 ml Output Total 0 ml Balance 958 ml Laboratory Data 24H LABS Laboratory Tests 2 09/04/18 11:57: Bedside Glucose (Misc Panel) 203H 09/04/18 16:54: Bedside Glucose (Misc Panel) 190H 09/04/18 21:06: Bedside Glucose (Misc Panel) 177H 09/05/18 05:30: Nucleated Red Blood Cells % (auto) 0.0, Anion Gap 9, Glomerular Filtration Rate 8.6L, Blood Urea Nitrogen 71#H, Creatinine 6.73H, Sodium Level 134L, Potassium Level 4.1, Chloride Level 97L, Carbon Dioxide Level 28, Calcium Level 9.2, Magnesium Level 2.5H, C-Reactive Protein, Quantitative 11.60H CBC/BMP Laboratory Tests 09/05/18 05:30 Red Blood Count 3.11 L, Mean Corpuscular Volume 108.7 H, Mean Corpuscular Hemoglobin 33.8 H, Mean Corpuscular Hemoglobin Concent 31.1 L, Red Cell Distribution Width 15.4 H, Calcium Level 9.2 Microbiology Microbiology 08/28/18 Blood Culture - Final, Complete NO GROWTH AFTER 5 DAYS 08/28/18 Blood Culture - Final, Complete NO GROWTH AFTER 5 DAYS Kasia Holloway Sep 05, 2018 11:36
[2018-09-05] MEDS ORDERED: HEPARIN 1,000 UNITS/ML 10ML VIAL (FOR RADIOLOGY& DIALYSIS ONLY) IV ONE (12:15)
[2018-09-05] MEDS ORDERED: LIDOCAINE 1% SDV 5 ML VIAL SQ ONE (12:15)
[2018-09-05 13:06] VITALS: BP 129/65
--- NOTE | 2018-09-05 13:50 | IPN ---
DATE OF VISIT: 09/05/2018 Mr. Chang is seen this morning during hemodialysis. He was scheduled for an angioplasty on Monday which got cancelled and then he was scheduled for yesterday, however, it got postponed again and now he is scheduled for this afternoon. The patient denies any dyspnea, chest pain, nausea or vomiting. He did have diarrhea on Monday which has already resolved. The patient has no fever or chills. PHYSICAL EXAMINATION: Temperature 97.8 degrees Fahrenheit, heart rate 60 per minute and respiratory rate 18 per minute. Blood pressure 135/60 mmHg and oxygen saturation 94% on room air. His head is atraumatic. Neck is supple and without jugular venous distention (JVD) or thyroid enlargement. Heart sounds are regular and lungs clear to auscultation. Abdomen soft and nontender and bowel sounds are normal. Extremities have no cyanosis or clubbing. Both feet are wrapped in dressings. Neurologically he is at his baseline mentation. Today's labs show a WBC count 14.5, hemoglobin 10.5 and hematocrit 33.8. Platelets 307. Sodium 134, potassium 4.1, CO2 28, BUN 71 and creatinine 6.7. Glucose 310 and calcium 9.2. C-reactive protein was 14.8 yesterday and did come down to 11.6 today. PROBLEMS: 1. End-stage renal disease. The patient is being dialyzed today and he is tolerating dialysis treatment very well. We are removing about 1 liter of fluid. 2. Hyponatremia. Sodium level was down to 131 today and has improved to 134 today. It is likely to improve further with the dialysis today. 3. Peripheral vascular disease with ischemic ulcers on foot. The patient is now scheduled for angioplasty of his legs this afternoon. 4. Anemia. His anemia has been stable and we will continue to watch. No intervention is indicated.
--- NOTE | 2018-09-05 18:01 | IPNPDOC ---
Text Note Date of Service The patient was seen on 09/05/18. NOTE Subjective: Pt examined at bedside with in room. No new events since yesterday. Feels the same, great spirits, eager to go home. Scheduled for HD & Vascular in tervention today. Was postponed again yesterday due to scheduling. No new complaints or issues today. Pain is well-controlled. Diarrhea resolved since holding bowel meds. No f/c/n/v/abd pain. Objective: Vitals: see below General: resting comfy, NAD HEENT: NC, AT, rt pupil dilated fixed at baseline per the , left pupil ERRLA CVS: RRR, +S1S2 Lungs: CTAB. No appreciable adventitious sounds Abdomen: Soft, NT, ND Extremities: No edema or tenderness. B/l LE wrapped in bandages & boot. Cool feet b/l with poor perfusion Skin: Sacral decubitus ulcer stage 2 not examined today Assessment and plan: 72-year-old male with PMHx of ESRD on HD ([facility]), PVD s/p amputations, CAD s/p CABG, HTN, IDDM2, DLP, Hx of CVA, Morbid Obesity, came to ER per Dr. Christensen for poor wound healing b/l and was advised go to the emergency room for further evaluation for likely vascular intervention. Necrotic ulcer of left heel with additional LE wounds 2/2 peripheral vascular disease Pt tentatively scheduled to undergo angioplasty, stenting, & wound debridement with Dr. Berger today 09/05/18. Has poor wound healing at baseline due to PVD. Continue dressing changes. Is otherwise doing well and afebrile, stable with prior days. Necrosis around left lateral foot without surrounding cellulitis. Normally follows Dr. Christensen and outpatient. WBC & CRP stable. No f/c. No increase in fluid drainage from wounds. Will monitor and consider abx upon reas sessment. Diarrhea improved since stopping GI meds. Continue monitoring. Is 2/2 recent bowel regim en added for initial constipation. Good po intake. No blood loss or fever or abd pain. Leukocytosis likely reactionary 2/2 above, as well as elevated CRP. Pt stable and without signs of infection. Blood cxs negative. Monitor. ESRD on HD ([facility]) Nephrology on consultation HTN well controlled. Continue Carvedilol IDDM2 continue ISS & Levemir CAD s/p CABG continue ASA and Plavix. Continue Carvedilol and Simvastatin DLP continue Simvastatin Hx of CVA continue Simvastatin, ASA and Plavix Morbid Obesity complicates care & long-term management Neuropathy likely 2/2 DM continue Gabapentin BPH continue Finasteride DVT prophylaxis: Heparin sc Disposition: plan for IR intervention today 09/[address] Berger. Possible dc home 24-48hrs. VS,Fishbone, I+O VS, Fishbone, I+O Laboratory Tests 09/05/18 05:30 Red Blood Count 3.11 L, Mean Corpuscular Volume 108.7 H, Mean Corpuscular Hemoglobin 33.8 H, Mean Corpuscular Hemoglobin Concent 31.1 L, Red Cell Distribution Width 15.4 H, Calcium Level 9.2 Vital Signs Date Time Temp Pulse Resp B/P (MAP) Pulse Ox O2 Delivery O2 Flow Rate FiO2 09/05/18 17:01 98.9 96 18 96 09/05/18 13:06 129/65 (86) 09/01/18 10:00 2.0 I&O- Last 24 Hours up to 6 AM 09/05/18 06:00 Intake Total 958 ml Output Total 0 ml Balance 958 ml GME ATTESTATION GME ATTESTATION I saw and evaluated the patient. I agree with the findings and plan of care as documented in the above note AMILCAR GRULLON DO Sep 05, 2018 18:01 RUSLAN LYN MD Sep 07, 2018 13:16
[2018-09-05] MEDS: CYANOCOBALAMIN 500 MCG TAB PO SCH (20:59)
[2018-09-05] MEDS: FINASTERIDE 5 MG TAB PO SCH (20:59)
[2018-09-05] MEDS: CLOPIDOGREL 75 MG TAB PO SCH (21:00)
[2018-09-05] MEDS: CARVedilol 3.125 MG TAB PO SCH (21:01)
[2018-09-05] MEDS: ASPIRIN 81 MG ENTERIC TAB PO SCH (21:02)
[2018-09-05] MEDS: SIMVASTATIN 10 MG TAB PO SCH (21:02)
[2018-09-05 22:00] VITALS: BP 127/59
[2018-09-06] MEDS: HEPARIN SOD (PORCINE) 5000 UNITS/ML VIAL SC SCH ×3 (05:06→21:10)
[2018-09-06 05:54] LABS: HEMATOCRIT 35.3 % (42.0-52.0); MEAN CORPUSCULAR HEMOGLOBIN 33.8 pg (27.0-33.0); MEAN CORPUSCULAR HGB CONC 31.2 g/dl (32.0-36.5); MEAN CORPUSCULAR VOLUME 108.6 fl (80.0-96.0); PLATELET COUNT, AUTOMATED 291 10^3/uL (150-450); RED BLOOD COUNT 3.25 10^6/uL (4.30-6.10); WHITE BLOOD COUNT 13.3 10^3/uL (4.0-10.0)
[2018-09-06 06:00] VITALS: BP 102/57
[2018-09-06 06:11] LABS: C REACTIVE PROTEIN QUANTITATIV 8.48 MG/DL (0.00-0.30); CALCIUM LEVEL 9.6 MG/DL (8.8-10.2); CREATININE FOR GFR 4.66 MG/DL (0.70-1.30); GLOMERULAR FILTRATION RATE 13.2 (>42); MAGNESIUM LEVEL 2.4 MG/DL (1.8-2.4); POTASSIUM SERUM 4.4 MEQ/L (3.5-5.1)
[2018-09-06] MEDS: HumaLOG INSULIN (NovoLOG) PER UNIT SC SCH ×4 (08:53→20:22)
[2018-09-06] MEDS: LEVEMIR (INSULIN DETEMIR) 1 UNITS/0.01ML SC SCH ×2 (08:54→20:29)
[2018-09-06] MEDS: (RENVELA) SEVELAMER **CARBONate** 800 MG TAB PO SCH ×3 (08:56→17:52)
[2018-09-06] MEDS: SIMETHICONE 80 MG CHEW TAB PO SCH ×4 (08:56→20:29)
[2018-09-06] MEDS: LANTHANUM CARBONATE 500 MG CHEW TABLET PO SCH ×3 (08:56→17:51)
[2018-09-06] MEDS: CARVedilol 3.125 MG TAB PO SCH ×2 (08:57→20:29)
[2018-09-06] MEDS: ANUSOL HC CREAM 30GM TOP SCH ×2 (09:14→21:00)
--- NOTE | 2018-09-06 09:54 | IPNPDOC ---
Date Seen The patient was seen on 09/06/18. Progress Note Vascular Surgery Dr Berger HPI: Patient is a 72-year-old male, followed by vascular surgery related to chronic wounds of B/L feet. S/P LE angiogram as per Dr Berger 08/31/18. Denies any fevers, chills, weakness, fatigue, Headache, Chest Pain, Shortness of breath, cough, palpitations, abdominal pain, N/V/D or changes in bowel or bladder habits. PMHx: ESRD on HD (MWF), PVD s/p amputations, CAD s/p CABG, HTN, IDDM2, DLP, Hx of CVA, Morbid Obesity PSHX: Right hip replacement Bilateral cataracts Left arm fistula Appendectomy Spinal fusion of L3/4/5 in 1960s PE: GEN: 72 yo M, appears stated age. No acute distress. Alert and oriented x 3. HEENT: Normocephalic, atraumatic. Moist mucous membranes. CHEST: Regular rate and rhythm, +S1, +S2 LUNGS: Clear to auscultation bilaterally. No wheezes, rales, or rhonchi. Breathing appears symmetric and easy. ABD: Round, soft, non-tender, non-distended. EXT: No lower extremity edema appreciated. Bandages bilateral feet. NEURO: Alert and oriented x 3. Cranial nerves III-XII are intact. No focal deficits appreciated. A&P: 1. Non healing foot wounds. Afebrile. WBC 13.3, CRP 8.48. Continue wound care. pain control gabapentin/tramadol. S/P angiogram LE 08/31/18. No intervention at that time. Plan as relayed by Dr Berger 09/06/18 is for angiogram LE 09/06/18 with plan for intervention. 2. ESRD. HD as per Nephrology M/W/F. DVT prophylaxis. SQ heparin. VS, I&O, 24H, Fishbone Vital Signs/I&O Vital Signs Date Time Temp Pulse Resp B/P (MAP) Pulse Ox O2 Delivery O2 Flow Rate FiO2 09/06/18 08:57 70 140/67 09/06/18 06:00 97.7 18 97 09/01/18 10:00 2.0 I&O- Last 24 Hours up to 6 AM 09/06/18 06:00 Intake Total 840 ml Output Total 2310 ml Balance -1470 ml Laboratory Data 24H LABS Laboratory Tests 2 09/05/18 13:17: Bedside Glucose (Misc Panel) 129H 09/05/18 17:39: Bedside Glucose (Misc Panel) 121H 09/05/18 20:26: Bedside Glucose (Misc Panel) 124H 09/06/18 05:18: Nucleated Red Blood Cells % (auto) 0.0, Anion Gap 5L, Glomerular Filtration Rate 13.2L, Blood Urea Nitrogen 40H, Creatinine 4.66H, Sodium Level 137, Potassium Level 4.4, Chloride Level 101, Carbon Dioxide Level 31, Calcium Level 9.6, Magnesium Level 2.4, C-Reactive Protein, Quantitative 8.48H CBC/BMP Laboratory Tests 09/06/18 05:18 Red Blood Count 3.25 L, Mean Corpuscular Volume 108.6 H, Mean Corpuscular Hemoglobin 33.8 H, Mean Corpuscular Hemoglobin Concent 31.2 L, Red Cell Distribution Width 15.0 H, Calcium Level 9.6 Microbiology Microbiology 08/28/18 Blood Culture - Final, Complete NO GROWTH AFTER 5 DAYS 08/28/18 Blood Culture - Final, Complete NO GROWTH AFTER 5 DAYS Kasia Holloway Sep 06, 2018 09:54
[2018-09-06] MEDS: NORCO, ANEXSIA 5/325MG TABLET (HYDROcodone/ACETAMINOPHEN) PO PRN ×2 (10:43→17:53)
--- NOTE | 2018-09-06 13:55 | IPNPDOC ---
Date Seen The patient was seen on 09/06/18. 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 He notes no new events since yesterday and is in great spirits despite having his vascular intervention postponed again yesterday due to scheduling. He is eager to go home and undergo angioplasty, stenting, and wound debridement with Dr. Berger today. He states that his b/l lower extremity pain is unchanged from his normal pain and rates it as a 9/10 sharp and stabbing constant pain, he requested a pain pill due to discomfort. He reports that his diarrhea has resolved since holding the bowel medication. He does report some nasal congestion and requested something to help this. He denies chest pain, shortness of breath, fever, chills, diaphoresis, abdominal pain, nausea, vomiting, changes in bowel habits, and headache. OBJECTIVE PHYSICAL EXAMINATION: VITAL SIGNS: Please see below. General: Patient pleasantly laying in bed on exam, AAOx3, no acute distress HEENT: NC, AT, rt pupil dilated fixed at baseline per his , left pupil ERRLA CVS: Regular rate and rhythm, Normal +S1S2, no murmurs, gallops or rubs appreciated Lungs: Clear to auscultation bilaterally, No appreciable adventitious sounds Abdomen: Soft, normal bowel sounds in all 4 quadrants, no tenderness to light or deep palpation, no rebound, rigidity or guarding Extremities: No edema, mild tenderness to palpation. B/l LE wrapped in bandages & boot. Cool feet b/l with poor perfusion Skin: Sacral decubitus ulcer stage 2 not examined today LABORATORY DATA, IMAGING STUDIES, MICROBIOLOGY: Please see below. IMAGING: - Chest X-ray 08/28/18: Stable chest. There is cardiomegaly but no evidence of acute cardiopulmonary disease. DVT prophylaxis ordered?: Heparin sc ASSESSMENT AND PLAN: 72-year-old male with PMHx of ESRD on HD (MWF), PVD s/p amputations, CAD s/p CABG, HTN, IDDM2, DLP, Hx of CVA, Morbid Obesity, came to ER per Dr. Christensen for poor wound healing b/l and was advised go to the emergency room for further evaluation for likely vascular intervention. PROBLEMS: 1. Necrotic ulcer of left heel with additional LE wounds 2/2 peripheral vascular disease -Pt scheduled to undergo angioplasty, stenting, & wound debridement with Dr. Berger today 09/06/18. Has poor wound healing at baseline due to PVD. Continue dressing changes. Is otherwise doing well and afebrile, stable with prior days. Necrosis around left lateral foot without surrounding cellulitis. Normally follows Dr. Christensen and outpatient. WBC & CRP stable and trending down. No fever or chills. No increase in fluid drainage from wounds. Will monitor and consider abx upon reassessment. 2. Diarrhea -improved since stopping GI meds. Continue monitoring. Is 2/2 recent bowel regimen added for initial constipation. Good po intake. No blood loss or fever or abd pain. 3. Leukocytosis -likely reactionary 2/2 above, as well as elevated CRP. WBC and CRP are trending down today. Pt stable and without signs of infection. Blood cxs negative. Monitor. 4. ESRD on HD (MWF) -Nephrology on consultation 5. HTN -well controlled. Continue Carvedilol 6. IDDM2 -continue ISS & Levemir 7. CAD s/p CABG -continue ASA and Plavix. Continue Carvedilol and Simvastatin 8. DLP -continue Simvastatin 9. Hx of CVA -continue Simvastatin, ASA and Plavix 10. Morbid Obesity -complicates care & long-term management 11. Neuropathy likely 2/2 DM -continue Gabapentin 12. BPH -continue Finasteride 13. DVT prophylaxis: Heparin sc Disposition: Patient is stable and reports no change in lower extremity pain. He notes no events since yesterday and is in good spirits. Plan for IR intervention today 09/[address] Berger. C/w pain control and wound care. Monitoring CBC and CRP which are trending down today. Possible discharge home 24-48 hours. I saw and evaluated the patient. I agree with the findings and plan of care as documented in the above note VS, I&O, 24H, Fishbone Vital Signs/I&O Vital Signs Date Time Temp Pulse Resp B/P (MAP) Pulse Ox O2 Delivery O2 Flow Rate FiO2 09/06/18 11:13 16 09/06/18 08:57 70 140/67 09/06/18 06:00 97.7 97 09/01/18 10:00 2.0 I&O- Last 24 Hours up to 6 AM 09/06/18 05:59 Intake Total 840 ml Output Total 2310 ml Balance -1470 ml Laboratory Data 24H LABS Laboratory Tests 2 09/05/18 17:39: Bedside Glucose (Misc Panel) 121H 09/05/18 20:26: Bedside Glucose (Misc Panel) 124H 09/06/18 05:18: Nucleated Red Blood Cells % (auto) 0.0, Anion Gap 5L, Glomerular Filtration Rate 13.2L, Blood Urea Nitrogen 40H, Creatinine 4.66H, Sodium Level 137, Potassium Level 4.4, Chloride Level 101, Carbon Dioxide Level 31, Calcium Level 9.6, Magnesium Level 2.4, C-Reactive Protein, Quantitative 8.48H 09/06/18 11:56: Bedside Glucose (Misc Panel) 172H CBC/BMP Laboratory Tests 09/06/18 05:18 Red Blood Count 3.25 L, Mean Corpuscular Volume 108.6 H, Mean Corpuscular Hemoglobin 33.8 H, Mean Corpuscular Hemoglobin Concent 31.2 L, Red Cell Distribution Width 15.0 H, Calcium Level 9.6 Microbiology Microbiology 08/28/18 Blood Culture - Final, Complete NO GROWTH AFTER 5 DAYS 08/28/18 Blood Culture - Final, Complete NO GROWTH AFTER 5 DAYS [facility] [place], [place] Sep 06, 2018 13:55 RUSLAN LYN MD Sep 07, 2018 13:29
[2018-09-06 14:00] VITALS: BP 149/77
[2018-09-06] MEDS ORDERED: diphenhydrAMINE INJ 50MG/ML VIAL (J1200) As Ordered ONE (15:18)
[2018-09-06] MEDS ORDERED: fentaNYL 100 MCG/2 ML INJECTION (J3010) As Ordered ONE (15:18)
[2018-09-06] MEDS ORDERED: BUPIVACAINE HCL 0.5% 10 ML VIAL As Ordered ONE (15:19)
[2018-09-06] MEDS ORDERED: MIDAZOLAM INJ 2 MG/2 ML VIAL (J2250) As Ordered ONE (15:19)
[2018-09-06] MEDS ORDERED: HEPARIN 1,000 UNITS/ML 10ML VIAL (FOR RADIOLOGY& DIALYSIS ONLY) As Ordered ONE (15:19)
[2018-09-06] MEDS ORDERED: ISOVUE-300 61% 50ML VIAL (Q9967) As Ordered ONE (15:19)
[2018-09-06] MEDS ORDERED: LIDOCAINE 2% MDV 20 ML VIAL As Ordered ONE (15:19)
--- NOTE | 2018-09-06 16:09 | IPN ---
DATE: 09/06/2018 SUBJECTIVE: Mr. Chang was seen and examined this morning. He was previously scheduled for an angioplasty of his left leg yesterday; however, this was postponed. He denies any dyspnea, chest pain, nausea, vomiting, diarrhea or constipation. The patient denies any fevers or chills. There have been no events reported overnight. OBJECTIVE: GENERAL: The patient is lying comfortably in bed. He appears in no acute distress. He is alert and oriented times three. CARDIOVASCULAR: Regular rate and rhythm with no clicks, rubs or murmurs. Normal S1, S2. NECK: Supple without jugular venous distention (JVD). Trachea is midline. PULMONARY: Clear lung sounds to auscultation bilaterally. No wheezes, rhonchi or rales. Good chest expansion. ABDOMEN: Soft, nontender. No rebound, tenderness or guarding. Nondistended. Bowel sounds are normal. EXTREMITIES: Both feet are currently wrapped in bandages. PSYCHIATRIC: Mood and affect appear appropriate. LABORATORY DATA: Hematology: White blood cell count 3.3, hemoglobin 11, hematocrit 35.3, platelet count 291. Chemistries: Sodium 137, potassium 4.4, chloride 101, carbon dioxide 31, BUN 40, creatinine 4.6, fasting glucose 127, calcium 9.6, magnesium 2.4, C-reactive protein 8.48. ASSESSMENT AND PLAN: 1. End stage renal disease: The patient was dialyzed yesterday. He tolerated dialysis well. He had approximately 1 liter of fluid removed. He will be dialyzed again tomorrow. 2. Hyponatremia. The patient has improved with dialysis. His sodium today is 137, up from 134. Continue to monitor. 3. Peripheral vascular disease and ischemic ulcers on feet. The patient has been scheduled for angioplasty, however, unfortunately, this has been delayed. He is planned to have his angioplasty later today or tomorrow. 4. Anemia. Anemia appears to be stable. Hemoglobin this morning is 11.0. We will continue to monitor. [facility]
[2018-09-06 17:30] VITALS: BP 149/74
[2018-09-06 18:00] VITALS: BP 131/65
[2018-09-06] MEDS: ASPIRIN 81 MG ENTERIC TAB PO SCH (20:28)
[2018-09-06] MEDS: CYANOCOBALAMIN 500 MCG TAB PO SCH (20:29)
[2018-09-06] MEDS: CLOPIDOGREL 75 MG TAB PO SCH (20:29)
[2018-09-06] MEDS: FINASTERIDE 5 MG TAB PO SCH (20:29)
[2018-09-06] MEDS: SIMVASTATIN 10 MG TAB PO SCH (20:29)
[2018-09-06 22:00] VITALS: BP 127/60
[2018-09-07] MEDS: HEPARIN SOD (PORCINE) 5000 UNITS/ML VIAL SC SCH ×3 (05:21→21:50)
[2018-09-07 05:40] LABS: HEMATOCRIT 33.5 % (42.0-52.0); HEMOGLOBIN 10.4 g/dl (13.5-17.5); MEAN CORPUSCULAR HEMOGLOBIN 32.4 pg (27.0-33.0); MEAN CORPUSCULAR VOLUME 104.4 fl (80.0-96.0); PLATELET COUNT, AUTOMATED 277 10^3/uL (150-450); RED BLOOD COUNT 3.21 10^6/uL (4.30-6.10); WHITE BLOOD COUNT 12.4 10^3/uL (4.0-10.0)
[2018-09-07 05:56] LABS: C REACTIVE PROTEIN QUANTITATIV 6.71 MG/DL (0.00-0.30); CALCIUM LEVEL 9.4 MG/DL (8.8-10.2); CREATININE FOR GFR 5.94 MG/DL (0.70-1.30); MAGNESIUM LEVEL 2.4 MG/DL (1.8-2.4)
[2018-09-07] MEDS: ANUSOL HC CREAM 30GM TOP SCH ×2 (05:56→21:00)
[2018-09-07 06:00] VITALS: BP 155/73
[2018-09-07] MEDS: CINACALCET 30 MG TAB (SENSIPAR) PO SCH (06:28)
[2018-09-07] MEDS: HumaLOG INSULIN (NovoLOG) PER UNIT SC SCH ×4 (07:30→21:00)
[2018-09-07] MEDS: LANTHANUM CARBONATE 500 MG CHEW TABLET PO SCH ×3 (07:41→17:00)
[2018-09-07] MEDS: (RENVELA) SEVELAMER **CARBONate** 800 MG TAB PO SCH ×3 (07:41→16:59)
[2018-09-07] MEDS: SIMETHICONE 80 MG CHEW TAB PO SCH ×4 (07:41→21:46)
[2018-09-07] MEDS: LEVEMIR (INSULIN DETEMIR) 1 UNITS/0.01ML SC SCH ×2 (07:42→21:49)
[2018-09-07] MEDS: NORCO, ANEXSIA 5/325MG TABLET (HYDROcodone/ACETAMINOPHEN) PO PRN ×2 (09:03→21:51)
[2018-09-07] MEDS ORDERED: LIDOCAINE 1% SDV 5 ML VIAL SQ ONE (10:00)
[2018-09-07] MEDS ORDERED: HEPARIN 1,000 UNITS/ML 10ML VIAL (FOR RADIOLOGY& DIALYSIS ONLY) IV ONE (10:00)
--- NOTE | 2018-09-07 10:26 | IPNPDOC ---
Date Seen The patient was seen on 09/07/18. Progress Note Vascular Surgery Dr Berger HPI: Patient is a 72-year-old male, followed by vascular surgery related to chronic wounds of B/L feet. S/P LE angiogram as per Dr Berger 08/31/18. S/P agiogram with intervention as per Dr Berger 09/06/18. The pt is currently seen at HD. Denies any fevers, chills, weakness, fatigue, Headache, Chest Pain, Shortness of breath, cough, palpitations, abdominal pain, N/V/D or changes in bowel or bladder habits. PMHx: ESRD on HD (MWF), PVD s/p amputations, CAD s/p CABG, HTN, IDDM2, DLP, Hx of CVA, Morbid Obesity PSHX: Right hip replacement Bilateral cataracts Left arm fistula Appendectomy Spinal fusion of L3/4/5 in 1960s PE: GEN: 72 yo M, appears stated age. No acute distress. Alert and oriented x 3. HEENT: Normocephalic, atraumatic. Moist mucous membranes. CHEST: Regular rate and rhythm, +S1, +S2 LUNGS: Clear to auscultation bilaterally. No wheezes, rales, or rhonchi. Breathing appears symmetric and easy. ABD: Round, soft, non-tender, non-distended. EXT: No lower extremity edema appreciated. Bandages bilateral feet. NEURO: Alert and oriented x 3. Cranial nerves III-XII are intact. No focal deficits appreciated. A&P: 1. Non healing foot wounds. Afebrile. WBC 12.4, CRP 6.71. Continue wound care. pain control gabapentin/tramadol. S/P angiogram LE 08/31/18. No intervention at that time. S/P angiogram with angioplasty/arthrectomy 09/06/18. Plan is for wound debridement after dialysis today as per Dr Berger. 2. ESRD. HD as per Nephrology M/W/F. DVT prophylaxis. SQ heparin. VS, I&O, 24H, Fishbone Vital Signs/I&O Vital Signs Date Time Temp Pulse Resp B/P (MAP) Pulse Ox O2 Delivery O2 Flow Rate FiO2 09/07/18 09:03 18 09/07/18 06:00 96.8 70 155/73 (100) 96 09/06/18 16:42 2 I&O- Last 24 Hours up to 6 AM 09/07/18 06:00 Intake Total 890 ml Output Total 0 ml Balance 890 ml Laboratory Data 24H LABS Laboratory Tests 2 09/06/18 11:56: Bedside Glucose (Misc Panel) 172H 09/06/18 17:38: Bedside Glucose (Misc Panel) 108 09/06/18 19:53: Bedside Glucose (Misc Panel) 162H 09/07/18 05:23: Nucleated Red Blood Cells % (auto) 0.0, Anion Gap 7L, Glomerular Filtration Rate 10.0L, Blood Urea Nitrogen 57H, Creatinine 5.94H, Sodium Level 136, Potassium Level 5.0, Chloride Level 101, Carbon Dioxide Level 28, Calcium Level 9.4, Magnesium Level 2.4, C-Reactive Protein, Quantitative 6.71H CBC/BMP Laboratory Tests 09/07/18 05:23 Red Blood Count 3.21 L, Mean Corpuscular Volume 104.4 H, Mean Corpuscular Hemoglobin 32.4, Mean Corpuscular Hemoglobin Concent 31.0 L, Red Cell Distribution Width 15.0 H, Calcium Level 9.4 Microbiology Microbiology 08/28/18 Blood Culture - Final, Complete NO GROWTH AFTER 5 DAYS 08/28/18 Blood Culture - Final, Complete NO GROWTH AFTER 5 DAYS Kasia Holloway Sep 07, 2018 10:26
[2018-09-07] MEDS ORDERED: LIDOCAINE 2% INJ 100 MG/5 ML SDV (FOR ANES.) As Ordered ONE (11:03)
[2018-09-07] MEDS ORDERED: ONDANSETRON 4MG/2ML VIAL (J2405) As Ordered ONE (11:03)
[2018-09-07] MEDS ORDERED: propofoL 200 MG/20 ML VIAL As Ordered ONE (11:03)
[2018-09-07] MEDS ORDERED: fentaNYL 100 MCG/2 ML INJECTION (J3010) As Ordered ONE (11:04)
[2018-09-07] MEDS ORDERED: MIDAZOLAM INJ 2 MG/2 ML VIAL (J2250) As Ordered ONE (11:04)
[2018-09-07] MEDS ORDERED: LORATADINE 10 MG TAB PO ONE (12:00)
--- NOTE | 2018-09-07 12:00 | IPNPDOC ---
Date Seen The patient was seen on 09/07/18. 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 He reports that he is comfortable and that there were no new events since yesterday. He is s/p angiogram with angioplasty/arthrectomy yesterday with Dr. Berger. He states that the procedure went well and he is feeling a little improved today, with only soreness of the procedure site with no signs of infection. He states that his b/l lower extremity pain is about the same as yesterday and he requested a pain pill due to discomfort which improved his symptoms. He states that his diarrhea has resolved since holding the bowel medication. He reports some nasal congestion and requested something to help this. He denies chest pain, shortness of breath, fever, chills, diaphoresis, abdominal pain, nausea/vomiting, and headache. OBJECTIVE PHYSICAL EXAMINATION: VITAL SIGNS: Please see below. General: Patient examined in hemodialysis this morning, laying pleasantly in bed, AAOx3, no acute distress HEENT: NC, AT, rt pupil dilated fixed at baseline per his , left pupil ERRLA CVS: Regular rate and rhythm, Normal +S1S2, no murmurs, gallops or rubs appr eciated Lungs: Clear to auscultation bilaterally, No appreciable adventitious sounds Abdomen: Soft, normal bowel sounds in all 4 quadrants, no tenderness to light or deep palpation, no rebound, rigidity or guarding Extremities: No edema, mild tenderness to palpation. B/l LE wrapped in bandages & boot. Cool feet b/l with poor perfusion Skin: Sacral decubitus ulcer stage 2 not examined today LABORATORY DATA, IMAGING STUDIES, MICROBIOLOGY: Please see below. IMAGING: - Chest X-ray 08/28/18: Stable chest. There is cardiomegaly but no evidence of acute cardiopulmonary disease. DVT prophylaxis ordered?: Heparin sc ASSESSMENT AND PLAN: This is a 72-year-old male with PMHx of ESRD on HD (MWF), PVD s/p amputations, CAD s/p CABG, HTN, IDDM2, DLP, Hx of CVA, Morbid Obesity, came to ER per Dr. Christensen for poor wound healing b/l and was advised go to the emergency room for further evaluation for likely vascular intervention. PLAN: 1. Necrotic ulcer of left heel with additional LE wounds 2/2 peripheral vascular disease -Pt s/p angiogram with angioplasty and arthrectomy with Dr. Berger on 09/06/18. He states that the procedure went well and that there is only mild tenderness at the procedure site with no signs of infection. -Plan for wound debridement with Dr. Berger after hemodialysis today -Has poor wound healing at baseline due to PVD. Continue dressing changes. Is otherwise doing well and afebrile, stable with prior days. Necrosis around left lateral foot without surrounding cellulitis. Normally follows Dr. Christensen and outpatient. WBC & CRP stable and trending down. No fever or chills. No increase in fluid drainage from wounds. Will monitor and consider abx upon re assessment. 2. Diarrhea -improved since stopping GI meds. Continue monitoring. Is 2/2 recent bowel regimen added for initial constipation. Good po intake. No blood loss or fever or abd pain. 3. Leukocytosis -likely reactionary 2/2 above, as well as elevated CRP. WBC and CRP are trending down today. Pt stable and without signs of infection. Blood cxs negative. Monitor. 4. ESRD on HD (MWF) -Nephrology on consultation 5. HTN -well controlled. Continue Carvedilol 6. IDDM2 -continue ISS & Levemir 7. CAD s/p CABG -continue ASA and Plavix. Continue Carvedilol and Simvastatin 8. DLP -continue Simvastatin 9. Hx of CVA -continue Simvastatin, ASA and Plavix 10. Morbid Obesity -complicates care & long-term management 11. Neuropathy likely 2/2 DM -continue Gabapentin 12. BPH -continue Finasteride 13. DVT prophylaxis: Heparin sc Disposition: Patient is stable and reports mild change in lower extremity pain. Pt s/p angiogram with angioplasty and arthrectomy with Dr. Berger on 09/06/18. He states that the procedure went well and that there is only mild tenderness at the procedure site with no signs of infection. Plan for wound debridement with Dr. Berger after hemodialysis today. C/w pain control and wound care. Monitoring CBC and CRP which are trending down today. Possible discharge home 24-48 hours. I saw and evaluated the patient. I agree with the findings and plan of care as documented in the above note VS, I&O, 24H, Fishbone Vital Signs/I&O Vital Signs Date Time Temp Pulse Resp B/P (MAP) Pulse Ox O2 Delivery O2 Flow Rate FiO2 09/07/18 09:03 18 09/07/18 06:00 96.8 70 155/73 (100) 96 09/06/18 16:42 2 I&O- Last 24 Hours up to 6 AM 09/07/18 06:00 Intake Total 890 ml Output Total 0 ml Balance 890 ml Laboratory Data 24H LABS Laboratory Tests 2 09/06/18 11:56: Bedside Glucose (Misc Panel) 172H 09/06/18 17:38: Bedside Glucose (Misc Panel) 108 09/06/18 19:53: Bedside Glucose (Misc Panel) 162H 09/07/18 05:23: Nucleated Red Blood Cells % (auto) 0.0, Anion Gap 7L, Glomerular Filtration Rate 10.0L, Blood Urea Nitrogen 57H, Creatinine 5.94H, Sodium Level 136, Potassium Level 5.0, Chloride Level 101, Carbon Dioxide Level 28, Calcium Level 9.4, Magnesium Level 2.4, C-Reactive Protein, Quantitative 6.71H CBC/BMP Laboratory Tests 09/07/18 05:23 Red Blood Count 3.21 L, Mean Corpuscular Volume 104.4 H, Mean Corpuscular Hemoglobin 32.4, Mean Corpuscular Hemoglobin Concent 31.0 L, Red Cell Distribution Width 15.0 H, Calcium Level 9.4 Microbiology Microbiology 08/28/18 Blood Culture - Final, Complete NO GROWTH AFTER 5 DAYS 08/28/18 Blood Culture - Final, Complete NO GROWTH AFTER 5 DAYS EVERETTE MEYERS-3 Sep 07, 2018 12:00 RUSLAN LYN MD Sep 07, 2018 15:04
[2018-09-07] MEDS ORDERED: PILL CUTTER 1 EACH XX PRN (12:15)
[2018-09-07] MEDS ORDERED: LR 1,000 ML IV SCH (13:45)
[2018-09-07] MEDS ORDERED: oxyCODONE 5MG TAB PO PRN (13:45)
[2018-09-07] MEDS ORDERED: fentaNYL 100 MCG/2 ML INJECTION (J3010) IV PRN (13:45)
[2018-09-07 14:00] VITALS: BP 122/57
[2018-09-07] MEDS: traMADol 50 MG TAB PO PRN (14:08)
--- NOTE | 2018-09-07 17:56 | IPN ---
DATE: 09/07/2018 Mr. Chang is seen this morning during hemodialysis. He finally underwent angioplasty of his left lower extremity yesterday. He is still going to need some debridement of his left foot wound. Patient is feeling well and denies any nausea, vomiting, dyspnea or chest pain. PHYSICAL EXAMINATION: Temperature 96.8 degrees Fahrenheit, heart rate 70 per minute and respiratory rate 18 per minute. Blood pressure 155/73 mmHg and oxygen saturation 96% on room air. Head is atraumatic. Neck is supple and without jugular venous distention (JVD) or thyroid enlargement. Heart sounds regular. Lungs clear to auscultation. Abdomen soft and nontender and bowel sounds are normal. Extremities have no cyanosis or clubbing. His both feet are wrapped in dressings. Neurologically, he is at his baseline mentation. Today's labs show WBC count 12.4, hemoglobin 10.4 and hematocrit 33.5. Platelets 277. Sodium 136, potassium 5.0, CO2 28, BUN 57 and creatinine 5.94. C-reactive protein is down to 6.7. PROBLEMS: 1. End-stage renal disease. Patient is being dialyzed today and he is tolerating his dialysis very well. We are trying to remove about 1.5 liters fluid as tolerated. His electrolytes are stable and volume status is well-compensated. 2. Anemia. At present his anemia is stable and we will continue with Aranesp once a week during dialysis. 3. Peripheral vascular disease. Patient had angioplasty done and likely his foot wound is now going to heal. He is going to have some debridement done later today. 4. Hypertension. Blood pressure has been very well controlled on current antihypertensive medications and no changes are being made today.
[2018-09-07] MEDS: CYANOCOBALAMIN 500 MCG TAB PO SCH (21:46)
[2018-09-07] MEDS: ASPIRIN 81 MG ENTERIC TAB PO SCH (21:46)
[2018-09-07] MEDS: CARVedilol 3.125 MG TAB PO SCH (21:47)
[2018-09-07] MEDS: SIMVASTATIN 10 MG TAB PO SCH (21:47)
[2018-09-07] MEDS: FINASTERIDE 5 MG TAB PO SCH (21:47)
[2018-09-07] MEDS: CLOPIDOGREL 75 MG TAB PO SCH (21:48)
[2018-09-07 22:00] VITALS: BP 125/59
[2018-09-08] MEDS: HEPARIN SOD (PORCINE) 5000 UNITS/ML VIAL SC SCH ×3 (05:36→21:32)
[2018-09-08 06:00] VITALS: BP 143/66
[2018-09-08 07:20] LABS: HEMOGLOBIN 9.9 g/dl (13.5-17.5); MEAN CORPUSCULAR HEMOGLOBIN 32.6 pg (27.0-33.0); MEAN CORPUSCULAR HGB CONC 30.9 g/dl (32.0-36.5); MEAN CORPUSCULAR VOLUME 105.3 fl (80.0-96.0); PLATELET COUNT, AUTOMATED 260 10^3/uL (150-450); RED BLOOD COUNT 3.04 10^6/uL (4.30-6.10); WHITE BLOOD COUNT 11.6 10^3/uL (4.0-10.0)
[2018-09-08 07:42] LABS: CALCIUM LEVEL 9.1 MG/DL (8.8-10.2); CREATININE FOR GFR 4.86 MG/DL (0.70-1.30); GLOMERULAR FILTRATION RATE 12.6 (>42); MAGNESIUM LEVEL 2.1 MG/DL (1.8-2.4); POTASSIUM SERUM 4.7 MEQ/L (3.5-5.1)
[2018-09-08] MEDS: NORCO, ANEXSIA 5/325MG TABLET (HYDROcodone/ACETAMINOPHEN) PO PRN ×3 (07:55→21:29)
[2018-09-08] MEDS: CARVedilol 3.125 MG TAB PO SCH ×2 (07:56→21:27)
[2018-09-08] MEDS: (RENVELA) SEVELAMER **CARBONate** 800 MG TAB PO SCH ×3 (07:56→17:17)
[2018-09-08] MEDS: SIMETHICONE 80 MG CHEW TAB PO SCH ×4 (07:56→21:27)
[2018-09-08] MEDS: LANTHANUM CARBONATE 500 MG CHEW TABLET PO SCH ×3 (07:57→17:17)
[2018-09-08] MEDS: HumaLOG INSULIN (NovoLOG) PER UNIT SC SCH ×4 (07:57→21:00)
[2018-09-08] MEDS: LEVEMIR (INSULIN DETEMIR) 1 UNITS/0.01ML SC SCH ×2 (07:58→21:28)
[2018-09-08] MEDS: ANUSOL HC CREAM 30GM TOP SCH ×2 (07:59→21:30)
[2018-09-08 10:41] LABS: PHOSPHORUS LEVEL 3.4 MG/DL (2.5-4.9)
[2018-09-08 14:00] VITALS: BP 141/66
[2018-09-08] MEDS ORDERED: BISACODYL 5 MG TAB PO PRN (14:45)
[2018-09-08] MEDS: MOM 30ML SUSPENSION UDC PO SCH (14:46)
--- NOTE | 2018-09-08 18:10 | IPN ---
DATE: 09/08/2018 SUBJECTIVE: The patient is seen, examined this morning at the bedside. He denies any overnight events or issues. He was dialyzed yesterday with 1700 mL of fluid removed. He inquires in regards to discharge plans. He denies any nausea, vomiting, dyspnea or chest pain. VITAL SIGNS: Temperature 98.0, pulse 68, respiratory rate 20, blood pressure 141/66, saturating 96% on room air. Intake yesterday was 1 liter. Dialysis yesterday removed 1700, net negative 700. Weight in the bed scale today is not recorded. GENERAL: Patient is seen lying down in bed. is present at the bedside. Extraocular muscles are intact. Neck is supple. Jugular veins were not distended. There is no thyroid enlargement. The heart sounds are regular. S1-S2. There is no edema in the peripheries nor in the dependent areas. Lungs are clear to auscultation bilaterally. No crackle or rales. Abdomen is soft and nontender. There are bowel sounds. The extremities have both feet in waffle boots and dressings. The fistula in the left upper extremity is patent. Neurologically, he is at baseline mentation and in good spirits. LABORATORY DATA: White count 11.6, hemoglobin 9.9. Sodium 135, potassium 4.7, phosphorus of 3.4. CRP is downtrending. INPATIENT MEDICATIONS: Reviewed by myself. He was started on some milk of magnesia per the primary team. Remainder of the medications are unchanged from prior. PROBLEMS: 1. End-stage renal disease on hemodialysis on Monday, Monday, Monday schedule. He continues on his usual maintenance schedule. His electrolytes and volume status are acceptable. His fistula is in good use. No changes are being made to the current prescription. 2. Anemia. His hemoglobin is stable, but suboptimal at 9.9. He continues with Aranesp with dialysis once a week. 3. Peripheral vascular disease status post angioplasty. Patient has foot wounds. Follows with Dr. Berger and Dr. Christensen 4. Hypertension. Blood pressures are well-controlled and no changes are being made to the current regimen of carvedilol. 5. Secondary hyperparathyroidism of renal origin. His phosphorus is acceptable and no changes are being made to his binders. He also continues on his usual calcium emetic with acceptable calcium level.
--- NOTE | 2018-09-08 18:43 | IPNPDOC ---
Text Note Date of Service The patient was seen on 09/08/18. NOTE SUBJECTIVE: Examined at bedside, no new complaints. Underwent wound debridement yesterday and is feeling like his normal self today aside from some pain in left leg where wound was debrided. No f/c/n/v/abd pain/cp/sob. OBJECTIVE PHYSICAL EXAMINATION: VITAL SIGNS: Please see below. General: resting comfy, NAD, A&Ox3 HEENT: NC, AT, rt pupil dilated fixed at baseline per his , left pupil ERRLA CVS: Regular rate and rhythm, Normal +S1S2, no murmurs, gallops or rubs appreciated Lungs: Clear to auscultation bilaterally, No appreciable adventitious sounds Abdomen: Soft, normal bowel sounds in all 4 quadrants, no tenderness to light or deep palpation, no rebound, rigidity or guarding Extremities: No edema, mild tenderness to palpation. B/l LE wrapped in bandages & boot. Cool feet b/l with poor perfusion Skin: Sacral decubitus ulcer stage 2 not examined today LABORATORY DATA, IMAGING STUDIES, MICROBIOLOGY: Please see below. IMAGING: - Chest X-ray 08/28/18: Stable chest. There is cardiomegaly but no evidence of acute cardiopulmonary disease. DVT prophylaxis ordered?: Heparin sc ASSESSMENT AND PLAN: This is a 72-year-old male with PMHx of ESRD on HD (MWF), PVD s/p amputations, CAD s/p CABG, HTN, IDDM2, DLP, Hx of CVA, Morbid Obesity, came to ER per Dr. Christensen for poor wound healing b/l and was advised go to the emergency room for further evaluation for likely vascular intervention. 1. Necrotic ulcer of left heel with additional LE wounds 2/2 peripheral vascular disease -Pt s/p left leg angiogram with angioplasty with Dr. Berger on 09/06/18, and left leg wound debridement yesterday 09/07/18. Pt doing well. Dr. Berger plans to do angio on right leg in o/p setting. -Has poor wound healing at baseline due to PVD. Continue dressing changes. Is otherwise doing well and afebrile, stable with prior days. Necrosis around left lateral foot without surrounding cellulitis. Normally follows Dr. Christensen and outpatient. WBC & CRP stable and trending down. No fever or chills. No i ncrease in fluid drainage from wounds. 2. Diarrhea -resolved, was 2/2 bowel meds for constipation on admission. Now has constipation again. Will resume bowel meds and monitor. 3. Leukocytosis -likely reactionary 2/2 above. WBC and CRP continue downtrending. Pt stable and without signs of infection. Blood cxs negative. Monitor. 4. ESRD on HD (MWF) -Nephrology on consultation 5. HTN -well controlled. Continue Carvedilol 6. IDDM2 -continue ISS & Levemir 7. CAD s/p CABG -continue ASA and Plavix. Continue Carvedilol and Simvastatin 8. DLP -continue Simvastatin 9. Hx of CVA -continue Simvastatin, ASA and Plavix 10. Morbid Obesity -complicates care & long-term management 11. Neuropathy likely 2/2 DM -continue Gabapentin 12. BPH -continue Finasteride 13. DVT prophylaxis: Heparin sc Disposition: Patient is medically stable and cleared for discharge also from Dr. Berger with o/p f/u. However, pt would like to continue HD in [place], and this will require him to stay in the hospital till Monday when a seat can be secured for him. Pt and his do not feel safe leaving the hospital until HD at that site is set up. Continue monitoring and plan to d/c home after the weekend when this is arranged. I saw and evaluated the patient. I agree with the findings and plan of care as documented in the above note VS,Braydonbone, I+O VS, Fishbone, I+O Laboratory Tests 09/08/18 06:47 Red Blood Count 3.04 L, Mean Corpuscular Volume 105.3 H, Mean Corpuscular Hemoglobin 32.6, Mean Corpuscular Hemoglobin Concent 30.9 L, Red Cell Distribution Width 15.5 H, Calcium Level 9.1 Vital Signs Date Time Temp Pulse Resp B/P (MAP) Pulse Ox O2 Delivery O2 Flow Rate FiO2 09/08/18 14:26 20 09/08/18 14:00 98.0 68 141/66 (91) 96 09/06/18 16:42 2 I&O- Last 24 Hours up to 6 AM 09/08/18 06:00 Intake Total 1090 ml Output Total 1700 ml Balance -610 ml AMILCAR GRULLON DO Sep 08, 2018 18:43 RUSLAN LYN MD Sep 19, 2018 15:50
[2018-09-08] MEDS: CYANOCOBALAMIN 500 MCG TAB PO SCH (21:27)
[2018-09-08] MEDS: ASPIRIN 81 MG ENTERIC TAB PO SCH (21:27)
[2018-09-08] MEDS: SIMVASTATIN 10 MG TAB PO SCH (21:27)
[2018-09-08] MEDS: FINASTERIDE 5 MG TAB PO SCH (21:27)
[2018-09-08] MEDS: CLOPIDOGREL 75 MG TAB PO SCH (21:27)
[2018-09-08 22:00] VITALS: BP 134/60
[2018-09-09] MEDS: HEPARIN SOD (PORCINE) 5000 UNITS/ML VIAL SC SCH ×3 (05:02→21:58)
[2018-09-09 05:58] LABS: MEAN CORPUSCULAR HEMOGLOBIN 33.6 pg (27.0-33.0); MEAN CORPUSCULAR HGB CONC 31.3 g/dl (32.0-36.5); MEAN CORPUSCULAR VOLUME 107.4 fl (80.0-96.0); PLATELET COUNT, AUTOMATED 261 10^3/uL (150-450); RED BLOOD COUNT 2.98 10^6/uL (4.30-6.10); WHITE BLOOD COUNT 12.9 10^3/uL (4.0-10.0)
[2018-09-09 06:00] VITALS: BP 142/66
[2018-09-09 06:25] LABS: CALCIUM LEVEL 9.3 MG/DL (8.8-10.2); CREATININE FOR GFR 6.7 MG/DL (0.70-1.30); GLOMERULAR FILTRATION RATE 8.7 (>42); MAGNESIUM LEVEL 2.6 MG/DL (1.8-2.4); POTASSIUM SERUM 4.8 MEQ/L (3.5-5.1)
[2018-09-09] MEDS: HumaLOG INSULIN (NovoLOG) PER UNIT SC SCH ×4 (07:45→21:00)
[2018-09-09] MEDS: LEVEMIR (INSULIN DETEMIR) 1 UNITS/0.01ML SC SCH ×2 (07:45→21:57)
[2018-09-09] MEDS: (RENVELA) SEVELAMER **CARBONate** 800 MG TAB PO SCH ×3 (07:46→17:36)
[2018-09-09] MEDS: LANTHANUM CARBONATE 500 MG CHEW TABLET PO SCH ×3 (07:46→17:36)
[2018-09-09] MEDS: NORCO, ANEXSIA 5/325MG TABLET (HYDROcodone/ACETAMINOPHEN) PO PRN ×2 (07:46→17:36)
[2018-09-09] MEDS: MOM 30ML SUSPENSION UDC PO SCH (07:48)
[2018-09-09] MEDS: CARVedilol 3.125 MG TAB PO SCH ×2 (07:48→21:56)
[2018-09-09] MEDS: SIMETHICONE 80 MG CHEW TAB PO SCH ×4 (07:48→21:56)
[2018-09-09] MEDS: ANUSOL HC CREAM 30GM TOP SCH ×2 (07:49→21:59)
[2018-09-09 14:00] VITALS: BP 138/63
[2018-09-09 21:56] VITALS: BP 138/81
[2018-09-09] MEDS: CYANOCOBALAMIN 500 MCG TAB PO SCH (21:56)
[2018-09-09] MEDS: ASPIRIN 81 MG ENTERIC TAB PO SCH (21:57)
[2018-09-09] MEDS: FINASTERIDE 5 MG TAB PO SCH (21:57)
[2018-09-09] MEDS: SIMVASTATIN 10 MG TAB PO SCH (21:57)
[2018-09-09] MEDS: CLOPIDOGREL 75 MG TAB PO SCH (21:57)
[2018-09-09 22:00] VITALS: BP_SYST 130; BP_SYST 138; BP_DIAS 81; BP_DIAS 83
--- NOTE | 2018-09-10 00:33 | IPNPDOC ---
Subjective Date Seen The patient was seen on 09/09/18. Subjective Chief Complaint/HPI Complains of some leg pain . No further diarrhea, no abdominal pain , nausea or vomiting. No chest pain ro SOB. Objective Physical Examination General Exam: Positive: Alert, Cooperative, No Acute Distress ENT Exam: Positive: Atraumatic, Mucous membr. moist/pink, Pharynx Normal Neck Exam: Positive: Supple; Negative: JVD, thyromegaly Chest Exam: Positive: Clear to auscultation, Normal air movement Heart Exam: Positive: Rate Normal, Regular Rhythm, Normal S1, Normal S2; Negative: Murmurs, Rubs Abdomen Exam: Positive: Normal bowel sounds, Soft; Negative: Tenderness, Hepatospenomegaly Extremity Exam: Positive: Other Assessment /Plan Assessment This is a 72-year-old male with PMHx of ESRD on HD (MWF), PVD s/p am putations, CAD s/p CABG, HTN, IDDM2, DLP, Hx of CVA, Obesity, Bed bound with mobilization by ijeoma lift came to ER per Dr. Christensen's instruction for poor wound healing. He was advised go to the emergency room for further evaluation for likely vascular intervention. Necrotic ulcer of left heel with additional LE wounds 2/2 peripheral vascular disease Pt s/p left leg angiogram with angioplasty with Dr. Berger on 09/06/18, and left leg wound debridement yesterday 09/07/18. Pt doing well. Dr. Berger plans to do angio on right leg in o/p setting. Has poor wound healing at baseline due to PVD. Continue dressing changes. Is otherwise doing well and afebrile, stable with prior days. Necrosis around left lateral foot without surrounding cellulitis. Normally follows Dr. Christensen and outpatient. WBC & CRP stable and trending down. No fever or chills. No increase in fluid drainage from wounds. PAD continue ASA, plavix. S/P angiogram LE 08/31/18. No intervention at that time. S/P angiogram with angioplasty/arthrectomy 09/06/18. Diarrhea resolved, was 2/2 bowel meds for constipation on admission. Now has constipation again. Bowel meds resumed. Leukocytosis likely reactionary 2/2 above. WBC and CRP continue downtrending. Pt stable and without signs of infection. Blood cxs negative. Monitor. CAD s/p CABG continue ASA and Plavix. Continue Carvedilol and Simvastatin DLP continue Simvastatin End-stage renal disease. The patient is regularly dialyzed on Monday, Monday and Monday. regular schedule via nephrology Anemia or chronic disease HH at goal continue aranesp and iron as per nephrology. Diabetes with diabetic neuropathy Diabetes is well-controlled and will continue with current insulin regimen. Levemir and lispro gabapentin. 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 History of pulmonary TB in 2017 treated in [place]. finished 9 months of treatment. Hypertension Bp controlled will continue current dosage of coreg. 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 Has ijeoma lift at home. bed bound completely dependent in all his ADLs Plan/VTE VTE Prophylaxis Ordered?: Yes VS, I&O, 24H, Fishbone Vital Signs/I&O Vital Signs Date Time Temp Pulse Resp B/P (MAP) Pulse Ox O2 Delivery O2 Flow Rate FiO2 09/09/18 08:16 18 09/09/18 07:48 78 135/87 09/09/18 06:00 96.9 95 09/06/18 16:42 2 I&O- Last 24 Hours up to 6 AM 09/09/18 05:59 Intake Total 1298 ml Output Total 0 ml Balance 1298 ml Laboratory Data 24H LABS Laboratory Tests 2 09/08/18 17:08: Bedside Glucose (Misc Panel) 231H 09/08/18 20:29: Bedside Glucose (Misc Panel) 198H 09/09/18 05:40: Nucleated Red Blood Cells % (auto) 0.0, Anion Gap 9, Glomerular Filtration Rate 8.7L, Blood Urea Nitrogen 61H, Creatinine 6.70H, Sodium Level 133L, Potassium Level 4.8, Chloride Level 96L, Carbon Dioxide Level 28, Calcium Level 9.3, Magnesium Level 2.6H 09/09/18 11:52: Bedside Glucose (Misc Panel) 144H CBC/BMP Laboratory Tests 09/09/18 05:40 Red Blood Count 2.98 L, Mean Corpuscular Volume 107.4 H, Mean Corpuscular Hemoglobin 33.6 H, Mean Corpuscular Hemoglobin Concent 31.3 L, Red Cell Distribution Width 15.4 H, Calcium Level 9.3 MAHESH CEDENO MD Sep 09, 2018 12:50
[2018-09-10 06:00] VITALS: BP 136/65
[2018-09-10] MEDS: HEPARIN SOD (PORCINE) 5000 UNITS/ML VIAL SC SCH (06:00)
[2018-09-10 06:05] LABS: HEMATOCRIT 31.2 % (42.0-52.0); HEMOGLOBIN 9.8 g/dl (13.5-17.5); MEAN CORPUSCULAR HEMOGLOBIN 32.7 pg (27.0-33.0); MEAN CORPUSCULAR HGB CONC 31.4 g/dl (32.0-36.5); PLATELET COUNT, AUTOMATED 284 10^3/uL (150-450); WHITE BLOOD COUNT 11.1 10^3/uL (4.0-10.0)
[2018-09-10] MEDS: CINACALCET 30 MG TAB (SENSIPAR) PO SCH (06:08)
[2018-09-10] MEDS: MOM 30ML SUSPENSION UDC PO SCH ×2 (06:08→06:10)
[2018-09-10] MEDS: LANTHANUM CARBONATE 500 MG CHEW TABLET PO SCH (06:08)
[2018-09-10] MEDS: SIMETHICONE 80 MG CHEW TAB PO SCH (06:08)
[2018-09-10] MEDS: (RENVELA) SEVELAMER **CARBONate** 800 MG TAB PO SCH (06:08)
[2018-09-10 06:36] LABS: CALCIUM LEVEL 9.4 MG/DL (8.8-10.2); CREATININE FOR GFR 7.77 MG/DL (0.70-1.30); GLOMERULAR FILTRATION RATE 7.3 (>42); MAGNESIUM LEVEL 2.5 MG/DL (1.8-2.4); POTASSIUM SERUM 4.7 MEQ/L (3.5-5.1)
[2018-09-10] MEDS: HumaLOG INSULIN (NovoLOG) PER UNIT SC SCH (07:37)
[2018-09-10] MEDS: LEVEMIR (INSULIN DETEMIR) 1 UNITS/0.01ML SC SCH (07:38)
[2018-09-10] MEDS: ANUSOL HC CREAM 30GM TOP SCH (07:38)
[2018-09-10] MEDS: NORCO, ANEXSIA 5/325MG TABLET (HYDROcodone/ACETAMINOPHEN) PO PRN (07:43)
--- NOTE | 2018-09-10 14:04 | IPN ---
DATE: 09/10/2018 SUBJECTIVE: The patient was seen and examined this morning at bedside. He denied any overnight events and no issues have been reported. The patient is currently pending discharge with outpatient dialysis at [place]. OBJECTIVE: VITAL SIGNS: Temperature 98.1, pulse 72, respiratory rate 18, blood pressure 126/65, pulse oximetry 96% on room air. GENERAL: The patient is awake, alert, oriented. Appears in no acute distress. He is conversant. He is lying in bed comfortably. CARDIAC: Regular rate and rhythm. No clicks, rubs or murmurs. Normal S1, S2. No jugular venous distention (JVD). PULMONARY: Clear lung sounds bilaterally. No wheezes, rhonchi or rales. ABDOMINAL: Soft, nontender, nondistended. Positive bowel sounds. EXTREMITIES: Bilateral feet wrapped in dressings. The patient has a fistula in the left lower extremity. PSYCHIATRIC: Mood and affect are appropriate. LABORATORY DATA: Hematology: White blood cell count 9.1, hemoglobin 9.8, hematocrit 31.2, platelets 284. Chemistries: Sodium 132, potassium 4.7, chloride 94, CO2 of 27, BUN 80, creatinine 7.7, fasting glucose 205, calcium 9.4, magnesium 2.5. ASSESSMENT AND PLAN: 1. End stage renal disease on hemodialysis on Monday, Monday and Monday. The patient is planned to be discharged today. He is to continue his usual maintenance schedule for hemodialysis in [place]. An appointment is scheduled for 1:45 this afternoon. No changes are going to be made to his dialysis prescription. 2. Anemia. The patient's hemoglobin is stable though currently suboptimal. He receives Aranesp with his dialysis once a week. 3. Peripheral vascular disease, status post angioplasties. The patient has bilateral foot wounds. He had angioplasty with stenting. Currently being followed by Dr. Berger and Dr. Christensen. 4. Hypertension. The patient's blood pressure is fairly well controlled. No changes were made to his medications. 5. Secondary hyperparathyroidism. The patient's phosphorous previously was acceptable. He is continued on calcium and has acceptable calcium levels. [facility]
--- NOTE | 2018-09-10 19:01 | DS.PDOC ---
Discharge Summary General Date of Admission Aug 28, 2018 at 17:37 Date of Discharge 09/10/2018 Attending Physician: MAHESH CEDENO MD Specialist/Consultants Involve Corporate Training Manager: Dr. Moore Vascular surgery: Dr. Berger Discharge Summary PROCEDURES PERFORMED DURING STAY: HD, left leg angiogram & angioplasty, left foot wound debridement ADMITTING DIAGNOSES: 1. 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 finished 9 months of treatment. Hypertension H/o Gastric ulcers and ischemic colitis Sacral Decubiti stage 2 Anemia of chronic disease COMPLICATIONS/CHIEF COMPLAINT: Wound Of Left Foot. HISTORY OF PRESENT ILLNESS: 72-year-old male was advised to come to the hospital for further assessment due to poor wound healing bilateral lower extremities. He normally follows Dr. Christensen as an outpatient, and given the concern of his poor blood flow of lower extremities, he was advised to come to the hospital for evaluation for possible vascular intervention. He does have a hx of toe amputations in past due to his PVD. On admission, he denied other symptoms. No f/c/n/v/abd pain/leg pain or swelling. HOSPITAL COURSE: Patient was admitted. Vascular Surgery Dr. Berger consulted. Nephrology also consulted to continue his dialysis while inpatient. He underwent angiogram 08/31/18, with plans for intervention on a follow-up day. However, intervention was delayed due to OR scheduling, and pt ultimately received angioplasty 09/06/18. He then underwent left leg debridement 09/07/18. Per vascular surgery, pt safe for discharge with recommendations to follow-up outpatient for right lower extremity angiogram. During the stay, pt was continued on HD, but on dc, they wanted to continue with their regular dialysis center in [place], so discharge was delayed till Monday when seat was secured. Pt was feeling well and cleared for discharge to f/u with wound care with Dr. Venkat cleveland & Dr. Berger & PCP. DISCHARGE MEDICATIONS: Please see below. ALLERGIES: Please see below. PHYSICAL EXAMINATION ON DISCHARGE: VITAL SIGNS: Please see below. GENERAL: NAD, A&Ox3 HEENT: nc, at, EOMI NECK: supple, no JVD CARDIOVASCULAR EXAMINATION: RRR, normal S1 S2 RESPIRATORY EXAMINATION: CTAB, no w/r/r ABDOMINAL EXAMINATION: soft, nt/nd, normoactive bowel sounds EXTREMITIES: 2+ pulses b/l, no cyanosis or edema. B/L LE wrapped in dressing & boot. Cold feet b/l NEUROLOGICAL EXAMINATION: no focal deficits, able to move all extremities LABORATORY DATA: Please see below. IMAGIN08/28/18 cxr: Stable chest. There is cardiomegaly but no evidence of acute cardiopulmonary disease. PROGNOSIS: fair ACTIVITY: As tolerated. DIET: consistent carb, 2g sodium DISPOSITION: home DISCHARGE INSTRUCTIONS: 1. Follow-up with PCP within a week, Dr. Christensen & Dr. Berger as scheduled 2. Return to ER for emergency DISCHARGE CONDITION: Stable. TIME SPENT ON DISCHARGE: 35 minutes. Vital Signs/I&Os Vital Signs Date Time Temp Pulse Resp B/P (MAP) Pulse Ox O2 Delivery O2 Flow Rate FiO2 09/10/18 08:13 16 09/10/18 06:00 98.1 72 136/65 (88) 96 09/09/18 22:00 0.0 I&O- Last 24 Hours up to 6 AM 09/10/18 06:00 Intake Total 800 ml Balance 800 ml Laboratory Data Labs 24H Laboratory Tests 2 09/10/18 05:31: Nucleated Red Blood Cells % (auto) 0.0, Anion Gap 11, Glomerular Filtration Rate 7.3L, Blood Urea Nitrogen 80H, Creatinine 7.77H, Sodium Level 132L, Potassium Level 4.7, Chloride Level 94L, Carbon Dioxide Level 27, Calcium Level 9.4, Magnesium Level 2.5H 09/10/18 12:06: Bedside Glucose (Misc Panel) 147H CBC/BMP Laboratory Tests 09/10/18 05:31 Red Blood Count 3.00 L, Mean Corpuscular Volume 104.0 H, Mean Corpuscular Hemoglobin 32.7, Mean Corpuscular Hemoglobin Concent 31.4 L, Red Cell Distribution Width 15.2 H, Calcium Level 9.4 FSBS Laboratory Tests Test 09/10/18 12:06 Range/Units Bedside Glucose (Misc Panel) 147 83-110 MG/DL Discharge Medications Scheduled Alpha Lipoic Acid (Alpha Lipoic Acid) 200 Mg Capsule, 200 MG PO QPM, (Reported) Aspirin (Aspirin) 81 Mg Chw, 81 MG PO QPM, (Reported) Bimatoprost (Lumigan) 50 Drop/2.5 Ml Yamilet, 1 DROP OU QHS, (Reported) Brinzolamide/Brimonidine Tart (Simbrinza 1%-0.2% Eye Drops) 8 Ml Drops.susp, 1 DROP OD TID, (Reported) Carvedilol (Carvedilol) 3.125 Mg Tab, 3.125 MG PO BID, (Reported) NON-DIALYSIS DAYS:, ,SAT AND SUN Carvedilol (Carvedilol) 3.125 Mg Tab, 3.125 MG PO QHS, (Reported) AFTER DIALYSIS DAYS: MON, MON, FRI Cinacalcet (Sensipar) 30 Mg Tab, 30 MG PO 3XW, (Reported) MON, MON, MON- GIVEN AT DIALYSIS CENTER Clopidogrel Bisulfate (Clopidogrel) 75 Mg Tab, 75 MG PO QPM, (Reported) Cyanocobalamin (Vitamin B-12) (Vitamin B-12) 1,000 Mcg Tab, 1,000 MCG PO QHS, (Reported) Finasteride (Finasteride) 5 Mg Tab, 5 MG PO QPM, (Reported) Folic Acid/Vit B Complex and C (Fabienne-Julieth Tablet) 1 Tab Tab, 1 TAB PO QPM, (Reported) Garlic (Garlic) 500 Mg Capsule, 1,000 MG PO QHS, (Reported) Insulin Detemir (Levemir) 1 Units/0.01 Ml Susp, 60 UNITS SC BID, (Reported) Insulin Human Lispro (Humalog) 1 Units/0.01 Ml Inj, SC AC, (Reported) PER SLIDING SCALE Lanthanum Carbonate (Lanthanum Carbonate) 1,000 Mg Chw, 1,000 MG PO WM, (Reported) Sevelamer Carbonate (Renvela) 800 Mg Tablet, 4,000 MG PO WM, (Reported) Sevelamer Carbonate (Renvela) 800 Mg Tablet, 1,600 MG PO ASDIRECTED, (Reported) 2 TABLETS WITH SNACKS Simethicone (Gas Relief 80) 80 Mg Tab.chew, 80 MG PO PCHS, (Reported) Simvastatin (Simvastatin) 10 Mg Tab, 10 MG PO QPM, (Reported) Scheduled PRN Gabapentin (Gabapentin) 100 Mg Cap, 100 MG PO BID PRN for PAIN, (Reported) Hydrocodone/Acetaminophen ([place] 5-325 Tablet) 1 Tab Tab, 1 TAB PO Q6H PRN for PAIN, (Reported) Lidocaine/Prilocaine (Lidocaine-Prilocaine Cream) 2.5%/2.5% Cream..g., 1 APLCT TOP ASDIRECTED PRN for FOR DIALYSIS DAYS, (Reported) MON, WED, FRI Sennosides/Docusate Sodium (Senna-S Tablet) 1 Tab Tab, 1 TAB PO BID PRN for CONSTIPATION, (Reported) Tramadol HCl (Tramadol HCl) 50 Mg Tab, 50 MG PO Q4H PRN for PAIN, (Reported) Allergies Coded Allergies: No Known Allergies (Unverified , 03/27/17) GME ATTESTATION GME ATTESTATION My faculty preceptor for this patient encounter was physically present during the encounter and was fully available. All aspects of the patient interview, examination, medical decision making process, and medical care plan development were reviewed and approved by the faculty preceptor. The faculty preceptor is aware and concurs with the plan as stated in the body of this note and will attest to such by his/her cosignature. ATTENDING NOTE I saw and examined the patient. I agree with the finding and the plan of care as documented in the resident's note. I spent 35 mins in counselling the patient and his and coordinating his discharge. AMILCAR GRULLON DO Sep 10, 2018 19:01 MAHESH CEDENO MD Sep 10, 2018 23:39
--- NOTE | 2018-10-11 08:22 | RO ---
DATE OF PROCEDURE: 08/31/2018 ATTENDING SURGEON: Dr. Yehuda Berger WORKFORCE SERVICES REPRESENTATIVE: None. PREOPERATIVE DIAGNOSES: 1. Nonhealing left foot ulcer. 2. Diabetes mellitus. 3. End-stage renal disease. POSTOPERATIVE DIAGNOSES: 1. Nonhealing left foot ulcer. 2. Diabetes mellitus. 3. End-stage renal disease. PROCEDURE: Aortogram, iliofemoral angiogram, selective right common femoral artery catheter placement, and right lower extremity angiogram. Selective right superficial femoral artery catheter placement with right lower extremity angiogram, left lower extremity angiogram by the left common femoral sheath, Mynx closure of the left common femoral arteriotomy. INDICATION: The patient is a 72-year-old male with bilateral lower extremity wounds, which are nonhealing, with the left foot wound being significantly worse with exposed bone on the left lateral foot. The patient will undergo a bilateral lower extremity angiogram with possible angioplasty stent and/or atherectomy. Risks, benefits, and alternative treatment options were discussed with the patient. ANESTHESIA: Local monitored anesthesia care (MAC). ESTIMATED BLOOD LOSS: 30 mL. IV FLUIDS: 100 mL. FLUOROSCOPY TIME: 3.3 minutes 29 seconds. CONTRAST: 26 mL of Isovue-300. HEPARIN: None. COMPLICATIONS: None. DRAINS: None. IMPLANTS: Left common femoral arteriotomy closure with a Mynx closure device. PROCEDURE: The patient was taken to the operating room, placed supine on the operating room table and then prepped and draped in the standard surgical fashion. The left common femoral artery was cannulated using a micropuncture needle after anesthetizing the overlying skin with 1% lidocaine mixed with 0.5% Marcaine. The micropuncture wire was advanced through the micropuncture needle, which was upsized to a micropuncture sheath. A Bentson wire was advanced through the micropuncture sheath, which was upsized to 5-Macedonian sheath. An Omni flush catheter was placed in the aorta and aortogram was performed. The catheter was pulled down level to the bifurcation iliac arteries and an iliofemoral angiogram was performed. Catheter was directed over the bifurcation iliac arteries, placed in the right common femoral artery and a selective right common femoral artery angiogram was performed. Catheter was advanced in the right superficial femoral artery as far distal as possible and angiogram was performed. The catheter was then removed over a Bentson wire and a left lower extremity angiogram was performed via the left common femoral arterial sheath. The sheath was then removed using a Mynx closure device to close the arteriotomy in the left common femoral artery with an additional 10 minutes of adjunctive pressure applied for hemostasis. Dressings were then applied. The patient tolerated procedure well. All instrument, sponge, and needle counts were correct at the end the case. There were no complications. Dr. Berger was present for and directed the entire case. The patient was transferred to the recovery room and subsequent to the floor in stable condition.
--- NOTE | 2018-10-11 08:50 | RO ---
DATE OF PROCEDURE: 09/07/2018 ATTENDING SURGEON: Dr. Yehuda Berger MANAGER TECHNOLOGY: None. 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 PROCEDURE: Left foot wound debridement with excisional sharp debridement of skin, subcutaneous tissue, muscle and bone INDICATION: The patient is a 72-year-old male with nonhealing left foot wounds and severe tibioperoneal arterial atherosclerotic occlusive disease. The patient will undergo debridement of all nonviable tissue and in attempt to aid healing of the left foot wounds. ANESTHESIA: MAC. ESTIMATED BLOOD LOSS: 15 mL. IV FLUIDS: 150 mL. HEPARIN: None. COMPLICATIONS: None. DRAINS: None. SPECIMENS: None. WOUND DESCRIPTION: The lateral foot wound measures 9.5 cm in length, 3.5 cm in width, and 1 mm in depth. The leg ulcer measures 6 cm in length,4.5 cm in width, and approximately 2 mm in depth. PROCEDURE: The patient was taken to the operating room, placed supine on the operating room table and the left lower extremity was prepped and draped in a standard surgical fashion. The lateral foot wound was debrided sharply using pickups and scalpel with removal of skin, subcutaneous tissue, muscle and bone down to healthy bleeding tissue and healthy bone. The wound was then irrigated with saline. The leg wound was then debrided sharply with removal of skin, subcutaneous tissue and muscle using a scalpel and Adson pickups down to healthy bleeding tissue. The wound was then irrigated. Dressings were then applied. The patient tolerated the procedure well. All instrument, sponge, and needle counts were correct at the end the case. There were no complications. Dr. Berger was present for and directed the entire case. The patient was transferred to the holding area and subsequently to the floor in stable condition.
--- NOTE | 2018-10-11 11:56 | REPIR ---
DATE OF PROCEDURE: 09/06/2018 ATTENDING SURGEON: Dr. Lloyd Berger LENS POLISHER HAND: Jaqueline Martini and Karen Mclain PREOPERATIVE DIAGNOSIS: End-stage renal disease, diabetes mellitus, nonhealing left foot ulcer. POSTOPERATIVE DIAGNOSIS: End-stage renal disease, diabetes mellitus, nonhealing left foot ulcer. PROCEDURE: Right common femoral arterial cannulation, selective left common femoral artery catheter placement with left lower extremity angiogram, selective left superficial femoral artery catheter placement with left lower extremity angiogram, selective left popliteal artery catheter placement with left lower extremity angiogram, selective left peroneal artery catheter placement with left lower extremity angiogram, MYNX closure of the right common femoral arteriotomy. INDICATION: The patient is a 72-year-old male with nonhealing left foot ulcers and severe tibioperoneal atherosclerotic arterial occlusive disease who will undergo an angiogram with possible angioplasty stent and/or atherectomy. Risks, benefits and alternative treatment options were discussed with the patient. ANESTHESIA: Local. FLUORO TIME: 8.2 minutes. CONTRAST: 14 mL of Isovue-300. HEPARIN: None. COMPLICATIONS: None. DRAINS: None. SPECIMENS: None. IMPLANTS: None. DESCRIPTION OF PROCEDURE: The patient was taken to the angiography suite, placed supine on the angiography table and then prepped and draped in the standard surgical fashion. The right common femoral artery was cannulated. The catheter was placed in the left common femoral, superficial femoral, popliteal and peroneal arteries and angiography was performed. There was occlusion of the peroneal artery which was attempted to be recanalized without success. Catheters and wires were removed. The sheath was removed. A MYNX closure device was used close the arteriotomy in the right common femoral artery with an additional 10 minutes of adjunctive pressure applied for hemostasis. Dressings were then applied. The patient tolerated the procedure well. All instrument, sponge and needle counts were correct at the end the case. There were no complications. Dr. Berger was present for and directed the entire case. The patient was transferred to the holding area and subsequently to the floor in stable condition.
[2018-12-19] MEDS ORDERED: CEFP200T PO (09:45)
[2018-12-19] MEDS ORDERED: SUCR1SS PO (09:45)
[2018-12-19] MEDS ORDERED: BRIM0.2S13 OD (09:45)
[2018-12-19] MEDS ORDERED: SANT250O8 (09:45)
[2018-12-19] MEDS ORDERED: MESA1.2T PO (09:45)
== END 2018-09-10 12:33 | disposition home or self-care (01) | DRG 264 ==
LOC: M ED 12:51 → M ED INP 17:37 → M MSPAV 21:51
PROVIDERS: ADMIT Internal Medicine; ATTEND Internal Medicine Nephrology
PROC: 5A1D70Z Performance of Urinary Filtration, Intermittent, Less than 6 Hours Per Day (ICD-10-PCS; 2018-08-29)
PROC: B40DYZZ Plain Radiography of Aorta and Bilateral Lower Extremity Arteries using Other Contrast (ICD-10-PCS; 2018-08-31)
PROC: 0KBT0ZZ Excision of Left Lower Leg Muscle, Open Approach (ICD-10-PCS; 2018-09-07)
PROC: 0YBN0ZZ Excision of Left Foot, Open Approach (ICD-10-PCS; principal; 2018-09-07 12:30)
DX: E11.52 Type 2 diabetes mellitus with diabetic peripheral angiopathy with gangrene (principal); N18.6 End stage renal disease; R53.2 Functional quadriplegia; I12.0 Hypertensive chronic kidney disease with stage 5 chronic kidney disease or end stage renal disease; L97.329 Non-pressure chronic ulcer of left ankle with unspecified severity; N25.81 Secondary hyperparathyroidism of renal origin; E87.1 Hypo-osmolality and hyponatremia; E11.22 Type 2 diabetes mellitus with diabetic chronic kidney disease; I25.10 Atherosclerotic heart disease of native coronary artery without angina pectoris; E66.9 Obesity, unspecified; E78.5 Hyperlipidemia, unspecified; Z79.82 Long term (current) use of aspirin; Z99.2 Dependence on renal dialysis; Z86.73 Personal history of transient ischemic attack (TIA), and cerebral infarction without residual deficits; Z79.4 Long term (current) use of insulin; H54.61 Unqualified visual loss, right eye, normal vision left eye; Z79.899 Other long term (current) drug therapy; Z96.641 Presence of right artificial hip joint; Z98.41 Cataract extraction status, right eye; Z98.42 Cataract extraction status, left eye; Z98.1 Arthrodesis status; Z90.49 Acquired absence of other specified parts of digestive tract; L97.529 Non-pressure chronic ulcer of other part of left foot with unspecified severity; E11.621 Type 2 diabetes mellitus with foot ulcer; E11.622 Type 2 diabetes mellitus with other skin ulcer; E11.42 Type 2 diabetes mellitus with diabetic polyneuropathy; Z89.421 Acquired absence of other right toe(s); Z89.411 Acquired absence of right great toe; D63.1 Anemia in chronic kidney disease; Z68.34 Body mass index [BMI] 34.0-34.9, adult; L89.152 Pressure ulcer of sacral region, stage 2; E87.5 Hyperkalemia; K59.00 Constipation, unspecified; R19.7 Diarrhea, unspecified; Z86.11 Personal history of tuberculosis; Z95.1 Presence of aortocoronary bypass graft

== ENCOUNTER → 2018-10-18 | Outpatient (CLI) | payer MEDICARE, BC ==
[~2018-10-18] MED LIST changes: +ALPH200C6 PO; +BUPIVACAINE HCL 0.5% 10 ML VIAL As Ordered ONE; +GARL500C10 PO; +GNP80CHW PO; +HEPARIN 1,000 UNITS/ML 10ML VIAL (FOR RADIOLOGY& DIALYSIS ONLY) As Ordered ONE; +ISOVUE-300 61% 50ML VIAL (Q9967) As Ordered ONE; +LIDO2.5C15 TOP; +LIDOCAINE 2% MDV 20 ML VIAL As Ordered ONE; +MIDAZOLAM INJ 2 MG/2 ML VIAL (J2250) As Ordered ONE; +PROTAMINE SULF INJ 50 MG/5 ML VIAL (J2720) As Ordered ONE; -SENN-53 PO; +SENN1TAB40 PO; +SIMV10TA2 PO; -SIMV10TA21 PO; +diphenhydrAMINE INJ 50MG/ML VIAL (J1200) As Ordered ONE; +fentaNYL 100 MCG/2 ML INJECTION (J3010) As Ordered ONE
[2018-10-18 14:45] VITALS: BP 147/67
--- NOTE | 2018-11-02 17:24 | REPIR ---
DATE OF PROCEDURE: 10/18/2018 ATTENDING SURGEON: Dr. Lloyd Berger METHODS SPECIALIST ENGINEER: Jaqueline Martini and Mitchell Grajeda PREOPERATIVE DIAGNOSIS: Right lower extremity nonhealing ulcers. POSTPROCEDURE DIAGNOSIS: Right lower extremity nonhealing ulcers. PROCEDURE: Left common femoral arterial cannulation, selective right common femoral artery catheter placement with right lower extremity angiogram. INDICATION: The patient is a 73-year-old male with diabetes mellitus and end-stage renal disease who has nonhealing ulcers in the right lower extremity. The patient will undergo right lower extremity angiogram with possible angioplasty, stent and/or atherectomy. Risks, benefits and alternative treatment options were discussed with the patient. ANESTHESIA: Local with sedation with 1 mg of Versed, 50 mcg of fentanyl and 20 mL of 2% lidocaine mixed with 0.5% Marcaine. FLUORO TIME: 7.5 minutes. CONTRAST: 12 mL HEPARIN: 7000 units, protamine 50 mg COMPLICATIONS: None. DRAINS: None. SPECIMENS: None. IMPLANTS: Mynx closure device used to close the left common femoral arteriotomy. PROCEDURE: The patient was taken to the angiography suite, placed supine on the angiography room table and then prepped and draped in a standard surgical fashion. The left common femoral artery was cannulated. The catheter was brought up over the bifurcation, placed in the right common femoral artery and a right lower extremity angiogram was performed showing severe atherosclerotic arterial occlusive disease with no intervention possible. The catheters and wires were removed. The Mynx closure was used to close the arteriotomy in the left common femoral artery with an additional 10 minutes of adjunctive pressure applied for hemostasis. Dressings were then applied. The patient tolerated the procedure well. All instrument, sponge and needle counts were correct at the end the case. There were no complications. Dr. Berger was present for and directed the entire case. The patient was transferred to holding area and subsequently to the floor in stable condition.
== END ==
LOC: M IRPRO 07:31
PROVIDERS: ATTEND Surgery Vascular Surgery
DX: I70.201 Unspecified atherosclerosis of native arteries of extremities, right leg (principal); L97.819 Non-pressure chronic ulcer of other part of right lower leg with unspecified severity; E11.51 Type 2 diabetes mellitus with diabetic peripheral angiopathy without gangrene; E11.22 Type 2 diabetes mellitus with diabetic chronic kidney disease; N18.6 End stage renal disease; I12.0 Hypertensive chronic kidney disease with stage 5 chronic kidney disease or end stage renal disease; E78.5 Hyperlipidemia, unspecified; G89.4 Chronic pain syndrome
CPT/HCPCS: 36246; 75710; 99152; 99153; C1725; C1760; C1769; C1887; C1894; G0269; J1200; J2250; J2720; J3010; Q9967

== ENCOUNTER → 2018-11-13 | Outpatient (REF) | payer MEDICARE, BC ==
[~2018-11-13] MED LIST changes: -BUPIVACAINE HCL 0.5% 10 ML VIAL As Ordered ONE; -HEPARIN 1,000 UNITS/ML 10ML VIAL (FOR RADIOLOGY& DIALYSIS ONLY) As Ordered ONE; -ISOVUE-300 61% 50ML VIAL (Q9967) As Ordered ONE; -LIDOCAINE 2% MDV 20 ML VIAL As Ordered ONE; -MIDAZOLAM INJ 2 MG/2 ML VIAL (J2250) As Ordered ONE; -PROTAMINE SULF INJ 50 MG/5 ML VIAL (J2720) As Ordered ONE; -diphenhydrAMINE INJ 50MG/ML VIAL (J1200) As Ordered ONE; -fentaNYL 100 MCG/2 ML INJECTION (J3010) As Ordered ONE
== END ==
LOC: M LAB REF 16:21
PROVIDERS: ATTEND Physician Assistant
DX: L97.524 Non-pressure chronic ulcer of other part of left foot with necrosis of bone (principal)

== ENCOUNTER → 2018-11-27 | Outpatient (REF) | payer MEDICARE, BC ==
[~2018-11-27] MED LIST changes: +SENN-53 PO; -SENN1TAB40 PO
== END ==
LOC: M SFHCPLAZ 11:32
PROVIDERS: ATTEND Physician Assistant
DX: L89.623 Pressure ulcer of left heel, stage 3 (principal)

== ENCOUNTER 2018-12-26 06:15 | Inpatient (IN) | payer MEDICARE, BC ==
[~2018-12-26] VITALS: Ht 180.3 cm; Wt 103.8 kg
[2018-12-26] VITALS (7 sets, daily range): BP systolic 121–131; BP diastolic 66–74
[~2018-12-26 06:15] MED LIST changes: +BRIM0.2S13 OD; +CEFP200T PO; +LR 1,000 ML IV ONE; +MESA1.2T PO; +SANT250O8; +SUCR1SS PO; +ceFAZolin SOD 2 GM in IV 1 EA IV ONE
[2018-12-26] MEDS ORDERED: LIDOCAINE 1% MDV 20ML VIAL As Ordered ONE (06:48)
[2018-12-26] MEDS ORDERED: BUPIVACAINE HCL 0.5% 10 ML VIAL As Ordered ONE ×2 (06:48→07:16)
[2018-12-26 07:01] LABS: HEMATOCRIT 32.3 % (42.0-52.0); HEMOGLOBIN 9.4 g/dl (13.5-17.5); MEAN CORPUSCULAR HEMOGLOBIN 30.4 pg (27.0-33.0); MEAN CORPUSCULAR HGB CONC 29.1 g/dl (32.0-36.5); MEAN CORPUSCULAR VOLUME 104.5 fl (80.0-96.0); PLATELET COUNT, AUTOMATED 362 10^3/uL (150-450); RED BLOOD COUNT 3.09 10^6/uL (4.30-6.10); WHITE BLOOD COUNT 8.7 10^3/uL (4.0-10.0)
[2018-12-26] MEDS ORDERED: LIDOCAINE 2% INJ 100 MG/5 ML SDV (FOR ANES.) As Ordered ONE (07:14)
[2018-12-26] MEDS ORDERED: ONDANSETRON 4MG/2ML VIAL (J2405) As Ordered ONE (07:14)
[2018-12-26] MEDS ORDERED: dexameTHASONE 4 MG/ML 1ML VIAL (J1100) As Ordered ONE (07:14)
[2018-12-26] MEDS ORDERED: PROPOFOL 200 MG/20 ML VIAL As Ordered ONE (07:14)
[2018-12-26] MEDS ORDERED: MIDAZOLAM INJ 2 MG/2 ML VIAL (J2250) As Ordered ONE (07:15)
[2018-12-26] MEDS ORDERED: fentaNYL 100 MCG/2 ML INJECTION (J3010) As Ordered ONE (07:15)
[2018-12-26] MEDS ORDERED: HumaLOG INSULIN (NovoLOG) PER UNIT As Ordered ONE (07:40)
[2018-12-26] MEDS ORDERED: ceFAZolin 1GM INJ (J0690 PER 500MG) As Ordered ONE (07:58)
[2018-12-26] MEDS ORDERED: HumaLOG INSULIN (NovoLOG) PER UNIT SC ONE ×2 (08:00→10:00)
[2018-12-26] MEDS ORDERED: oxyCODONE 5MG TAB PO PRN (10:00)
[2018-12-26] MEDS ORDERED: fentaNYL 100 MCG/2 ML INJECTION (J3010) IV PRN (10:00)
[2018-12-26] MEDS ORDERED: METOCLOPRAMIDE INJ 10MG/2ML VIAL (J2765) IV PRN (10:00)
[2018-12-26] MEDS ORDERED: LR 1,000 ML IV SCH (10:00)
[2018-12-26] MEDS ORDERED: ONDANSETRON 4MG/2ML VIAL (J2405) IV PRN (10:00)
--- NOTE | 2018-12-26 14:43 | RO ---
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 POSTPROCEDURE DIAGNOSES: Left foot fourth and fifth toe gangrene and diabetic ulcerations, left foot. PROCEDURE: Left foot fourth and fifth toe amputations and wound debridement, excisional, including subcutaneous tissue and skin. SURGEON: Vinicius Díaz DPM NETWORKS SOFTWARE CONSULTANT: None. ANESTHESIA: Monitored anesthesia care. Preoperative injection of 8 mL of 1:1 mixture of 1% Lidocaine plain and 0.5% Marcaine plain. ESTIMATED BLOOD LOSS: 10 mL. MATERIALS: 3-0 nylon. INJECTABLES: None. COMPLICATIONS: None. SPECIMENS: Left fourth and fifth toes. INDICATION: Jeremie Chang is a pleasant, unfortunate 73-year-old male who is admitted to [facility] with dysvascular left foot. He has chronic ulcerations to this foot related to the poor blood flow. He has fully gangrenous changes to his left fourth and fifth toes, as well as multiple wounds on both the lateral and medial foot and heel, as well as the left hallux. He presents today for surgical correction. DESCRIPTION OF PROCEDURE: Patient, site and side were identified and marked in preoperative holding area. Consent was reviewed and obtained. All risks, complications, and alternatives to the procedure were explained to the patient in detail and all questions were answered. The patient was brought to the operating room and placed on the operating room table in the supine position. Monitored anesthesia care was delivered by the anesthesia team. Preoperative injection of 8 mL of 1:1 mixture of 1% Lidocaine plain and 0.5% Marcaine plain were injected in the left foot. The left foot was prepped and draped in a normal sterile fashion. No tourniquet was applied during the procedure. The fourth and fifth toes were inspected with fully gangrenous changes, they were completely black with no blood flow. These toes were amputated, disarticulated at the metatarsophalangeal joint. They were irrigated with normal saline and a loose closure was performed with 3-0 nylon. The other wounds were inspected and the necrotic or nonviable tissue was debrided with #15 blade. Gauze dressings were applied and the patient was brought to postanesthesia care unit (PACU), vital signs stable, neurovascular status at baseline. He does not ambulate. He can continue using a wheelchair. His appointment will be with the wound care center tomorrow. We will follow.
--- NOTE | 2018-12-26 14:56 | HPEPDOC ---
General Date of Admission Date of Service: Dec 26, 2018 Primary Care Physician: Terence Casepr MD [facility] Other Providers Dr. Vinicius Yañez Attending Physician: JB LOVETT MD Chief Complaint The patient is a 73-year-old male admitted with a reason for visit of Diabetic Type Ii Ulcer Stage 4. Source: Old records Exam Limitations: Other (the patient is sedated) Timing/Duration: Unsure Severity: Moderate Associated Symptoms: Unobtainable History of Present Illness This is a 73-year-old male with extensive wounds to both lower extremities. The patient has underlying gny-fpavwkp-rjkyeedri diabetes mellitus with vasculopathy. He has multiple ulcer wounds. The left lower extremity including the heel, Achilles tendon and both sides of the midfoot with bony exposure. He also has necrosis to the fourth and fifth left toes. He also has ulcer wounds to his right lower extremity as well. Enterococcus faecalis has been isolated from wounds to the left lower extremity. The patient was brought over to same day [facility] for debridement of the wounds and amputation of the left fourth and fifth toes. Postoperatively, the patient has been very slow to wake up and so he has been placed in observation. The patient also has chronic kidney disease stage V that is hemodialysis-requiring; he was scheduled for dialysis after his procedure today. Home Medications Scheduled Alpha Lipoic Acid (Alpha Lipoic Acid) 200 Mg Capsule, 200 MG PO QPM, (Reported) Aspirin (Aspirin) 81 Mg Chw, 81 MG PO QPM, (Reported) Bimatoprost (Lumigan) 50 Drop/2.5 Ml Yamilet, 1 DROP OU QHS, (Reported) Brimonidine Tartrate (Brimonidine Tartrate) 0.2% 5ML Drops, 1 DROP OD TID, (Reported) Brinzolamide/Brimonidine Tart (Simbrinza 1%-0.2% Eye Drops) 8 Ml Drops.susp, 1 DROP OD TID, (Reported) Carvedilol (Carvedilol) 3.125 Mg Tab, 3.125 MG PO BID, (Reported) NON-DIALYSIS DAYS:TUES, THURS,SAT AND SUN Carvedilol (Carvedilol) 3.125 Mg Tab, 3.125 MG PO QHS, (Reported) AFTER DIALYSIS DAYS: MON, WED, MON Cefpodoxime Proxetil (Cefpodoxime Proxetil) 200 Mg Tablet, 200 MG PO BID, (Reported) Cinacalcet (Sensipar) 30 Mg Tab, 30 MG PO 3XW, (Reported) MON, MON, MON- GIVEN AT DIALYSIS CENTER Clopidogrel Bisulfate (Clopidogrel) 75 Mg Tab, 75 MG PO QPM, (Reported) Cyanocobalamin (Vitamin B-12) (Vitamin B-12) 1,000 Mcg Tab, 1,000 MCG PO QHS, (Reported) Finasteride (Finasteride) 5 Mg Tab, 5 MG PO QPM, (Reported) Folic Acid/Vit B Complex and C (Fabienne-Julieth Tablet) 1 Tab Tab, 1 TAB PO QPM, (Reported) Garlic (Garlic) 500 Mg Capsule, 1,000 MG PO QHS, (Reported) Insulin Detemir (Levemir) 1 Units/0.01 Ml Susp, 60 UNITS SC BID, (Reported) Insulin Human Lispro (Humalog) 1 Units/0.01 Ml Inj, SC AC, (Reported) PER SLIDING SCALE Lanthanum Carbonate (Lanthanum Carbonate) 1,000 Mg Chw, 1,000 MG PO WM, (Reported) Mesalamine (Mesalamine) 1.2 Gm Tablet.dr, 4.8 GM PO DAILY, (Reported) Sevelamer Carbonate (Renvela) 800 Mg Tablet, 4,000 MG PO WM, (Reported) Sevelamer Carbonate (Renvela) 800 Mg Tablet, 1,600 MG PO ASDIRECTED, (Reported) 2 TABLETS WITH SNACKS Simethicone (Gas Relief 80) 80 Mg Tab.chew, 80 MG PO PCHS, (Reported) Simvastatin (Simvastatin) 10 Mg Tab, 10 MG PO QPM, (Reported) Sucralfate (Carafate) 1 Gm/10 Ml Oral.susp, 10 ML PO QID, (Reported) Scheduled PRN Gabapentin (Gabapentin) 100 Mg Cap, 100 MG PO BID PRN for PAIN, (Reported) Hydrocodone/Acetaminophen ([place] 5-325 Tablet) 1 Tab Tab, 1 TAB PO Q6H PRN for PAIN, (Reported) Lidocaine/Prilocaine (Lidocaine-Prilocaine Cream) 2.5%/2.5% Cream..g., 1 APLCT TOP ASDIRECTED PRN for FOR DIALYSIS DAYS, (Reported) MON, MON, FRI Sennosides/Docusate Sodium (Senna-S Tablet) 1 Tab Tab, 1 TAB PO BID PRN for CONSTIPATION, (Reported) Tramadol HCl (Tramadol HCl) 50 Mg Tab, 50 MG PO Q4H PRN for PAIN, (Reported) Miscellaneous Medications Collagenase Clostridium Hist. 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, gastric ulcer disease, coronary artery disease with MS in 2018 Surgical History Surgical history includes right upper extremity carpal tunnel decompression, right total hip arthroplasty, bilateral cataract surgery, AV graft placement, l umbar decompression laminectomy, appendectomy, coronary artery bypass graft surgery, prior right amputation of fourth and fifth toes Family History Significant Family History: Diabetes, Heart disease Social History * Smoker: non-smoker Alcohol: Denies Drugs: denies Pets in the home: Dog(s) Psychosocial History: No pertinent psych hx 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 Physical Examination General Exam: Positive: Other (the patient is sedated, he is responsive on occasion to tactile stim. O2 sats are 100% on 2 L/m with a respiratory rate of 18-19 breaths per minute.) Eye Exam: Positive: Conjunctiva & lids normal ENT Exam: Positive: Atraumatic, Mucous membr. moist/pink, Nares Patent, Pinna Normal Neck Exam: Positive: Supple (to passive motion); Negative: JVD, thyromegaly, +2 carotid pulse wo bruit, Lymphadenopathy, Other Chest Exam: Positive: Other (the patient has shallow respirations with occasional coarse right-sided breath sounds. There is no wheezing) Heart Exam: Positive: Rate Normal, Normal S1, Normal S2 Abdomen Exam: Positive: Normal bowel sounds, Soft, Other (the patient does have significant central obesity with a body mass index of 34.1); Negative: Tenderness, Hepatospenomegaly Extremity Exam: Positive: Other (pedal pulses are nonpalpable due to thick bandaging. The right lower extremity is in a heel floating boot with heavy wrapping. The left lower extremity is wrapped in a dressing and then wrapped with a compression bandage. There is some bleeding to the dressing. Exposed toe is warm to the touch. Patient will withdraw feet on occasion to tactile stim.) Skin Exam: Positive: Nl turgor and temperature Neuro Exam: Positive: Other (unable to fully assess as patient is sedated. Again, patient will withdraw to tactile stim) Psych Exam: Positive: Other (the patient is not conversant or otherwise responsive at this time) Vital Signs Vital Signs Date Time Temp Pulse Resp B/P (MAP) Pulse Ox O2 Delivery O2 Flow Rate FiO2 12/26/18 12:30 69 16 162/83 (109) 97 Nasal Cannula 2 12/26/18 09:55 97.3 Laboratory Data Labs 24H Laboratory Tests 2 12/26/18 06:42: Nucleated Red Blood Cells % (auto) 0.0 12/26/18 07:33: Bedside Glucose (Misc Panel) 277H 12/26/18 08:32: Bedside Glucose (Misc Panel) 235H 12/26/18 09:12: Bedside Glucose (Misc Panel) 218H CBC/BMP Laboratory Tests 12/26/18 06:42 Assessment/Plan 1. Vasculopathy. This is a 73-year-old male who has undergone left fourth and fifth toe amputati on due to ischemia. He has undergone significant wound care and revascularization attempt in the past. 2. Chronic kidney disease stage V. Patient has chronic kidney disease that is hemodialysis requiring. Initial plans the patient for the patient to dialyze later this afternoon. This technical document writer has con tacted the nephrology service who will dialyze the patient today or tomorrow. 3. Zgv-uzlvkyl-wpawjzzmj diabetes mellitus. Medication regimen has been reviewed. It will be restored where possible, along with sliding scale insulin. The patient is experiencing extended sedation post procedure. He is placed on observation status on the medical floor. We are hopeful of being able to discharge this patient home in 24-36 hours. Plan / VTE VTE Prophylaxis Ordered?: Yes (heparin) Plan IVF: Initiate Diet: Continue Current Activity: Continue Current Therapy: PT, OT Respiratory: Wean Oxygen Diagnostics: Check Labs, Repeat Labs in AM Anticipated Discharge: Home JB LOVETT MD Dec 26, 2018 14:56
[2018-12-26] MEDS ORDERED: GLUCOSE 4 GM CHEW TABLET PO PRN (15:00)
[2018-12-26] MEDS ORDERED: ACETAMINOPHEN TAB 650MG DOSE (2X325MG) PO PRN (15:00)
[2018-12-26] MEDS ORDERED: GLUCAGON FOR INJ 1 MG VIAL (J1610) SC PRN (15:00)
[2018-12-26] MEDS ORDERED: DEXTROSE 50% 50 ML SYRINGE IV PRN (15:00)
[2018-12-26] MEDS ORDERED: traMADol 50 MG TAB PO PRN (18:30)
[2018-12-26] MEDS ORDERED: GABAPENTIN 100 MG CAP PO PRN (18:30)
[2018-12-26] MEDS ORDERED: SENOKOT S TAB PO PRN (18:30)
[2018-12-26] MEDS: HumaLOG INSULIN (NovoLOG) PER UNIT SC SCH (18:30)
[2018-12-26] MEDS: SIMETHICONE 80 MG CHEW TAB PO SCH ×2 (18:30→21:33)
[2018-12-26] MEDS: oxyCODONE 5MG TAB PO PRN (19:37)
[2018-12-26] MEDS: BRINZOLAMIDE 1 % OPHTH SUSP (AZOPT) 10ML OD SCH (21:00)
[2018-12-26] MEDS ORDERED: HumaLOG INSULIN (NovoLOG) PER UNIT SC SCH (21:00)
[2018-12-26] MEDS: HEPARIN SOD (PORCINE) 5000 UNITS/ML VIAL SQ SCH (21:00)
[2018-12-26] MEDS ORDERED: CYANOCOBALAMIN 500 MCG TAB PO SCH (21:00)
[2018-12-26] MEDS ORDERED: CLOPIDOGREL 75 MG TAB PO SCH (21:00)
[2018-12-26] MEDS ORDERED: FINASTERIDE 5 MG TAB PO SCH (21:00)
[2018-12-26] MEDS ORDERED: ASPIRIN 81 MG CHEW TABLET PO SCH (21:00)
[2018-12-26] MEDS ORDERED: SIMVASTATIN 10 MG TAB PO SCH (21:00)
[2018-12-26] MEDS: BRIMONIDINE 0.1% OPHTH SOLN 5 ML OD SCH (21:00)
[2018-12-26] MEDS ORDERED: CARVedilol 3.125 MG TAB PO SCH (21:00)
[2018-12-26] MEDS: SUCRALFATE SUSP 1GM/10ML UD PO SCH (21:32)
[2018-12-27 01:10] VITALS: BP 160/61
[2018-12-27 05:30] VITALS: BP 158/82
[2018-12-27 06:12] LABS: HEMATOCRIT 30.6 % (42.0-52.0); HEMOGLOBIN 8.9 g/dl (13.5-17.5); MEAN CORPUSCULAR HEMOGLOBIN 29.8 pg (27.0-33.0); MEAN CORPUSCULAR HGB CONC 29.1 g/dl (32.0-36.5); MEAN CORPUSCULAR VOLUME 102.3 fl (80.0-96.0); PLATELET COUNT, AUTOMATED 324 10^3/uL (150-450); RED BLOOD COUNT 2.99 10^6/uL (4.30-6.10); WHITE BLOOD COUNT 7.7 10^3/uL (4.0-10.0)
[2018-12-27] MEDS: oxyCODONE 5MG TAB PO PRN ×2 (06:33→14:10)
[2018-12-27 06:47] LABS: CALCIUM LEVEL 9.7 MG/DL (8.8-10.2); CREATININE FOR GFR 5.91 MG/DL (0.70-1.30); POTASSIUM SERUM 5.5 MEQ/L (3.5-5.1)
[2018-12-27] MEDS: SUCRALFATE SUSP 1GM/10ML UD PO SCH ×2 (08:01→14:12)
[2018-12-27] MEDS: HumaLOG INSULIN (NovoLOG) PER UNIT SC SCH ×2 (08:02→14:08)
[2018-12-27] MEDS: SIMETHICONE 80 MG CHEW TAB PO SCH ×2 (08:03→14:09)
[2018-12-27] MEDS: (RENVELA) SEVELAMER **CARBONate** 800 MG TAB PO SCH ×2 (08:03→14:09)
[2018-12-27 08:05] VITALS: BP 115/56
[2018-12-27] MEDS: HEPARIN SOD (PORCINE) 5000 UNITS/ML VIAL SQ SCH (08:07)
[2018-12-27] MEDS: BRIMONIDINE 0.1% OPHTH SOLN 5 ML OD SCH (08:08)
[2018-12-27] MEDS: BRINZOLAMIDE 1 % OPHTH SUSP (AZOPT) 10ML OD SCH (08:08)
[2018-12-27 08:36] VITALS: BP 115/56
[2018-12-27] MEDS ORDERED: CARVedilol 3.125 MG TAB PO SCH ×2 (09:00→21:00)
[2018-12-27] MEDS ORDERED: MESALAMINE 400 MG CAPSULE DELAYED RELEASE (DELZICOL) PO SCH (09:00)
[2018-12-27] MEDS ORDERED: HEPARIN 1,000 UNITS/ML 10ML VIAL (FOR RADIOLOGY& DIALYSIS ONLY) IV ONE (11:00)
[2018-12-27] MEDS ORDERED: LIDOCAINE 1% SDV 5 ML VIAL SQ ONE (11:00)
--- NOTE | 2018-12-27 12:52 | CR ---
DATE OF CONSULTATION: 12/27/2018 NEPHROLOGY CONSULTATION FOR: Oriana Barboza MD REASON FOR CONSULTATION: To assist in the management of end-stage renal disease. HISTORY OF PRESENT ILLNESS: Mr. Chang is very well-known to me from prior followup. He has known history of longstanding diabetes, hypertension, end- stage renal disease, peripheral vascular disease, severe neuropathy and spinal stenosis. He has been on maintenance hemodialysis for a few years. He was admitted to [facility] yesterday following his left toe amputation as he had anesthesia related complications and could not be discharged. Patient did miss his dialysis treatment also on Monday. His potassium is 5.5 this morning. A nephrology consultation was requested and patient is seen this morning for need for dialysis. PAST MEDICAL AND SURGICAL HISTORY: Significant for: 1. Longstanding diabetes. 2. Hypertension. 3. End-stage renal disease. 4. Hyperlipidemia. 5. Carpal tunnel syndrome. 6. Severe osteoarthritis. 7. BPH. 8. History f prior stroke. 9. History of Clarke Muhammad variant of Guillain-Hickman syndrome. 10. History of coronary artery disease and peripheral vascular disease. 11. History of gastroesophageal reflux disease. 12. He also has history of tuberculosis, for which he was treated just a couple of years ago. Past surgical history is significant for right upper extremity carpal tunnel release, right total hip arthroplasty, bilateral cataract surgery, arteriovenous (AV) graft placement in the left arm, lumbar decompression, laminectomy, appendectomy, coronary artery bypass graft surgery, prior right amputation of 4th and 5th toes and now left big toe amputation. PERSONAL AND SOCIAL HISTORY: Patient is and lives with his . He does not smoke, drink or use any drugs. FAMILY HISTORY: Significant for diabetes and heart problems. There is no family history for end-stage renal disease. MEDICATIONS: His home medications include: - aspirin 81 mg daily - Carvedilol 3.125 mg twice a day - Sensipar 30 mg three times a week - Plavix 75 mg daily - vitamin B12 1000 mcg daily - Proscar 5 mg daily - multivitamin 1 tablet daily - Levemir insulin 60 units twice a day - Humalog insulin per sliding scale - [id number] mg three times a day with meals - Renvela 4000 mg with meals - simvastatin 10 mg daily - Carafate 1 gram four times a day - gabapentin 100 mg twice a day as needed for neuropathy - [place] 5/325 mg every 6 hours as needed, pain - Lumigan eye drops 1 drop both eyes at bedtime - brimonidine eye drops 0.2% in right eye three times a day - Simbrinza eye drops three times a day in right eye ALLERGIES: Patient has NO KNOWN DRUG ALLERGIES. REVIEW OF SYSTEMS: At the time of my visit this morning the patient is awake and alert and at his baseline mentation. He denies any fever or chills. Ears, nose and throat are unremarkable. Cardiovascular system negative for dyspnea or chest pain. Respiratory system negative for cough or hemoptysis. Gastrointestinal (GI) system is negative for nausea, vomiting or diarrhea. Genitourinary () is negative for dysuria or hematuria. Endocrine system is significant for type 2 diabetes, secondary hyperparathyroidism and no thyroid problems. Hematological system is significant for anemia of chronic kidney disease. Musculoskeletal system significant for prior toe amputations and severe peripheral vascular disease. He is unable to ambulate. PHYSICAL EXAMINATION: Temperature 98 degrees Fahrenheit, heart rate 64 per minute and respiratory rate 16 per minute. Blood pressure 115/56 mmHg and oxygen saturation 100%. Head is atraumatic. Neck is supple and without jugular venous distention (JVD) or thyroid enlargement. Heart sounds are regular and lungs clear to auscultation. Abdomen soft and nontender and bowel sounds are normal. Extremities have no cyanosis or clubbing. He has an AV graft in his left upper arm. He has significant muscle wasting in his hands. Both feet are in dressings. Neurologically, he is at his baseline mentation. LABORATORY DATA: Today's labs show WBC count 7.7, hemoglobin 8.9 and hematocrit 30.6. Platelets 324. Sodium 132, potassium 5.5, CO2 of 25, BUN 73 and creatinine 5.91. Glucose 276 and calcium 9.7. PROBLEMS: 1, End-stage renal disease. Patient has missed dialysis treatment on Monday. We are going to dialyze him this morning. 2. Hyperkalemia. This is related to end-stage renal disease and missed dialysis treatment. Patient will be dialyzed with 2.0 mEq potassium bath, which will correct his hyperkalemia and no other intervention will be needed. 3. Anemia. It is related to end-stage renal disease and ongoing chronic inflammation in his lower extremities and foot wounds. We will hold off on any treatment here in the hospital as he has received treatment in the outpatient dialysis clinic and will be followed up. 4. Congestive heart failure. Volume status is reasonably well-compensated and no intervention is indicated at this point. We are trying to remove about 2 liters of fluid today with dialysis. 5. Hypertension. Blood pressure is well-controlled with current antihypertensive meds and no change. Thank you for involving me in the care of Mr. Chang. I will follow him along with you. LIANAD
[2018-12-27 15:21] VITALS: BP 107/51
== END 2018-12-27 17:20 | disposition home or self-care (01) | DRG 255 ==
LOC: M SDC 06:15 → M MS5PR 13:10 → M SDC 12-27 08:30 → M MS5PR 12-27 08:30
PROVIDERS: ADMIT Podiatrist Foot & Ankle Surgery; ATTEND Podiatrist Foot & Ankle Surgery
PROC: 0Y6Y0Z0 Detachment at Left 5th Toe, Complete, Open Approach (ICD-10-PCS; 2018-12-26)
PROC: 0JBR0ZZ Excision of Left Foot Subcutaneous Tissue and Fascia, Open Approach (ICD-10-PCS; 2018-12-26)
PROC: 0Y6W0Z0 Detachment at Left 4th Toe, Complete, Open Approach (ICD-10-PCS; principal; 2018-12-26 07:30)
DX: E11.52 Type 2 diabetes mellitus with diabetic peripheral angiopathy with gangrene (principal); N18.6 End stage renal disease; I12.0 Hypertensive chronic kidney disease with stage 5 chronic kidney disease or end stage renal disease; E11.621 Type 2 diabetes mellitus with foot ulcer; L97.524 Non-pressure chronic ulcer of other part of left foot with necrosis of bone; E11.22 Type 2 diabetes mellitus with diabetic chronic kidney disease; Z99.2 Dependence on renal dialysis; E78.5 Hyperlipidemia, unspecified; N52.9 Male erectile dysfunction, unspecified; M19.90 Unspecified osteoarthritis, unspecified site; N40.0 Benign prostatic hyperplasia without lower urinary tract symptoms; D63.1 Anemia in chronic kidney disease; I25.10 Atherosclerotic heart disease of native coronary artery without angina pectoris; I25.2 Old myocardial infarction; G65.0 Sequelae of Guillain-Barre syndrome; Z96.641 Presence of right artificial hip joint; Z98.41 Cataract extraction status, right eye; Z98.42 Cataract extraction status, left eye; Z90.49 Acquired absence of other specified parts of digestive tract; Z95.1 Presence of aortocoronary bypass graft; Z86.73 Personal history of transient ischemic attack (TIA), and cerebral infarction without residual deficits; Z89.421 Acquired absence of other right toe(s); Z86.15 Personal history of latent tuberculosis infection; Z79.02 Long term (current) use of antithrombotics/antiplatelets; Z79.82 Long term (current) use of aspirin; Z79.891 Long term (current) use of opiate analgesic; Z79.899 Other long term (current) drug therapy